=== PATIENT | female | born 1960 | race Caucasian/White ===

== ENCOUNTER 2017-04-03 17:20 | Inpatient (IN) | payer BC, SELFPAY ==
[~2017-04-03 17:20] MED LIST: ISOVUE-370 76%-LOCM 1 ML ONE
[2017-04-03 17:59] LABS: #Basophils 0.1 thou/uL (0.0-0.2); #Eosinphils 0.2 thou/uL (0.0-0.7); #Lymphocytes 3.8 thou/uL (1.20-3.40); #Monocytes 0.6 thou/uL (0.11-0.59); #Neutrophils 5.9 thou/uL (1.40-6.50); %Basophils 0.8 % (0.0-1.0); %Eosinophils 1.6 % (0.0-10.0); %Lymphocytes 35.7 % (21.0-51.0); %Monocytes 5.9 % (0.0-10.0); Hematocrit 44.5 % (36.0-47.0); Mean Platelet Volume 9.4 fL (7.4-10.4); Red Blood Cell (RBC) Count 4.68 mill/uL (4.20-5.40); White Blood Cell (WBC) Count 10.6 thou/uL (4.8-10.8)
[2017-04-03 18:23] LABS: ALT (SGPT) 34 U/L (8-55); AST (SGOT) 29 U/L (5-34); Alkaline Phosphatase 66 U/L (40-150); Anion Gap 9 mmol/L (10-20); BUN (Urea Nitrogen) 15 mg/dL (9.8-20.1); Bilirubin, Total 0.4 mg/dL (0.2-1.2); Calc. Creatinine Clearance 0 mL/min (70-130); Calcium 9.6 mg/dL (7.8-10.44); Carbon Dioxide 30 mmol/L (22-29); Chloride 103 mmol/L (98-107); Estimated GFR-MDRD 55; Globulin 3.1 g/dL (2.4-3.5); Lipase 98 U/L (8-78)
[2017-04-03] MEDS ORDERED: Acetaminophen 500 MG TAB ONE (20:55)
[2017-04-03] MEDS ORDERED: Ondansetron HCl/PF 4 MG/2 ML Vial ONE ×2 (21:07→21:56)
--- NOTE | 2017-04-03 22:17 | CT ---
CT ABDOMEN WITH CONTRAST CT PELVIS WITH CONTRAST: DATE: 04/03/17 TIME: 9:32 p.m. HISTORY: 56-year-old female with acute pancreatitis and epigastric pain. Nausea and emesis. COMPARISON: CT of 02/27/17. TECHNIQUE: IV injection of iodinated contrast media: Isovue Oral contrast media: Not administered. FINDINGS: Diffusely low hepatic attenuation represents fatty liver. Liver is enlarged. Spleen is 14 x 7.5 x 11 .5 cm. Extensive calcified and noncalcified plaque with irregularity, but without aneurysm, involvin g abdominal aorta. Appendix not visualized. Clips in the gallbladder fossa. Again demonstrated is th e dilation of the pancreatic duct, at the head and body of the pancreas, up to 7 mm in caliber. At t he body of the pancreas, there is an approximately 1.5 x 1.5 x 1.5 cm low attenuation lesion, with l obular margins, with fluid attenuation (axial image 26 of 90, series 2; coronal image 66 of 179, ser ies 601). The appearance is unchanged compared to 02/27/17. No peripancreatic fat stranding, and no ex trapancreatic pseudocyst. No hydronephrosis bilaterally. Normal adrenals. Nonspecific diffuse mild mural thickening of the urinary bladder, similar to previous CT. No free fluid or free air within th e abdominal cavity or pelvic cavity. Multiple diverticula in sigmoid colon without signs of acute di verticulitis. No small bowel dilation. No major interval change. No fat stranding around the pancrea s. Nonspecific mildly enlarged isidro hepatis lymph nodes. IMPRESSION: 1. A small hypodense lesion in the body of the pancreas. This is nonspecific, but one possibili ty is a cystic pancreatic neoplasm. 2. Pancreatic ductal dilation. 3. Hepatic steatosis. 4. Hepatomegaly. 5. Borderline splenomegaly. 6. Atherosclerotic disease of the abdominal aorta. 7. Status post cholecystectomy and perhaps status post appendectomy. 8. No significant interval change compared to 03/09/17. MANI Hope POS: JOSSY
[2017-04-04] MEDS ORDERED: Fentanyl 100 MCG/2 ML VIAL ONE (00:53)
[2017-04-04 02:07] VITALS: BMI 43.4
[2017-04-04] MEDS ORDERED: Dextrose 5% in Water 1,000 ML IV PRN (02:44)
[2017-04-04] MEDS ORDERED: HumaLOG 300 UNITS/3 ML VIAL SC PRN (02:44)
[2017-04-04] MEDS ORDERED: Dextrose 50% Abboject 50 ML SYRINGE SLOW IVP PRN (02:44)
[2017-04-04] MEDS: Morphine Sulfate 2 MG/ML SYRINGE SLOW IVP PRN ×3 (03:35→17:07)
--- NOTE | 2017-04-04 04:01 | HP-2 ---
CODE STATUS: FULL. PRIMARY CARE PHYSICIAN: Dr. Barcenas. ATTENDING: Dr. Camara. PGY-1: Dr. Blanton. CHIEF COMPLAINT: Nausea, vomiting, abdominal pain. HISTORY OF PRESENT ILLNESS: This is a 56-year-old female who presents with nausea, vomiting, abdomi nal pain for 3 months. She states that she has previously admitted for the same type of symptoms. She states she had a history of gallstones and chronic pancreatitis in the past as well. She also d escribes the pain as a 6/10 over epigastrium, worse on the left side, but does not radiate anywhere. She states she is nauseous all the time and has vomited multiple times as well. She denies any ja undice episodes. She has no other complaints at this time. PAST MEDICAL HISTORY: Significant for breast cancer, melanoma, coronary artery disease, diabetes me llitus, hyperlipidemia, hypertension, obesity, chronic pancreatitis, bipolar and depression. PAST SURGICAL HISTORY: Significant for hysterectomy, oophorectomy, bilateral lumpectomy and left kn ee surgery. ALLERGIES: Include ADHESIVES, BACTRIM, CODEINE, HYDROCODONE, NSAIDs, SULFA DRUGS, and TRAMADOL. MEDICATIONS: Include gabapentin 900 mg b.i.d., furosemide 40 mg, glargine 80 units b.i.d., lisinopr il 5 mg, isosorbide mononitrate 60 mg t.i.d., paroxetine 20 mg, Risperdal 0.5 mg, fenofibrate 160 mg , clopidogrel 75 mg. She was also given Zofran and meperidine, but she was unaware of the dosages o f those. FAMILY HISTORY: She had extensive cancer history in her maternal side including lung cancer in her mother and colon cancer in her uncle. SOCIAL HISTORY: She has a [id number] smoking history and still currently smoking 1 pack per day. She denies alcohol or drug use. REVIEW OF SYSTEMS: General: She denies fevers or chills. She does admit to a 20 pound weight loss over the last 3 months. Denies night sweats, or fatigue. Eyes: She denies vision changes or eye pain. ENT: She admits to nasal congestion from her seasonal allergies. She denies rhinorrhea, or sore throat. Respiratory: She denies cough, congestion, shortness of breath, exercise intolerance. Cardiovascular: She denies chest pain, palpitations, edema. Gastrointestinal: She admits to nausea and vomiting. She denies diarrhea or constipation. She oneal s admit to abdominal pain. Genitourinary: Denies any incontinence or dysuria. Skin: She denies r ashes, lesions, jaundice, itching. Musculoskeletal: She admits to pain, tenderness, stiffness, and swelling to her knees. Neurologic: She denies any weakness. She does note numbness in her hands from a previous back injury. Psychiatric: She denies any anxiety or depression. PHYSICAL EXAMINATION: VITAL SIGNS: Blood pressure was 125/71, pulse is 52, respiration 16, temperature max 98.2, pulse ox 99% on room air. Current weight is 111 kilograms. GENERAL: She is alert and oriented x4. She is obese, appropriately interactive. EYES: PERRLA. Conjunctivae within normal limits. ENT: Nasal mucosa and oropharynx within normal limits. NECK: Supple, without lymphadenopathy, thyromegaly, or bruit. CARDIOVASCULAR: Regular rate and rhythm. No murmurs, no gallops. Radial pulses and pedal pulses a re equal bilaterally. RESPIRATORY: Normal effort, no retractions. LUNGS: Clear to auscultation bilaterally. SKIN: Warm and dry. ABDOMEN: Soft. She was tender to palpation especially over epigastrium, worse on her left side. B owel sounds are present x4 and her liver was palpable. EXTREMITIES: She did not have any clubbing, cyanosis or edema. MUSCULOSKELETAL: Structure, tone, muscle strength and range of motion were within normal limits. NEUROLOGIC: No focal neurologic deficits. Cranial nerves II through XII are grossly intact. GCS w as 15. PSYCHIATRIC: She was appropriate. LABORATORY DATA AND IMAGING: White blood cell count 10.6, platelet count 168, hemoglobin 14.4, jermain tocrit 44.5, MCV 95, 55.9% neutrophils. Sodium 138, potassium 3.9, chloride 103, bicarbonate 30, BU N 15, creatinine 1.04, glucose was 111, calcium 9.6, total protein 7.0, albumin 3.9, total bilirubin 0.4, AST 29, ALT 34, alkaline phosphatase is 66. Lipase was 98. CT of her abdomen that showed a s mall hypodense lesion in the body of her pancreas, pancreatic ductal dilation, hepatic steatosis, he patomegaly and splenomegaly. ASSESSMENT AND PLAN: This is a 56-year-old female with a past medical history of coronary artery di sease, diabetes mellitus, hypertension, hyperlipidemia, obesity, chronic pancreatitis, bipolar depre ssion, breast cancer and melanoma, presents with: 1. Abdominal pain secondary to a pancreatic lesion versus chronic pancreatitis. We are going to gi ve her pain control with morphine. We are going to get a consult for biopsy, the best way to biopsy this lesion. We are going to trend cardiac enzymes and get an EKG just to rule out any atypical pr esentations of cardiac etiology. 2. Nausea and vomiting. We will give Zofran and Phenergan. 3. Weight loss. We are going to monitor her diet and monitor that going forward. 4. Coronary artery disease. Continue her home medications. 5. Diabetes. We will continue her home medication and give her a sliding scale. 6. Hyperlipidemia. Continue her home medications. 7. Hypertension. Continue her home medications. 8. Bipolar depression. Continue her home medications. 9. Tobacco abuse. We did advise her to quit, she did not want to use the nicotine patch. 10. Hepatomegaly was found. We will monitor that going forward. Disposition and length of hospital stay will be inpatient and greater than 2 midnights. Symptomatic medications will be provided. History and physical exam as well as management will be discussed with Dr. Camara.
[2017-04-04 04:06] LABS: #Basophils 0.1 thou/uL (0.0-0.2); #Eosinphils 0.2 thou/uL (0.0-0.7); #Lymphocytes 4.6 thou/uL (1.20-3.40); #Monocytes 0.6 thou/uL (0.11-0.59); %Basophils 0.5 % (0.0-1.0); %Eosinophils 2.2 % (0.0-10.0); %Lymphocytes 43.7 % (21.0-51.0); %Monocytes 5.3 % (0.0-10.0); Hematocrit 44.7 % (36.0-47.0); Mean Platelet Volume 9.2 fL (7.4-10.4); White Blood Cell (WBC) Count 10.4 thou/uL (4.8-10.8)
[2017-04-04 04:30] LABS: Troponin I Less than 0.010 ng/mL (< 0.028)
[2017-04-04 04:31] LABS: Anion Gap 12 mmol/L (10-20); BUN (Urea Nitrogen) 15 mg/dL (9.8-20.1); Calc. Creatinine Clearance 120 mL/min (70-130); Calcium 9.2 mg/dL (7.8-10.44); Carbon Dioxide 24 mmol/L (22-29); Chloride 106 mmol/L (98-107); Estimated GFR-MDRD 62
[2017-04-04] MEDS ORDERED: Insulin Detemir 100 UNITS/ML 80 UNITS in Pre-Filled Syringe 1 EACH SC SCH (09:00)
[2017-04-04] MEDS ORDERED: Famotidine 20 MG TAB PO SCH (09:00)
[2017-04-04] MEDS ORDERED: INSULIN GLARGINE HUM REC ANLOG 80 UNIT SC SCH (09:00)
[2017-04-04] MEDS: Fish Oil 1,000 MG CAP PO SCH ×2 (10:09→17:05)
[2017-04-04] MEDS: Furosemide 40 MG TAB PO SCH (10:10)
[2017-04-04] MEDS: Fenofibrate Nanocrystallized 145 MG TAB PO SCH (10:10)
[2017-04-04] MEDS: Gabapentin 300 MG CAP PO SCH ×2 (10:10→21:12)
[2017-04-04] MEDS: Isosorbide Mononitrate 20 MG TAB PO SCH ×3 (10:11→21:10)
[2017-04-04] MEDS: Metoprolol Tartrate 25 MG TAB PO SCH ×2 (10:13→21:14)
[2017-04-04] MEDS: Lisinopril 5 MG TAB PO SCH (10:15)
--- NOTE | 2017-04-04 17:45 | HP ---
I have reviewed the history and physical of Dr. Blanton and agree with his assessment and plan. CHIEF COMPLAINT: Nausea, vomiting, abdominal pain. HISTORY OF PRESENT ILLNESS: Ms. Ang is a 56-year-old female patient who has had intermittent abdominal pain for the last 3 months. She has been admitted again with epigastric pain, nausea, and vomiting. CT scan does show suspicious for pancreatic lesion, which needs to be worked up. PHYSICAL EXAMINATION: VITAL SIGNS: Her blood pressure is 120/70, her pulse rate is 56, respirations 18. She is afebrile. GENERAL: She is awake, alert, obese, but no distress. HEENT: Normal. NECK: Supple. CARDIAC: PMI is in the fifth intercostal space. No gallop or murmur noted. LUNGS: Clear without rales or wheezes. ABDOMEN: Epigastric tenderness without guarding or rebound. EXTREMITIES: No edema. NEUROLOGIC: No focal deficits. LABORATORY DATA: CBC: White count is 10,600, hemoglobin 14.4, hematocrit 44.5. Chemistries: [place] um 138, potassium 3.9, chloride 103, bicarbonate 30, BUN 15, creatinine 1.04. Her liver enzymes are normal. Lipase slightly elevated at 98. Abdominal CT shows a small hypodense lesion in the body o f the pancreas. It is described as nonspecific, but one possibility is a cystic pancreatic neoplasm . There is also pancreatic ductal dilatation. ASSESSMENT: Abdominal pain with evidence of pancreatic lesion. PLAN: We will consult GI for further evaluation and workup.
[2017-04-04] MEDS: Sodium Chloride 0.9% 1,000 ML IV SCH (18:19)
[2017-04-04] MEDS: Ondansetron HCl/PF 4 MG/2 ML Vial IVP PRN (18:19)
[2017-04-04] MEDS ORDERED: PARoxetine 20 MG TAB PO SCH (21:00)
[2017-04-04] MEDS ORDERED: risperiDONE 1 MG TAB PO SCH (21:00)
[2017-04-04] MEDS ORDERED: Magnesium Oxide 250 MG TAB PO SCH (21:00)
[2017-04-04] MEDS ORDERED: Cetirizine HCl 10 MG TAB PO SCH (21:00)
[2017-04-04] MEDS ORDERED: Atorvastatin Calcium 10 MG TAB PO SCH (21:00)
[2017-04-05 03:49] LABS: #Eosinphils 0.1 thou/uL (0.0-0.7); #Lymphocytes 2.7 thou/uL (1.20-3.40); #Monocytes 0.6 thou/uL (0.11-0.59); #Neutrophils 7.2 thou/uL (1.40-6.50); %Basophils 0.4 % (0.0-1.0); %Lymphocytes 25.3 % (21.0-51.0); Hematocrit 42.7 % (36.0-47.0); Mean Platelet Volume 9.4 fL (7.4-10.4); Red Blood Cell (RBC) Count 4.49 mill/uL (4.20-5.40); White Blood Cell (WBC) Count 10.7 thou/uL (4.8-10.8)
[2017-04-05 04:06] LABS: Anion Gap 9 mmol/L (10-20); BUN (Urea Nitrogen) 18 mg/dL (9.8-20.1); Calc. Creatinine Clearance 118 mL/min (70-130); Calcium 9.1 mg/dL (7.8-10.44); Carbon Dioxide 30 mmol/L (22-29); Chloride 107 mmol/L (98-107); Estimated GFR-MDRD 61
[2017-04-05] MEDS: Sodium Chloride 0.9% 1,000 ML IV SCH (06:02)
[2017-04-05] MEDS ORDERED: Morphine Sulfate 2 MG/ML SYRINGE SLOW IVP PRN (06:03)
[2017-04-05] MEDS: Ondansetron HCl/PF 4 MG/2 ML Vial IVP PRN (06:17)
--- NOTE | 2017-04-05 06:56 | PDOC.FM ---
- Subjective Subjective: Pt doing fine this morning. Pain being well controlled. Denies any other concerns or complaints at this time. - Objective MAR Reviewed: Yes Vital Signs & Weight: Vital Signs (12 hours) Temp Pulse Resp BP Pulse Ox 04/04/17 19:53 98.2 F 66 18 93 L 04/04/17 19:51 98.2 F 66 18 103/57 L 93 L Weight Admit Weight 111.13 kg Weight 111.13 kg Result Diagrams: 04/05/17 03:24 04/05/17 03:24 Phys Exam - Physical Examination HEENT: moist MMs, oral pharynx no lesions Neck: no nodes Respiratory: no wheezing, no rales, no rhonchi, clear to auscultation bilateral Cardiovascular: RRR, no significant murmur, no rub Gastrointestinal: soft, non-tender, no distention Musculoskeletal: no edema Neurological: non-focal, normal sensation Lymphatic: no nodes Psychiatric: normal affect, A&O x 3 Dx/Plan (1) Chronic pancreatitis Code(s): K86.1 - OTHER CHRONIC PANCREATITIS Status: Acute (2) Bipolar disorder Code(s): F31.9 - BIPOLAR DISORDER, UNSPECIFIED Status: Chronic Qualifiers: Active/Remission status: remission status unspecified Qualified Code(s): F31.9 - Bipolar disorder, unspecified (3) CAD (coronary artery disease) Code(s): I25.10 - ATHSCL HEART DISEASE OF [place] CORONARY ARTERY W/O ANG PCTRS Status: Chronic Qualifiers: Coronary Disease-Associated Artery/Lesion type: [place] artery [place] vs. transplanted heart: [place] heart Associated angina: angina presence unspecified Qualified Code(s): I25.10 - Atherosclerotic heart disease of [place] coronary artery without angina pectoris (4) Diabetes mellitus type 2 in obese Code(s): E11.9 - TYPE 2 DIABETES MELLITUS WITHOUT COMPLICATIONS; E66.9 - OBESITY , UNSPECIFIED Status: Chronic (5) Hyperlipidemia Code(s): E78.5 - HYPERLIPIDEMIA, UNSPECIFIED Status: Chronic Qualifiers: Hyperlipidemia type: unspecified Qualified Code(s): E78.5 - Hyperlipidemia , unspecified (6) Hypertension Code(s): I10 - ESSENTIAL (PRIMARY) HYPERTENSION Status: Chronic Qualifiers: Hypertension type: essential hypertension Qualified Code(s): I10 - Essential (primary) hypertension (7) Tobacco abuse Code(s): Z72.0 - TOBACCO USE Status: Chronic (8) Weight loss Status: Acute (9) Nausea & vomiting Code(s): R11.2 - NAUSEA WITH VOMITING, UNSPECIFIED Status: Acute - Plan Plan: Chronic Pancreatitis w/ pancreatic lesion -GI consulted Dr. Koo, await recs -pt states plan for today is EGD -Continue current pain management Nausea and Vomitting -Zofran and phenegran, continue to monitor Weight Loss -Diabetic Diet, continue to monitor CAD -continue home meds Diabetes -Mild SSI, continue home meds -Accuchecks AC/HS Hyperlipidemia -Continue home meds HTN -continue home meds Bipolar Depression -Continue home meds Tobacco Abuse -Counselled on cessation
--- NOTE | 2017-04-05 07:06 | CON ---
DATE OF CONSULTATION: 04/04/2017 REASON FOR CONSULTATION: Chronic pancreatitis. HISTORY OF PRESENT ILLNESS: Ms. Ang is a 56-year-old female who was admitted to the hospital on 03/01/2017 when she had represented to the emergency room with some left upper abdominal pain. S he had been here with that recently as an admission from 02/20 to 02/28. At that time, she was foun d to have fatty liver and borderline splenomegaly, mildly elevated lipase. A CAT scan, at that time , showed a prominent proximal common bile duct. She was treated with narcotics through hospital [facility], ultimately discharged to home on a diabetic, heart-healthy diet, gabapentin, furosemide, insulin, lisinopril, isosorbide, paroxetine, Risperdal, fenofibrate, and Plavix. She returns now with zechariah flores the same complaints and has pain in the left upper quadrant and across the mid abdomen, band- like fashion with chronic and achy. She reports that this is similar to her chronic pancreatitis. She reports that her chronic pancreatitis is from an episode of severe pancreatitis from gallstones at which time her bile duct was damaged. She has nausea quite a bit. She denies any fever or chill s. She reports some weight loss and loose stools at times. PAST MEDICAL HISTORY: Breast cancer, , coronary artery disease, diabetes, hyperlipidemia, hype rtension, obesity, chronic pancreatitis, bipolar depression. PAST SURGICAL HISTORY: Includes hysterectomy, nephrectomy, bilateral lumpectomy, and left knee surg jeffrey as well as the appendectomy. ALLERGIES: ADHESIVES, BACTRIM, CODEINE, HYDROCODONE, NSAIDs, SULFA DRUGS, and TRAMADOL. HOME MEDICATIONS: Gabapentin, furosemide, lisinopril, isosorbide mononitrate, paroxetine, fenofibra te, Risperdal, Plavix. SOCIAL HISTORY: She smokes a pack per day. She denies alcohol use. PRESENT MEDICATIONS: Include Lipitor, Zyrtec, Pepcid, TriCor, fenofibrate, Lasix 40, gabapentin, gl ucagon, insulin, Humalog, magnesium oxide, Lopressor, morphine, Protonix, Paxil, Phenergan, Risperda l. PHYSICAL EXAMINATION: GENERAL: She is resting on the bed. She is actually sleeping when I came in, had an empty food tra y by her bed. VITAL SIGNS: Temperature is 98, pulse 57, blood pressure 166/75. She is overweight. LUNGS: Clear. HEART: Regular rate and rhythm without clicks or murmurs. ABDOMEN: Soft, mildly tender with no rebound or guarding in the upper abdomen. There is no palpabl e hepatosplenomegaly. EXTREMITIES: No clubbing, cyanosis, or edema. LABORATORY AND IMAGING STUDIES: White count 10.4, hemoglobin 14, platelet count 147. Chemistry: S odium is 138, potassium 4.1, BUN and creatinine are 12 and 0.9, glucose 76, hemoglobin A1c was 8.1 o n 02/28/2017, AST and ALT are 29 and 34 with alkaline phosphatase 66, bilirubin 0.4 on 04/03/2017. Her lipase is 98 and it is typically in the last year between [address] scan of the abdomen an d pelvis were performed again this hospitalization and show dilated distal common bile duct in the h ead of the pancreas region, a small hypodense lesion in the head of the pancreas region and hepatome clif[place] and hepatic steatosis, borderline splenomegaly. Other labs, her triglycerides were 294 on 02/2017. ASSESSMENT: 1. Chronic pancreatitis reportedly from complications of severe biliary pancreatitis about 20 years ago. 2. Left lower quadrant upper abdominal pain likely related to her chronic pancreatitis. Differenti al diagnosis would include functional pain related to gastroparesis with elevated hemoglobin A1c. T here are no changes of acute pancreatitis on CAT scan. 3. Diabetes, poorly controlled with hemoglobin A1c greater than 9. 4. Cystic lesion in the head of the pancreas region, it is unclear. This could be a pseudocyst, al though it is new, a neoplasia needs to be ruled out and that will require endoscopic ultrasound that is not available at this facility. RECOMMENDATIONS: 1. I will make her n.p.o. If her symptoms persist, we can consider an upper endoscopy this admissi on, as I see nothing really overtly on her CAT scan that would cause pain. It will be reasonable to start her on some pancreatic enzymes. Her diabetes needs to be well controlled. The patient will ultimately need to have an EUS of the pancreaa, but that can be either obtained by [facility] where that is available as an inpatient or having her follow up there as an outpatient. Following up in the outpatient would be difficult as she states she has difficulty with insurance i n outpatient settings requiring her to cover 100% in terms of not kicking in. 2. At this time, I did not see any usefulness to ERCP. She may benefit from ERCP and pancreatic du ct stenting, but again, this is not something that is offered as an advance endoscopic procedure davalos creatic work here at this facility by our rodbuster and would need to be seen at the [facility] for that. 3. We would also go ahead and place her on a PPI and some H2 melchor, would recommend smoking cessa tion as this can irritate and exacerbate chronic pancreatitis.
[2017-04-05] MEDS: Fish Oil 1,000 MG CAP PO SCH (08:31)
[2017-04-05] MEDS: Fenofibrate Nanocrystallized 145 MG TAB PO SCH (08:31)
[2017-04-05] MEDS: Furosemide 40 MG TAB PO SCH (08:32)
[2017-04-05] MEDS: Isosorbide Mononitrate 20 MG TAB PO SCH (08:32)
[2017-04-05] MEDS: Gabapentin 300 MG CAP PO SCH (08:32)
[2017-04-05] MEDS: Lisinopril 5 MG TAB PO SCH (08:32)
[2017-04-05] MEDS: Metoprolol Tartrate 25 MG TAB PO SCH (08:33)
[2017-04-05] MEDS ORDERED: Pantoprazole 40 MG VIAL IVP SCH (09:00)
[2017-04-05] MEDS ORDERED: Dextrose 50% Abboject 50 ML SYRINGE ONE (09:25)
[2017-04-05] MEDS ORDERED: Lidocaine 1% PF 5 ML VIAL ONE (09:58)
[2017-04-05] MEDS ORDERED: Propofol 200 MG/20 ML VIAL ONE (09:58)
[2017-04-05 10:01] VITALS: TEMP 98.8
[2017-04-05] MEDS ORDERED: Promethazine HCl 25 MG/ML VIAL SLOW IVP PRN (10:12)
[2017-04-05] MEDS ORDERED: Ondansetron HCl/PF 4 MG/2 ML Vial IVP PRN (10:12)
[2017-04-05] MEDS ORDERED: Promethazine HCl 25 MG/ML VIAL IM PRN (10:12)
[2017-04-05 10:48] VITALS: BP 139/69
[2017-04-05] MEDS ORDERED: Pancrelipase DR 12000 1 CAP PO SCH (12:00)
--- NOTE | 2017-04-05 14:48 | PRG ---
DATE OF SERVICE: 04/05/2017 Ms. Ang just returned from her endoscopy. She is in no distress. The official report has not yet returned, but she states that there were findings of gastritis. It has been recommended that s russell have an endoscopic ultrasound, which was not performed at [facility]. She will through her PCP srinivasa Aguila for this test needed and evaluation of her pancreatic mass. In any event, anabell barger is ready for discharge from our institution and we will follow up with her PCP.
--- NOTE | 2017-04-05 17:35 | OP ---
PREOPERATIVE DIAGNOSIS: Abdominal pain, epigastric left upper quadrant. POSTOPERATIVE DIAGNOSIS: Mild antral gastritis, biopsied doubt cause of pain. PROCEDURE: Esophagogastroduodenoscopy with biopsy. ANESTHESIA: TIVA. RECOMMENDATIONS: 1. Change PPI to p.o., low fat diet, and pancreatic enzymes for pain. 2. With regard to pancreatic mass and chronic pancreatitis, the patient needs referral to an outsid e facility where EUS is available. It is not available here. With her insurance difficulties, I pr obably not going to be able to get her referred in the outpatient setting and it might be best for [facility] to be transferred directly as an inpatient possibly to one of her sister's facilities at [facility] in [facility] where EUS is available, we will defer this to primary service. PROCEDURE IN DETAIL: After the patient was informed of the risks, benefits, possible complications of endoscopy including perforation, bleeding, reactions to medication and aspiration, informed conse nt was obtained. The patient brought to endoscopy suite where she was sedated in gradual fashion. Once she was comfortable, a bite block was placed in incisural orifice. The endoscope was advanced through the esophagus, stomach, and second and third portion of duodenum and slowly removed. There was good visualization of mucosa. The esophagus was normal. There is small hiatal hernia with no e vidence of erosions or inflammation. The stomach was normal except for some very mild nodular gastr itis in the antrum and biopsies were obtained and submitted to Pathology. Retroflexed views in the stomach were normal. The duodenum was normal to the third portion. The scope was removed. The pat ient tolerated the procedure well with no complications.
--- NOTE | 2017-04-08 22:56 | DIS-2 ---
DATE OF ADMISSION: 04/04/2017 DATE OF DISCHARGE: 04/05/2017 ADMISSION ATTENDING: Dr. Camara. DISCHARGE ATTENDING: Dr. Camara. RESIDENT: Benoit Galeano M.D. CONSULTATIONS: GI, Dr. Koo. PROCEDURES DONE: EGD was done on 04/05/2017. Pelvis CT showed: 1. A small hypodense lesion in the body of pancreas. This is nonspecific, but one possibility is a cystic pancreatic neoplasm. 2. Pancreatic ductal dilatation. 3. Hepatic steatosis. 4. Hepatomegaly. 4. Borderline splenomegaly. 5. Arthrosclerotic disease of the abdominal aorta. 6. Status post cholecystectomy. 7. Status post appendectomy. 8. No significant interval change compared to 03/09/2017. DISCHARGE MEDICATIONS: New ones were famotidine 20 mg, Ondansetron [address] 12,000 four caps p.o. t.i.d. and then she was sent home on other home medications, clopidogrel 75 mg, cetir izine 10 mg, fenofibrate 160 mg, furosemide 40 mg, gabapentin 300 mg, insulin 80 units subcu daily, isosorbide mononitrate 20 mg, lisinopril 5 mg, lovastatin 40 mg, magnesium 250 mg tablet, metoprolol tartrate 25 mg, qopci-6-Esdr Ethyl Esters 1 gram, omeprazole 20 mg, and paroxetine 20 mg, potassium 99 mg p.o., Risperdal 0.5 mg. DISCONTINUED MEDICATIONS: There were no discontinued medications at this visit. DIAGNOSES: 1. Chronic pancreatitis. 2. Gastritis. 3. Bipolar disorder. 4. Coronary artery disease. 5. Diabetes mellitus type 2. 6. Hypertension. 7. Hyperlipidemia. 8. Tobacco abuse. 9. Weight loss. 10. Nausea and vomiting. HISTORY OF PRESENT ILLNESS AND BRIEF HOSPITAL COURSE: This is a 56-year-old female who presented wi th nausea, vomiting, abdominal pain for 3 months. She was admitted for the symptoms previously abou t a month ago. She is reported to have chronic pancreatitis, reports the pain in the epigastrium ar ea and worse on the left side. Denies any jaundice episodes, just having severe nausea and vomiting and reported having some weight loss. At this time, on the CT abdomen, a pancreatic lesion was debra pected neoplasm which was new from the previous admission, so we decided to consult GI for possible exploration. Dr. Koo at this time recommended getting EGD, he also recommended that she would ne ed a special procedure to visualize the pancreas in which they do not do at [facility] and so Dr. Koo recommended that patient be referred to a different hospital where they can workup the lesion on the chronic pancreatitis further. She needs an EUS and needs to go somewhere that is sabiha ilable and she was found on the EGD to have some mild nodular gastritis in which a biopsy was taken and Dr. Koo recommended to change PPI and added pancreatic enzymes for pain. At this time since she would need further workup outpatient, we decided to discharge her home as her pain was being wel l controlled and I did switch her medication and told her she needed to follow up with her primary c are doctor and get set up for the EUS as recommended by GI. DISPOSITION: Patient is stable. She will be discharged to home. ACTIVITY: Her activity as tolerated. DIET: Her diet is a diabetic diet and heart healthy diet. FOLLOWUP: Recommend she follow up with Dr. Barcenas within a week to get set up for outpatient EUS.
== END 2017-04-05 12:45 | disposition home or self-care (01) | DRG 439 ==
LOC: ERS 17:20 → ONC 04-04 01:15
PROVIDERS: ADMIT Family Medicine; ATTEND Family Medicine
PROC: 0DB68ZX Excision of Stomach, Via Natural or Artificial Opening Endoscopic, Diagnostic (ICD-10-PCS; principal; 2017-04-05)
DX: K86.1 Other chronic pancreatitis (principal); Z68.41 Body mass index [BMI] 40.0-44.9, adult; E11.22 Type 2 diabetes mellitus with diabetic chronic kidney disease; N18.3 Chronic kidney disease, stage 3 (moderate); F31.9 Bipolar disorder, unspecified; I25.10 Atherosclerotic heart disease of native coronary artery without angina pectoris; I12.9 Hypertensive chronic kidney disease with stage 1 through stage 4 chronic kidney disease, or unspecified chronic kidney disease; Z79.4 Long term (current) use of insulin; E78.5 Hyperlipidemia, unspecified; F17.210 Nicotine dependence, cigarettes, uncomplicated; E66.9 Obesity, unspecified; K29.70 Gastritis, unspecified, without bleeding; K44.9 Diaphragmatic hernia without obstruction or gangrene; Z85.3 Personal history of malignant neoplasm of breast; Z85.820 Personal history of malignant melanoma of skin; Z88.1 Allergy status to other antibiotic agents; Z88.5 Allergy status to narcotic agent; Z88.2 Allergy status to sulfonamides; Z88.8 Allergy status to other drugs, medicaments and biological substances; Z91.048 Other nonmedicinal substance allergy status
CPT/HCPCS: 36415; 36416; 74177; 80048; 80053; 82553; 83690; 84484; 85025; 88305; 88312; 93005; 93010; 96361; 96374; 96375; 96376; A4216; J1170; J1815; J2001; J2270; J2405; J2704; J3010

== ENCOUNTER 2017-08-25 13:34 | Observation (INO) | payer BC ==
[2017-08-25 14:50] LABS: Troponin I Less than 0.010 ng/mL (< 0.028)
--- NOTE | 2017-08-25 14:52 | PDOC.FPRHP ---
- History of Present Illness Chief Complaint: Chest pain History of Present Illness: 56 yo F w/ PMH including DM2, PR x 2, last stent placement 10 yr ago, chronic pancreatitis, HLD, and HTN comes into the ED for evaluation of chest pain. She states that the chest pain started about 9am this morning while she was at work. She describes it as a crushing left-sided chest pain which radiated to the L neck and L arm. The pain was worse with walking. It was improved with resting and nitroglycerin. Pain is currently 3/10. She states she was having shortness of breath but denies diaphoresis. She had a cath with Dr. Aguilar , showed 50% occulsion of LAD, single vessel disease. ED Course: After elevated D-dimer patient had CTA in outside ED which showed no PE - Allergies/Adverse Reactions Allergies Allergy/AdvReac Type Severity Reaction Status Date / Time adhesive Allergy Verified 07/22/16 20:39 codeine Allergy Verified 07/22/16 20:39 hydrocodone Allergy Verified 07/22/16 20:39 levofloxacin [From Levaquin] Allergy Verified 08/25/17 16:08 NSAIDS (Non-Steroidal Allergy Verified 07/22/16 20:39 Anti-Inflamma Sulfa (Sulfonamide Allergy Verified 11/27/16 02:28 Antibiotics) trimethoprim [From Bactrim] Allergy Verified 08/25/17 16:08 tramadol AdvReac Mild ITCHING Verified 02/28/17 08:03 - Home Medications Medication Instructions Recorded Confirmed Type Cetirizine HCl [Zyrtec] 10 mg PO HS 07/22/16 04/04/17 History Clopidogrel Bisulfate [Clopidogrel] 75 mg PO DAILY 07/22/16 04/04/17 History Fenofibrate [Tricor] 160 mg PO DAILY 07/22/16 04/04/17 History Furosemide 40 mg PO DAILY 07/22/16 04/04/17 History Gabapentin 900 mg PO BID 07/22/16 04/04/17 History Insulin Glargine,Hum.Rec.Anlog 80 units SC DAILY 07/22/16 04/04/17 History [Tourenita Solostar] Isosorbide Mononitrate 60 mg PO TID 07/22/16 04/04/17 History Lisinopril 5 mg PO DAILY 07/22/16 04/04/17 History Magnesium 250 mg PO HS 07/22/16 04/04/17 History [place]-3 Acid Ethyl Esters [Lovaza] 2 gm PO BID 07/22/16 04/04/17 History Omeprazole 20 mg PO BID 07/22/16 04/04/17 History PARoxetine HCl [Paroxetine HCl] 20 mg PO HS 07/22/16 04/04/17 History Potassium 99 mg PO HS 07/22/16 04/04/17 History risperiDONE [Risperidone] 0.5 mg PO HS 07/22/16 04/04/17 History Lovastatin 40 mg PO QPM-WM #30 tablet 11/27/16 04/04/17 Rx Metoprolol Tartrate [Lopressor] 12.5 mg PO BID 02/28/17 04/04/17 History Famotidine 20 mg PO BID #60 tablet 04/05/17 Rx Ondansetron HCl [Zofran] 4 mg PO Q4HR PRN #30 tab 04/05/[address] [place] [address] [Creon [address] 4 cap PO TID-WM #30 cap 04/05/17 Rx 12,000 Units] - History PMHx: MIx2, chronic pancreatitis, HTN, HLD, CKD, PSHx: Hysterectomy w/ bilateral oopherectomy, L knee surgery FHx: Mother with Cardiomyopathy and pulm HTN Social: 2ppd for 40 years, no alcohol, no drugs, works at [employer] - Review of Systems General: reports: fatigue. denies: fever/chills Eyes: reports: vision changes (when her blood sugar is abnormal). denies: eye pain ENT: denies: nasal congestion, rhinorrhea Respiratory: reports: cough, shortness of breath (2/2 to allergies per patient) Cardiovascular: reports: chest pain. denies: palpitation, edema Gastrointestinal: reports: nausea, vomiting, abdominal pain (chronic). denies: diarrhea, constipation Genitourinary: denies: dysuria, polyuria Skin: denies: rashes, lesions Musculoskeletal: reports: arthritis/arthralgias. denies: pain, tenderness Neurological: denies: numbness, weakness - Vital signs BP: [118/75] HR: [63] RR: [18] Tmax: [98.2] Pox: [96]% on [ra] Wt: [106] - Physical Exam Constitutional: NAD, awake, alert and oriented HEENT: normocephalic and atraumatic, EOMI, other (appearence of smoking) Neck: supple, FROM Heart: RRR, normal S1/S2, no murmurs/rubs/gallops, pulses present, no edema Lungs: CTAB, good air movement Abdomen: soft, non-tender, bowel sounds present Musculoskeletal: normal structure, normal tone Neurological: no focal deficit, CN II-XII intact Skin: no rash/lesions, capillary refill <2 seconds Heme/Lymphatic: no unusual bruising or bleeding Psychiatric: normal mood and affect FMR H&P: Results - EKG Interpretation EKG: normal rate, sinus rhythm, no axis deviation, QRS WNL, no ST elevation/ depression FMR H&P: A/P - Problem List (1) Chest pain, rule out acute myocardial infarction Current Visit: No Status: Acute Code(s): R07.9 - CHEST PAIN, UNSPECIFIED (2) Chronic pancreatitis Current Visit: No Status: Acute Code(s): K86.1 - OTHER CHRONIC PANCREATITIS (3) Hyperlipidemia Current Visit: No Status: Chronic Code(s): E78.5 - HYPERLIPIDEMIA, UNSPECIFIED Qualifiers: Hyperlipidemia type: unspecified Qualified Code(s): E78.5 - Hyperlipidemia , unspecified (4) Hypertension Current Visit: No Status: Chronic Code(s): I10 - ESSENTIAL (PRIMARY) HYPERTENSION Qualifiers: Hypertension type: essential hypertension Qualified Code(s): I10 - Essential (primary) hypertension (5) Tobacco abuse Current Visit: No Status: Chronic Code(s): Z72.0 - TOBACCO USE - Plan # Chest pain r/o - Cath in 07/23/16 shows 50% occlusion LAD, 2 vessels with 35% occlusion - typical chest pain, HEART score 5 - CTA negative - trend troponins - ASA, plavix, statin - Cardiology consulted # HTN - home meds # HLD - statin # DM2 - Home toujeo 80U q AM # Chronic Pancreatitis - gabapentin 900 mg BID - Lipase is 60 Dispo: home tomorrow pending stress test results FMR H&P: Upper Level - Pertinent history 56 yo CF w/ hx CAD s/p stent placement, HTN, HLD, DM2, and chronic pancreatitis presenting with chest pain that began acutely today at work. Pt describes exertional substernal sharp crushing pain that radiates to left shoulder and arm , that is improved by rest and nitroglycerin. She was walking at work when pain occurred. No episodes of CP over last few weeks besides today. - Pertinent findings Gen: obese, NAD CV: no reproducible TTP, RRR, good S1, S2 but mildly distant Resp: CTAB, no audible wheezing Abd: mild TTP RUQ and epigastrium, negative rivera's, no rigidity, no rebound Ext: negative Homans, no edema Psych: A&Ox3, normal affect EKG showed NSR rate of 72. mild ST depression in V5-V6 - Plan Date/Time: 08/25/17 1448 I, Sang Baca MD, have evaluated this patient and agree with findings/plan as outlined by rn intern resident. Pertinent changes/additions are listed here. 1. Typical CP likely secondary to CAD - pt has a hx CAD s/p stent placement with most recent cath in 03/2017 revealing 40-50% blockage of LAD. - pt describes this episode of her CP similar to previous cardiac related events - pt has a HEART score of 5 with Pam rule placing her at pretest possibility of 73% for cardiac event - trops neg x2, continue to trend. no significant EKG changes. - with typical CP, will consult cardiology, recs greatly appreciated - nitro and morphine PRN CP - pt already on plavix, continue - will obtain list of home medications from PCP office 2. Chronic Pancreatitis - normal lipase and does not seem to be abdominal pain or acute pancreatitis - pt had EUS at [facility] and has follow up already scheduled 3. HTN - home meds and monitor 4. DM2 - home meds, accuchecks and SSI 5. HLD - continue home statin 6. PPx - lovenox and protonix Disposition: Admit to observation and proceed with cardiology consult, recs greatly appreciated for possible catheterization. Attending Addendum - Attending Addendum Date/Time: 08/25/17 3240 I personally evaluated the patient and discussed the management with Dr. Simental on 08/25/17. I agree with the History, Examination, Assessment and Plan documented above with any addition or exceptions noted below. Patient with 3/3 Pam score, typical CP, with hx of CAD. Pt c/o 5/10 chest pain right now, will give morphine and nitro. Cardiac enzymes neg, EKG unremarkable. Cardiology consulted to consider cath.
[2017-08-25] MEDS ORDERED: HumaLOG 300 UNITS/3 ML VIAL SC PRN (16:00)
[2017-08-25] MEDS ORDERED: Dextrose 50% Abboject 50 ML SYRINGE SLOW IVP PRN (16:00)
[2017-08-25] MEDS ORDERED: Dextrose 5% in Water 1,000 ML IV PRN (16:00)
[2017-08-25] MEDS ORDERED: Acetaminophen 325 MG TAB PO PRN (16:00)
[2017-08-25] MEDS ORDERED: Ondansetron ODT 4 MG TAB PO PRN ×2 (16:00→16:07)
[2017-08-25 16:04] VITALS: BMI 42.3
[2017-08-25] MEDS ORDERED: Enoxaparin Sodium 40 MG/0.4 ML SYRINGE SC SCH (16:30)
[2017-08-25 17:33] LABS: Troponin I Less than 0.010 ng/mL (< 0.028)
[2017-08-25] MEDS ORDERED: Aspirin 81 mg Enteric Coated Tablet PO SCH (18:30)
[2017-08-25] MEDS: Gabapentin 300 MG CAP PO SCH (20:01)
[2017-08-25] MEDS: Lisinopril 5 MG TAB PO SCH (20:01)
[2017-08-25] MEDS: PARoxetine 20 MG TAB PO SCH (20:01)
[2017-08-25] MEDS ORDERED: Atorvastatin Calcium 10 MG TAB PO SCH (21:00)
[2017-08-25] MEDS ORDERED: Fenofibrate Nanocrystallized 145 MG TAB PO SCH (21:00)
--- NOTE | 2017-08-26 00:37 | CON ---
DATE OF CONSULTATION: 08/25/2017 HISTORY OF PRESENT ILLNESS: The patient is a 56-year-old woman who presents with recurrent chest discomfort. The patient has a long history of coronary artery disease. She states many years ago, she had placement of a coronary stent. The patient was seen initially in 2017 with chest pain. She underwent a cardiac catheterization and found to have a 50% lesion in the LAD. The patient was placed on medical therapy. The patient states she has been compliant with her medication, but was continued smoking. The patient was doing well until the day of admission, she developed midsternal chest and that radiated down into her left arm. This discomfort was relieved by 1 nitroglycerin spray, the discomfort recurred a few minutes later and she came to the emergency room for further evaluation. The patient denies having any present chest discomfort. PAST MEDICAL HISTORY: 1. Coronary artery disease. 2. Hypertension. 3. Hypercholesterolemia. 4. Chronic obstructive pulmonary disease. 5. Asthma. 6. Chronic pancreatitis. 7. History of pancreatic mass. PAST SURGICAL HISTORY: Breast surgery, neck surgery,and knee surgery. MEDICATIONS ON ADMISSION: Paxil 20 daily, lovastatin 40 at bedtime, Imdur 60 t.i.d., risperidone 0.5 mg at bedtime, potassium 99 mg daily, Creon 4 capsules t.i.d., magnesium 250 at bedtime, gabapentin 900 b.i.d., Lasix 40 daily, TriCor 160 at bedtime, Plavix 75 daily, lisinopril 5 daily, Prilosec 20 b.i.d., folic acid 1 mg daily, and Zyrtec 10 mg at bedtime. SOCIAL HISTORY: The patient smokes 2 packs per day. FAMILY HISTORY: Positive family history of coronary artery disease. ALLERGIES: ASPIRIN, ADHESIVE TAPE, CODEINE, HYDROCODONE, LEVOFLOXACIN, NONSTEROIDAL MEDICATIONS, SULFA DRUGS and TRAMADOL. REVIEW OF SYSTEMS: Ten point system is notable for chronic abdominal discomfort. Ten-point system otherwise unremarkable. PHYSICAL EXAMINATION: GENERAL: Obese woman in no acute distress. VITAL SIGNS: Blood pressure 117/58. NECK: Showed no jugular venous distension. LUNGS: Clear to auscultation. HEART: Regular rate and rhythm, normal S1, S2, 1/6 systolic murmur. ABDOMEN: Distended. EXTREMITIES: Showed trace edema. SKIN: Warm, dry. NEUROLOGIC: Nonfocal. VASCULAR: Radial pulses are 2+. LABORATORY RESULTS: Revealed her to have white blood count 9.7, hemoglobin 12.7 , hematocrit 38.0, platelets 162. Sodium is 140, potassium 3.9, chloride 106, bicarbonate 24, BUN 15, creatinine is 0.92, troponin less than 0.01. BNP is less than 10. Lipase was 60. The patient's EKG revealed normal sinus rhythm, normal ECG. IMPRESSION: 1. Chest pain suggestive of angina. 2. History of coronary artery disease. 3. Hypertension. 4. Dyslipidemia. 5. Diabetes mellitus. 6. Chronic pancreatitis. 7. Pancreatic mass. 8. Tobacco abuse. PLAN: This patient presents with recurrent chest pain suggestive of angina. She also has a history of a pancreatic mass which is undergoing evaluation. We will ask GI to reevaluate. We will change the patient's Imdur to 120 mg tablet once daily. With her aspirin allergy, we would try to treat the patient initially medically since it would be risky to place a stent. We will proceed with stress testing to make sure there is no evidence of significant ischemia. We will follow this patient with you through her hospitalization. ROSENDO
[2017-08-26 04:50] LABS: #Basophils 0.1 thou/uL (0.0-0.2); #Eosinphils 0.2 thou/uL (0.0-0.7); #Lymphocytes 3.1 thou/uL (1.20-3.40); #Monocytes 0.5 thou/uL (0.11-0.59); #Neutrophils 3.5 thou/uL (1.40-6.50); %Basophils 0.9 % (0.0-1.0); %Eosinophils 2.1 % (0.0-10.0); %Lymphocytes 42.4 % (21.0-51.0); %Monocytes 6.6 % (0.0-10.0); %Neutrophils 47.9 % (42.0-75.0); Mean Corpuscular HGB CONC 33.2 g/dL (32.0-36.0); Mean Corpuscular Volume 93.6 fl (81.0-99.0); Platelet Count 167 thou/uL (130-400); RBC Distribution Width 14.5 % (11.5-14.5); Red Blood Cell (RBC) Count 4.52 mill/uL (4.20-5.40); White Blood Cell (WBC) Count 7.2 thou/uL (4.8-10.8)
[2017-08-26 05:03] LABS: Anion Gap 12 mmol/L (10-20); BUN (Urea Nitrogen) 15 mg/dL (9.8-20.1); Calc. Creatinine Clearance 120 mL/min (70-130); Calcium 9.7 mg/dL (7.8-10.44); Carbon Dioxide 26 mmol/L (22-29); Cardiac Risk 11.6 (Less than 4.5); Chloride 107 mmol/L (98-107); Cholesterol 197 mg/dl (< 200 Desired); Estimated GFR-MDRD 64; Glucose 103 mg/dL (70-105); HDL Cholesterol 17 mg/dL (>60 Neg Risk); Sodium 141 mmol/L (136-145); Triglycerides 509 mg/dL (Less than 150)
[2017-08-26] MEDS ORDERED: Furosemide 40 MG TAB PO SCH (09:00)
[2017-08-26] MEDS ORDERED: INSULIN GLARGINE HUM REC ANLOG 80 UNIT SC SCH (09:00)
[2017-08-26] MEDS ORDERED: Fenofibrate Nanocrystallized 145 MG TAB PO SCH (09:00)
[2017-08-26] MEDS ORDERED: Lisinopril 5 MG TAB PO SCH (09:00)
--- NOTE | 2017-08-26 09:18 | PDOC.FM ---
Addendum entered and electronically signed by Tommy Simental MD 08/26/17 12:28: Patient's stress test showed questionable area, she will require resting stress test tomorrow Original Note: - Subjective Subjective: This morning patient says she is feeling well overall. She states she is having 3-4/10 chest pain similar to what she had yesterday. She states she was able to sleep well overnight. - Objective Vital Signs & Weight: Vital Signs (12 hours) Temp Pulse Resp BP BP Pulse Ox 08/26/17 09:00 97.9 F 55 L 20 08/26/17 07:18 97.9 F 55 L 20 146/61 H 94 L 08/26/17 04:10 98.1 F 62 20 132/60 97 08/25/17 23:40 60 20 136/60 96 Weight Weight 105.097 kg I&O: 08/25/17 08/26/17 08/27/17 06:59 06:59 06:59 Intake Total 840 Balance 840 Result Diagrams: 08/26/17 04:30 08/26/17 04:30 <Tommy Simental - Last Filed: 08/26/17 09:14> - Objective Vital Signs & Weight: Vital Signs (12 hours) Temp Pulse Resp BP Pulse Ox 08/26/17 15:04 98.6 F 80 18 126/63 92 L 08/26/17 10:55 98.7 F 76 17 144/70 H 96 08/26/17 09:00 97.9 F 55 L 20 08/26/17 07:18 97.9 F 55 L 20 146/61 H 94 L Weight Weight 105.097 kg I&O: 08/25/17 08/26/17 08/27/17 06:59 06:59 06:59 Intake Total 840 Balance 840 Result Diagrams: 08/26/17 04:30 08/26/17 04:30 <Rory Reyes - Last Filed: 08/26/17 17:13> Phys Exam - Physical Examination Constitutional: NAD HEENT: PERRLA, moist MMs Neck: no nodes, full ROM Respiratory: no wheezing, clear to auscultation bilateral Cardiovascular: RRR, no significant murmur Gastrointestinal: soft, non-tender, no distention, positive bowel sounds Musculoskeletal: no edema, pulses present Neurological: non-focal, moves all 4 limbs Psychiatric: normal affect, A&O x 3 Skin: no rash, cap refill <2 seconds <Tommy Simental - Last Filed: 08/26/17 09:14> Dx/Plan (1) Chest pain, rule out acute myocardial infarction Code(s): R07.9 - CHEST PAIN, UNSPECIFIED Status: Acute (2) Chronic pancreatitis Code(s): K86.1 - OTHER CHRONIC PANCREATITIS Status: Acute (3) Hyperlipidemia Code(s): E78.5 - HYPERLIPIDEMIA, UNSPECIFIED Status: Chronic QualifierTitle: Hyperlipidemia type: unspecified Qualified Code(s): E78.5 - Hyperlipidemia, unspecified (4) Hypertension Code(s): I10 - ESSENTIAL (PRIMARY) HYPERTENSION Status: Chronic QualifierTitle: Hypertension type: essential hypertension Qualified Code( s): I10 - Essential (primary) hypertension (5) Tobacco abuse Code(s): Z72.0 - TOBACCO USE Status: Chronic - Plan Plan: # Chest pain r/o - Cath in 07/23/16 shows 50% occlusion LAD, 2 vessels with 35% occlusion - typical chest pain, HEART score 5 - CTA negative - trend troponins - ASA, plavix, statin - Cardiology consulted - Dr. Felipe has seen and evaluated the patient, recommends stress test today - consider cath if stress test is positive, patient has history of ASA allergy which complicates cath # HTN - home meds # HLD - statin # DM2 - Home toujeo 80U q AM # Chronic Pancreatitis - gabapentin 900 mg BID - Lipase 60 on admission Dispo: will f/u on stress test today, possible d/c pending stress test results <Tommy Simental - Last Filed: 08/26/17 09:14> Attending Addendum - Attending Addendum Date/Time: 08/26/17 2293 I personally evaluated the patient and discussed the management with Dr. Simental. I agree with the History, Examination, Assessment and Plan documented above with any addition or exceptions noted below. <Rory Reyes - Last Filed: 08/26/17 17:13>
[2017-08-26] MEDS: Gabapentin 300 MG CAP PO SCH ×2 (10:56→21:48)
[2017-08-26] MEDS: Clopidogrel Bisulfate 75 MG TAB PO SCH (10:57)
[2017-08-26] MEDS: Aspirin 81 mg Enteric Coated Tablet PO SCH (10:57)
[2017-08-26] MEDS: Insulin Detemir 100 UNITS/ML 80 UNITS in Pre-Filled Syringe 1 EACH SC SCH (10:58)
[2017-08-26] MEDS ORDERED: Nitroglycerin 0.4 MG TAB (25 Tab Bottle) SL PRN (15:14)
--- NOTE | 2017-08-26 15:31 | PDOC.EVN ---
Event Note - Event Note Event Note: Notified by Tommy, patient's nurse, that she is reporting some chest pain rated 5/10. She had not yet been given Tylenol. Advised to give Tylenol. Considered nitro but patient is already on Imdur. Advised to give Tylenol and call if that didn't help. Tommy verbalized understanding. Will consider morphine if Tylenol does not help.
[2017-08-26 15:41] LABS: Troponin I Less than 0.010 ng/mL (< 0.028)
[2017-08-26] MEDS ORDERED: Regadenoson 0.4 MG/5 ML SYRINGE ONE (16:19)
--- NOTE | 2017-08-26 16:41 | PDOC.EVN ---
Event Note - Event Note Event Note: Nursing reports patient is having chest pain again. Will check EKG and cardiac enzymes. Morphine ordered.
[2017-08-26 17:28] LABS: CKMB 0.5 ng/mL (0-6.6)
[2017-08-26] MEDS ORDERED: Communication Order-Pharmacy FS SCH (19:00)
--- NOTE | 2017-08-26 19:48 | CON ---
DATE OF CONSULTATION: 08/26/2017 I was asked to see Ms. Ang in regard to a pancreatic mass that was found when she was in the [facility] back in March. She is here with chest pain for rule out [facility] and is getting a stress test. I n talking with her, she did follow up with Dr. Poe after that admission and was referred to [facility] and had endoscopic ultrasound. There, she is being followed by [facility], Dr Darin Poe, at this time. It seems that all has been addressed and is being evaluated in the outpat ient setting. It does not need to be reevaluated here. If she needs further GI attention, she can f eel free to consult Dr. Poe, her primary gastrologist. As far as her chest pain, she has had a previous EGD on last admission with no findings of reflux. There is no indication to repeat this at this time and I did not think her chest pain is GI in origin. We will sign off. If there are any q uestions, please do not hesitate to contact me at [phone].
--- NOTE | 2017-08-26 20:46 | PRG ---
CARDIOLOGY FOLLOWUP NOTE DATE OF SERVICE: 08/26/2017 SUBJECTIVE: Ms. Leslie Ang continued to have chest pain off and on in the middle of her chest an d into the left arm. She said she has also noted that it gets worse when she exerts herself. The patient had a stress portion of her nuclear medicine imaging done today, it was abnormal, but the final report is not in. The initial plan was to do the resting tomorrow, but she is still having chest pain. OBJECTIVE: VITAL SIGNS: Her blood pressure is 126/63 and pulse 80, it is regular. LUNGS: Clear. CARDIAC: Normal S1 and normal S2. ABDOMEN: Soft and nontender. EXTREMITIES: There is no edema. ASSESSMENT: 1. Recurrent chest pain, typical of angina. 2. Coronary artery disease. 3. Obesity. 4. Aspirin intolerance/allergies anaphylactic reaction, she says. 5. Continued smoking. She said she has gone from 2 packs of cigarettes per day, now down to one sylvester f pack of cigarettes per day. 6. Mixed hyperlipidemia, not well controlled. PLAN: 1. In view of the continued chest pain, we will proceed the catheterization tomorrow. I discussed t he risks of stroke, heart attack, iodine allergy, interfering with the blood supply to the leg or kid nathan, stent thrombosis, stent restenosis. She understands and wishes to proceed. She understands the re may be some increased risk of stent thrombosis without aspirin, but she is absolutely allergic to ASPIRIN and does not wish to even consider aspirin desensitization. 2. We will increase the statin therapy and consider adding at the time of discharge. She need s a high dose statin along with . 3. Again I have counseled tobacco cessation.
[2017-08-26] MEDS ORDERED: Atorvastatin Calcium 20 MG TAB PO SCH (21:00)
[2017-08-26] MEDS: Atorvastatin Calcium 20 MG TAB PO SCH (21:48)
[2017-08-26] MEDS: PARoxetine 20 MG TAB PO SCH (21:49)
[2017-08-26] MEDS: Lisinopril 5 MG TAB PO SCH (21:49)
[2017-08-26] MEDS: Nitroglycerin 0.4 MG TAB (25 Tab Bottle) SL PRN ×2 (22:19→22:31)
[2017-08-26 22:55] LABS: Troponin I 0.012 ng/mL (< 0.028)
[2017-08-27] MEDS: Gabapentin 300 MG CAP PO SCH ×2 (06:00→20:02)
[2017-08-27] MEDS ORDERED: Diazepam 5 MG TAB PO SCH (06:00)
[2017-08-27] MEDS: Clopidogrel Bisulfate 75 MG TAB PO SCH (06:00)
[2017-08-27] MEDS: Sodium Chloride 0.9% 1,000 ML IV SCH ×2 (06:07→13:00)
[2017-08-27] MEDS: Aspirin 81 mg Enteric Coated Tablet PO SCH (06:18)
[2017-08-27] MEDS ORDERED: Iopamidol 370 76% 100 ML VIAL ONE (07:44)
[2017-08-27] MEDS ORDERED: Lidocaine 1% (PF) 30 ML VIAL ONE (08:10)
--- NOTE | 2017-08-27 08:22 | PDOC.FM ---
- Subjective Subjective: This morning the patient denies chest pain at rest. She states that when walking she gets the squeezing chest pain up to 4/10 on the left side of her chest about the same as yesterday. She is having mild 4/10 abdominal pain which is charecteristic of her chronic pancreatitis. She states she did not sleep well overnight as she is slightly anxious about the cath procedure. Answered all of the patient's question and offered reassurance. - Objective Vital Signs & Weight: Vital Signs (12 hours) Temp Pulse Resp BP BP Pulse Ox 08/27/17 06:58 97.7 F 64 16 99/51 L 94 L 08/27/17 05:07 97.5 F L 68 18 139/65 95 08/26/17 22:29 70 134/63 99 08/26/17 22:19 70 124/64 08/26/17 21:49 82 134/79 08/26/17 20:27 97.0 F L 70 20 134/79 99 Weight Weight 107.229 kg I&O: 08/26/17 08/27/17 08/28/17 06:59 06:59 06:59 Intake Total 840 562 Balance 840 562 Result Diagrams: 08/26/17 04:30 08/26/17 04:30 <Tommy Simental - Last Filed: 08/27/17 08:20> - Objective Vital Signs & Weight: Vital Signs (12 hours) Temp Pulse Resp BP BP Pulse Ox 08/27/17 10:30 97.6 F 52 L 16 116/56 L 97 08/27/17 09:57 97.5 F L 48 L 16 94/51 L 93 L 08/27/17 08:00 97.7 F 64 16 08/27/17 06:58 97.7 F 64 16 99/51 L 94 L 08/27/17 05:07 97.5 F L 68 18 139/65 95 Weight Weight 107.229 kg I&O: 08/26/17 08/27/17 08/28/17 06:59 06:59 06:59 Intake Total 840 562 Balance 840 562 Result Diagrams: 08/26/17 04:30 08/26/17 04:30 <Rory Reyes - Last Filed: 08/27/17 13:43> Phys Exam - Physical Examination Constitutional: NAD HEENT: PERRLA, moist MMs Neck: no nodes, full ROM Respiratory: no wheezing, clear to auscultation bilateral chronic smoker Cardiovascular: RRR, no significant murmur Gastrointestinal: soft, non-tender, no distention, positive bowel sounds Musculoskeletal: no edema, pulses present Neurological: non-focal, moves all 4 limbs Lymphatic: no nodes Psychiatric: normal affect, A&O x 3 Skin: no rash, cap refill <2 seconds <Tommy Simental - Last Filed: 08/27/17 08:20> Dx/Plan (1) Chest pain, rule out acute myocardial infarction Code(s): R07.9 - CHEST PAIN, UNSPECIFIED Status: Acute (2) Chronic pancreatitis Code(s): K86.1 - OTHER CHRONIC PANCREATITIS Status: Acute (3) Hyperlipidemia Code(s): E78.5 - HYPERLIPIDEMIA, UNSPECIFIED Status: Chronic QualifierTitle: Hyperlipidemia type: unspecified Qualified Code(s): E78.5 - Hyperlipidemia, unspecified (4) Hypertension Code(s): I10 - ESSENTIAL (PRIMARY) HYPERTENSION Status: Chronic QualifierTitle: Hypertension type: essential hypertension Qualified Code( s): I10 - Essential (primary) hypertension (5) Tobacco abuse Code(s): Z72.0 - TOBACCO USE Status: Chronic - Plan Plan: # Chest pain r/o - Cath in 07/23/16 shows 50% occlusion LAD, 2 vessels with 35% occlusion - typical chest pain, HEART score 5 - CTA negative - trend troponins, neg -> neg -> .012 - ASA, plavix, statin (dose increased to high dose) - Cardiology consulted, recs appreciated - plan for Cath this AM # HTN - home meds # HLD - statin (increased to high dose) # DM2 - Home toujeo 80U q AM # Chronic Pancreatitis - gabapentin 900 mg BID - Lipase 60 on admission - Patient did receive morphine PRN yesterday PM Dispo: pending cath results <Tommy Simental - Last Filed: 08/27/17 08:20> Attending Addendum - Attending Addendum Date/Time: 08/27/17 1343 I personally evaluated the patient and discussed the management with Dr. Simental. I agree with the History, Examination, Assessment and Plan documented above with any addition or exceptions noted below. <Rory Reyes - Last Filed: 08/27/17 13:43>
[2017-08-27] MEDS ORDERED: Fentanyl 100 MCG/2 ML VIAL ONE (08:55)
[2017-08-27] MEDS ORDERED: Midazolam HCl 2 mg/2 ml Vial ONE (08:56)
[2017-08-27] MEDS ORDERED: Nitroglycerin 100MG/250ML BOT 250 ML ONE (09:40)
--- NOTE | 2017-08-27 10:06 | NM ---
STRESS ONLY MYOCARDIAL PERFUSION SCAN: INDICATION: Chest pain. TECHNIQUE: The patient was given 27 mCi of technetium sestamibi. Patient was stress according to [facility] protoc ol. Dr. Aguilar took patient to the [facility] prior to acquisition of rest imaging. Therefore, this is a stress only exam. FINDINGS: There is decreased activity in the apex on the stress only images. Wall motion appears normal. Ejection fraction recorded at 73%. IMPRESSION: Decreased activity in the apex on stress only exam. This is persistent on attenuation correction. POS: JOSSY
[2017-08-27] MEDS ORDERED: Nitroglycerin 0.4 MG TAB (25 Tab Bottle) SL PRN (10:10)
[2017-08-27] MEDS ORDERED: Sodium Chloride 0.9% 200 ML IV SCH (11:00)
[2017-08-27] MEDS: Insulin Detemir 100 UNITS/ML 80 UNITS in Pre-Filled Syringe 1 EACH SC SCH (12:59)
--- NOTE | 2017-08-27 17:44 | EKG ---
Test Reason : Blood Pressure : / mmHG Vent. Rate : 074 BPM Atrial Rate : 074 BPM P-R Int : 142 ms QRS Dur : 086 ms QT Int : 400 ms P-R-T Axes : 034 020 059 degrees QTc Int : 444 ms Normal sinus rhythm Normal ECG When compared with ECG of 25-AUG-2017 14:22, (Unconfirmed) No significant change was found Confirmed by DR. Estefanía PAT ([id number]) on 08/27/2017 5:43:49 PM Referred By: DOMINIQUE Confirmed By:DR. Estefanía PAT
--- NOTE | 2017-08-27 17:44 | EKG ---
Test Reason : Blood Pressure : / mmHG Vent. Rate : 076 BPM Atrial Rate : 076 BPM P-R Int : 138 ms QRS Dur : 088 ms QT Int : 376 ms P-R-T Axes : 042 017 056 degrees QTc Int : 423 ms Normal sinus rhythm Normal ECG When compared with ECG of 26-AUG-2017 16:52, (Unconfirmed) No significant change was found Confirmed by DR. Estefanía PAT ([id number]) on 08/27/2017 5:44:18 PM Referred By: DONA Confirmed By:DR. Estefanía PAT
[2017-08-27] MEDS ORDERED: TICAGRELOR 90 MG TABLET PO SCH (19:00)
[2017-08-27] MEDS ORDERED: Morphine 5 MG/ML SYRINGE SLOW IVP PRN (19:45)
[2017-08-27] MEDS ORDERED: Fenofibrate Nanocrystallized 145 MG TAB PO SCH (20:00)
[2017-08-27] MEDS: PARoxetine 20 MG TAB PO SCH (20:03)
[2017-08-27] MEDS: Lisinopril 5 MG TAB PO SCH (20:04)
[2017-08-27] MEDS: Atorvastatin Calcium 20 MG TAB PO SCH (20:04)
--- NOTE | 2017-08-27 22:43 | PRG ---
DATE OF SERVICE: 08/27/2017 SUBJECTIVE: Ms. Ang underwent cardiac catheterization today. Revealed that she has what appeared to be angiographically borderline lesion in the LAD, 60% with 30% -40% distal lesion, right coronaries of 50% lesion. It is not completely clear that this was the candido rce of her symptoms. So this morning, the stress test reports were not available, subsequently the s tress only imaging has revealed some evidence of apical ischemia, but the resting scan was done later to see if that was reversible. It was noted that the patient's flow improves really quite a bit aft er intracoronary nitroglycerin indicating there may also be some microvascular angina. After further discussion, we will like to do the followin. Change antiplatelet drugs to Brilinta. 2. Add Ranexa. 3. Change to Vascepa as it was more effective lipid lowering and triglyceride lowering medicine. 4. If symptoms persist, despite appropriate medical therapy could stent the LAD, but may cause angin a by crossing a "diagonal." The origin of the diagonal looks relatively free of disease; therefore, most likely will not cause a "pinch" in the artery but it is possible. stent across the septal perforating artery. The patient agrees with a trial of medical therapy prior to proceeding this sten t implantation. Released home tomorrow morning.
[2017-08-28 02:22] VITALS: TEMP 97.9
--- NOTE | 2017-08-28 08:06 | PDOC.FM ---
Addendum entered and electronically signed by Tommy Simental MD 08/28/17 08:54: Patient will return next week for catheterization and stent placement w/ Dr. Aguilar Original Note: - Subjective Subjective: This morning Mrs. Ang denies chest pain overnight. She denies nausea or vomiting. She has mild abdominal pain from her chronic pancreatitis. this is a dull ache in the RUQ. She states she is feeling better and had many of her questions answered by Dr. Aguilar. She had questions regarding home regimen and cath resutls which were addressed. Completed a smoking cessation plan with the patient. - Objective Vital Signs & Weight: Vital Signs (12 hours) Temp Pulse Resp BP Pulse Ox 08/28/17 07:48 97.9 F 53 L 18 08/28/17 02:03 97.9 F 53 L 18 131/63 97 08/27/17 20:04 52 L 131/61 Weight Weight 107.229 kg I&O: 08/27/17 08/28/17 08/29/17 06:59 06:59 06:59 Intake Total 562 1921 Balance 562 1921 Result Diagrams: 08/26/17 04:30 08/26/17 04:30 <Tommy Simental - Last Filed: 08/28/17 08:03> - Objective Vital Signs & Weight: Vital Signs (12 hours) Temp Pulse Resp BP BP Pulse Ox 08/28/17 07:48 97.9 F 53 L 18 08/28/17 07:22 98.2 F 62 20 129/58 L 98 08/28/17 02:03 97.9 F 53 L 18 131/63 97 Weight Weight 107.229 kg I&O: 08/27/17 08/28/17 08/29/17 06:59 06:59 06:59 Intake Total 562 1921 Balance 562 1921 Result Diagrams: 08/26/17 04:30 08/26/17 04:30 <Rory Reyes - Last Filed: 08/28/17 11:16> Phys Exam - Physical Examination Constitutional: NAD HEENT: PERRLA, moist MMs Neck: no nodes, full ROM Respiratory: no wheezing, clear to auscultation bilateral Cardiovascular: RRR, no significant murmur Gastrointestinal: soft, non-tender, no distention, positive bowel sounds Musculoskeletal: no edema, pulses present Neurological: non-focal, normal sensation, moves all 4 limbs Lymphatic: no nodes Psychiatric: normal affect, A&O x 3 Skin: no rash, cap refill <2 seconds <Tommy Simental - Last Filed: 08/28/17 08:03> Dx/Plan (1) Chest pain, rule out acute myocardial infarction Code(s): R07.9 - CHEST PAIN, UNSPECIFIED Status: Acute (2) Chronic pancreatitis Code(s): K86.1 - OTHER CHRONIC PANCREATITIS Status: Acute (3) Hyperlipidemia Code(s): E78.5 - HYPERLIPIDEMIA, UNSPECIFIED Status: Chronic QualifierTitle: Hyperlipidemia type: unspecified Qualified Code(s): E78.5 - Hyperlipidemia, unspecified (4) Hypertension Code(s): I10 - ESSENTIAL (PRIMARY) HYPERTENSION Status: Chronic QualifierTitle: Hypertension type: essential hypertension Qualified Code( s): I10 - Essential (primary) hypertension (5) Tobacco abuse Code(s): Z72.0 - TOBACCO USE Status: Chronic - Plan Plan: # Chest pain r/o - Cath in 07/23/16 shows 50% occlusion LAD, 2 vessels with 35% occlusion - Cath 08/27/16 shows 60% LAD occlusion, 50% RCA, both larger than last year - difficult place to stent because of diagonals, - typical chest pain, HEART score 5 - CTA negative - trend troponins, neg -> neg -> .012 - Cardiology recs maximizing medical regimen and smoking cessation because of risky stent placement - start ranexa, brillinta, vascepa - Cardiology consulted, recs appreciated - plan for Cath this AM # HTN - home meds # HLD - statin # DM2 - Home toujeo 80U q AM # Chronic Pancreatitis - gabapentin 900 mg BID - Lipase 60 on admission Dispo: d/c this AM <Tommy Simental - Last Filed: 08/28/17 08:03> Attending Addendum - Attending Addendum Date/Time: 08/28/17 1115 I personally evaluated the patient and discussed the management with Dr. Simental. I agree with the History, Examination, Assessment and Plan documented above with any addition or exceptions noted below. <Rory Reyes - Last Filed: 08/28/17 11:16>
[2017-08-28 08:07] VITALS: BP 129/58
[2017-08-28] MEDS: Aspirin 81 mg Enteric Coated Tablet PO SCH (08:51)
[2017-08-28] MEDS: Gabapentin 300 MG CAP PO SCH (08:51)
[2017-08-28] MEDS: Insulin Detemir 100 UNITS/ML 80 UNITS in Pre-Filled Syringe 1 EACH SC SCH (08:52)
[2017-08-28] MEDS ORDERED: TICAGRELOR 90 MG TABLET PO SCH (09:00)
--- NOTE | 2017-08-28 18:52 | DIS-2 ---
DATE OF ADMISSION: 08/25/2017 DATE OF DISCHARGE: 08/28/2017 RESIDENT: Tommy Simental M.D. ADMITTING ATTENDING: Rory Reyes M.D. DISCHARGE ATTENDING: Rory Reyes M.D. CONSULTATIONS: Cardiology. PROCEDURES: Stress test, catheterization. PRIMARY DIAGNOSIS: Atypical angina. SECONDARY DIAGNOSES: Hypertension, hyperlipidemia, diabetes type 2, chronic pancreatitis. DISCONTINUED MEDICATIONS: Aspirin, Plavix, fenofibrate. DISCHARGE MEDICATIONS: Atorvastatin 40 mg nightly, Vascepa 1 gram p.o. b.i.d., Imdur 120 mg daily, Z ofran 4 mg q.6 h. p.r.n., Ranexa 500 mg p.o. b.i.d., ticagrelor 90 mg p.o. b.i.d., folic acid 1 mg da madhavi, Lasix 40 mg daily, gabapentin 900 mg p.o. b.i.d., lisinopril 5 mg, and risperidone 0.5 mg nightl y. HISTORY OF PRESENT ILLNESS AND HOSPITAL COURSE: This 57-year-old female with past medical history in cluding diabetes type 2, SD x2, last stent placement 10 years ago, chronic pancreatitis, hyperlipidem ia, and hypertension, comes in the ED for evaluation of chest pain. 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 She described as a crushing lef t-sided chest pain, which radiated to the left neck and left arm and was worsened by walking. It imp roved with resting and nitroglycerin. In the ED, her pain was currently 3/10. She said she was havi ng shortness of breath, but denied diaphoresis. She had a catheterization with Dr. Aguilar on 017 which showed a 50% occlusion of left anterior descending. During the course of this hospitalization, the patient had a resting stress test which showed possibl e akinesis at the apex. She had a repeat catheterization with Dr. Aguilar which showed 60% LAD occlus ion, 50% RCA occlusion, both increased in size from last year. Stent was not placed at the time seco ndary to location of the occlusions in relation to diagonal vessels. The patient was sent home with maximal medical therapy which included starting on Ranexa, Brilinta, and Vascepa. She was also sent home on a high dose of atorvastatin. She is going to follow up on Thursday for repeat catheterization with stent placement with Dr. Aguilar. DISPOSITION: Stable. DISCHARGE INSTRUCTIONS: 1. Location: Home. 2. Diet: Regular. 3. Activity: As tolerated. 4. Follow up Dr. Barcenas within [address] Aguilar on Thursday for catheterization. Tobacco cessatio n plan was completed with the patient. Please follow up on encouraging her to quit smoking as this i s likely a large contributor to her heart disease.
--- NOTE | 2017-08-29 15:03 | EKG ---
Test Reason : Blood Pressure : / mmHG Vent. Rate : 060 BPM Atrial Rate : 060 BPM P-R Int : 140 ms QRS Dur : 090 ms QT Int : 438 ms P-R-T Axes : 051 050 062 degrees QTc Int : 438 ms Normal sinus rhythm Normal ECG Confirmed by ABDULAZIZ GARCIA ([id number]), food expeditor MIGUEL RUIZ ([id number] on 08/29/2017 3:02:39 PM Referred By: Confirmed By:ABDULAZZI GARCIA
--- NOTE | 2017-08-31 14:05 | STRESS ---
Acquisition Time: 2017-08-26 09:21:33 Total Exercise Time: 00:01:00 Test Indications: CHEST PAIN Medications: Protocol: LEXISCAN Max HR: 104 BPM 63% of Pred: 165 BPM Max BP: 136/058 mmHG Max Work Load: 1.0 METS RESTING ECG: NORMAL SINUS RYTHM AT 66 BPM SYMPTONS: DYSPNEA AND HEADACHE NORMAL BP RESPONSE ECTOPY: NONE ECG STRESS: NO SIGNIFICANT CHANGES INTERPRETATION: NEGATIVE ECG/AWAIT NUCEAR IMAGES FOR DEFINITIVE DIAGNOSIS Confirmed by DR. Estefanía PAT ([id number]), scientific publications editor ARTHUR GONG ([id number]) on 08/31/2017 2:04:54 PM Referred By: MD Neno NULL Confirmed By:DR. Estefanía PAT
== END 2017-08-28 11:26 | disposition home or self-care (01) ==
LOC: ERS 13:34 → 2SW 14:17
PROVIDERS: ADMIT Family Medicine; ATTEND Family Medicine
PROC: 4A023N7 Measurement of Cardiac Sampling and Pressure, Left Heart, Percutaneous Approach (ICD-10-PCS; principal; 2017-08-25)
DX: I25.119 Atherosclerotic heart disease of native coronary artery with unspecified angina pectoris (principal); I10 Essential (primary) hypertension; E78.5 Hyperlipidemia, unspecified; E11.9 Type 2 diabetes mellitus without complications; K86.1 Other chronic pancreatitis; I25.2 Old myocardial infarction; Z88.0 Allergy status to penicillin; Z88.1 Allergy status to other antibiotic agents; Z88.2 Allergy status to sulfonamides; Z88.5 Allergy status to narcotic agent; Z88.8 Allergy status to other drugs, medicaments and biological substances; Z91.048 Other nonmedicinal substance allergy status; Z95.5 Presence of coronary angioplasty implant and graft
CPT/HCPCS: 36415; 36416; 76942; 78452; 80048; 80061; 82553; 84484; 85025; 93005; 93010; 93017; 93458; 93798; 96361; 96372; 96374; 96376; 99152; 99153; J2270; A4216; A9500; C1769; G0378; J1644; J1650; J1815; J2001; J2250; J2785; J3010; J7050; Q0162

== ENCOUNTER 2017-08-31 06:05 | Observation (INO) | payer BC ==
[2017-08-31] MEDS ORDERED: Diazepam 5 MG TAB ONE (06:49)
[2017-08-31] MEDS ORDERED: Diazepam 5 MG TAB PO SCH (07:00)
[2017-08-31] MEDS ORDERED: TICAGRELOR 90 MG TABLET PO SCH (07:00)
[2017-08-31] MEDS ORDERED: Sodium Chloride 0.9% 1,000 ML IV SCH ×3 (07:00→19:42)
[2017-08-31 08:13] LABS: Anion Gap 12 mmol/L (10-20); BUN (Urea Nitrogen) 20 mg/dL (9.8-20.1); Calc. Creatinine Clearance 73 mL/min (70-130); Calcium 9.8 mg/dL (7.8-10.44); Carbon Dioxide 28 mmol/L (22-29); Chloride 103 mmol/L (98-107); Estimated GFR-MDRD 37; Glucose 139 mg/dL (70-105); Sodium 139 mmol/L (136-145)
[2017-08-31] MEDS ORDERED: Lidocaine 1% (PF) 30 ML VIAL ONE (09:21)
[2017-08-31] MEDS ORDERED: Heparin 10,000 UNITS/1 ML VIAL ONE ×2 (09:45→11:01)
[2017-08-31] MEDS ORDERED: Midazolam HCl 2 mg/2 ml Vial ONE (09:49)
[2017-08-31] MEDS ORDERED: Fentanyl 100 MCG/2 ML VIAL ONE (09:50)
[2017-08-31] MEDS ORDERED: Nitroglycerin 100MG/250ML BOT 250 ML ONE (09:50)
[2017-08-31] MEDS ORDERED: Iopamidol 370 76% 50 ML VIAL FS ONE (10:30)
[2017-08-31] MEDS ORDERED: Iopamidol 370 76% 100 ML VIAL ONE (10:30)
--- NOTE | 2017-08-31 11:40 | HP ---
HISTORY OF PRESENT ILLNESS: Ms. Ang is a very pleasant 57-year-old woman with diabetes, smoki ng, coronary artery disease and continued chest pain and abnormal stress test. Ms. Ang has a previous history of coronary disease. She was admitted to the hospital last week with resting and anginal chest pain. The patient continued to have chest pain at rest. The patient 's stress portion of her stress test had been done, but not the resting portion. She continued to smith ve chest pain at rest. Therefore, she was taken to Cardiac Catheterization Lab. She was found to smith ve what appeared to be borderline lesion in the LAD. The resting portion of the stress test was then completed and it revealed that she actually did have ischemia at the apex. In view of the continued chest pain and abnormal stress test she was brought back in for heart catheterization with stent imp lantation. MEDICATIONS: The patient medicine included Brilinta. She was just started on that. She is on a sta tin. She was on Triglide, but was taken off that and put on Lovaza and Lipitor. ALLERGIES: Allergy to ASPIRIN, anaphylactic reaction. SOCIAL HISTORY: Continued smoking. She has cut down from 2 packs of cigarettes per day, down to sylvester f pack a day. She understands it is critical to quit smoking. REVIEW OF SYSTEMS: CONSTITUTIONAL: No significant weight gain or loss. VISION: No changes. HEARING: No changes. PULMONARY: No cough or wheezing. GASTROINTESTINAL: No nausea, vomiting, diarrhea. PHYSICAL EXAMINATION: GENERAL: A pleasant overweight 57-year-old female. VITAL SIGNS: Blood pressure 110/70, pulse 70. HEENT: Eyes; sclerae are nonicteric. Mouth; mucous branch moist. NECK: Supple, no lymphadenopathy. LUNGS: Clear, no wheezing, rales or rhonchi. CARDIAC: Normal S1, normal S2, no murmur, rub or gallop. ABDOMEN: Soft, nontender. EXTREMITIES: No clubbing or cyanosis. There is no edema. ASSESSMENT: 1. Coronary artery disease with continued chest pain. 2. Continued smoking. 3. Mixed hyperlipidemia. PLAN: In view of the abnormal stress test, I have decided to bring her back in for percutaneous inte rvention. She understands if she continues smoking she will continue to have problems. I also suspe ct she may have microvascular disease therefore we may consider a trial of Ranexa. No other interven tion will be indicated as she did have a successful stent implantation this morning. Unfortunately, I think she may continue to have some chest pain, but in view of the abnormal stress test which corre sponded with the LAD region, stress testing as mentioned was done. Percutaneous intervention was ind icated in view of the continued chest pain.
[2017-08-31] MEDS ORDERED: Ondansetron ODT 4 MG TAB PO PRN (12:00)
[2017-08-31] MEDS ORDERED: Morphine 2 MG/ML SYRINGE ONE (14:14)
[2017-08-31] MEDS ORDERED: ICOSAPENT ETHYL 1 GM PO SCH (17:00)
[2017-08-31 17:09] VITALS: BMI 42.4
[2017-08-31] MEDS: Pancrelipase DR 12000 1 CAP PO SCH (17:24)
[2017-08-31] MEDS: Gabapentin 300 MG CAP PO SCH (20:21)
[2017-08-31] MEDS: TICAGRELOR 90 MG TABLET PO SCH (20:23)
[2017-08-31] MEDS ORDERED: PARoxetine 20 MG TAB PO SCH (21:00)
[2017-08-31] MEDS ORDERED: Loratadine 10 MG TAB PO SCH (21:00)
[2017-08-31] MEDS ORDERED: Lisinopril 5 MG TAB PO SCH (21:00)
[2017-08-31] MEDS ORDERED: risperiDONE 0.25 MG TAB PO SCH (21:00)
[2017-08-31] MEDS ORDERED: POTASSIUM 99 MG PO SCH (21:00)
[2017-08-31] MEDS ORDERED: Atorvastatin Calcium 40 MG TAB PO SCH (21:00)
[2017-08-31] MEDS ORDERED: Magnesium Oxide 250 MG TAB PO SCH (21:00)
[2017-09-01] MEDS ORDERED: Furosemide 100 MG/10 ML VIAL SLOW IVP SCH (05:00)
[2017-09-01] MEDS ORDERED: Nitroglycerin 2% Ointment 1 INCH/1 GM Packet TOP SCH (05:00)
[2017-09-01 05:07] LABS: #Eosinphils 0.2 thou/uL (0.0-0.7); #Lymphocytes 2.1 thou/uL (1.20-3.40); #Monocytes 0.5 thou/uL (0.11-0.59); #Neutrophils 4.7 thou/uL (1.40-6.50); %Basophils 0.6 % (0.0-1.0); %Lymphocytes 27.9 % (21.0-51.0); %Monocytes 6.9 % (0.0-10.0); %Neutrophils 62.6 % (42.0-75.0); Hemoglobin 13.1 g/dL (12.0-16.0); Mean Corpuscular HGB CONC 33.2 g/dL (32.0-36.0); Mean Corpuscular Hemoglobin 30.9 pg (27.0-31.0); Mean Corpuscular Volume 93.2 fl (81.0-99.0); Mean Platelet Volume 9.2 fL (7.4-10.4); Platelet Count 126 thou/uL (130-400); Red Blood Cell (RBC) Count 4.25 mill/uL (4.20-5.40); White Blood Cell (WBC) Count 7.5 thou/uL (4.8-10.8)
[2017-09-01 05:25] LABS: ALT (SGPT) 21 U/L (8-55); AST (SGOT) 17 U/L (5-34); Albumin 3.6 g/dL (3.5-5.0); Alkaline Phosphatase 52 U/L (40-150); Anion Gap 11 mmol/L (10-20); BUN (Urea Nitrogen) 17 mg/dL (9.8-20.1); Bilirubin, Total 0.5 mg/dL (0.2-1.2); Calc. Creatinine Clearance 115 mL/min (70-130); Carbon Dioxide 23 mmol/L (22-29); Chloride 108 mmol/L (98-107); Estimated GFR-MDRD 62; Globulin 2.2 g/dL (2.4-3.5); Glucose 112 mg/dL (70-105); Protein, Total 5.8 g/dL (6.0-8.3); Sodium 138 mmol/L (136-145)
[2017-09-01] MEDS ORDERED: Folic Acid 1 MG TAB PO SCH (09:00)
[2017-09-01] MEDS ORDERED: INSULIN GLARGINE SC SCH (09:00)
[2017-09-01] MEDS: Gabapentin 300 MG CAP PO SCH (09:13)
[2017-09-01] MEDS: Pancrelipase DR 12000 1 CAP PO SCH ×4 (09:13→18:04)
[2017-09-01] MEDS: TICAGRELOR 90 MG TABLET PO SCH (09:14)
[2017-09-01] MEDS ORDERED: Furosemide 40 MG/4 ML VIAL SLOW IVP SCH ×2 (13:00)
[2017-09-01] MEDS ORDERED: Potassium Chloride 20 MEQ TAB PO SCH (13:00)
[2017-09-01 15:12] VITALS: TEMP 98
[2017-09-01 15:26] VITALS: BP 103/67
--- NOTE | 2017-09-01 20:50 | DIS ---
FINAL DIAGNOSES: 1. Coronary artery disease. 2. Diastolic heart failure. 3. History of recurrent pancreatitis. 4. ASPIRIN allergy. MEDICATIONS AT THE TIME OF DISCHARGE: 1. Brilinta 90 mg twice a day. 2. Ranexa. 3. Lisinopril 5 mg a day. 4. Isosorbide 120 mg a day. 5. Atorvastatin 40 mg a day. 6. Torsemide 20 mg 2 tablets in the morning, 1 in the afternoon. 7. Potassium 10 mEq a day. HOSPITAL COURSE: Please see admission note for full details. Briefly, the patient was brought to [facility] for stent implantation in view of a positive stress test. The stent was successfully plac ed yesterday with 3.5 x 20 mm drug-coated stent. The stent was postdilated to 3.5 mm balloon high pr essure and then 4 mm balloon all, but the distal few millimeters of the stent were post-dilated to at size. The patient had renal insufficiency and therefore received fluid yesterday, but developed s ome congestive heart failure symptoms late last night. She received intravenous diuretics. On two o ccasions, put out about 4 liters of urine today. The renal function did improve with the fluid with a creatinine went from 1.45 to 0.94. The patient is feeling fine today and wishes to be released [facility]. I discussed this spending the night here tonight, but said she wishes to go home and take her med icines at home. The nursing staff did indicate that the patient's bedside, presumably smoking a few times during the day today. She is up walking the halls, feeling fine. She said she can lay flat, b ut when she lays totally flat, she starts to feel uncomfortable after a few minutes, but up at about 15 degrees, she is fine. Last night, she was extremely short of breath. The patient is released home at this point. Prognosis guarded.
== END 2017-09-01 19:18 | disposition home or self-care (01) ==
LOC: CCL 06:05 → 2SW 11:32
PROVIDERS: ADMIT Internal Medicine Cardiovascular Disease; ATTEND Internal Medicine Cardiovascular Disease
PROC: 027034Z Dilation of Coronary Artery, One Artery with Drug-eluting Intraluminal Device, Percutaneous Approach (ICD-10-PCS; principal; 2017-09-01)
PROC: 02713ZZ Dilation of Coronary Artery, Two Arteries, Percutaneous Approach (ICD-10-PCS; 2017-09-01)
DX: I25.119 Atherosclerotic heart disease of native coronary artery with unspecified angina pectoris (principal); E11.9 Type 2 diabetes mellitus without complications; F17.210 Nicotine dependence, cigarettes, uncomplicated; E78.2 Mixed hyperlipidemia; K86.81 Exocrine pancreatic insufficiency; Z88.8 Allergy status to other drugs, medicaments and biological substances; Z88.2 Allergy status to sulfonamides; Z88.6 Allergy status to analgesic agent; Z88.5 Allergy status to narcotic agent; Z88.1 Allergy status to other antibiotic agents; Z91.048 Other nonmedicinal substance allergy status; Z91.018 Allergy to other foods; Z79.4 Long term (current) use of insulin; Z79.02 Long term (current) use of antithrombotics/antiplatelets; Z79.899 Other long term (current) drug therapy
CPT/HCPCS: 36415; 36416; 76942; 80048; 80053; 85025; 85347; 92928; 93005; 93010; 93454; 93798; 96361; 96374; 96376; 99152; 99153; C1769; C1874; C1887; C9600; G0378; J1644; J1940; J2001; J2250; J2270; J3010

== ENCOUNTER 2017-10-19 18:25 | Observation (INO) | payer BC ==
[2017-10-19 18:49] LABS: #Eosinphils 0.1 thou/uL (0.0-0.7); #Monocytes 0.6 thou/uL (0.11-0.59); #Neutrophils 6.3 thou/uL (1.40-6.50); %Eosinophils 1.2 % (0.0-10.0); %Lymphocytes 22.3 % (21.0-51.0); %Monocytes 6.6 % (0.0-10.0); %Neutrophils 69.9 % (42.0-75.0); Hemoglobin 12.9 g/dL (12.0-16.0); Mean Corpuscular HGB CONC 34.4 g/dL (32.0-36.0); Mean Corpuscular Hemoglobin 31.2 pg (27.0-31.0); Mean Corpuscular Volume 90.6 fl (81.0-99.0); Mean Platelet Volume 9.6 fL (7.4-10.4); Platelet Count 148 thou/uL (130-400); RBC Distribution Width 12.1 % (11.5-14.5); Red Blood Cell (RBC) Count 4.13 mill/uL (4.20-5.40)
[2017-10-19 19:12] LABS: ALT (SGPT) 43 U/L (8-55); AST (SGOT) 38 U/L (5-34); Albumin 3.9 g/dL (3.5-5.0); Alkaline Phosphatase 66 U/L (40-150); Anion Gap 14 mmol/L (10-20); BUN (Urea Nitrogen) 13 mg/dL (9.8-20.1); Bilirubin, Total 0.5 mg/dL (0.2-1.2); Calc. Creatinine Clearance 0 mL/min (70-130); Carbon Dioxide 22 mmol/L (22-29); Chloride 106 mmol/L (98-107); Estimated GFR-MDRD 49; Globulin 2.7 g/dL (2.4-3.5); Glucose 101 mg/dL (70-105); Potassium 3.5 mmol/L (3.5-5.1); Protein, Total 6.6 g/dL (6.0-8.3); Sodium 138 mmol/L (136-145)
[2017-10-19 19:18] LABS: Troponin I Less than 0.010 ng/mL (< 0.028)
--- NOTE | 2017-10-19 19:58 | PDOC.FPRHP ---
- History of Present Illness Chief Complaint: Syncope History of Present Illness: 57 yo female presents for evaluation of syncope that occurred earlier today while she was at work at [employer]. She states that she felt weak and needed a break so she went outside to take a break. She then was sitting in a chair, felt warm and lightheaded and lost consciousness. She does not know exactly how long she was out, but denies any convulsions or loss of continence. She states she had some chest tightness and SOB that lasted for 1 minute following the episode. She denies any confusion after the episode. She also complains of a headache off and on for the last three months. Her headache is not constant, but comes and goes and today is one of the more severe days. She denies any nausea, vomiting, diarrhea, recent illness, fever or chills. She does note that she is a well controlled diabetic. She was told her glucose was in the 60s during this event and that is out of the ordinary low for her. No other complaints today. ED Course: No medication intervention - Allergies/Adverse Reactions Allergies Allergy/AdvReac Type Severity Reaction Status Date / Time adhesive Allergy Verified 08/28/17 12:29 aspirin Allergy Verified 08/28/17 12:29 codeine Allergy Verified 08/28/17 12:29 gluten Allergy Verified 08/28/17 12:29 hydrocodone Allergy Verified 08/28/17 12:29 levofloxacin [From Levaquin] Allergy Verified 08/28/17 12:29 NSAIDS (Non-Steroidal Allergy Verified 08/28/17 12:29 Anti-Inflamma Sulfa (Sulfonamide Allergy Verified 08/28/17 12:29 Antibiotics) trimethoprim [From Bactrim] Allergy Verified 08/28/17 12:29 tramadol AdvReac Mild ITCHING Verified 08/28/17 12:29 - Home Medications Medication Instructions Recorded Confirmed Type Cetirizine HCl [Zyrtec] 10 mg PO HS 07/22/16 10/19/17 History Gabapentin 900 mg PO BID 07/22/16 10/19/17 History Insulin Glargine,Hum.Rec.Anlog 80 units SC DAILY 07/22/16 10/19/17 History [Meggan Luz] Lisinopril 5 mg PO QPM 07/22/16 10/19/17 History Magnesium 250 mg PO HS 07/22/16 10/19/17 History PARoxetine HCl [Paroxetine HCl] 20 mg PO HS 07/22/16 10/19/17 History risperiDONE [Risperidone] 0.5 mg PO HS 07/22/16 10/19/17 History Pancrelipase 28793 [Creon DR 4 cap PO TID-WM #30 cap 04/05/17 10/19/17 Rx 12,000 Units] Ondansetron [Zofran ODT] 4 mg PO Q6H PRN 4 Days #16 tab 08/26/17 10/19/17 Rx Atorvastatin Calcium [Lipitor] 40 mg PO HS 30 Days #30 tab 08/27/17 10/19/17 Rx Ranolazine [Ranexa] 500 mg PO BID 30 Days #60 tab 08/28/17 10/19/17 Rx Ticagrelor [Brilinta] 90 mg PO BID 30 Days #60 tab 08/28/17 10/19/17 Rx Potassium Chloride [Klor-Con 10] 10 meq PO DAILY #30 tab 09/01/17 10/19/17 Rx Torsemide 20 mg PO ASDIR #90 tablet 09/01/17 10/19/17 Rx Ergocalciferol (Vitamin D2) 50,000 unit PO ASDIR 10/19/17 10/19/17 History [Vitamin D2] Fenofibrate [Tricor] 160 mg PO HS 10/19/17 10/19/17 History Isosorbide Mononitrate [Imdur] 90 mg PO DAILY 10/19/17 10/19/17 History Metoprolol Tartrate [Lopressor] 12.5 mg PO DAILY 10/19/17 10/19/17 History [place]-3 Acid Ethyl Esters [Lovaza] 2 gm PO BID 10/19/17 10/19/17 History Promethazine [Phenergan] 25 mg PO Q6HR PRN 10/19/17 10/19/17 History Ranitidine HCl 150 mg PO BID 10/19/17 10/19/17 History - History PMHx: MIx2, chronic pancreatitis, HTN, HLD, CKD, DM2, Bipolar PSHx: Hysterectomy w/ bilateral oopherectomy, L knee surgery FHx: Mother with Cardiomyopathy and pulm HTN Social: 2ppd for 40 years, no alcohol, no drugs, works at [employer] - Review of Systems General: denies: fever/chills, weight/appetite/sleep changes Eyes: denies: eye pain, vision changes ENT: denies: nasal congestion, rhinorrhea Respiratory: reports: shortness of breath. denies: cough, congestion Cardiovascular: reports: chest pain, palpitation. denies: edema Gastrointestinal: denies: nausea, vomiting, diarrhea, constipation Genitourinary: denies: incontinence, dysuria Skin: denies: rashes, lesions Musculoskeletal: denies: pain, tenderness, stiffness Neurological: reports: syncope Psychological: reports: other (Bipolar) - Vital signs BP: [124/75] HR: [60] RR: [18] Tmax: [97.9] Pox: [99]% on [RmAir] Wt: [105 kg ] - Physical Exam Constitutional: NAD, awake, alert and oriented HEENT: normocephalic and atraumatic, PERRLA, grossly normal vision, grossly normal hearing, normal nasal mucosa Neck: supple Chest: no-tender to palpation Heart: RRR, normal S1/S2, no murmurs/rubs/gallops Lungs: CTAB, no respiratory distress, good air movement, no wheezing Abdomen: soft, non-tender, bowel sounds present, no masses/distention Musculoskeletal: normal structure, normal tone, ROM grossly normal Neurological: no focal deficit, CN II-XII intact, DTRs 2+ -Neurological: Altered sensation on Right side. Skin: no rash/lesions, good turgor Heme/Lymphatic: no unusual bruising or bleeding Psychiatric: normal mood and affect, good judgment and insight, intact recent and remote memory FMR H&P: Results - Labs Result Diagrams: 10/19/17 18:40 10/19/17 18:40 Lab results: WBC 9.0 thou/uL (4.8-10.8) 10/19/17 18:40 Hgb 12.9 g/dL (12.0-16.0) 10/19/17 18:40 Hct 37.5 % (36.0-47.0) 10/19/17 18:40 MCV 90.6 fl (81.0-99.0) 10/19/17 18:40 Plt Count 148 thou/uL (130-400) 10/19/17 18:40 Neutrophils % 69.9 % (42.0-75.0) 10/19/17 18:40 Sodium 138 mmol/L (136-145) 10/19/17 18:40 Potassium 3.5 mmol/L (3.5-5.1) 10/19/17 18:40 Chloride 106 mmol/L (98-107) 10/19/17 18:40 Carbon Dioxide 22 mmol/L (22-29) 10/19/17 18:40 BUN 13 mg/dL (9.8-20.1) 10/19/17 18:40 Creatinine 1.16 mg/dL (0.6-1.1) H 10/19/17 18:40 Glucose 101 mg/dL (70-105) 10/19/17 18:40 Calcium 9.0 mg/dL (7.8-10.44) 10/19/17 18:40 Total Bilirubin 0.5 mg/dL (0.2-1.2) 10/19/17 18:40 AST 38 U/L (5-34) H 10/19/17 18:40 ALT 43 U/L (8-55) 10/19/17 18:40 Alkaline Phosphatase 66 U/L (40-150) 10/19/17 18:40 B-Natriuretic Peptide 38.6 pg/mL (0-100) 10/19/17 18:36 Serum Total Protein 6.6 g/dL (6.0-8.3) 10/19/17 18:40 Albumin 3.9 g/dL (3.5-5.0) 10/19/17 18:40 - EKG Interpretation EK lead EKG shows normal sinus rhythm, Rate (beats per minute): 61, with no ectopics, Interpretation: normal EKG, Conduction normal, ST segments normal, T waves normal, [place] normal, Other findings include:, Clinical impression: Normal EKG. FMR H&P: A/P - Problem List (1) Syncope Current Visit: Yes Status: Acute Code(s): R55 - SYNCOPE AND COLLAPSE (2) Chronic pancreatitis Current Visit: No Status: Acute Code(s): K86.1 - OTHER CHRONIC PANCREATITIS (3) Bipolar disorder Current Visit: No Status: Chronic Code(s): F31.9 - BIPOLAR DISORDER, UNSPECIFIED Qualifiers: Active/Remission status: remission status unspecified Qualified Code(s): F31.9 - Bipolar disorder, unspecified (4) CAD (coronary artery disease) Current Visit: No Status: Chronic Code(s): I25.10 - ATHSCL HEART DISEASE OF [place] CORONARY ARTERY W/O ANG PCTRS Qualifiers: Coronary Disease-Associated Artery/Lesion type: [place] artery [place] vs. transplanted heart: [place] heart Associated angina: angina presence unspecified Qualified Code(s): I25.10 - Atherosclerotic heart disease of [place] coronary artery without angina pectoris (5) Chronic kidney disease, stage 3 Current Visit: No Status: Chronic (6) Diabetes mellitus type 2 in obese Current Visit: No Status: Chronic Code(s): E11.9 - TYPE 2 DIABETES MELLITUS WITHOUT COMPLICATIONS; E66.9 - OBESITY, UNSPECIFIED (7) Hyperlipidemia Current Visit: No Status: Chronic Code(s): E78.5 - HYPERLIPIDEMIA, UNSPECIFIED Qualifiers: Hyperlipidemia type: unspecified Qualified Code(s): E78.5 - Hyperlipidemia , unspecified (8) Hypertension Current Visit: No Status: Chronic Code(s): I10 - ESSENTIAL (PRIMARY) HYPERTENSION Qualifiers: Hypertension type: essential hypertension Qualified Code(s): I10 - Essential (primary) hypertension (9) Peripheral neuropathy Current Visit: No Status: Chronic Code(s): G62.9 - POLYNEUROPATHY, UNSPECIFIED Qualifiers: Peripheral neuropathy type: polyneuropathy, unspecified Qualified Code(s): G62.9 - Polyneuropathy, unspecified (10) Tobacco abuse Current Visit: No Status: Chronic Code(s): Z72.0 - TOBACCO USE - Plan (1) Syncope - Rule out TIA - ECHO, MRI, Carotid dopplers ordered - Orthostatic VS - Tele monitoring - Patient is allergic to aspirin (2) Chronic pancreatitis - No acute symptoms - Continue home meds (3) Bipolar disorder - Currently well controlled - Continue home meds (4) CAD (coronary artery disease) - last stent placed in August 2017 - Continue home meds (5) Chronic kidney disease, stage 3 - Monitor BMP - Avoid nephrotoxic drugs - IVF if needed (6) Diabetes mellitus type 2 in obese - Accuchecks - SSI - Continue home meds - Check A1C (7) Hyperlipidemia - Continue home meds - Check FLP (8) Hypertension - BP at goal - Hold home meds for now for permissive HTN x24 hours (9) Peripheral neuropathy - Continue home meds (10) Tobacco abuse - Recommend cessation - Patient not willing to quit at this time. CODE STATUS: FULL CODE Disposition: Stable, will admit to Observation Telemetry. FMR H&P: Upper Level - Pertinent history 57 yo CF pmhx significant for CAD, HTN, HLD, and T2DM p/w syncopal episode. Occurred while she was sitting in a chair while at work at [employer]. States that she suddenly felt warm and lightheaded before losing consciousness. Unclear if episode was witnessed but one of her coworkers did call EMS. They believe she was unconscious for about 15 min. Patient awoke after sternal rub by paramedics. Denies any reported convulsions or incontinence. States that she had some chest chest tightness and dyspnea for about 1 minute after the episode but denies any confusion, memory loss, or post-ictal type symptoms. She also endorses a constant, diffuse headache over the past three months that will wax and wane in severity. Headache was severe after syncopal episode. She also reports that she is a well-controlled insulin dependent T2 diabetic. Upon EMS arrival, patient was noted to have a glucose in the 60's, which is abnormally low for her, and so was given an amp of D50 en route. States that she had been eating and drinking normally prior to the syncopal episode. She was also apparently hypertensive during transport and given nitro spray, with subsequent improvement of her pressures after arrival here. Denies recent illness or other associated symptoms. - Pertinent findings PE: Gen: AAOx3, NAD HEENT: PERRLA, EOMI, no carotid bruits CV: RRR, no m/g/r Lungs: CTAB Neuro: CN's II-XII intact; strength 4/5 in all extremities but suspect poor patient effort; sensation subjectively decreased in left upper and lower extremities; reflexes 2+; positive Romberg, negative drift; HTS and FTN negative ; gait normal - Plan Date/Time: 10/19/171955 Kt Interiano MD, have evaluated this patient and agree with findings/plan as outlined by seo intern resident. Pertinent changes/additions are listed here. 57 yo F with: 1) Syncopal episode, etiology unclear. Hypoglycemia v. vasovagal v. cardiogenic v. less likely TIA. Place in obs O/N. CT head negative. MRI, cardiac echo, and carotid dopplers ordered for AM. Cont. statin and Brillinta. Neurology consult in AM. Orthostatics ordered. EKG NSR but keping on telemetry monitoring O/N to look for any occult cardiac arrhythmia. Consider EEG if no other cause apparent. 2) Chronic BELL: patient was supposed to have CT scan tmrw and see neurologist to w/u further; will ask neurology to evaluate tmrw. MRI ordered as above. 3) CKDIII: appears near baseline, fluid status euvolemic. Continue to avoid nephrotoxic agents if possible. 4) HTN: permissive HTN x 24 hrs 5) HLD: cont statin 6) 2v CAD: s/p drug eluting stent placement in LAD in August 2017; continue Brillinta only as patient has ASA allergy; no new EKG changes 7) T2DM: check A1c, accuchecks AC/HS, cont. HMs 8) dCHF: echo, cont home Lasix 9) Chronic pancreatitis: asymptomatic at present 10) Chronic weakness w/ L sided paresthesias: likely related to longstanding diabetic neuropathy as neuro-imaging so far WNL. MRI tmrw. 11) Tobacco abuse: cessation counseling; patient states that she is currently trying to quit with transdermals Attending Addendum - Attending Addendum Date/Time: 10/19/17 1763 I personally evaluated the patient and discussed the management with Drs. Herrera and Harvinder. I agree with the History, Examination, Assessment and Plan documented above with any addition or exceptions noted below.
--- NOTE | 2017-10-19 20:44 | CT ---
CT HEAD WITHOUT CONTRAST: 10/19/2017 HISTORY: Lightheaded. Loss consciousness. Syncope. Headache. COMPARISON: None. TECHNIQUE: Serial axial CT imaging obtained at 5 mm intervals, from the vertex through the skull base, without c ontrast. FINDINGS: The imaged paranasal sinuses and mastoid air cells are unremarkable. No acute osseous abnormality. There is no intracranial hemorrhage, midline shift, mass effect, or ventricular enlargement. IMPRESSION: No acute findings. POS: [facility]
--- NOTE | 2017-10-19 20:45 | RAD ---
PORTABLE UPRIGHT FRONTAL CHEST RADIOGRAPH: 10/19/2017 HISTORY: Unresponsive. Syncope. COMPARISON: 09/28/2017 FINDINGS: Stable cervical spine hardware noted, incompletely imaged. Heart and mediastinal contours are unchan ged. Lungs appear clear with no pneumothorax, pleural fluid, focal consolidation, or alveolar edema. IMPRESSION: No acute findings. POS: [facility]
[2017-10-19 21:15] LABS: Bilirubin Negative (Negative); Blood, Urine Negative (Negative); Clarity CLEAR (Clear); Glucose, Urine (Dipstick) Negative (Negative); Leukocyte Negative (Negative); Nitrite Negative (Negative); Protein, Urine (Dipstick) Negative (Neg-Trace); Specific Gravity, Urine 1.007 (1.002-1.036); Urobilinogen 0.2 mg/dL (0.2-1.0)
[2017-10-19] MEDS ORDERED: Dextrose 5% in Water 1,000 ML IV PRN (22:10)
[2017-10-19] MEDS ORDERED: Ondansetron ODT 4 MG TAB PO PRN ×2 (22:10→22:41)
[2017-10-19] MEDS ORDERED: Acetaminophen 325 MG TAB PO PRN (22:10)
[2017-10-19] MEDS ORDERED: Dextrose 50% Abboject 50 ML SYRINGE SLOW IVP PRN (22:10)
[2017-10-19 22:16] LABS: Troponin I Less than 0.010 ng/mL (< 0.028)
[2017-10-19 22:23] VITALS: BMI 40.1
[2017-10-19] MEDS ORDERED: Promethazine 25 MG TAB PO PRN (22:41)
[2017-10-19 22:55] LABS: Magnesium 2.4 mg/dL (1.6-2.6)
[2017-10-19] MEDS ORDERED: Atorvastatin Calcium 40 MG TAB PO SCH (23:30)
[2017-10-19] MEDS ORDERED: PARoxetine 20 MG TAB PO SCH (23:30)
[2017-10-19] MEDS ORDERED: Fish Oil 1,000 MG CAP PO SCH (23:30)
[2017-10-19] MEDS ORDERED: Famotidine 20 MG TAB PO SCH (23:30)
[2017-10-19] MEDS ORDERED: Gabapentin 300 MG CAP PO SCH (23:30)
[2017-10-19] MEDS ORDERED: TICAGRELOR 90 MG TABLET PO SCH (23:30)
[2017-10-19] MEDS ORDERED: risperiDONE 1 MG TAB PO SCH (23:30)
[2017-10-19] MEDS ORDERED: Cetirizine HCl 10 MG TAB PO SCH (23:30)
[2017-10-19] MEDS ORDERED: Magnesium Oxide 250 MG TAB PO SCH (23:30)
[2017-10-19] MEDS ORDERED: Fenofibrate Nanocrystallized 145 MG TAB PO SCH (23:30)
[2017-10-19] MEDS ORDERED: Torsemide 20 MG TAB PO SCH (23:45)
[2017-10-20 00:28] LABS: Folate (Folic Acid) 11.2 ng/mL (7.0-31.4)
[2017-10-20 01:24] LABS: Troponin I 0.011 ng/mL (< 0.028)
[2017-10-20 05:53] LABS: Hemoglobin A1c 8.1 % (4.0-6.0)
[2017-10-20 06:10] LABS: Anion Gap 12 mmol/L (10-20); BUN (Urea Nitrogen) 15 mg/dL (9.8-20.1); Calc. Creatinine Clearance 75 mL/min (70-130); Calcium 9.3 mg/dL (7.8-10.44); Carbon Dioxide 24 mmol/L (22-29); Cardiac Risk 6.9 (Less than 4.5); Chloride 105 mmol/L (98-107); Cholesterol 144 mg/dl (< 200 Desired); Estimated GFR-MDRD 38; Glucose 240 mg/dL (70-105); HDL Cholesterol 21 mg/dL (>60 Neg Risk); LDL Cholesterol, Calculated 56 mg/dL; Potassium 3.6 mmol/L (3.5-5.1); Sodium 137 mmol/L (136-145); Triglycerides 335 mg/dL (Less than 150)
[2017-10-20] MEDS: HumaLOG 300 UNITS/3 ML VIAL SC PRN ×4 (06:32→21:06)
--- NOTE | 2017-10-20 08:06 | PDOC.FM ---
- Subjective Subjective: Pt states that she feels like during the episode yesterday she was having palpitations. She doesn't think her blood sugar was so low to where she passed out. She reports a hx of bradycardia. Denies complaints or sx this am. - Objective MAR Reviewed: Yes Vital Signs & Weight: Vital Signs (12 hours) Temp Pulse Resp BP BP BP Pulse Ox 10/20/17 04:52 97.9 F 70 20 141/67 H 97 10/19/17 22:48 97.5 F L 59 L 28 H 98/51 L 108/56 L 108/55 L 10/19/17 22:10 97.5 F L 59 L 28 H 134/62 96 Weight Weight 106.005 kg I&O: 10/19/17 10/20/17 10/21/17 06:59 06:59 06:59 Intake Total 600 Balance 600 Result Diagrams: 10/19/17 18:40 10/20/17 05:09 <Suha Mckeon - Last Filed: 10/20/17 12:21> - Objective Vital Signs & Weight: Vital Signs (12 hours) Temp Pulse Resp BP BP Pulse Ox 10/20/17 15:42 98.2 F 55 L 16 133/62 93 L 10/20/17 12:00 97.7 F 60 12 119/62 96 10/20/17 08:15 97.6 F 52 L 14 160/68 H 97 Weight Weight 106.005 kg I&O: 10/19/17 10/20/17 10/21/17 06:59 06:59 06:59 Intake Total 600 1400 Balance 600 1400 Result Diagrams: 10/19/17 18:40 10/20/17 05:09 <Cherie Roe - Last Filed: 10/20/17 19:00> Phys Exam - Physical Examination Constitutional: NAD Respiratory: no wheezing, no rales, no rhonchi, clear to auscultation bilateral Cardiovascular: RRR, no significant murmur Gastrointestinal: soft, non-tender, no distention Musculoskeletal: no edema Neurological: non-focal generalized weakness; left sided decreased sensation to light touch Psychiatric: normal affect, A&O x 3 Skin: no rash, cap refill <2 seconds <Suha Mckeon - Last Filed: 10/20/17 12:21> Dx/Plan (1) CHF (congestive heart failure) Code(s): I50.9 - HEART FAILURE, UNSPECIFIED Status: Acute (2) Syncope Code(s): R55 - SYNCOPE AND COLLAPSE Status: Acute (3) Chronic pancreatitis Code(s): K86.1 - OTHER CHRONIC PANCREATITIS Status: Acute (4) CAD (coronary artery disease) Code(s): I25.10 - ATHSCL HEART DISEASE OF [place] CORONARY ARTERY W/O ANG PCTRS Status: Chronic QualifierTitle: Coronary Disease-Associated Artery/Lesion type: [place] artery [place] vs. transplanted heart: [place] heart Associated angina: angina presence unspecified Qualified Code(s): I25.10 - Atherosclerotic heart disease of [place] coronary artery without angina pectoris (5) Diabetes mellitus type 2 in obese Code(s): E11.9 - TYPE 2 DIABETES MELLITUS WITHOUT COMPLICATIONS; E66.9 - [place]ESITY , UNSPECIFIED Status: Chronic (6) Hyperlipidemia Code(s): E78.5 - HYPERLIPIDEMIA, UNSPECIFIED Status: Chronic QualifierTitle: Hyperlipidemia type: unspecified Qualified Code(s): E78.5 - Hyperlipidemia, unspecified (7) Hypertension Code(s): I10 - ESSENTIAL (PRIMARY) HYPERTENSION Status: Chronic QualifierTitle: Hypertension type: essential hypertension Qualified Code( s): I10 - Essential (primary) hypertension (8) Bipolar disorder Code(s): F31.9 - BIPOLAR DISORDER, UNSPECIFIED Status: Chronic QualifierTitle: Active/Remission status: remission status unspecified Qualified Code(s): F31.9 - Bipolar disorder, unspecified (9) Chronic kidney disease, stage 3 Status: Chronic (10) Tobacco abuse Code(s): Z72.0 - TOBACCO USE Status: Chronic - Plan Plan: (1) Syncope - Rule out CVA - MRI and carotid dopplers show no sign of cva or severe stenosis - Orthostatic VS wnl - Echo pending - Continue Tele monitoring as patient is persistently bradycardic - Patient is allergic to aspirin - She is on atorvastin 40mg daily (2) CAD (coronary artery disease) - last stent placed in August 2017 -Continue plavix and ticagrelor (brilinta), pt allergic to aspirin -Continue Ranexa (3) Diabetes mellitus type 2 in obese - Accuchecks - SSI - Continue 80U levemir daily - hba1c 8.1 (4) CHF metoprolol, torsemide, lisinopril, imdur (5) Hyperlipidemia -Continue atorvastatin 40mg daily and Tricor (fenofibrate) (6) Hypertension - BP at goal - Okay to restart Imdur, lisinopril, metoprolol (7) Chronic kidney disease, stage 3 - Monitor BMP - Avoid nephrotoxic drugs - IVF if needed (8) Chronic pancreatitis - No acute symptoms -Continue Creon (9) Bipolar disorder - Currently well controlled - Continue Risperdal and (10) Tobacco abuse - Recommend cessation - Patient not willing to quit at this time. CODE STATUS: FULL CODE Disposition: Stable, will admit to Observation Telemetry. <Suha Mckeon - Last Filed: 10/20/17 12:21> Attending Addendum - Attending Addendum Date/Time: 10/20/17 1900 I personally evaluated the patient and discussed the management with Dr. Mckeon. I agree with the History, Examination, Assessment and Plan documented above with any addition or exceptions noted below. Pt admitted with syncope. MRI and carotid dopplers negative. Waiting on echo report. She is feeling better. Monitor heart rate, as her beta melchor may need to be decreased if bradycardia persists. <Cherie Roe - Last Filed: 10/20/17 19:00>
--- NOTE | 2017-10-20 08:34 | ULT ---
BILATERAL CAROTID DUPLEX ULTRASOUND: DATE: 10/20/17 HISTORY: TIA. TECHNIQUE: Bustos scale ultrasound with color flow and spectral Doppler imaging of the extracranial carotid artery systems performed bilaterally. FINDINGS: There is plaque formation on either side. The peak systolic velocity in the right ICA measures 57 cm/second with an end-diastolic velocity of 1 6 cm/second and a systolic ratio of 0.83. The peak systolic velocity in the left ICA measures 64 cm/second with an end-diastolic velocity of 21 cm/second and a systolic ratio of 0.84. Flow in both vertebral arteries remains antegrade. IMPRESSION: No evidence of hemodynamically significant stenosis. POS: [facility]
[2017-10-20] MEDS ORDERED: Insulin Detemir 100 UNITS/ML 80 UNITS in Pre-Filled Syringe 1 EACH SC SCH (09:00)
[2017-10-20] MEDS ORDERED: Ergocalciferol 1.25 MG(50,000 UNITS) CAP PO SCH (09:00)
[2017-10-20] MEDS ORDERED: INSULIN GLARGINE HUM REC ANLOG 80 UNIT SC SCH (09:00)
[2017-10-20] MEDS: Pancrelipase DR 12000 1 CAP PO SCH ×3 (09:23→17:45)
[2017-10-20] MEDS: Potassium Chloride 10 MEQ TAB PO SCH (09:23)
[2017-10-20] MEDS: Fish Oil 1,000 MG CAP PO SCH ×2 (09:24→21:02)
[2017-10-20] MEDS: Enoxaparin Sodium 40 MG/0.4 ML SYRINGE SC SCH (09:24)
[2017-10-20] MEDS: Famotidine 20 MG TAB PO SCH ×2 (09:24→21:01)
[2017-10-20] MEDS: Gabapentin 300 MG CAP PO SCH ×2 (09:25→21:01)
[2017-10-20] MEDS: TICAGRELOR 90 MG TABLET PO SCH ×2 (09:26→21:01)
[2017-10-20] MEDS: Torsemide 20 MG TAB PO SCH (09:26)
--- NOTE | 2017-10-20 09:31 | MRI ---
BRAIN MRI WITHOUT IV CONTRAST: Date: 10/20/17 HISTORY: 57-year-old female with lightheadedness, loss of consciousness, syncope, and headache. TIA. COMPARISON: 10/19/[address] FINDINGS: No focal mass or midline shift. No intra or extra-axial hemorrhage. No evidence for an acute infarct. Normal expected flow-voids are present. IMPRESSION: Unremarkable brain MRI. No evidence for acute infarct or other significant acute process. POS: [facility]
--- NOTE | 2017-10-20 20:48 | CON ---
DATE OF CONSULTATION: 10/20/2017 CONSULTING PHYSICIAN: [facility]. IMPRESSION: Prolonged syncopal episode of uncertain etiology. PLAN: I will be happy to monitor as an outpatient for further events. HISTORY OF PRESENT ILLNESS: Ms. Ang is a 57-year-old white female with a history of diabetes, hypertension, chronic kidney disease, bipolar disorder, and myocardial infarction. She was outside [facility], sitting on a chair when she began feeling lightheaded. She apparently lost consciousness and reportedly it may have been as long as 10 minutes. EMS was called when she was found unresponsive. She was left sitting in the chair during this interval of time. Has no reported seizure activity. I checked her blood sugar and it was 84. It is unclear as to what her vital signs showed at that poi nt in time. She was transported here for further evaluation. Her MRI of the brain was normal. Her carotid ultrasound was also clear. Her vital signs have been stable and she has been afebrile since admission. She has not had any similar events like this in the past. PAST MEDICAL HISTORY: As listed above. ALLERGIES: SULFA, CODEINE, LEVAQUIN, NONSTEROIDALS, and TRAMADOL. MEDICATIONS: Metoprolol, lisinopril, Plavix, Neurontin, isosorbide, lovastatin, Risperdal, Paxil, La six and Toujeo. FAMILY HISTORY: Noncontributory. SOCIAL HISTORY: No illicit drug use. REVIEW OF SYSTEMS: No complaints of any focal weakness or numbness. PHYSICAL EXAMINATION: GENERAL: She is an overweight, middle-aged woman, sitting up in bed, in no distress. VITAL SIGNS: Have been stable. She is afebrile. HEENT: Unremarkable. NECK: Supple. EXTREMITIES: No cyanosis. NEUROLOGIC: She is alert and appropriate. Her speech is fluent and clear. Exam is nonfocal. IMAGING: EKG shows normal sinus rhythm. SUMMARY: A middle-aged woman with a prolonged interval of unconsciousness. It is possibly could hav e been a nonconvulsive seizure. I will be happy to follow up with her if there are any recurrent pro blems.
[2017-10-20] MEDS ORDERED: risperiDONE 1 MG TAB PO SCH (21:00)
[2017-10-20] MEDS ORDERED: Magnesium Oxide 250 MG TAB PO SCH (21:00)
[2017-10-20] MEDS ORDERED: PARoxetine 20 MG TAB PO SCH (21:00)
[2017-10-20] MEDS ORDERED: Torsemide 20 MG TAB PO SCH (21:00)
[2017-10-20] MEDS ORDERED: Fenofibrate Nanocrystallized 145 MG TAB PO SCH (21:00)
[2017-10-20] MEDS ORDERED: Cetirizine HCl 10 MG TAB PO SCH (21:00)
[2017-10-20] MEDS ORDERED: Atorvastatin Calcium 40 MG TAB PO SCH (21:00)
[2017-10-20] MEDS ORDERED: Morphine 10 MG/0.5 ML ORAL SYRINGE SL SCH (21:15)
[2017-10-21] MEDS: HumaLOG 300 UNITS/3 ML VIAL SC PRN (03:59)
[2017-10-21] MEDS ORDERED: INSULIN DETEMIR SC SCH (06:44)
[2017-10-21] MEDS ORDERED: PRE FILLED SC SCH (06:44)
--- NOTE | 2017-10-21 06:47 | PDOC.FM ---
- Subjective Subjective: No acute events overnight. No complaints this morning. During the event, she described acute sx of sweating, rapid heart beat, and nausea before she had her syncopal spell. She also describes a hx of sinoatrial dysfunction and states that she usually has a fast heart beat. - Objective MAR Reviewed: Yes Vital Signs & Weight: Vital Signs (12 hours) Temp Pulse Resp BP BP Pulse Ox 10/21/17 03:45 98.1 F 59 L 16 136/58 L 96 10/20/17 23:40 98.3 F 62 18 143/64 H 96 10/20/17 19:49 97.8 F 57 L 17 139/63 95 Weight Weight 106.367 kg I&O: 10/19/17 10/20/17 10/21/17 06:59 06:59 06:59 Intake Total 600 1950 Balance 600 1950 Result Diagrams: 10/19/17 18:40 10/20/17 05:09 <Suha Mckeon - Last Filed: 10/21/17 08:37> - Objective Vital Signs & Weight: Vital Signs (12 hours) Temp Pulse Resp BP BP Pulse Ox 10/21/17 11:09 98.0 F 62 16 109/55 L 96 10/21/17 08:10 98.2 F 71 20 10/21/17 07:19 98.2 F 71 20 131/58 L 96 10/21/17 03:45 98.1 F 59 L 16 136/58 L 96 Weight Weight 106.367 kg I&O: 10/20/17 10/21/17 10/22/17 06:59 06:59 06:59 Intake Total 600 1950 Balance 600 1950 Result Diagrams: 10/19/17 18:40 10/20/17 05:09 <Cherie Roe - Last Filed: 10/21/17 12:57> Phys Exam - Physical Examination Constitutional: NAD HEENT: PERRLA, moist MMs Respiratory: no wheezing, no rales, clear to auscultation bilateral Cardiovascular: RRR, no significant murmur Gastrointestinal: soft, non-tender, no distention Musculoskeletal: no edema Neurological: non-focal Psychiatric: normal affect, A&O x 3 Skin: no rash, normal turgor, cap refill <2 seconds <Suha Mckeon - Last Filed: 10/21/17 08:37> Dx/Plan (1) CHF (congestive heart failure) Code(s): I50.9 - HEART FAILURE, UNSPECIFIED Status: Acute (2) Syncope Code(s): R55 - SYNCOPE AND COLLAPSE Status: Acute (3) Chronic pancreatitis Code(s): K86.1 - OTHER CHRONIC PANCREATITIS Status: Acute (4) CAD (coronary artery disease) Code(s): I25.10 - ATHSCL HEART DISEASE OF [place] CORONARY ARTERY W/O ANG PCTRS Status: Chronic QualifierTitle: Coronary Disease-Associated Artery/Lesion type: [place] artery [place] vs. transplanted heart: [place] heart Associated angina: angina presence unspecified Qualified Code(s): I25.10 - Atherosclerotic heart disease of [place] coronary artery without angina pectoris (5) Diabetes mellitus type 2 in obese Code(s): E11.9 - TYPE 2 DIABETES MELLITUS WITHOUT COMPLICATIONS; E66.9 - OBESITY , UNSPECIFIED Status: Chronic (6) Hyperlipidemia Code(s): E78.5 - HYPERLIPIDEMIA, UNSPECIFIED Status: Chronic QualifierTitle: Hyperlipidemia type: unspecified Qualified Code(s): E78.5 - Hyperlipidemia, unspecified (7) Hypertension Code(s): I10 - ESSENTIAL (PRIMARY) HYPERTENSION Status: Chronic QualifierTitle: Hypertension type: essential hypertension Qualified Code( s): I10 - Essential (primary) hypertension (8) Bipolar disorder Code(s): F31.9 - BIPOLAR DISORDER, UNSPECIFIED Status: Chronic QualifierTitle: Active/Remission status: remission status unspecified Qualified Code(s): F31.9 - Bipolar disorder, unspecified (9) Chronic kidney disease, stage 3 Status: Chronic (10) Tobacco abuse Code(s): Z72.0 - TOBACCO USE Status: Chronic - Plan Plan: (1) Syncope - No evidence of CVA -HR 58-94 overnight, sinus rhythm -Pt describes acute sx of sweating, rapid heart beat and nausea before she had her syncopal spell. -I suspect vasovagal syncope vs cardiac etiology; she also describes a hx of sinoatrial dysfunction and states that she usually has a fast heart beat. -Echo read pending. - MRI and carotid dopplers show no sign of cva or severe stenosis - Orthostatic VS wnl - Echo pending - Continue Tele monitoring as patient is persistently bradycardic - Patient is allergic to aspirin - She is on atorvastin 40mg daily - Continue to hold metoprolol (2) CAD (coronary artery disease) -last stent placed in August 2017 -Continue plavix and ticagrelor (brilinta), pt allergic to aspirin -Continue Ranexa (3) Diabetes mellitus type 2 in obese - Accuchecks - SSI: pt required 14 additional units of sliding scale yesterday - Increase levemir to 87U daily - hba1c 8.1 (4) dCHF -Based off of last discharge summary from pt's recent hospitalization in August. -echo pending, no s/s of volume overload today. -Continue torsemide, imdur -lisinopril, metoprolol were held yesterday for permissive hypertension -restart lisinopril today; pt still is bradycardic. Hold metoprolol for now. (5) Hyperlipidemia -Continue atorvastatin 40mg daily and Tricor (fenofibrate) (6) Hypertension - BP at goal - Okay to restart Imdur, lisinopril, metoprolol (7) Chronic kidney disease, stage 3 - Monitor BMP - Avoid nephrotoxic drugs - IVF if needed (8) Chronic pancreatitis - No acute symptoms -Continue Creon (9) Bipolar disorder - Currently well controlled - Continue Risperdal and (10) Tobacco abuse - Recommend cessation - Patient not willing to quit at this time. CODE STATUS: FULL CODE Disposition: Stable, dc pending echo read, likely this evening. <Suha Mckeon - Last Filed: 10/20/17 12:21> <Suha Mckeon - Last Filed: 10/21/17 08:37> Attending Addendum - Attending Addendum Date/Time: 10/21/17 1257 I personally evaluated the patient and discussed the management with Dr. Mckeon. I agree with the History, Examination, Assessment and Plan documented above with any addition or exceptions noted below. No more syncopal or presyncopal symptoms. Echo reviewed, EF 50-55%. Will d/c home to f/u with PCP. <Cherie Roe - Last Filed: 10/21/17 12:57>
[2017-10-21] MEDS: Enoxaparin Sodium 40 MG/0.4 ML SYRINGE SC SCH (08:09)
[2017-10-21] MEDS: Famotidine 20 MG TAB PO SCH (08:10)
[2017-10-21] MEDS: Pancrelipase DR 12000 1 CAP PO SCH ×3 (08:10→17:42)
[2017-10-21] MEDS: Fish Oil 1,000 MG CAP PO SCH (08:10)
[2017-10-21] MEDS: TICAGRELOR 90 MG TABLET PO SCH (08:11)
[2017-10-21] MEDS: Torsemide 20 MG TAB PO SCH (08:11)
[2017-10-21] MEDS: Gabapentin 300 MG CAP PO SCH (08:11)
[2017-10-21] MEDS: Potassium Chloride 10 MEQ TAB PO SCH (08:12)
[2017-10-21 12:02] VITALS: BP 109/55; TEMP 98
[2017-10-21] MEDS ORDERED: Lisinopril 5 MG TAB PO SCH (21:00)
== END 2017-10-21 18:05 | disposition home or self-care (01) ==
LOC: ERS 18:25 → 2SW 19:55
PROVIDERS: ADMIT Family Medicine; ATTEND Family Medicine
DX: R55 Syncope and collapse (principal); I25.10 Atherosclerotic heart disease of native coronary artery without angina pectoris; I13.0 Hypertensive heart and chronic kidney disease with heart failure and stage 1 through stage 4 chronic kidney disease, or unspecified chronic kidney disease; E11.22 Type 2 diabetes mellitus with diabetic chronic kidney disease; N18.3 Chronic kidney disease, stage 3 (moderate); I50.9 Heart failure, unspecified; K86.1 Other chronic pancreatitis; F31.9 Bipolar disorder, unspecified; F17.200 Nicotine dependence, unspecified, uncomplicated; Z88.1 Allergy status to other antibiotic agents; Z88.2 Allergy status to sulfonamides; Z88.6 Allergy status to analgesic agent; Z88.8 Allergy status to other drugs, medicaments and biological substances; Z79.899 Other long term (current) drug therapy; Z91.048 Other nonmedicinal substance allergy status
CPT/HCPCS: 36415; 36416; 70450; 70551; 71045; 80048; 80053; 80061; 81003; 82607; 82746; 83036; 83735; 83880; 84100; 84443; 84484; 85025; 85379; 93005; 93306; 93880; 96372; G0378; J1650; J1815

== ENCOUNTER 2017-12-15 07:16 | Day surgery (SDC) | payer BC ==
[2017-12-14 15:03] VITALS: BMI 40.8
--- NOTE | 2017-12-15 08:09 | HP ---
SHORT STAY HISTORY AND PHYSICAL DATE OF ADMISSION: 12/15/2017 HISTORY OF PRESENT ILLNESS: This is a 57-year-old female with abdominal pain, abnormal CT scan of the abdomen. The patient had recent abdominal pain off and on. She had an abdominal CAT scan few months ago and was told to have possible pancreatic mass. However, she had a negative EUS in the past. The patient has been doing better at the present time. The patient comes for colonoscopy for colon cancer screening. ALLERGIES: Multiple include ASPIRIN, BACTRIM, CODEINE, HYDROCODONE, LEVAQUIN, METFORMIN, NSAIDS, and OXYCODONE. SOCIAL HISTORY: The patient is a smoker. Does not drink alcohol. MEDICAL ILLNESSES: 1. Allergic rhinitis: 2. Osteoarthritis. 3. Colon polyp. 4. Breast cancer. 5. Coronary artery disease, stable. 6. Depression. 7. Diabetes. 8. Hypertension. PHYSICAL EXAMINATION: VITAL SIGNS: Pulse is 70, blood pressure 130/80. HEENT: Conjunctivae clear. CARDIOVASCULAR SYSTEM: First and second heart sounds normal. LUNGS: Clear to auscultation. ABDOMEN: Soft to palpate. No organomegaly. No tenderness. No masses. ADMITTING DIAGNOSIS: Colon polyp. The patient comes for colonoscopy for colon cancer screening. ROSENDO
--- NOTE | 2017-12-15 10:54 | OP ---
DATE OF PROCEDURE: 12/15/2017 SURGEON: Ashwin Poe M.D. OPERATIVE PROCEDURE: Colonoscopy with polypectomy. PREOPERATIVE DIAGNOSIS: A 57-year-old female with history of colon polyp, undergoing [facility] colonoscopy. POSTOPERATIVE DIAGNOSES: 1. Sigmoid diverticular disease. 2. Sessile polyps x2 transverse colon. 3. Sessile polyps x2, lower sigmoid colon. PROCEDURE NOTE: The patient was placed on her left lateral position and was given sedation by Anesth esia Department. A rectal exam was done before the scope was advanced into the rectum. No lesion fe lt on rectal exam. A Pentax video colonoscope was introduced into the rectum and advanced all the wa y into the cecum. Prep was reasonably good. The patient had some fecal residue that was washed out. The appendical opening, the ileocecal valve, cecum, no pathology seen. The mucosa appears normal t hroughout the colon with normal vascular pattern. The ascending colon, hepatic flexure, no lesions s een. The transverse colon showed 2 sessile polyps. Both removed with snare cautery with good hemost asis. The splenic flexure, descending colon, no pathology seen. The sigmoid colon showed scattered diverticula. There were 2 sessile polyps seen over the lower sigmoid colon area. Both were removed with snare cautery with good hemostasis. Retroflexion of the scope in the rectum showed no pathology . DISCHARGE PLANNING: This is a 57-year-old female who came in for colonoscopy. She underwe nt colonoscopy with polypectomy. DISCHARGE RECOMMENDATIONS: 1. The patient was advised to call me if she develops abdominal pain, hematochezia. 2. High-fiber diet. 3. Repeat colonoscopy in 5 years.
[2017-12-15] MEDS ORDERED: PROPOFOL 200 MG/20 ML VIAL ONE (12:48)
== END 2017-12-15 09:43 | disposition home or self-care (01) ==
LOC: SDC 07:16
PROVIDERS: ATTEND Internal Medicine Gastroenterology
PROC: 0DBL8ZX Excision of Transverse Colon, Via Natural or Artificial Opening Endoscopic, Diagnostic (ICD-10-PCS; principal; 2017-12-15)
PROC: 0DBN8ZX Excision of Sigmoid Colon, Via Natural or Artificial Opening Endoscopic, Diagnostic (ICD-10-PCS; principal; 2017-12-15)
DX: Z12.11 Encounter for screening for malignant neoplasm of colon (principal); D12.3 Benign neoplasm of transverse colon; K63.5 Polyp of colon; K57.30 Diverticulosis of large intestine without perforation or abscess without bleeding; F17.200 Nicotine dependence, unspecified, uncomplicated; M19.90 Unspecified osteoarthritis, unspecified site; I25.10 Atherosclerotic heart disease of native coronary artery without angina pectoris; F32.9 Major depressive disorder, single episode, unspecified; E11.9 Type 2 diabetes mellitus without complications; I10 Essential (primary) hypertension; Z88.2 Allergy status to sulfonamides; Z88.6 Allergy status to analgesic agent; Z88.8 Allergy status to other drugs, medicaments and biological substances; Z88.5 Allergy status to narcotic agent; Z88.1 Allergy status to other antibiotic agents; Z79.899 Other long term (current) drug therapy
CPT/HCPCS: 88305

== ENCOUNTER 2018-01-14 03:19 | Emergency (ER) | payer BC ==
[2018-01-14 05:15] LABS: Troponin I Less than 0.010 ng/mL (< 0.028)
--- NOTE | 2018-01-16 12:10 | EKG ---
Test Reason : Blood Pressure : / mmHG Vent. Rate : 064 BPM Atrial Rate : 064 BPM P-R Int : 158 ms QRS Dur : 092 ms QT Int : 450 ms P-R-T Axes : 042 008 069 degrees QTc Int : 464 ms Normal sinus rhythm Prolonged QT Abnormal ECG Confirmed by PRIMITIVO RIOS ([id number]), writer editor GARETH ROWE ([id number]) on 01/16/2018 12:09:32 PM Referred By: Confirmed By:PRIMITIVO RIOS
== END 2018-01-14 05:49 | disposition home or self-care (01) ==
LOC: ERS 03:19
DX: E11.65 Type 2 diabetes mellitus with hyperglycemia (principal); F17.210 Nicotine dependence, cigarettes, uncomplicated; E78.5 Hyperlipidemia, unspecified; I25.10 Atherosclerotic heart disease of native coronary artery without angina pectoris; I10 Essential (primary) hypertension; F32.9 Major depressive disorder, single episode, unspecified
CPT/HCPCS: 36415; 36416; 82553; 84484; 93005

== ENCOUNTER 2018-03-14 21:48 | Observation (INO) | payer BC ==
[2018-03-14] MEDS ORDERED: Acetaminophen 325 MG TAB PO PRN (23:04)
[2018-03-14] MEDS ORDERED: Ondansetron ODT 4 MG TAB PO PRN (23:04)
--- NOTE | 2018-03-14 23:04 | PDOC.FPRHP ---
- History of Present Illness Chief Complaint: Tremulousness History of Present Illness: Ms. Ang presented to the [facility] earlier this evening with a 4 day history of intermittent tremulousness and left sided paresthesias. She reports the symptoms worsen as she moves around and are relieved by rest. She reports L sided weakness since this morning, prescyncope feelings, nausea, and a headache. She denies changes in vision, falls, or chest pain. She has had similar symptoms in the past with negative or inconclusive diagnosis of multiple sclerosis, stroke, TIA. She also notes that recently she has felt that she has some bronchitis coming on and has associated productive cough, shortness of breath, and fatigue. ED Course: NIH 0 at [place], negative CT head, UDS, CBC CMP with kidney function at baseline - Allergies/Adverse Reactions Allergies Allergy/AdvReac Type Severity Reaction Status Date / Time adhesive Allergy Verified 12/14/17 14:52 aspirin Allergy Verified 12/14/17 14:52 codeine Allergy Verified 12/14/17 14:52 gluten Allergy Verified 12/14/17 14:52 hydrocodone Allergy Verified 12/14/17 14:52 levofloxacin [From Levaquin] Allergy Verified 12/14/17 14:52 NSAIDS (Non-Steroidal Allergy Verified 12/14/17 14:52 Anti-Inflamma Sulfa (Sulfonamide Allergy Verified 12/14/17 14:52 Antibiotics) trimethoprim [From Bactrim] Allergy Verified 12/14/17 14:52 tramadol AdvReac Mild ITCHING Verified 12/14/17 14:52 - Home Medications Medication Instructions Recorded Confirmed Type Cetirizine HCl [Zyrtec] 10 mg PO HS 07/22/16 12/14/17 History Gabapentin 900 mg PO BID 07/22/16 12/14/17 History Lisinopril 5 mg PO QPM 07/22/16 12/14/17 History Magnesium 250 mg PO HS 07/22/16 12/14/17 History PARoxetine HCl [Paroxetine HCl] 20 mg PO HS 07/22/16 12/14/17 History risperiDONE [Risperidone] 0.5 mg PO HS 07/22/16 12/14/17 History Pancrelipase 07846 [Gui BARBOSA 4 cap PO TID-WM #30 cap 04/05/17 12/14/17 Rx 12,000 Units] Ondansetron [Zofran ODT] 4 mg PO Q6H PRN 4 Days #16 tab 08/26/17 12/14/17 Rx Atorvastatin Calcium [Lipitor] 40 mg PO HS 30 Days #30 tab 08/27/17 12/14/17 Rx Ranolazine [Ranexa] 500 mg PO BID 30 Days #60 tab 08/28/17 10/19/17 Rx Ticagrelor [Brilinta] 90 mg PO BID 30 Days #60 tab 08/28/17 10/19/17 Rx Potassium Chloride [Klor-Con 10] 10 meq PO DAILY #30 tab 09/01/17 12/14/17 Rx Torsemide 20 mg PO ASDIR #90 tablet 09/01/17 12/14/17 Rx Ergocalciferol (Vitamin D2) 50,000 unit PO ASDIR 10/19/17 12/14/17 History [Vitamin D2] Fenofibrate [Tricor] 160 mg PO HS 10/19/17 12/14/17 History Isosorbide Mononitrate [Imdur] 90 mg PO DAILY 10/19/17 12/14/17 History [place]-3 Acid Ethyl Esters [Lovaza] 2 gm PO BID 10/19/17 12/14/17 History Promethazine [Phenergan] 25 mg PO Q6HR PRN 10/19/17 12/14/17 History Ranitidine HCl 150 mg PO BID 10/19/17 12/14/17 History Insulin Glargine,Hum.Rec.Anlog 87 units SC DAILY #1 insuln.pen 10/21/17 Rx [[place] Solostar] Morphine Sulfate 3 ml PO Q4H PRN 12/14/17 12/14/17 History - History PMHx: CAD, DMII, HTN, HLD, CKDII, chronic pancreatitis, NAFLD, Bipolar PSHx: hysterectomy with b/l oopherectomy, L knee scope FHx: Aunt with lupus Social: current pack a day smoker, no alcohol or drugs - Review of Systems General: denies: fever/chills, weight/appetite/sleep changes Eyes: reports: eye pain, vision changes ENT: denies: nasal congestion, rhinorrhea Respiratory: reports: cough, shortness of breath Cardiovascular: denies: chest pain, palpitation, edema Gastrointestinal: reports: nausea. denies: vomiting, diarrhea Genitourinary: denies: incontinence, dysuria Skin: denies: rashes, lesions, jaundice Musculoskeletal: denies: pain, tenderness Neurological: reports: numbness, syncope, weakness - Vital signs BP: [117/80] HR: [74] RR: [16] Tmax: [98] Pox: [96]% on [RA] Wt: [112.6kg] - Physical Exam Constitutional: NAD, awake, alert and oriented HEENT: normocephalic and atraumatic, EOMI, grossly normal vision, grossly normal hearing Neck: supple, trachea midline Chest: no-tender to palpation Heart: RRR, normal S1/S2 Lungs: CTAB, no respiratory distress, good air movement Abdomen: soft, bowel sounds present, other (tenderness over epigastric area) Musculoskeletal: normal structure, normal tone Neurological: CN II-XII intact, other (reported L sided abnormal sensation, graphic specialist /flexion/extension strength reduced on left side) Skin: no rash/lesions, good turgor Heme/Lymphatic: no unusual bruising or bleeding Psychiatric: normal mood and affect FMR H&P: A/P - Problem List (1) Neurological symptoms Current Visit: No Status: Acute Code(s): R29.90 - UNSPECIFIED SYMPTOMS AND SIGNS INVOLVING THE NERVOUS SYSTEM (2) Chronic kidney disease, stage 3 Current Visit: No Status: Chronic (3) Chronic pancreatitis Current Visit: No Status: Acute Code(s): K86.1 - OTHER CHRONIC PANCREATITIS (4) CHF (congestive heart failure) Current Visit: No Status: Acute Code(s): I50.9 - HEART FAILURE, UNSPECIFIED (5) CAD (coronary artery disease) Current Visit: No Status: Chronic Code(s): I25.10 - ATHSCL HEART DISEASE OF [place] CORONARY ARTERY W/O ANG PCTRS Qualifiers: Coronary Disease-Associated Artery/Lesion type: [place] artery [place] vs. transplanted heart: [place] heart Associated angina: angina presence unspecified Qualified Code(s): I25.10 - Atherosclerotic heart disease of [place] coronary artery without angina pectoris (6) Diabetes mellitus type 2 in obese Current Visit: No Status: Chronic Code(s): E11.9 - TYPE 2 DIABETES MELLITUS WITHOUT COMPLICATIONS; E66.9 - OBESITY, UNSPECIFIED (7) Bipolar disorder Current Visit: No Status: Chronic Code(s): F31.9 - BIPOLAR DISORDER, UNSPECIFIED Qualifiers: Active/Remission status: remission status unspecified Qualified Code(s): F31.9 - Bipolar disorder, unspecified (8) Hyperlipidemia Current Visit: No Status: Chronic Code(s): E78.5 - HYPERLIPIDEMIA, UNSPECIFIED Qualifiers: Hyperlipidemia type: unspecified Qualified Code(s): E78.5 - Hyperlipidemia , unspecified (9) Hypertension Current Visit: No Status: Chronic Code(s): I10 - ESSENTIAL (PRIMARY) HYPERTENSION Qualifiers: Hypertension type: essential hypertension Qualified Code(s): I10 - Essential (primary) hypertension - Plan 1. Neurological symptoms - Ischemic stroke vs TIA vs MS flare - allergy to NSAIDs, outside window for TPA, declines intervention - q4hr neuro checks, monitor on stroke - MRI to r/o ischemic event and evaluate for MS - carotid artery US within 5 months - consult neurology for further recommendations 2. CKDIII - kidney function at baseline - monitor labs - encourage PO hydration 3. Chronic pancreatitis - baseline level of pain - continue home meds 4. CHF - controlled, continue home meds 5. CAD - hx of [place] - unlikely cause of current symptoms - TTE within 5 months - EKG WNL, monitor vitals 6. DMII - controlled, continue home meds 7. Bipolar disorder - controlled, continue home meds 8. HLD - controlled, continue home meds 9. HTN - controlled, hold home meds for permissive HTN Disposition/LOS: neuro checks overnight, MRI and neuro consult in the AM, possible DC pending negative tests FMR H&P: Upper Level - Pertinent history 57F arrives from outside ER with cc of left sided parasthesia and new complaint of weakness. Stated today she did not feel well and felt fatigued. At approximately 1700 hour, shelf felt both legs and arm felt like "rubber". She then presented to be evaluated at outside ER where NIHSS was zero. CT did not find hemorrhage or any abnormalities. TPA was not started as she had no neurological deficit besides parasthesia. She was transfered here for further work up. She now complain of new left sided weakness and continuation of her parasthesia. - Pertinent findings Gen: Alert, grossly oriented HEENT: Moist mucosal membrane CV: RRR with no apparent m/g/r. No brui Resp: CTA bilaterally GI: not tender to palpation, normoactive bowel Neuro: CN II-XII grossly intact. 4/5 strength for left UE and LE. Sensation grossly intact though patient continue to complain of parasthesia. Normal tone. Derm: No lesion observed. No bruising noted. - Plan Date/Time: 03/14/18 2304 I, [Kaden Us], have evaluated this patient and agree with findings/plan as outlined by management retail intern resident. Pertinent changes/additions are listed here. 1. TIA like symptoms - CT negative for hemorrhagic stroke. NIHSS score of 0. Patient on exam had weakness of both upper and lower left limbs. - 5 months ago, she has MRI, carotid doppler that was read as normal - Will rule out stroke/TI, but consider conversion disorder, somatization. Unlikely MS as previous MRI neg. - Plan for MRI. COnsider carotid/cardiac echo, but has had previously done this year. At this point, will hold off on echo. NIH scoring q 4hr 2. CKD stage 3 - In comparison to previous visit, CKD was at baseline - WIll monitor with routine lab 3. Hx [place] with CAD and stents - Continue withstatin, Brillinta and ranexa - No cardiac symptom at this time - Advise smoking cessation. 4. Hx chronic pancreatitis - No abdominal complaint - Continue with pancreatic enzyme replacement 5. HTN - Hold BP med. Permissive HTN in light of recent stroke light symptom 6. DM2 - SSI. Glucose in appropriate range at this time 7. Bipolar - Not acutely psychotic. Continue home medication 8. Hx cHF with pEF - Hold metoprolol at this time - Monitor fluid status 9. HLD - Continue statin and tricor
[2018-03-15] MEDS ORDERED: Ondansetron ODT 4 MG TAB PO PRN (00:12)
[2018-03-15] MEDS ORDERED: Promethazine 25 MG TAB PO PRN (00:12)
[2018-03-15] MEDS ORDERED: HumaLOG 300 UNITS/3 ML VIAL SC PRN ×2 (00:16)
[2018-03-15] MEDS ORDERED: Dextrose 50% Abboject 50 ML SYRINGE SLOW IVP PRN ×2 (00:16→02:33)
[2018-03-15] MEDS ORDERED: Dextrose 5% in Water 1,000 ML IV PRN ×2 (00:16→02:33)
[2018-03-15] MEDS ORDERED: Insulin Regular 300 UNITS/3 ML VIAL SC PRN (02:33)
[2018-03-15 05:34] VITALS: BMI 44.5
[2018-03-15 05:47] LABS: Cholesterol 171 mg/dl (< 200 Desired); HDL Cholesterol 19 mg/dL (>60 Neg Risk); Triglycerides 419 mg/dL (Less than 150)
--- NOTE | 2018-03-15 08:31 | PDOC.FM ---
- Subjective Subjective: 57 yo F here for left sided paresis. Pt states that her symptoms continue this am, however are stable. She complains of left sided numbness that involves her entire body. Denies weakness and can use limbs. No new symptoms. Denies headache , n/v, changes in vision, or CP. No events over night - Objective MAR Reviewed: Yes Vital Signs & Weight: Vital Signs (12 hours) Temp Pulse Resp BP BP Pulse Ox 03/15/18 07:39 97.7 F 51 L 16 128/52 L 93 L 03/15/18 04:00 97.8 F 57 L 18 137/60 97 03/14/18 23:40 98.6 F 62 16 171/77 H 99 Weight Weight 110.54 kg I&O: 03/14/18 03/15/18 03/16/18 06:59 06:59 06:59 Intake Total 240 Balance 240 <Sang Ordaz - Last Filed: 03/15/18 08:29> - Objective Vital Signs & Weight: Vital Signs (12 hours) Temp Pulse Pulse Pulse Resp BP BP 03/15/18 16:00 97.8 F 63 16 03/15/18 13:57 71 80 124/60 141/74 H 03/15/18 11:59 97.5 F L 78 18 03/15/18 07:39 97.7 F 51 L 16 BP Pulse Ox 03/15/18 16:00 160/62 H 96 03/15/18 13:57 03/15/18 11:59 158/78 H 99 03/15/18 07:39 128/52 L 93 L Weight Weight 110.54 kg I&O: 03/14/18 03/15/18 03/16/18 06:59 06:59 06:59 Intake Total 240 240 Balance 240 240 <Rory Reyes - Last Filed: 03/15/18 17:23> Phys Exam - Physical Examination Constitutional: NAD HEENT: PERRLA, moist MMs Neck: no nodes, no JVD Respiratory: clear to auscultation bilateral Cardiovascular: RRR, no significant murmur Gastrointestinal: soft, non-tender, no distention, positive bowel sounds Musculoskeletal: no edema, pulses present Neurological: non-focal, moves all 4 limbs Diffuse L sided decreased sensation. Normal strength and proprioception Psychiatric: A&O x 3 Skin: no rash, normal turgor <Sang Ordaz - Last Filed: 03/15/18 08:29> Dx/Plan (1) Paresthesia Code(s): R20.2 - PARESTHESIA OF SKIN Status: Acute (2) CHF (congestive heart failure) Code(s): I50.9 - HEART FAILURE, UNSPECIFIED Status: Chronic (3) Bipolar disorder Code(s): F31.9 - BIPOLAR DISORDER, UNSPECIFIED Status: Chronic Qualifiers: Active/Remission status: remission status unspecified Qualified Code(s): F31.9 - Bipolar disorder, unspecified (4) CAD (coronary artery disease) Code(s): I25.10 - ATHSCL HEART DISEASE OF [place] CORONARY ARTERY W/O ANG PCTRS Status: Chronic Qualifiers: Coronary Disease-Associated Artery/Lesion type: [place] artery [place] vs. transplanted heart: [place] heart Associated angina: angina presence unspecified Qualified Code(s): I25.10 - Atherosclerotic heart disease of [place] coronary artery without angina pectoris (5) Chronic kidney disease, stage 3 Status: Chronic (6) Diabetes mellitus type 2 in obese Code(s): E11.9 - TYPE 2 DIABETES MELLITUS WITHOUT COMPLICATIONS; E66.9 - OBESITY , UNSPECIFIED Status: Chronic (7) Hyperlipidemia Code(s): E78.5 - HYPERLIPIDEMIA, UNSPECIFIED Status: Chronic Qualifiers: Hyperlipidemia type: unspecified Qualified Code(s): E78.5 - Hyperlipidemia , unspecified (8) Hypertension Code(s): I10 - ESSENTIAL (PRIMARY) HYPERTENSION Status: Chronic Qualifiers: Hypertension type: essential hypertension Qualified Code(s): I10 - Essential (primary) hypertension - Plan Plan: Paresthesia - unclear etiology. This is very likely vascular in nature, however psychogenic etiology cannot be ruled out given recent negative work up - CT shows no acute event in outside facility. MRI pending. Pt has had normal carotid doppler withing the past 6mo - Consult neurology BPD - dx by history, however pt is not on meds to suggest the diagnosis. Pt is on SSRI at home which would point away from BPD CKD3 - baseline. Monitor labs every 2 days CAD - continue home meds HTN - controlled on home meds DM2 - Home meds. low carb diet. ACHS BG checks CHF - at baseline. No signs of overload at this time HLD - home statin Dispo: continue to monitor on stroke. LOS pending neuro eval <Sang Ordaz - Last Filed: 03/15/18 08:29> Attending Addendum - Attending Addendum Date/Time: 03/15/18 1722 I discussed the management with Dr. Ordaz. Unfortunately on both occasions of my rounding this morning and this evening the patient has been unavailable for examination. I agree with the History, Examination, Assessment and Plan documented above with any addition or exceptions noted below. <Rory Reyes - Last Filed: 03/15/18 17:23>
[2018-03-15] MEDS ORDERED: Non-Formulary Item 1 EACH (Ranitidine Hcl [Ranitidine Hcl] 150 MG) PO SCH (09:00)
[2018-03-15] MEDS: Gabapentin 300 MG CAP PO SCH ×2 (09:38→21:21)
[2018-03-15] MEDS: Pancrelipase DR 12000 1 CAP PO SCH ×4 (09:39→21:21)
[2018-03-15] MEDS: Potassium Chloride 10 MEQ TAB PO SCH (09:39)
[2018-03-15] MEDS: TICAGRELOR 90 MG TABLET PO SCH ×2 (09:39→23:34)
[2018-03-15] MEDS: Fish Oil 1,000 MG CAP PO SCH ×2 (09:39→21:21)
[2018-03-15] MEDS: Enoxaparin Sodium 40 MG/0.4 ML SYRINGE SC SCH (09:40)
[2018-03-15] MEDS: Insulin Glargine 40 UNITS in Pre-Filled Syringe 1 EACH SC SCH ×2 (09:40→21:22)
[2018-03-15] MEDS: Fenofibrate Nanocrystallized 145 MG TAB PO SCH (09:40)
[2018-03-15] MEDS: Famotidine 20 MG TAB PO SCH ×2 (09:40→21:19)
[2018-03-15] MEDS ORDERED: ISOVUE-370 76%-LOCM 1 ML ONE (12:20)
[2018-03-15] MEDS ORDERED: Diazepam 10 MG/2 ML SYRINGE IVP SCH (12:30)
--- NOTE | 2018-03-15 14:43 | CT ---
NONCONTRAST HEAD CT CT ANGIOGRAM OF THE HEAD CT ANGIOGRAM OF THE NECK: History: Evaluate for stroke. Numbness, weakness on the left side. Hypoglycemia. Technique: Noncontrast head CT was performed from skull base to skull vertex. CT angiogram of the hea d was performed in the axial plane. 3D reformatted images are submitted for interpretation. FINDINGS: NONCONTRAST HEAD CT: No parenchymal hemorrhage. No extraaxial hematoma. No midline shift. Basilar cisterns are patent. Bra in volume is age appropriate. Cortical hernandez white matter differentiation is preserved. Ventricles and sulci are patent and symmetric. Adequate aeration of the sinuses and mastoid air cells. Calvarium is intact. On post contrast images, cortical hernandez white matter differentiation is preserved. Ventricles and sulc i are patent and symmetric. Bilateral ocular lenses are located. Both globes are intact. Retrobulbar fat is preserved. Symmetric attenuation of the optic nerves and ocular muscles. Aerodigestive tract is patent. No mucosal abnormality. Symmetric attenuation of the carotid and subma ndibular glands. Symmetric attenuation of the cleidomastoid muscles. No evidence of lymphadenopathy by size criteria. Cervical fusion changes from C4 through C7. No perihardware lucency. There is central canal stenosis and foraminal narrowing on the basis of degenerative change. Upper mediastinum and lung apices are unremarkable. CT ANGIOGRAM: There is atherosclerosis of nonaneursymal aorta. Right carotid: Right carotid artery origin has appropriate enhancement and luminal diameter. The righ t common carotid artery, carotid bifurcation, and internal carotid artery have appropriate enhancemen t and luminal diameter. No significant stenosis based upon NASCET criteria. Left carotid: Left carotid artery has appropriate enhancement and luminal diameter. Left common carot id, carotid bifurcation, and internal carotid artery have appropriate enhancement and luminal diamete r. There is no significant stenosis based on NASCET criteria. Bilateral subclavian arteries are patent. Bilateral vertebral artery origins are patent. Both cervical vertebral arteries are patent throughout their course in the neck. Left vertebral artery is dominant. CT ANGIOGRAM OF THE HEAD: There is symmetric enhancement and luminal diameter in both intracranial internal carotid arteries. T here is some atherosclerosis in both cavernous segments and paraclinoid segments, no significant sten osis. Anterior circulation: Symmetric enhancement and luminal diameter of A1 and M1 segments. Symmetric enh ancement of the proximal MCA branches approximately 2 segments in length. Posterior circulation: Limited evaluation of the PICA artery origins. There is some atherosclerosis o f a nonansysmal intracranial left vertebral artery. Both vertebral arteries supply normal caliber bas ilar artery. Bilateral P1 segments have symmetric enhancement and luminal diameter. IMPRESSION: 1. No significant stenosis in the cervical carotid or vertebral arteries based on NASCET criteria. 2. Unremarkable CT angiogram of the [place]. POS: [facility]
[2018-03-15] MEDS ORDERED: Diazepam 5 MG TAB PO SCH (15:45)
--- NOTE | 2018-03-15 18:42 | MRI ---
MRI BRAIN WITHOUT CONTRAST: HISTORY: Left arm numbness and weakness. CORRELATION: The previous day's CT scan. FINDINGS: No restricted diffusion is seen. No evidence of infarct, hemorrhage, midline shift, or abnormal extr aaxial fluid collections is seen. The ventricular size is normal, and the basilar cisterns are paten t. No significant abnormalities are noted on the highly sensitive FLAIR images. No blood products a re seen on the gradient echo sequences. There is mild mucosal disease in the paranasal sinuses. IMPRESSION: No evidence of acute intracranial process. POS: [facility]
[2018-03-15] MEDS ORDERED: Magnesium Oxide 250 MG TAB PO SCH (21:00)
[2018-03-15] MEDS ORDERED: PARoxetine 20 MG TAB PO SCH (21:00)
[2018-03-15] MEDS ORDERED: Cetirizine HCl 10 MG TAB PO SCH (21:00)
[2018-03-15] MEDS ORDERED: FENOFIBRATE 160 MG PO SCH (21:00)
[2018-03-15] MEDS ORDERED: Atorvastatin Calcium 20 MG TAB PO SCH (21:00)
--- NOTE | 2018-03-15 22:59 | CON ---
DATE OF CONSULTATION: 03/15/2018 REFERRING PROVIDER: Dr. Sang Ordaz. REASON FOR CONSULTATION: Left-sided numbness. HISTORY OF PRESENT ILLNESS: Ms. Ang is a pleasant 57-year-old female who has been co nsulted for evaluation of left-sided numbness. The patient reports that she has a history of neuropa thy which has resulted in numbness in both upper and lower extremities. This has been ongoing for at least past 2 years. She reports that since yesterday, she has been having numbness in the left side of the face, upper extremity, and lower extremity which is more than her normal symptoms that have b een present in the past. It is also unilateral and not consistent with her prior episodes of neuropa thy. She denied having any headache. She does complain of having vision changes and that she feels like she is seeing halo around the periphery on the left side. She denies changes in her speech, swa llowing, difficulty with gait or balance. She denies weakness in upper or lower extremities. PAST MEDICAL HISTORY: Significant for hypertension, diabetes, coronary artery disease, hyperlipidemi a, chronic kidney disease stage 2, chronic pancreatitis, bipolar disorder. PAST SURGICAL HISTORY: Significant for hysterectomy, left knee scope surgery, and cardiac stent plac ement. SOCIAL HISTORY: She denies alcohol use or illicit drug use. She does smoke 1 pack per day. FAMILY HISTORY: Significant for lupus in her hand. CURRENT MEDICATIONS: Please review MAR. ALLERGIES: Include ASPIRIN, CODEINE, HYDROCODONE, LEVOFLOXACIN, NSAIDS, ADHESIVE TAPE, and GLUTEN. REVIEW OF SYSTEMS: As mentioned above in the HPI, otherwise negative. PHYSICAL EXAMINATION: VITAL SIGNS: Blood pressure of 158/78, pulse of 78, temperature of 97.5, respirations of 18 and sats of 99% on room air. GENERAL: Well-developed, well-nourished female in no apparent distress. RESPIRATORY: Clear to auscultation bilaterally. CARDIOVASCULAR: Regular rate and rhythm. NEUROLOGIC: Mental status: The patient is awake, alert, oriented x3. Speech and language: Fluent speech. Cranial nerves: Pupils are 3 mm and reactive. Visual lane are intact. External muscles are intact. No nystagmus noted. Face is symmetric. Tongue and uvula are midline. Motor exam showe d normal tone and bulk with 5/5 strength in both upper and lower extremities. Sensory: Sensation is intact and symmetric. Deep tendon reflexes 2+ reflexes in both upper and lower extremities. Babins ki: Plantar responses flexion bilaterally. Coordination intact to [id number] tapping bilate rally. LABORATORY DATA: Reviewed, which included CBC, lipid profile, CMP, urine drug screen and urinalysis, which is significant for glucose of 190, total cholesterol 171, triglycerides of 419, HDL of 19, LDL not performed. IMAGING STUDIES: CT head without contrast and CT angio of the head and neck were reviewed, which leif wed no acute intracranial abnormality. There was no acute intracranial or extracranial vascular abno rmality noted. IMPRESSION: 1. Left-sided numbness. 2. Hypertension. 3. Diabetes. 4. Coronary artery disease. ASSESSMENT AND PLAN: Ms. Ang is a pleasant 57-year-old female who presented with the left-sided paresthesia. Her neurological exam is essentially normal. At this time, I will recommen d obtaining MRI brain without contrast. If MRI brain without contrast is normal, then the patient is okay to be discharged to home. If MRI brain without contrast does show acute ischemic event, then pasquale barger may need to discuss with Cardiology to see if we can add Plavix to her antiplatelet regimen. 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 Thank you for your consultation.
--- NOTE | 2018-03-16 08:45 | PDOC.FM ---
- Subjective Subjective: Pt found resting comfortably this morning. She complains of continued paresthesia on her left side. She also complains of SOB that she states has been present since her initial evaluation at [place]. She complains of associated productive cough without fever or other symptoms for the past 3-4 days. She states that she has been told in the past that she has COPD and she has an albuterol MDH at home. She denies CP or LE pain/swelling - Objective Vital Signs & Weight: Vital Signs (12 hours) Temp Pulse Resp BP BP Pulse Ox 03/16/18 07:42 98.3 F 47 L 12 168/87 H 98 03/16/18 05:28 97.8 F 54 L 16 117/56 L 96 03/16/18 00:00 97.5 F L 60 20 120/55 L 94 L Weight Weight 110.677 kg I&O: 03/15/18 03/16/18 03/17/18 06:59 06:59 06:59 Intake Total 240 1340 Balance 240 1340 Phys Exam - Physical Examination Constitutional: NAD HEENT: PERRLA, moist MMs Neck: no nodes, no JVD Respiratory: clear to auscultation bilateral Cardiovascular: RRR, no significant murmur Gastrointestinal: soft, non-tender, no distention Musculoskeletal: no edema, pulses present Neurological: non-focal, moves all 4 limbs Complains of L sided paresthesia involving entire body Lymphatic: no nodes Psychiatric: normal affect, A&O x 3 Skin: no rash, normal turgor Dx/Plan (1) Paresthesia Code(s): R20.2 - PARESTHESIA OF SKIN Status: Acute (2) CHF (congestive heart failure) Code(s): I50.9 - HEART FAILURE, UNSPECIFIED Status: Chronic (3) Bipolar disorder Code(s): F31.9 - BIPOLAR DISORDER, UNSPECIFIED Status: Chronic Qualifiers: Active/Remission status: remission status unspecified Qualified Code(s): F31.9 - Bipolar disorder, unspecified (4) CAD (coronary artery disease) Code(s): I25.10 - ATHSCL HEART DISEASE OF [place] CORONARY ARTERY W/O ANG PCTRS Status: Chronic Qualifiers: Coronary Disease-Associated Artery/Lesion type: [place] artery [place] vs. transplanted heart: [place] heart Associated angina: angina presence unspecified Qualified Code(s): I25.10 - Atherosclerotic heart disease of [place] coronary artery without angina pectoris (5) Chronic kidney disease, stage 3 Status: Chronic (6) Diabetes mellitus type 2 in obese Code(s): E11.9 - TYPE 2 DIABETES MELLITUS WITHOUT COMPLICATIONS; E66.9 - OBESITY , UNSPECIFIED Status: Chronic (7) Hyperlipidemia Code(s): E78.5 - HYPERLIPIDEMIA, UNSPECIFIED Status: Chronic Qualifiers: Hyperlipidemia type: unspecified Qualified Code(s): E78.5 - Hyperlipidemia , unspecified (8) Hypertension Code(s): I10 - ESSENTIAL (PRIMARY) HYPERTENSION Status: Chronic Qualifiers: Hypertension type: essential hypertension Qualified Code(s): I10 - Essential (primary) hypertension (9) COPD exacerbation Code(s): J44.1 - CHRONIC OBSTRUCTIVE PULMONARY DISEASE W (ACUTE) EXACERBATION Status: Acute - Plan Plan: Paresthesia - unclear etiology. CTA head/neck and MRI are negative. Neuro has been consulted. - At this time pt may be most appropriate for continued work up in outpatient setting. COPD exacerbation - most likely dx for SOB and cough. Will give duoneb and reassess. Consider starting Levaquin and PO steroids BPD - continue home meds CKD3 - baseline. Monitor labs every 2 days CAD - continue home meds HTN - controlled on home meds DM2 - Home meds. low carb diet. ACHS BG checks CHF - at baseline. No signs of overload at this time HLD - home statin Dispo: continue to monitor on stroke. ready for dc today
[2018-03-16] MEDS: TICAGRELOR 90 MG TABLET PO SCH (09:10)
[2018-03-16] MEDS: Fish Oil 1,000 MG CAP PO SCH (09:10)
[2018-03-16] MEDS: Gabapentin 300 MG CAP PO SCH (09:10)
[2018-03-16] MEDS: Potassium Chloride 10 MEQ TAB PO SCH (09:11)
[2018-03-16] MEDS: Famotidine 20 MG TAB PO SCH (09:11)
[2018-03-16] MEDS: Fenofibrate Nanocrystallized 145 MG TAB PO SCH (09:11)
[2018-03-16] MEDS: Enoxaparin Sodium 40 MG/0.4 ML SYRINGE SC SCH (09:12)
[2018-03-16] MEDS: Insulin Glargine 40 UNITS in Pre-Filled Syringe 1 EACH SC SCH (09:13)
[2018-03-16 11:36] VITALS: BP 142/61; TEMP 98.6
[2018-03-16] MEDS ORDERED: Nicotine 14 MG PATCH TD SCH (12:00)
--- NOTE | 2018-03-16 12:49 | ADD-PRG ---
ADDENDUM: DATE OF SERVICE: 03/16/2018 Please add this as an addendum to the note of Dr. Sang Ordaz. Mrs. Ang is a pleasant, obese 57-year-old lady who was admitted with a left hemiparesis and lef t hemianesthesia. She has had a thorough workup with no demonstration of any central nervous system disease or stroke or other malady. Her brain MRI which was read, there is no evidence of acute intra cranial process. She seems to be moving all extremities well. In fact does not demonstrate any foca l deficits. I wonder if this could be some type of emotional conversion type disorder as she states does not seem to demonstrate any neurological issues other than her aforestated numbness on the left side. She also is a heavy smoker and is counseled regarding quitting. She has been seen by Dr. Claudio and is cleared for discharge later this afternoon.
--- NOTE | 2018-03-17 12:56 | DIS-2 ---
DATE OF ADMISSION: 03/14/2018 DATE OF DISCHARGE: 03/16/2018 RESIDENT: Sang Ordaz DO ADMITTING ATTENDING: Sharad Vega MD DISCHARGE ATTENDING: Rory Reyes MD CONSULTATION: Neurology, Lorena Claudio MD PROCEDURES: MRI of brain on 03/15/2018 with findings of no evidence of acute intracranial process. CT angio of [place] and neck and no significant stenosis of the carotid or vertebral arteries and unremarkable CT angio of the [place]. ADMITTING DIAGNOSIS: Left hemiparesis. SECONDARY DIAGNOSES: Chronic kidney disease, stage 3; chronic pancreatitis; congestive heart failure; coronary artery disease; diabetes type 2; bipolar disorder; hyperlipidemia; and hypertension. DISCHARGE MEDICATIONS: Gabapentin 800 mg p.o. b.i.d.; lisinopril 10 mg p.o. q.p.m.; paroxetine 20 mg p.o. at bedtime; risperidone 0.5 mg p.o. at bedtime; Zyrtec 10 mg p.o. at bedtime; magnesium 250 mg p.o. at bedtime; Pancrelipase DR 12,000, 4 capsules p.o. t.i.d. with meals; Zofran 4 mg p.o. q.6 hours p.r.n. nausea, vomiting; Lipitor 40 mg p.o. at bedtime; Ranexa 500 mg p.o. b.i.d.; Brilinta 90 mg p.o. b.i.d.; potassium chloride 10 mEq p.o. daily; torsemide 20 mg p.o. daily; Phenergan 25 mg p.o. q.6 hours p.r.n. nausea, vomiting; fenofibrate 160 mg p.o. at bedtime; vitamin D2, 50,000 units p.o. daily; Lovaza 2 grams p.o. b.i.d.; ranitidine 150 mg p.o. b.i.d.; Imdur 30 mg p.o. b.i.d.; insulin glargine 80 units subcu t.i.d.; NicoDerm CQ 14 mg patch transdermal q.24 hours. DISCONTINUED MEDICATIONS: None. HOSPITAL COURSE: This is a 57-year-old female who was admitted to this facility after being seen in the [facility] with a 4-day history of intermittent tremulousness and left-sided paresthesia. At the [facility], she had a negative CT with concern for a CVA versus TIA. Given her history, she was transported to this facility for a workup. A this facility testing for vascular etiology to include MRI, CTA were negative. The patient had continued symptoms of paresthesia, but no notable weakness. Paresthesia included left side of her face, neck, shoulder, left arm, left side of her abdomen and trunk, left leg, and left foot. Thorough evaluation by Neurology has determined this is likely not related to an acute vascular event. The patient should be sent home on her current medical management. It was recommended that the patient follow up with her PCP and Neurology upon discharge for further work up. DISCHARGE INSTRUCTIONS: 1. Location: Home. 2. Diet: Heart healthy and low carb. 3. Activity: Ad anai. 4. Follow up with PCP, Dr. Barcenas in a week; and Neurology, Dr. Claudio. ROSENDO
[2018-03-22] MEDS ORDERED: Ergocalciferol 1.25 MG(50,000 UNITS) CAP PO SCH (09:00)
== END 2018-03-16 11:37 | disposition home or self-care (01) ==
LOC: ERS 21:48 → 2SE 23:33
PROVIDERS: ADMIT Family Medicine; ATTEND Family Medicine
DX: R20.0 Anesthesia of skin (principal); I13.0 Hypertensive heart and chronic kidney disease with heart failure and stage 1 through stage 4 chronic kidney disease, or unspecified chronic kidney disease; E11.22 Type 2 diabetes mellitus with diabetic chronic kidney disease; I50.9 Heart failure, unspecified; I25.10 Atherosclerotic heart disease of native coronary artery without angina pectoris; J44.1 Chronic obstructive pulmonary disease with (acute) exacerbation; Z88.2 Allergy status to sulfonamides; Z88.4 Allergy status to anesthetic agent; Z79.899 Other long term (current) drug therapy
CPT/HCPCS: 36415; 36416; 70496; 70498; 70551; 80061; 96372; G0378; G8978-GP-CK; G8979-GP-CI; G8987-GO-CH; G8988-GO-CH; G8989-GO-CH; J1650

== ENCOUNTER 2018-06-29 20:18 | Observation (INO) | payer BC ==
[2018-06-29 20:54] LABS: #Eosinphils 0.1 thou/uL (0.0-0.7); #Lymphocytes 1.5 thou/uL (1.20-3.40); #Monocytes 0.9 thou/uL (0.11-0.59); #Neutrophils 12.3 thou/uL (1.40-6.50); %Basophils 0.2 % (0.0-1.0); %Eosinophils 0.4 % (0.0-10.0); %Lymphocytes 10.2 % (21.0-51.0); %Neutrophils 83.2 % (42.0-75.0); Hemoglobin 13.7 g/dL (12.0-16.0); Mean Corpuscular HGB CONC 34.6 g/dL (32.0-36.0); Mean Corpuscular Hemoglobin 31.4 pg (27.0-31.0); Mean Corpuscular Volume 90.8 fL (78.0-98.0); Mean Platelet Volume 9.6 fL (7.4-10.4); Platelet Count 196 thou/uL (130-400); RBC Distribution Width 12.4 % (11.5-14.5); Red Blood Cell (RBC) Count 4.36 mill/uL (4.20-5.40); White Blood Cell (WBC) Count 14.8 thou/uL (4.8-10.8)
--- NOTE | 2018-06-29 21:04 | RAD ---
PORTABLE CHEST: 06/29/18 PROVIDED CLINICAL HISTORY: Chest pain. FINDINGS: Comparison 06/21/18. The cardiac and mediastinal silhouette is within normal limits. Lungs appear clear. No pleural fluid or pneumothorax apparent. IMPRESSION: No evidence for an acute cardiopulmonary process. POS: [facility]
[2018-06-29 21:21] LABS: ALT (SGPT) 39 U/L (8-55); AST (SGOT) 21 U/L (5-34); Albumin 3.9 g/dL (3.5-5.0); Alkaline Phosphatase 64 U/L (40-150); Anion Gap 14 mmol/L (10-20); BUN (Urea Nitrogen) 20 mg/dL (9.8-20.1); Bilirubin, Total 0.3 mg/dL (0.2-1.2); CK (CPK) 42 U/L (29-168); Calc. Creatinine Clearance 0 mL/min (70-130); Calcium 9.5 mg/dL (7.8-10.44); Carbon Dioxide 22 mmol/L (22-29); Chloride 104 mmol/L (98-107); Estimated GFR-MDRD 41; Globulin 2.8 g/dL (2.4-3.5); Glucose 231 mg/dL (70-105); Lipase 61 U/L (8-78); Potassium 3.8 mmol/L (3.5-5.1); Protein, Total 6.7 g/dL (6.0-8.3); Sodium 136 mmol/L (136-145)
[2018-06-29] MEDS ORDERED: Nitroglycerin 0.4 MG TAB (25 Tab Bottle) ONE (22:06)
[2018-06-30] MEDS ORDERED: Morphine 2 MG/ML SYRINGE ONE (00:02)
[2018-06-30 00:13] LABS: Troponin I 0.011 ng/mL (< 0.028)
[2018-06-30] MEDS ORDERED: Ondansetron ODT 4 MG TAB PO PRN (00:21)
[2018-06-30] MEDS ORDERED: Promethazine 25 MG TAB PO PRN (00:21)
[2018-06-30] MEDS ORDERED: Morphine 10 MG/0.5 ML ORAL SYRINGE PO PRN (00:21)
[2018-06-30] MEDS ORDERED: HumaLOG 300 UNITS/3 ML VIAL SC PRN ×2 (00:29)
[2018-06-30] MEDS ORDERED: Dextrose 5% in Water 1,000 ML IV PRN (00:29)
[2018-06-30] MEDS ORDERED: Nitroglycerin 0.4 MG TAB (25 Tab Bottle) PO PRN (00:29)
[2018-06-30] MEDS ORDERED: Dextrose 50% Abboject 50 ML SYRINGE SLOW IVP PRN (00:29)
--- NOTE | 2018-06-30 00:36 | PDOC.FPRHP ---
- History of Present Illness Chief Complaint: chest pain History of Present Illness: The patient is a 57YOF with a PMH significant for CAD s/p AK w/ stent placement x2, HTN, HLD, and DMII who presented to the ED with a CC of chest pain that she states began around 15:30 on the day of presentation. The patient reports starting to feel a little lightheaded around that time and thought it was due to her blood sugar. She says she checked her BG and it was over 400 so she gave herself about 270 units of insulin and said it came down to about 300 something which did help relieve her lightheadedness. However, over the course of those 3 hours she began to develop gradually worsening chest pain that she reported to be substernal with radiation into her back. She described the pain as a tight, pressure-like sensation that was somewhat relieved with nitroglycerin spray at home. She reported it to be a going from a 6 to a 4-5/10 with that medicine. She did endorse exacerbation with movement or any exertion. She denied any associated N/V, or diaphoresis but did endorse some SOB with exertion as well. The patient stated that the pain eventually became so severe that she was not even able to walk from her bedroom into her bathroom without experiencing severe pain so she decided to go to the ER for evaluation. Of note, the patient has a significant cardiac history w/ a h/o 2 stent placements, the most recent being in August of 2017. The patient denies having a Edi Coordinator but says her last stress test was done before her last stent was placed. ED Course: 0.4 of SL nitro x1 - Allergies/Adverse Reactions Allergies Allergy/AdvReac Type Severity Reaction Status Date / Time adhesive Allergy Verified 12/14/17 14:52 aspirin Allergy Verified 12/14/17 14:52 codeine Allergy Verified 12/14/17 14:52 gluten Allergy Verified 12/14/17 14:52 hydrocodone Allergy Verified 12/14/17 14:52 levofloxacin [From Levaquin] Allergy Verified 12/14/17 14:52 NSAIDS (Non-Steroidal Allergy Verified 12/14/17 14:52 Anti-Inflamma Sulfa (Sulfonamide Allergy Verified 12/14/17 14:52 Antibiotics) trimethoprim [From Bactrim] Allergy Verified 12/14/17 14:52 tramadol AdvReac Mild ITCHING Verified 12/14/17 14:52 - Home Medications Medication Instructions Recorded Confirmed Type Cetirizine HCl [Zyrtec] 10 mg PO HS 07/22/16 03/15/18 History Gabapentin 800 mg PO BID 07/22/16 03/15/18 History Lisinopril 10 mg PO QPM 07/22/16 03/15/18 History Magnesium 250 mg PO HS 07/22/16 03/15/18 History PARoxetine HCl [Paroxetine HCl] 20 mg PO HS 07/22/16 03/15/18 History risperiDONE [Risperidone] 0.5 mg PO HS 07/22/16 03/15/18 History Pancrelipase 12552 [Gui DR 4 cap PO TID-WM #30 cap 04/05/17 03/15/18 Rx 12,000 Units] Ondansetron [Zofran ODT] 4 mg PO Q6H PRN 4 Days #16 tab 08/26/17 03/15/18 Rx Atorvastatin Calcium [Lipitor] 40 mg PO HS 30 Days #30 tab 08/27/17 03/15/18 Rx Ranolazine [Ranexa] 500 mg PO BID 30 Days #60 tab 08/28/17 03/15/18 Rx Ticagrelor [Brilinta] 90 mg PO BID 30 Days #60 tab 08/28/17 03/15/18 Rx Potassium Chloride [Klor-Con 10] 10 meq PO DAILY #30 tab 09/01/17 03/15/18 Rx Torsemide 20 mg PO ASDIR #90 tablet 09/01/17 03/15/18 Rx Ergocalciferol (Vitamin D2) 50,000 unit PO ASDIR 10/19/17 03/15/18 History [Vitamin D2] Fenofibrate [Tricor] 160 mg PO HS 10/19/17 03/15/18 History Isosorbide Mononitrate [Imdur] 30 mg PO BID 10/19/17 03/15/18 History [place]-3 Acid Ethyl Esters [Lovaza] 2 gm PO BID 10/19/17 03/15/18 History Promethazine [Phenergan] 25 mg PO Q6HR PRN 10/19/17 03/15/18 History Ranitidine HCl 150 mg PO BID 10/19/17 03/15/18 History Morphine Sulfate 3 ml PO Q4H PRN 12/14/17 03/15/18 History Insulin Glargine,Hum.Rec.Anlog 80 unit SQ TID 03/15/18 03/15/18 History [Meggan Luz] Nicotine [Nicoderm CQ] 14 mg TD Q24HR #14 patch 03/16/18 Rx - History PMHx: CAD s/p stent placement x2, DMII, HLD, Bipolar, Depression, reported asthma, benign pancreatic mass w/ chronic pancreatitis, ALAS PSHx: neck sx, hysterectomy, B/L oophrectomy, left knee, skin CA removal, B/L lumpectomy, partial L breast removal FHx: mother with cardiac problems Social: 42 pack year smoking history, No EtOH or drug use. - Review of Systems General: reports: fatigue. denies: fever/chills Eyes: denies: eye pain, vision changes ENT: denies: nasal congestion Respiratory: reports: shortness of breath, exercise intolerance. denies: cough Cardiovascular: reports: chest pain, palpitation Gastrointestinal: denies: nausea, vomiting Genitourinary: reports: other (no hematuria). denies: dysuria Skin: denies: rashes, itching Musculoskeletal: reports: pain (leg cramps). denies: swelling Neurological: denies: syncope, seizure Psychological: denies: anxiety, depression - Vital signs BP: 137/79 HR: 67 RR: 16 Tmax: 98.F Pulse Ox: 99% on RA Wt: 108kg - Physical Exam Constitutional: awake, alert and oriented, well developed, other (mild distress intermittently 2/2 pain) HEENT: normocephalic and atraumatic, conjunctiva clear, grossly normal vision, grossly normal hearing, MMM, oropharynx clear Chest: no-tender to palpation Heart: RRR, normal S1/S2, pulses present, no edema Lungs: CTAB, no respiratory distress, good air movement, no wheezing Abdomen: soft, bowel sounds present, other (TTP in LUQ) Musculoskeletal: normal structure, ROM grossly normal Neurological: no focal deficit, CN II-XII intact (grossly intact), normal sensation Skin: no rash/lesions, capillary refill <2 seconds, no jaundice Heme/Lymphatic: no unusual bruising or bleeding Psychiatric: normal mood and affect, good judgment and insight, intact recent and remote memory FMR H&P: Results - Labs Result Diagrams: 06/29/18 20:46 06/29/18 20:46 Lab results: WBC 14.8 thou/uL (4.8-10.8) H 06/29/18 20:46 Hgb 13.7 g/dL (12.0-16.0) 06/29/18 20:46 Hct 39.6 % (36.0-47.0) 06/29/18 20:46 MCV 90.8 fL (78.0-98.0) 06/29/18 20:46 Plt Count 196 thou/uL (130-400) 06/29/18 20:46 Neutrophils % 83.2 % (42.0-75.0) H 06/29/18 20:46 Sodium 136 mmol/L (136-145) 06/29/18 20:46 Potassium 3.8 mmol/L (3.5-5.1) 06/29/18 20:46 Chloride 104 mmol/L (98-107) 06/29/18 20:46 Carbon Dioxide 22 mmol/L (22-29) 06/29/18 20:46 BUN 20 mg/dL (9.8-20.1) 06/29/18 20:46 Creatinine 1.34 mg/dL (0.6-1.1) H 06/29/18 20:46 Glucose 231 mg/dL (70-105) H 06/29/18 20:46 Calcium 9.5 mg/dL (7.8-10.44) 06/29/18 20:46 Total Bilirubin 0.3 mg/dL (0.2-1.2) 06/29/18 20:46 AST 21 U/L (5-34) 06/29/18 20:46 ALT 39 U/L (8-55) 06/29/18 20:46 Alkaline Phosphatase 64 U/L (40-150) 06/29/18 20:46 Creatine Kinase 42 U/L (29-168) 06/29/18 20:46 Serum Total Protein 6.7 g/dL (6.0-8.3) 06/29/18 20:46 Albumin 3.9 g/dL (3.5-5.0) 06/29/18 20:46 Lipase 61 U/L (8-78) 06/29/18 20:46 Additional comment: troponin I: <0.010 - EKG Interpretation EKG: Initial: NSR, no acute ST changes Repeat: NSR, no acute ST changes - Radiology Interpretation Chest x-ray Status: report reviewed by me (no acute cardiopulmonary process) FMR H&P: A/P - Problem List (1) Chest pain, rule out acute myocardial infarction Current Visit: No Status: Acute Code(s): R07.9 - CHEST PAIN, UNSPECIFIED (2) Chronic pancreatitis Current Visit: No Status: Acute Code(s): K86.1 - OTHER CHRONIC PANCREATITIS (3) Bipolar disorder Current Visit: No Status: Chronic Code(s): F31.9 - BIPOLAR DISORDER, UNSPECIFIED Qualifiers: Active/Remission status: remission status unspecified Qualified Code(s): F31.9 - Bipolar disorder, unspecified (4) CAD (coronary artery disease) Current Visit: No Status: Chronic Code(s): I25.10 - ATHSCL HEART DISEASE OF [place] CORONARY ARTERY W/O ANG PCTRS Qualifiers: Coronary Disease-Associated Artery/Lesion type: [place] artery [place] vs. transplanted heart: [place] heart Associated angina: angina presence unspecified Qualified Code(s): I25.10 - Atherosclerotic heart disease of [place] coronary artery without angina pectoris (5) Chronic kidney disease, stage 3 Current Visit: No Status: Chronic (6) Diabetes mellitus type 2 in obese Current Visit: No Status: Chronic Code(s): E11.9 - TYPE 2 DIABETES MELLITUS WITHOUT COMPLICATIONS; E66.9 - OBESITY, UNSPECIFIED (7) Hyperlipidemia Current Visit: No Status: Chronic Code(s): E78.5 - HYPERLIPIDEMIA, UNSPECIFIED Qualifiers: Hyperlipidemia type: unspecified Qualified Code(s): E78.5 - Hyperlipidemia , unspecified (8) Hypertension Current Visit: No Status: Chronic Code(s): I10 - ESSENTIAL (PRIMARY) HYPERTENSION Qualifiers: Hypertension type: essential hypertension Qualified Code(s): I10 - Essential (primary) hypertension (9) Peripheral neuropathy Current Visit: No Status: Chronic Code(s): G62.9 - POLYNEUROPATHY, UNSPECIFIED Qualifiers: Peripheral neuropathy type: polyneuropathy, unspecified Qualified Code(s): G62.9 - Polyneuropathy, unspecified (10) Tobacco abuse Current Visit: No Status: Chronic Code(s): Z72.0 - TOBACCO USE - Plan 57YOF w/ a PMH significant for CAD s/p stent placement x2, HTN, HLD, and DMII who presented to the ED with a CC of progressively worsening typical chest pain that began around 15:30 on the day of presentation. Typical chest pain suspected to be 2/2 CAD: - Patient is s/p 0.4mg of SL nitro in the ED and at home. Did not receive ASA as she has an anaphylactic reaction to ASA and NSAIDS. - Vitals WNLs and patient is HD stable not in any acute distress other than discomfort from pain on exam. - Initial & repeat ECG reassuring with no acute ST changes. Initial troponin was also negative x1. Will continue to trend and treat CP PRN with nitro and IV morphine. - Patient is NPO pending a cardiology consult in the AM. CAD s/p stent placement x2: - Aware, will resume home meds. Suspected h/o HTN: - Patient denies a h/o HTN. States her antihypertensive meds are for her heart but she has never had high BP. Will resume home meds. HLD: - Aware, will resume home meds but consider increasing atorvastatin to 80mg QHS to optimize treatment as tolerated by the patient. DMII w/ neuropathy: - Aware, will resume home meds but hold full dose of home insulin while NPO. Will order aggressive SSI for now as she normally requires >80 units/day and ACHS accuchecks. Bipolar Disorder: - Aware, will resume home meds. CKD stage III: - Aware, Cr on admission appears to be around patient's baseline w/ an eGFR of 41. Will continue to follow and renally dose meds PRN. h/o benign pancreatic mass: - Aware, patient states she was instructed to get a follow-up CT and has not. Will encourage her to follow-up on this upon discharge. Chronic pancreatitis: - Aware, will give IV morphine for chest and abdominal pain PRN. - Will also resume home nausea meds. GERD: - Aware, will resume home meds. Tobacco abuse: - Will encourage cessation. - No nicotine patch ordered due to chest pain. FMR H&P: Upper Level - Pertinent history 57 yr old female with PMH of CAD s/p 2 stents, chronic pancreatitis, bipolar, NAFLD who presents with complaint of chest pain. States chest pain had onset around 3:30 PM earlier today at rest. Got really bad when she tried to walk to the bathroom. Pain is central, substernal and radiates towards left should and feels like pressure and tightness. No nausea or diaphoresis associated with pain. She stated nitro took pain from 6 to a 4-5. She had not received morphine yet for pain. Has not taken ASA due to allergy. Reports intermittent nausea and abdominal pain 2/2 chronic pancreatitis - Pertinent findings EKG: normal sinus rhythm, no ST elevation, no T wave inversion Gen: Patient intermittently grabs her chest and makes a grimace on her face. Heart: RRR, no Murmurs, rubs, gallops Lungs: CTAB, no wheezes, rhales, rhonchi Chest: pain not reproducible Abd: nontender to palpation, BS + - Plan Date/Time: 06/30/18 0036 I, [Velvet Perry], have evaluated this patient and agree with findings/plan as outlined by science intern resident. Pertinent changes/additions are listed here. 57 yr old female with hx of CAD and new onset chest pain Typical chest pain -hx of CAD s/p 2 stents -EKG x 3 neg -Trop x 2 neg, 3rd trop pending -nitro only minimally abates pain, morphine has helped a little -unable to give ASA -intermittently bradycardia so will hold beta melchor for now. -PRN morphine -currently on imdur -last echo on 10/2017 without evidence of HF and normal EF at 50-55% CAD -see above HLD -Last LDL in 11/2017 is 60 and pt is on statin -cont home atorvastatin -consider increasing from 40 mg to 80 mg Insulin dependent diabetes -check BG q ACHS -patient on toujeo- interesting regimen, will do sliding scale here. Likely will need home toujeo or start lantus in interim. HTN -cont home Lisinopril Bipolar -cont home meds -currently controlled and stable NAFLD Peripheral neuropathy -cont home gabapentin PCP: [facility] Code status: FULL DVT ppx: lovenox GI ppx: ranitidine Diet: NPO after midnight Addendum - Attending - Attending Attestation Date/Time: 06/30/18 1145 I personally evaluated the patient and discussed the management with Dr. Parsons. I agree with the History, Examination, Assessment and Plan documented above with any addition or exceptions noted below. The patient presented with chest pain. She states it is better than yesterday but still occurs occasionally. Troponins are negative and repeat ekg's are negative. Will consult cardiology with her hx of CAD and stents.
[2018-06-30 03:23] LABS: Troponin I 0.011 ng/mL (< 0.028)
[2018-06-30] MEDS ORDERED: Morphine 4 MG/ML VIAL SLOW IVP PRN (06:46)
[2018-06-30] MEDS ORDERED: Dextrose 50% Abboject 50 ML SYRINGE ONE (08:00)
[2018-06-30] MEDS ORDERED: Alogliptin 25 MG TAB PO SCH (09:00)
[2018-06-30] MEDS ORDERED: INSULIN GLARGINE HUM REC ANLOG 80 UNIT SQ SCH (09:00)
[2018-06-30] MEDS ORDERED: Enoxaparin Sodium 40 MG/0.4 ML SYRINGE SC SCH (09:00)
[2018-06-30] MEDS ORDERED: Enoxaparin Sodium 40 MG/0.4 ML SYRINGE ONE (12:10)
[2018-06-30] MEDS ORDERED: Famotidine 20 MG TAB ONE (12:10)
[2018-06-30] MEDS ORDERED: Folic Acid 1 MG TAB ONE (12:10)
[2018-06-30] MEDS: Fenofibrate Nanocrystallized 145 MG TAB PO SCH (12:11)
[2018-06-30] MEDS: Folic Acid 1 MG TAB PO SCH (12:11)
[2018-06-30] MEDS: TICAGRELOR 90 MG TABLET PO SCH ×2 (12:11→21:36)
[2018-06-30] MEDS: Gabapentin 400 MG CAP PO SCH ×2 (12:11→21:34)
[2018-06-30] MEDS: Famotidine 20 MG TAB PO SCH ×2 (12:11→21:34)
[2018-06-30] MEDS: Torsemide 20 MG TAB PO SCH (12:11)
[2018-06-30] MEDS: PARoxetine 20 MG TAB PO SCH (12:11)
[2018-06-30] MEDS: Fish Oil 1,000 MG CAP PO SCH (12:11)
[2018-06-30] MEDS ORDERED: Communication Order-Pharmacy FS SCH (15:45)
[2018-06-30 18:08] VITALS: BMI 43.3
[2018-06-30] MEDS ORDERED: risperiDONE 1 MG TAB PO SCH (21:00)
[2018-06-30] MEDS ORDERED: Potassium Chloride 10 MEQ TAB PO SCH (21:00)
[2018-06-30] MEDS ORDERED: Loratadine 10 MG TAB PO SCH (21:00)
[2018-06-30] MEDS ORDERED: Magnesium Oxide 400 MG TAB PO SCH (21:00)
[2018-06-30] MEDS ORDERED: Lisinopril 5 MG TAB PO SCH (21:00)
[2018-06-30] MEDS ORDERED: Atorvastatin Calcium 20 MG TAB PO SCH (21:00)
--- NOTE | 2018-06-30 21:09 | CON ---
DATE OF CONSULTATION: 06/30/2018 REASON FOR CONSULTATION: Chest pain. PRIMARY GENERAL COUNSEL: Miguelito Aguilar MD HISTORY OF PRESENT ILLNESS: Ms. Ang is a pleasant 57-year-old white female, who comes to the hospital for chest pain and shortness of breath. She had similar symptoms in August of this last year. She underwent stress testing and showed an apical defect. She had a heart catheterization and was found to have a significant lesion on her LAD and this was stented with a 3.5 stent, post dilated approximately to 4.0. She states that her symptoms actually improved for the next 8 months, but a month ago, she started noticing increased shortness of breath with any exertion, that gotto the point where it was at rest yesterday, so she decided to come in for evaluation. She is ruled out with negative enzymes and negative EKG. PAST MEDICAL HISTORY: 1. Coronary artery disease. 2. Type 2 diabetes. 3. Hyperlipidemia. 4. Bipolar disorder. 5. Depression. 6. Asthma. 7. Pancreatic mass with chronic pancreatitis. 8. ALAS. SURGICAL HISTORY: 1. Neck surgery. 2. Hysterectomy. 3. Bilateral oophorectomy. 4. Left knee surgery. 5. Skin cancer removal. 6. Bilateral lumpectomy. 7. Partial left breast removal. FAMILY HISTORY: Mother with cardiac issues. SOCIAL HISTORY: Continues to smoke a pack a day since she was 15, 42 year pack history. No alcohol or drug use. OUTPATIENT MEDICATIONS: Include, 1. Cetirizine. 2. Gabapentin. 3. Lisinopril 10 mg q.p.m. 4. Magnesium. 5. Paroxetine. 6. Risperidone. 7. Pancrelipase 8. [place]. 9. Lipitor 40 at bedtime. 10. Ranexa 500 b.i.d. 11. Ticagrelor 90 b.i.d. 12. Potassium chloride 10 mEq a day. 13. Torsemide 20 mg a day. 14. Vitamin D2. 15. Tricor. 16. Imdur 30 mg b.i.d. 17. [place]-3. 18. Promethazine. 19. Ranitidine. 20. Insulin. 21. Nicotine CQ transdermal patch. ALLERGIES: 1. ASPIRIN. 2. CODEINE. 3. GLUTEN. 4. HYDROCODONE. 5. LEVOFLOXACIN. 6. NSAIDS. 7. SULFA DRUGS. 8. TRAMADOL. REVIEW OF SYSTEMS: A 12-point review of systems was done and was all negative unless stated in the history of present illness. PHYSICAL EXAMINATION: VITAL SIGNS: Temperature 98.4, pulse 93, respiratory rate 16, saturation 97% on room air, blood pressure 119/67. GENERAL: Awake, alert, and oriented x3. No distress. HEENT: Normocephalic, atraumatic. NECK: Supple. LUNGS: Clear. CARDIOVASCULAR: S1, S2. No S3 or S4. No murmurs. ABDOMEN: Soft. Positive bowel sounds. EXTREMITIES: 1+ edema. SKIN: Warm and dry. LABORATORY WORK: White count 14, hemoglobin 13, hematocrit 39, platelet count of 196. Chemistries; creatinine 1.3, GFR 41, and glucose of 231. Troponin was negative x3. Albumin of 3.9. Normal sodium and potassium. EKG was reviewed. No ischemic changes. Chest x-ray unremarkable. ASSESSMENT AND PLAN: 1. Chest pain concerning for angina. 2. Ongoing tobacco abuse. 3. Hypertension. 4. Hyperlipidemia. 5. Coronary artery disease. PLAN: 1. We will further risk stratify her with heart catheterization, as she has exact same symptoms that she had back when she needed a heart stenting to her LAD. She has been compliant with her medications and her troponins are negative. We will see if her symptoms are really related to coronary artery disease, as they might also be related to her lung issues with her significant tobacco use history. 2. We spoke at length about the risks and benefits of the procedure. Risks included, but not limited to stroke, HI, , bleeding, need for blood transfusion, limb loss, organ loss, need for emergent bypass surgery, need for emergent vascular repair. The patient understands and verbalized understanding of this. She agrees to proceed. Drug-eluting stents, if needed. Radial approach, if possible. 3. Further recommendations per results of coronary angiogram. Job ID: [id number]
[2018-07-01] MEDS: Sodium Chloride 0.9% 1,000 ML IV SCH ×2 (00:21→07:48)
[2018-07-01] MEDS: Famotidine 20 MG TAB PO SCH (05:49)
[2018-07-01] MEDS: Pancrelipase DR 12000 1 CAP PO SCH ×2 (05:49→10:58)
[2018-07-01] MEDS: Gabapentin 400 MG CAP PO SCH (05:50)
[2018-07-01] MEDS: Fish Oil 1,000 MG CAP PO SCH (05:50)
[2018-07-01] MEDS: TICAGRELOR 90 MG TABLET PO SCH (05:50)
[2018-07-01] MEDS: Fenofibrate Nanocrystallized 145 MG TAB PO SCH (05:50)
[2018-07-01] MEDS: PARoxetine 20 MG TAB PO SCH (05:50)
[2018-07-01] MEDS: Folic Acid 1 MG TAB PO SCH (05:50)
--- NOTE | 2018-07-01 06:30 | PDOC.FM ---
- Subjective Subjective: Ms. Ang is resting comfortably in bed. she denies SOB or CP. - Objective Vital Signs & Weight: Vital Signs (12 hours) Temp Pulse Resp BP BP BP Pulse Ox 07/01/18 03:42 98.4 F 70 13 125/61 96 06/30/18 23:55 98.8 F 81 16 140/63 95 06/30/18 21:34 76 131/64 06/30/18 19:03 97.5 F L 76 16 131/64 98 Weight Weight 118.206 kg I&O: 06/29/18 06/30/18 07/01/18 06:59 06:59 06:59 Intake Total 985 Balance 985 Result Diagrams: 06/29/18 20:46 06/29/18 20:46 Phys Exam - Physical Examination Constitutional: NAD HEENT: moist MMs Neck: no JVD Respiratory: clear to auscultation bilateral Cardiovascular: RRR, no significant murmur Gastrointestinal: soft, non-tender Musculoskeletal: pulses present, edema present Neurological: moves all 4 limbs Psychiatric: normal affect Skin: no rash Dx/Plan (1) Chest pain, rule out acute myocardial infarction Code(s): R07.9 - CHEST PAIN, UNSPECIFIED Status: Acute (2) Chronic pancreatitis Code(s): K86.1 - OTHER CHRONIC PANCREATITIS Status: Acute (3) Bipolar disorder Code(s): F31.9 - BIPOLAR DISORDER, UNSPECIFIED Status: Chronic Qualifiers: Active/Remission status: remission status unspecified Qualified Code(s): F31.9 - Bipolar disorder, unspecified (4) Chronic kidney disease, stage 3 Status: Chronic (5) Diabetes mellitus type 2 in obese Code(s): E11.9 - TYPE 2 DIABETES MELLITUS WITHOUT COMPLICATIONS; E66.9 - OBESITY , UNSPECIFIED Status: Chronic (6) Hyperlipidemia Code(s): E78.5 - HYPERLIPIDEMIA, UNSPECIFIED Status: Chronic Qualifiers: Hyperlipidemia type: unspecified Qualified Code(s): E78.5 - Hyperlipidemia , unspecified (7) Hypertension Code(s): I10 - ESSENTIAL (PRIMARY) HYPERTENSION Status: Chronic Qualifiers: Hypertension type: essential hypertension Qualified Code(s): I10 - Essential (primary) hypertension (8) Tobacco abuse Code(s): Z72.0 - TOBACCO USE Status: Chronic - Plan Plan: Typical chest pain suspected to be 2/2 CAD: - Patient is s/p 0.4mg of SL nitro in the ED and at home. Did not receive ASA as she has an anaphylactic reaction to ASA and NSAIDS. - Vitals WNLs and patient is HD stable. - Initial & repeat ECG reassuring with no acute ST changes. Initial troponins was also negativex4. - nitro, ekg, stat trop for chest pain - Cardiology consulted, recommend cath CAD s/p stent placement x2: - Aware, will resume home meds. Suspected h/o HTN: - Patient denies a h/o HTN. States her antihypertensive meds are for her heart but she has never had high BP. - Will resume home meds. HLD: - Aware, will resume home meds DMII w/ neuropathy: - Aware, will resume home meds but hold full dose of home insulin while NPO. - Will order aggressive SSI for now as she normally requires >80 units/day - ACHS accuchecks. Bipolar Disorder: - Aware, will resume home meds. CKD stage III: - Aware, Cr on admission appears to be around patient's baseline w/ an eGFR of 41. - renally dose meds PRN - monitor daily CMP h/o benign pancreatic mass: - Aware, patient states she was instructed to get a follow-up CT and has not. - Will encourage her to follow-up on this upon discharge. Chronic pancreatitis - Will also resume home nausea meds. - morphine prn GERD: - Aware, will resume home meds. Tobacco abuse: - Will encourage cessation. - No nicotine patch ordered due to chest pain. code: full ppx: hold lovenox until after cath Dispo: LHC possibly today, continue to monitor for chest pain Addendum - Attending - Attending Attestation Date/Time: 07/01/18 0443 I personally evaluated the patient and discussed the management with Dr. Oropeza. I agree with the History, Examination, Assessment and Plan documented above with any addition or exceptions noted below. The patient had a cath today. Will f/u with cardiology recs.
[2018-07-01] MEDS: Torsemide 20 MG TAB PO SCH ×2 (07:49→11:01)
[2018-07-01] MEDS ORDERED: Heparin 10,000 UNITS/1 ML VIAL ONE (08:38)
[2018-07-01] MEDS ORDERED: Verapamil 5 MG/2 ML VIAL ONE (08:38)
[2018-07-01] MEDS ORDERED: Nitroglycerin 100MG/250ML BOT 250 ML ONE (09:36)
[2018-07-01] MEDS ORDERED: Midazolam HCl 2 mg/2 ml Vial ONE (09:40)
[2018-07-01] MEDS ORDERED: Fentanyl 100 MCG/2 ML VIAL ONE (09:41)
[2018-07-01] MEDS ORDERED: Sodium Chloride 0.9% 200 ML IV SCH (10:30)
[2018-07-01] MEDS ORDERED: Iopamidol 370 76% 100 ML VIAL ONE (15:39)
[2018-07-01 16:00] VITALS: BP 147/73; TEMP 97.7
[2018-07-02] MEDS ORDERED: Alogliptin 25 MG TAB PO SCH (09:00)
--- NOTE | 2018-07-03 18:47 | EKG ---
Test Reason : CHEST PAIN Blood Pressure : / mmHG Vent. Rate : 061 BPM Atrial Rate : 061 BPM P-R Int : 132 ms QRS Dur : 090 ms QT Int : 428 ms P-R-T Axes : 051 039 066 degrees QTc Int : 430 ms Normal sinus rhythm Normal ECG Confirmed by TINY VEE DO ([id number]), department editor MIGUEL RUIZ ([id number]) on 07/03/2018 6:47:08 PM Referred By: RESIDENTS Confirmed By:TINY VEE DO
--- NOTE | 2018-07-03 21:26 | EKG ---
Test Reason : Blood Pressure : / mmHG Vent. Rate : 098 BPM Atrial Rate : 098 BPM P-R Int : 136 ms QRS Dur : 090 ms QT Int : 356 ms P-R-T Axes : 060 015 077 degrees QTc Int : 454 ms Normal sinus rhythm Cannot rule out Anterior infarct , age undetermined Abnormal ECG Confirmed by ANDRE CANDELARIO ([id number]), food editor MIGUEL RUIZ ([id number]) on 07/03/2018 9:25:57 PM Referred By: Confirmed By:ANDRE CANDELARIO
--- NOTE | 2018-07-05 10:10 | DIS ---
DATE OF ADMISSION: 06/29/2018 DATE OF DISCHARGE: 07/01/2018 RESIDENT: Robbin Oropeza DO ADMITTING ATTENDING: Cherie Roe MD DISCHARGE ATTENDING: Cherie Roe MD. CONSULTS: Cardiology, García Valencia MD PROCEDURES: Left heart catheterization revealed no blockages, suggestive of ischemia. PRIMARY DIAGNOSES: Typical chest pain with history of coronary artery disease. SECONDARY DIAGNOSES: 1. Hypertension. 2. Hyperlipidemia. 3. Diabetes mellitus type 2. 4. Bipolar disorder. 5. Chronic kidney disease stage 3. 6. History of benign pancreatic mass. 7. Chronic pancreatitis. 8. Gastroesophageal reflux disease. 9. Tobacco abuse. DISCHARGE MEDICATIONS: 1. Gabapentin 800 mg p.o. b.i.d. 2. Lisinopril 10 mg p.o. q.p.m. 3. Paroxetine 20 mg p.o. at bedtime. 4. Risperidone 0.5 mg p.o. at bedtime. 5. Zyrtec 10 mg p.o. at bedtime. 6. Magnesium 500 mg p.o. at bedtime. 7. Pancrelipase 4 capsules p.o. t.i.d. with meals. 8. . 9. Lipitor 40 mg p.o. at bedtime. 10. Ranexa 500 mg p.o. b.i.d. 11. Brilinta 90 mg p.o. b.i.d. 12. Klor-Con 10 mEq daily. 13. TriCor 160 mg p.o. at bedtime. 14. Vitamin D2 of 50,000 units p.o. as directed. 15. Lovaza 2 g p.o. b.i.d. 16. Ranitidine 150 mg p.o. b.i.d. 17. Morphine sulfate 5 mL p.o. q.4 hour p.r.n. 18. Toujeo 8 units subcutaneously t.i.d. 19. Folvite 1 mg p.o. at bedtime. 20. Flonase 1 spray each nose daily. 21. Demadex 40 mg p.o. daily. 22. Imdur 60 mg p.o. daily. 23. Ranexa 1000 mg p.o. b.i.d. DISCONTINUED MEDICATIONS: 1. Imdur 60 mg p.o. b.i.d. 2. Ranexa 500 mg p.o. b.i.d. HISTORY OF PRESENT ILLNESS/HOSPITAL COURSE: Ms. Ang is a 57-year-old female, who presents to the ER with chief complaint of chest pain similar to pain that she has had in the past, where she was noted to have a myocardial infarction with stent placement. The pain at this time did not resolve with nitroglycerine, but did resolve with morphine. She denied at that time any nausea, vomiting, diaphoresis, or palpitations. She report shortness of breath and had severe pain in her chest. Cardiac risks were stratified and it was decided that with her significant history and similar type pain, that this was not musculoskeletal in nature, even though her troponins were negative x4 and EKG with sinus rhythm without ST elevation and Cardiology was consulted and recommended left heart catheterization. The patient underwent left heart catheterization without complication, tolerated the procedure well and it was deemed by Cardiology to be stable for discharge. DISCHARGE INSTRUCTIONS: LOCATION: Home. DIET: Heart healthy/diabetic. ACTIVITY: As tolerated. 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 Job ID: [id number]
== END 2018-07-01 16:44 | disposition home or self-care (01) ==
LOC: ERS 20:18 → ERHOLD 22:07 → 2SW 06-30 14:50
PROVIDERS: ADMIT Family Medicine; ATTEND Family Medicine
PROC: 4A023N7 Measurement of Cardiac Sampling and Pressure, Left Heart, Percutaneous Approach (ICD-10-PCS; principal; 2018-07-01)
PROC: B2111ZZ Fluoroscopy of Multiple Coronary Arteries using Low Osmolar Contrast (ICD-10-PCS; 2018-07-01)
DX: I25.110 Atherosclerotic heart disease of native coronary artery with unstable angina pectoris (principal); E78.00 Pure hypercholesterolemia, unspecified; E78.5 Hyperlipidemia, unspecified; F17.210 Nicotine dependence, cigarettes, uncomplicated; I25.2 Old myocardial infarction; F31.9 Bipolar disorder, unspecified; I12.9 Hypertensive chronic kidney disease with stage 1 through stage 4 chronic kidney disease, or unspecified chronic kidney disease; N18.3 Chronic kidney disease, stage 3 (moderate); E11.22 Type 2 diabetes mellitus with diabetic chronic kidney disease; E11.42 Type 2 diabetes mellitus with diabetic polyneuropathy; K86.1 Other chronic pancreatitis; K21.9 Gastro-esophageal reflux disease without esophagitis; K76.0 Fatty (change of) liver, not elsewhere classified; E66.9 Obesity, unspecified; Z68.41 Body mass index [BMI] 40.0-44.9, adult; Z88.2 Allergy status to sulfonamides; Z88.5 Allergy status to narcotic agent; Z88.6 Allergy status to analgesic agent; Z95.5 Presence of coronary angioplasty implant and graft; Z88.8 Allergy status to other drugs, medicaments and biological substances; Z91.048 Other nonmedicinal substance allergy status; Z91.018 Allergy to other foods; Z79.899 Other long term (current) drug therapy; Z79.4 Long term (current) use of insulin; Z79.02 Long term (current) use of antithrombotics/antiplatelets
CPT/HCPCS: 36415; 36416; 71045; 80053; 82550; 82947; 83690; 84484; 85025; 93005; 93458; 94760; 96361; 96372; 96374; 96375; 99152; 99153; C1769; G0378; J1644; J1650; J2250; J2270; J3010

== ENCOUNTER 2018-09-21 17:07 | Observation (INO) | payer BC ==
[2018-09-21 17:46] LABS: #Basophils 0.1 thou/uL (0.0-0.2); #Eosinphils 0.1 thou/uL (0.0-0.7); #Lymphocytes 1.9 thou/uL (1.20-3.40); #Monocytes 0.5 thou/uL (0.11-0.59); #Neutrophils 5.6 thou/uL (1.40-6.50); %Basophils 0.7 % (0.0-1.0); %Eosinophils 1.6 % (0.0-10.0); %Lymphocytes 23.1 % (21.0-51.0); %Monocytes 5.9 % (0.0-10.0); %Neutrophils 68.7 % (42.0-75.0); Hemoglobin 12.9 g/dL (12.0-16.0); Mean Corpuscular HGB CONC 34.1 g/dL (32.0-36.0); Mean Platelet Volume 10.1 fL (7.4-10.4); Platelet Count 140 thou/uL (130-400); RBC Distribution Width 12.7 % (11.5-14.5); Red Blood Cell (RBC) Count 4.31 mill/uL (4.20-5.40); White Blood Cell (WBC) Count 8.1 thou/uL (4.8-10.8)
--- NOTE | 2018-09-21 17:47 | RAD ---
FEXAM: Portable chest PROVIDED CLINICAL HISTORY: Dyspnea COMPARISON: 08/09/2018 FINDINGS: Cardiac and mediastinal silhouette is unchanged in appearance. No focal consolidation, pleural fluid or pneumothorax evident. IMPRESSION: No evidence for an acute cardiopulmonary process.
[2018-09-21 18:14] LABS: ALT (SGPT) 40 U/L (8-55); AST (SGOT) 29 U/L (5-34); Albumin 3.9 g/dL (3.5-5.0); Alkaline Phosphatase 106 U/L (40-150); Anion Gap 12 mmol/L (10-20); BUN (Urea Nitrogen) 13 mg/dL (9.8-20.1); Bilirubin, Total 0.6 mg/dL (0.2-1.2); Calc. Creatinine Clearance 0 mL/min (70-130); Calcium 9.1 mg/dL (7.8-10.44); Carbon Dioxide 29 mmol/L (22-29); Chloride 100 mmol/L (98-107); Estimated GFR-MDRD 47; Globulin 2.2 g/dL (2.4-3.5); Glucose 398 mg/dL (70-105); Potassium 3.8 mmol/L (3.5-5.1); Protein, Total 6.1 g/dL (6.0-8.3); Sodium 137 mmol/L (136-145)
--- NOTE | 2018-09-21 19:50 | PDOC.FPRHP ---
- History of Present Illness Chief Complaint: SOB History of Present Illness: 58yo F with pmh of copd comes in with 2 months hx of nasal congestion and SOB, with greater SOB x1 day. Pt was Dx with COPD back in June 2017 and COPD exacerbation then. Since then she has been controlled with pro-air alone only using it 4 times over the last year. She does report having a cough but has had no change in clear sputum. Pt also reports intermittent subjective chills and increased fatigue, intermittent diarrhea (2/day, non bloody), and nausea. Of note pt reports that she was given azithromycin and a steroid 2 months ago for some sort of suspected respiratory infection (presumably COPD exacerbation) . she completed antibiotics and had stable symptoms until 1-2 days ago. ED Course: solumedrol and duonebs - Allergies/Adverse Reactions Allergies Allergy/AdvReac Type Severity Reaction Status Date / Time adhesive Allergy Severe Verified 09/22/18 01:59 aspirin Allergy Verified 06/30/18 18:42 codeine Allergy Verified 06/30/18 18:42 hydrocodone Allergy Verified 06/30/18 18:42 levofloxacin [From Levaquin] Allergy Verified 06/30/18 18:42 NSAIDS (Non-Steroidal Allergy Verified 06/30/18 18:42 Anti-Inflamma Sulfa (Sulfonamide Allergy Verified 06/30/18 18:42 Antibiotics) trimethoprim [From Bactrim] Allergy Verified 06/30/18 18:42 tramadol AdvReac Mild ITCHING Verified 06/30/18 18:42 - Home Medications Medication Instructions Recorded Confirmed Type Cetirizine HCl [Zyrtec] 10 mg PO HS 07/22/16 09/21/18 History Gabapentin 800 mg PO BID 07/22/16 09/21/18 History Lisinopril 10 mg PO QPM 07/22/16 09/21/18 History Magnesium 500 mg PO BID 07/22/16 09/21/18 History PARoxetine HCl [Paroxetine HCl] 20 mg PO HS 07/22/16 09/21/18 History risperiDONE [Risperidone] 0.5 mg PO HS 07/22/16 09/21/18 History Pancrelipase 19643 [Gui DR 4 cap PO TID-WM #30 cap 04/05/17 09/21/18 Rx 12,000 Units] Ondansetron [Zofran ODT] 4 mg PO Q6H PRN 4 Days #16 tab 08/26/17 09/21/18 Rx Atorvastatin Calcium [Lipitor] 40 mg PO HS 30 Days #30 tab 08/27/17 09/21/18 Rx Potassium Chloride [Klor-Con 10] 10 meq PO DAILY #30 tab 09/01/17 09/21/18 Rx Ergocalciferol (Vitamin D2) 50,000 unit PO ASDIR 10/19/17 09/21/18 History [Vitamin D2] Fenofibrate [Tricor] 160 mg PO HS 10/19/17 09/21/18 History [place]-3 Acid Ethyl Esters [Lovaza] 2 gm PO BID 10/19/17 09/21/18 History Promethazine [Phenergan] 25 mg PO Q6HR PRN 10/19/17 09/21/18 History Ranitidine HCl 300 mg PO BID 10/19/17 09/21/18 History Insulin Glargine,Hum.Rec.Anlog 87 unit SQ BID 03/15/18 09/21/18 History [Toujeo Solostar] Folic Acid [Folvite] 1 mg PO HS 06/30/18 09/21/18 History Torsemide [Demadex] 40 mg PO ASDIR 06/30/18 09/21/18 History Isosorbide Mononitrate [Imdur] 60 mg PO DAILY #30 tab 07/01/18 09/21/18 Rx Morphine IR [Morphine Oral 6 ml PO Q4HR PRN 09/21/18 09/21/18 History Solution] Clopidogrel Bisulfate [Plavix] 75 mg PO DAILY 09/22/18 09/22/18 History - History PMHx: CAD s/p stent placement x2, DMII, HLD, Bipolar, Depression, COPD, asthma, benign pancreatic mass w/ chronic pancreatitis, ALAS PSHx: neck sx, hysterectomy, B/L oophrectomy, left knee, skin CA removal, B/L lumpectomy, partial L breast removal FHx: mother with cardiac problems Social: 42 pack year smoking history, No EtOH or drug use. Allergy: aspirin, Bactrim, codeine sulfate, Levaquin, NSAIDS (Non-Steroidal Anti -Inflammatory Drug), traMADol, Vicodin CODE: FULL - Review of Systems General: reports: fatigue, other (no fevers, intermittent subjective chills) Eyes: denies: eye pain, vision changes ENT: reports: nasal congestion Respiratory: reports: cough, shortness of breath Cardiovascular: denies: chest pain, palpitation Gastrointestinal: reports: nausea, diarrhea. denies: vomiting, constipation Genitourinary: denies: incontinence, dysuria Skin: denies: rashes, lesions Musculoskeletal: denies: pain, tenderness Neurological: denies: numbness, syncope, seizure Psychological: denies: anxiety, depression - Vital signs BP: 119/56, Pulse: 90, Resp: 17 (Non-Labored), Pain: 4, O2 sat: 97 on Room Air, TMAX 97.9 degrees F, Time: 09/21/2018 19:23. weight: 108kg - Physical Exam Constitutional: NAD, awake, alert and oriented HEENT: EOMI, grossly normal vision, grossly normal hearing Neck: supple, trachea midline Chest: no-tender to palpation Heart: RRR, normal S1/S2 -Lungs: decreased breath sounds bilaterally, mild end expiratory wheezign on bilateral lung bases Abdomen: soft, non-tender Musculoskeletal: normal structure, normal tone Neurological: no focal deficit, normal sensation Skin: no rash/lesions, good turgor Heme/Lymphatic: no purpura, no petechia Psychiatric: normal mood and affect, good judgment and insight FMR H&P: Results - Labs Result Diagrams: 09/22/18 05:59 09/22/18 05:59 Lab results: WBC 8.1 thou/uL (4.8-10.8) 09/21/18 17:38 Hgb 12.9 g/dL (12.0-16.0) 09/21/18 17:38 Hct 37.9 % (36.0-47.0) 09/21/18 17:38 MCV 88.0 fL (78.0-98.0) 09/21/18 17:38 Plt Count 140 thou/uL (130-400) 09/21/18 17:38 Neutrophils % 68.7 % (42.0-75.0) 09/21/18 17:38 Sodium 137 mmol/L (136-145) 09/21/18 17:38 Potassium 3.8 mmol/L (3.5-5.1) 09/21/18 17:38 Chloride 100 mmol/L (98-107) 09/21/18 17:38 Carbon Dioxide 29 mmol/L (22-29) 09/21/18 17:38 BUN 13 mg/dL (9.8-20.1) 09/21/18 17:38 Creatinine 1.18 mg/dL (0.6-1.1) H 09/21/18 17:38 Glucose 398 mg/dL (70-105) H 09/21/18 17:38 Calcium 9.1 mg/dL (7.8-10.44) 09/21/18 17:38 Total Bilirubin 0.6 mg/dL (0.2-1.2) 09/21/18 17:38 AST 29 U/L (5-34) 09/21/18 17:38 ALT 40 U/L (8-55) 09/21/18 17:38 Alkaline Phosphatase 106 U/L (40-150) 09/21/18 17:38 Serum Total Protein 6.1 g/dL (6.0-8.3) 09/21/18 17:38 Albumin 3.9 g/dL (3.5-5.0) 09/21/18 17:38 FMR H&P: A/P - Problem List (1) COPD exacerbation Current Visit: No Status: Acute Code(s): J44.1 - CHRONIC OBSTRUCTIVE PULMONARY DISEASE W (ACUTE) EXACERBATION (2) Chronic pancreatitis Current Visit: No Status: Acute Code(s): K86.1 - OTHER CHRONIC PANCREATITIS (3) Bipolar disorder Current Visit: No Status: Chronic Code(s): F31.9 - BIPOLAR DISORDER, UNSPECIFIED Qualifiers: Active/Remission status: remission status unspecified Qualified Code(s): F31.9 - Bipolar disorder, unspecified (4) CAD (coronary artery disease) Current Visit: No Status: Chronic Code(s): I25.10 - ATHSCL HEART DISEASE OF [place] CORONARY ARTERY W/O ANG PCTRS Qualifiers: Coronary Disease-Associated Artery/Lesion type: [place] artery [place] vs. transplanted heart: [place] heart Associated angina: angina presence unspecified Qualified Code(s): I25.10 - Atherosclerotic heart disease of [place] coronary artery without angina pectoris (5) Chronic kidney disease, stage 3 Current Visit: No Status: Chronic (6) Diabetes mellitus type 2 in obese Current Visit: No Status: Chronic Code(s): E11.9 - TYPE 2 DIABETES MELLITUS WITHOUT COMPLICATIONS; E66.9 - OBESITY, UNSPECIFIED (7) Hyperlipidemia Current Visit: No Status: Chronic Code(s): E78.5 - HYPERLIPIDEMIA, UNSPECIFIED Qualifiers: Hyperlipidemia type: unspecified Qualified Code(s): E78.5 - Hyperlipidemia , unspecified (8) Hypertension Current Visit: No Status: Chronic Code(s): I10 - ESSENTIAL (PRIMARY) HYPERTENSION Qualifiers: Hypertension type: essential hypertension Qualified Code(s): I10 - Essential (primary) hypertension - Plan COPD exacerbation A- mild in severity, though pt has a somewhat impressive exam she is satting well on RA with minimal work of breathing. She does desat while talking without taking a breath down to 80s. Pt reports to be previously controlled on albuterol alone for over 1 year. P- admit to medical obs - ABG to establish baseline for CO2 retention - prednisone daily - duonebs q2hr schedule, will plan to space out as tolerated - O2 prn, keep sats 89-92 Diarrhea A- gastroenteritis vs. other infectious etiology P- if pt continues to have loose stools will collect to c. diff and consider other stool studies CKD3 A- Cr. 1.18, lowest its been in some time P- monitor with BMPs DMII A- Pt on toujeo and agressive SSI. 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 She has had daily symptoms for the past 2 months. She was treated with antibiotics for dyspnea by her PCP 2 months ago. She was given Solumedrol and Duonebs in the ED. - Pertinent findings Vitals as described above. Hypoxia noted with minimal exertion. Exam: General: alert and oriented x 3 in no distress. Heart: regular rate and rhythm, no murmurs, rubs, or gallops Lungs: clear to auscultation bilaterally, no crackles, wheezes, or rhonchi. CXR: no acute cardiopulmonary process. - Plan Date/Time: 09/21/181948 I, Neris Khan, have evaluated this patient and agree with findings/plan as outlined by sales intern resident. Pertinent changes/additions are listed here. Acute hypoxic respiratory failure - 2/2 to COPD exacerbation - supplemental O2 as needed. COPD exacerbation - Duonebs MAHESH and PRN. - will recommend Spiriva after discharge. - prednisone - smoking cessation strongly encouraged. Neck pain - pt has a history of cervical fusion and notes increased neck pain triggered by coughing. Pt expressed concern for status of plates, will check plain film of c-spine. Poorly controlled diabetes - will check A1C - restart home insulin - AC/HS accuchecks - pt not on PO meds; will discuss further with patient and consider starting additional agent. Addendum - Attending - Attending Attestation Date/Time: 09/22/18 0705 I personally evaluated the patient and discussed the management with Dr. Medrano last night. I agree with the History, Examination, Assessment and Plan documented above with any addition or exceptions noted below.
[2018-09-21] MEDS ORDERED: HumaLOG 300 UNITS/3 ML VIAL SC PRN (20:33)
[2018-09-21] MEDS ORDERED: Dextrose 50% Abboject 50 ML SYRINGE SLOW IVP PRN (20:33)
[2018-09-21] MEDS ORDERED: Calcium Carbonate 500 MG ChewTAB PO PRN (20:33)
[2018-09-21] MEDS ORDERED: Acetaminophen 325 MG TAB PO PRN (20:33)
[2018-09-21] MEDS ORDERED: Dextrose 5% in Water 1,000 ML IV PRN (20:33)
[2018-09-21] MEDS ORDERED: Nicotine 21 MG PATCH TD SCH (21:00)
[2018-09-21 21:46] LABS: Hemoglobin A1c 6.6 % (4.0-6.0)
[2018-09-21 23:30] VITALS: BMI 40.8
[2018-09-21] MEDS: HumaLOG 300 UNITS/3 ML VIAL SC PRN (23:48)
[2018-09-22 05:05] LABS: Actual Bicarbonate (HCO3a) 23.6 mEq/L (22-28); Calcium, Ionized 1.17 mmol/L (1.12-1.30); Carboxyhemoglobin (COHb) 2.7 gm% (0.0-3.0); Hemoglobin (Hb) 12.9 g/dL (12.0-16.0); O2 Tension (PaO2) 75.9 mmHg (80.0-100.0)
[2018-09-22 05:07] LABS: Puncture Site LRA
[2018-09-22] MEDS: HumaLOG 300 UNITS/3 ML VIAL SC PRN (06:17)
[2018-09-22 06:28] LABS: #Monocytes 0.3 thou/uL (0.11-0.59); #Neutrophils 9.1 thou/uL (1.40-6.50); %Basophils 0.1 % (0.0-1.0); %Eosinophils 0.1 % (0.0-10.0); %Lymphocytes 9.9 % (21.0-51.0); %Neutrophils 86.9 % (42.0-75.0); Hemoglobin 12.2 g/dL (12.0-16.0); Mean Corpuscular HGB CONC 33.7 g/dL (32.0-36.0); Mean Corpuscular Volume 89.1 fL (78.0-98.0); Mean Platelet Volume 10.6 fL (7.4-10.4); Platelet Count 138 thou/uL (130-400); RBC Distribution Width 12.8 % (11.5-14.5); Red Blood Cell (RBC) Count 4.07 mill/uL (4.20-5.40); White Blood Cell (WBC) Count 10.4 thou/uL (4.8-10.8)
[2018-09-22] MEDS ORDERED: Ondansetron ODT 4 MG TAB PO PRN (06:32)
[2018-09-22] MEDS ORDERED: Ergocalciferol 1.25 MG(50,000 UNITS) CAP PO SCH ×2 (06:45→07:30)
[2018-09-22 06:53] LABS: Anion Gap 16 mmol/L (10-20); BUN (Urea Nitrogen) 19 mg/dL (9.8-20.1); Calc. Creatinine Clearance 88 mL/min (70-130); Calcium 9.6 mg/dL (7.8-10.44); Carbon Dioxide 26 mmol/L (22-29); Chloride 98 mmol/L (98-107); Estimated GFR-MDRD 46; Potassium 4.5 mmol/L (3.5-5.1); Sodium 135 mmol/L (136-145)
[2018-09-22 06:56] LABS: Glucose 567 mg/dL (70-105)
[2018-09-22] MEDS ORDERED: Spiriva 18 MCG CAP (Box of 5 Caps) INH SCH ×2 (07:00)
[2018-09-22] MEDS ORDERED: predniSONE 20 MG TAB PO SCH (08:00)
[2018-09-22] MEDS ORDERED: Fluticasone Propionate Nasal Spray 16 gm Bottle NASAL SCH (09:00)
[2018-09-22] MEDS ORDERED: OMEGA ACID ETHYL ESTERS PO SCH (09:00)
[2018-09-22] MEDS ORDERED: Gabapentin 300 MG CAP PO SCH (09:00)
[2018-09-22] MEDS ORDERED: Clopidogrel Bisulfate 75 MG TAB PO SCH (09:00)
[2018-09-22] MEDS ORDERED: Fish Oil 1,000 MG CAP PO SCH (09:00)
[2018-09-22] MEDS ORDERED: Gabapentin 400 MG CAP PO SCH (09:00)
[2018-09-22] MEDS ORDERED: Insulin Glargine 80 UNITS in Pre-Filled Syringe 1 EACH SC SCH ×2 (09:00→21:00)
[2018-09-22] MEDS ORDERED: Enoxaparin Sodium 40 MG/0.4 ML SYRINGE SC SCH (09:00)
--- NOTE | 2018-09-22 09:16 | RAD ---
CERVICAL SPINE 4 VIEWS: Date: 09/22/18 HISTORY: Neck pain. History of prior fusion. FINDINGS: Evidence of prior fusion procedure. Anterior plate and screws transfix C4, C5, C6, and C7. Interbody implants and interbody fusion is noted. Posterior cerclage wires are also seen throughout these level s. Posterior alignment appears maintained. The C2-3 and C3-4 disc spaces are preserved. C7-T1 level not adequately evaluated. There are mild degenerative changes, mild spurring, and mild facet hypertrophy noted. Small osteophyte seen anteriorly at C2-3. IMPRESSION: Degenerative and postoperative changes of cervical spine as described. POS: [facility]
--- NOTE | 2018-09-22 10:42 | PDOC.FM ---
- Subjective Subjective: EDUARDO overnight. Pt reports imprvement of respiratory status with current medications. Pt is ID diabetic and had draastically [id number] blood sugars after the administration of steroids. Otherwise, no complaints. Pt is ambulating halls and will have walk test. Given extensive smoking history and frequent hospitalizations for cardiac vs COPD recommend increased OP coverage with LAMA LABA and establishing with OP pulmonology. Pt agreeable. Will try walk test to test for home O2 requirement. - Objective Vital Signs & Weight: Vital Signs (12 hours) Temp Pulse Resp BP BP Pulse Ox 09/22/18 10:33 95 16 98 09/22/18 07:32 98.1 F 95 16 144/68 H 95 09/22/18 06:27 97 09/22/18 06:24 83 16 97 09/22/18 05:06 97.1 F L 93 18 128/67 99 09/22/18 04:59 92 16 09/22/18 02:07 96 09/22/18 00:53 16 09/21/18 23:29 98.3 F 90 20 147/72 H 94 L 09/21/18 22:50 90 16 96 Weight Weight 107.955 kg I&O: 09/21/18 09/22/18 09/23/18 06:59 06:59 06:59 Intake Total 480 Balance 480 Result Diagrams: 09/22/18 05:59 09/22/18 05:59 Phys Exam - Physical Examination Constitutional: NAD HEENT: PERRLA, sclera anicteric Neck: no nodes, no JVD Respiratory: no wheezing, no rales, no rhonchi, clear to auscultation bilateral Cardiovascular: RRR, no significant murmur, no rub Gastrointestinal: soft, non-tender, no distention, positive bowel sounds Musculoskeletal: no edema, pulses present Neurological: non-focal, moves all 4 limbs Psychiatric: normal affect Skin: no rash, cap refill <2 seconds Dx/Plan (1) COPD exacerbation Code(s): J44.1 - CHRONIC OBSTRUCTIVE PULMONARY DISEASE W (ACUTE) EXACERBATION Status: Acute (2) CHF (congestive heart failure) Code(s): I50.9 - HEART FAILURE, UNSPECIFIED Status: Chronic (3) Chronic kidney disease, stage 3 Status: Chronic (4) Diabetes mellitus type 2 in obese Code(s): E11.9 - TYPE 2 DIABETES MELLITUS WITHOUT COMPLICATIONS; E66.9 - OBESITY , UNSPECIFIED Status: Chronic - Plan Plan: 1) COPD exacerbation - appears improved and pt satting well on room air with benign lung exam - will plan to DC home wiht oral steroid regimen and LAMA/LABA combined inhaler in addition to proair prn - OP pulm information given - pt has 80+ pack year history 2) CHF: appears stable, cont home medications 3) DMII: cont insulin - may need to increase SA insulin at home 2/2 steroid use 4) CKD: - Cr at baseline Dispo: stable, will give SA insulin and plan for LAMA LABA addition OP. Plan for dc to home today. Addendum - Attending - Attending Attestation Date/Time: 09/22/18 1625 I personally evaluated the patient and discussed the management with Dr. Walsh. I agree with the History, Examination, Assessment and Plan documented above with any addition or exceptions noted below. Pt is hyperglycemic this morning. Giving increased humalog dose. Likely 2/2 steroids. Will adjust home insulin regimen. If sugar improves, pt can discharge home as she is ambulating in the hallways and maintaining sats.
[2018-09-22] MEDS ORDERED: HumaLOG 300 UNITS/3 ML VIAL SC SCH (12:00)
[2018-09-22 12:01] VITALS: BP 146/78; TEMP 97.7
[2018-09-22] MEDS ORDERED: Loratadine 10 MG TAB PO SCH (21:00)
[2018-09-22] MEDS ORDERED: PARoxetine 20 MG TAB PO SCH (21:00)
[2018-09-22] MEDS ORDERED: Cetirizine HCl 10 MG TAB PO SCH (21:00)
[2018-09-22] MEDS ORDERED: Lisinopril 5 MG TAB PO SCH (21:00)
[2018-09-22] MEDS ORDERED: Lisinopril 10 MG TAB PO SCH (21:00)
[2018-09-22] MEDS ORDERED: risperiDONE 0.25 MG TAB PO SCH (21:00)
[2018-09-22] MEDS ORDERED: Atorvastatin Calcium 40 MG TAB PO SCH (21:00)
[2018-09-22] MEDS ORDERED: RISPERIDONE 0.5 MG PO SCH (21:00)
[2018-09-22] MEDS ORDERED: Atorvastatin Calcium 20 MG TAB PO SCH (21:00)
[2018-09-22] MEDS ORDERED: Folic Acid 1 MG TAB PO SCH (21:00)
== END 2018-09-22 14:02 | disposition home or self-care (01) ==
LOC: ERS 17:07 → ERHOLD 19:43 → 2SW 19:43
PROVIDERS: ADMIT Family Medicine; ATTEND Family Medicine
DX: J44.1 Chronic obstructive pulmonary disease with (acute) exacerbation (principal); I13.0 Hypertensive heart and chronic kidney disease with heart failure and stage 1 through stage 4 chronic kidney disease, or unspecified chronic kidney disease; E11.22 Type 2 diabetes mellitus with diabetic chronic kidney disease; N18.3 Chronic kidney disease, stage 3 (moderate); I50.9 Heart failure, unspecified; I25.10 Atherosclerotic heart disease of native coronary artery without angina pectoris; E78.5 Hyperlipidemia, unspecified; F31.9 Bipolar disorder, unspecified; K75.81 Nonalcoholic steatohepatitis (NASH); K86.1 Other chronic pancreatitis; F17.210 Nicotine dependence, cigarettes, uncomplicated; Z95.5 Presence of coronary angioplasty implant and graft; Z90.710 Acquired absence of both cervix and uterus; Z90.722 Acquired absence of ovaries, bilateral; Z90.12 Acquired absence of left breast and nipple; Z88.6 Allergy status to analgesic agent; Z88.2 Allergy status to sulfonamides; Z88.5 Allergy status to narcotic agent; Z91.09 Other allergy status, other than to drugs and biological substances; Z88.1 Allergy status to other antibiotic agents; Z79.02 Long term (current) use of antithrombotics/antiplatelets; Z79.4 Long term (current) use of insulin; Z79.51 Long term (current) use of inhaled steroids; Z79.899 Other long term (current) drug therapy; Z98.890 Other specified postprocedural states
CPT/HCPCS: 36415; 36416; 71045; 72040; 80048; 80053; 82805; 83036; 84145; 84484; 85025; 85379; 93005; 94640; 94760; 96372; G0378; J1650; J1825; J7620

== ENCOUNTER 2019-04-09 10:57 | Observation (INO) | payer BC ==
--- NOTE | 2019-04-09 11:14 | CT ---
CT BRAIN NONCONTRAST: DATE: 04/09/2019 HISTORY: 58-year-old female with acute stroke symptoms: Left-sided neurologic deficits, ataxia, and blurred vi ruba. Dr. Paz gave this acute stroke alert protocol report by telephone to ER physician Dr. Tylor Vazquez at 10 :11 AM on power scribe today. FINDINGS: There is no evidence of acute intra-axial or extra-axial hemorrhage. There is no midline shift or any other mass effect. There is no extra-axial fluid collection. There is no evidence of obstructive hydrocephalus. Calvarium is intact. IMPRESSION: No acute intracranial findings.
[2019-04-09 11:45] LABS: #Basophils 0.1 thou/uL (0.0-0.2); #Eosinphils 0.3 thou/uL (0.0-0.7); #Lymphocytes 3.2 thou/uL (1.20-3.40); #Neutrophils 8.6 thou/uL (1.40-6.50); %Basophils 0.6 % (0.0-1.0); %Eosinophils 2.2 % (0.0-10.0); %Lymphocytes 24.1 % (21.0-51.0); %Monocytes 7.3 % (0.0-10.0); Hemoglobin 12.9 g/dL (12.0-16.0); Mean Corpuscular HGB CONC 33.5 g/dL (32.0-36.0); Mean Corpuscular Hemoglobin 29.9 pg (27.0-31.0); Mean Corpuscular Volume 89.4 fL (78.0-98.0); Mean Platelet Volume 9.7 fL (7.4-10.4); Platelet Count 131 thou/uL (130-400); RBC Distribution Width 13.8 % (11.5-14.5); Red Blood Cell (RBC) Count 4.31 mill/uL (4.20-5.40); White Blood Cell (WBC) Count 13.1 thou/uL (4.8-10.8)
[2019-04-09 11:51] LABS: INR-International Normal Ratio 1.1; PTT 25.7 SEC (22.9-36.1); Prothrombin Time 13.7 SEC (12.0-14.7)
--- NOTE | 2019-04-09 11:51 | RAD ---
Portable chest: HISTORY: Mental status change. Dizziness. COMPARISON: 09/21/2018 FINDINGS:Mild cardiomegaly mild vascular engorgement again noted. No focal infiltrate or significant effusion. No interval change. IMPRESSION: No acute finding
--- NOTE | 2019-04-09 11:56 | CT ---
CT ANGIOGRAM NECK WITH CONTRAST CT ANGIOGRAM BRAIN WITH CONTRAST: DATE: 04/09/2019 HISTORY: 58-year-old female with acute stroke: Left-sided neurological deficits, ataxia, and blurry vision. Telephone report to Dr. Tylor Vazquez 11:51 AM on 04/09/2019. TECHNIQUE: After IV contrast injection, arterial bolus chasing technique scan performed from aortopulmonic windo w. to vertex of head. Coronal and sagittal 3-D MIP reconstructions. FINDINGS: Because bilateral shoulders are elevated, and because of large body habitus, plus additional streak a rtifact from ACDF metallic hardware, image resolution is low involving the great vessels and origins of bilateral vertebral arteries. Brachiocephalic: Prominent calcified atheromatous plaque at origin. With mild stenosis. Right subclavian: No high-grade stenosis. Left subclavian: Prominent calcified plaque at origin with mild stenosis. No high-grade stenosis prox imally. Mid and distal portions obscured by streak artifact from dense contrast bolus in adjacent left subclavian vein. Right common carotid: No high-grade stenosis. Left common carotid: Bovine origin from innominate. No high-grade stenosis identified, although midpo rtion is degraded by streak artifact from ACDF hardware. Cervical right vertebral: Difficult to visualize origin. Multiple segments obscured completely by str eak artifact from hardware. No high-grade stenosis or occlusion of distal cervical portions. Left cervical vertebral: Dominant. No high-grade stenosis identified. Suboptimal visualization of mid and proximal levels due to reasons given above. Intracranial bilateral vertebrals: No short segment high-grade focal stenosis. Basilar: No stenosis. Bilateral posterior cerebral's: No occlusion identified. Bilateral superior cerebellar is: No occlusion proximally. Right internal carotid: Calcified plaque at origin causing mild stenosis. Medialized, retropharyngeal course. No high-grade stenosis identified. Left internal carotid: Prominent calcified plaque proximally. Medialized course along retropharyngeal space. No high-grade stenosis identified. Right MCA: No M1 segment thrombus identified. Questionable short segment focal stenosis at origin of right MCA. Left MCA: Possible short segment focal stenosis at origin. No evidence of thrombosis of M1 segment. Bilateral ACAs: No occlusion of A1 and A2 segments. Dural venous sinuses: No evidence of thrombosis. IMPRESSION:
[2019-04-09 12:10] LABS: ALT (SGPT) 23 U/L (8-55); AST (SGOT) 16 U/L (5-34); Albumin 3.7 g/dL (3.5-5.0); Alkaline Phosphatase 88 U/L (40-110); Anion Gap 14 mmol/L (10-20); BUN (Urea Nitrogen) 13 mg/dL (9.8-20.1); Bilirubin, Total 0.7 mg/dL (0.2-1.2); Calc. Creatinine Clearance 0 mL/min (70-130); Calcium 8.5 mg/dL (7.8-10.44); Carbon Dioxide 25 mmol/L (22-29); Chloride 100 mmol/L (98-107); Estimated GFR-MDRD 40; Glucose 101 mg/dL (70-105); Potassium 4.4 mmol/L (3.5-5.1); Protein, Total 5.7 g/dL (6.0-8.3); Sodium 135 mmol/L (136-145)
[2019-04-09] MEDS ORDERED: ISOVUE-370 76%-LOCM 1 ML ONE (12:36)
[2019-04-09] MEDS ORDERED: Clopidogrel Bisulfate 75 MG TAB ONE (12:59)
--- NOTE | 2019-04-09 13:45 | PDOC.FPRHP ---
- History of Present Illness Chief Complaint: Left Sided Weakness, Slurred Speech History of Present Illness: Pt is a 58 yo female with PMH significant for COPD, DMII, HLD, CKD III, CAD w/ 2 stents, and tobacco abuse who presents for left sided weakness, slurred speech beginning this morning. Pt states symptoms began when she woke up this morning with a headache and weakness. She went to bed w/o symptoms. BELL located in L occipital region, 8/10 pain. She also complains of the room spinning. Pt denies any falls. She is able to walk but feels unsteady. Of note pt states she has been confused over the previous week or two. During this time she has hallucinations but knows they are not real. She also has instances of "spacing out". Her sister agrees. She also has COPD w/ chronic cough but no significant changes in cough, sputum production/color. In the ED pt's CXR, CT Brain showed no acute abnormalities. Her CTA head/neck revealed mild R ICA stenosis. She was also found to have a mild elevation in white count, 13.1 - Allergies/Adverse Reactions Allergies Allergy/AdvReac Type Severity Reaction Status Date / Time adhesive Allergy Severe Verified 09/22/18 01:59 aspirin Allergy Verified 06/30/18 18:42 codeine Allergy Verified 06/30/18 18:42 hydrocodone Allergy Verified 06/30/18 18:42 levofloxacin [From Levaquin] Allergy Verified 06/30/18 18:42 NSAIDS (Non-Steroidal Allergy Verified 06/30/18 18:42 Anti-Inflamma Sulfa (Sulfonamide Allergy Verified 06/30/18 18:42 Antibiotics) trimethoprim [From Bactrim] Allergy Verified 06/30/18 18:42 tramadol AdvReac Mild ITCHING Verified 06/30/18 18:42 - Home Medications Medication Instructions Recorded Confirmed Type Cetirizine HCl [Zyrtec] 10 mg PO HS 07/22/16 04/09/19 History Gabapentin 800 mg PO BID 07/22/16 04/09/19 History Lisinopril 10 mg PO QPM 07/22/16 04/09/19 History Magnesium 500 mg PO BID 07/22/16 04/09/19 History PARoxetine HCl [Paroxetine HCl] 10 mg PO HS 07/22/16 04/09/19 History risperiDONE [Risperidone] 0.5 mg PO HS 07/22/16 04/09/19 History Pancrelipase 73013 [Creon DR 4 cap PO TID-WM #30 cap 04/05/17 04/09/19 Rx 12,000 Units] Ondansetron [Zofran ODT] 4 mg PO Q6H PRN 4 Days #16 tab 08/26/17 04/09/19 Rx Ergocalciferol (Vitamin D2) 50,000 unit PO ASDIR 10/19/17 04/09/19 History [Vitamin D2] Fenofibrate [Tricor] 160 mg PO HS 10/19/17 04/09/19 History [place]-3 Acid Ethyl Esters [Lovaza] 2 gm PO BID 10/19/17 04/09/19 History Folic Acid [Folvite] 1 mg PO HS 06/30/18 04/09/19 History Torsemide [Demadex] 40 mg PO ASDIR 06/30/18 04/09/19 History Isosorbide Mononitrate [Imdur] 60 mg PO DAILY #30 tab 07/01/18 04/09/19 Rx Albuterol Sulfate [Proair 90 mcg IH Q4HR #1 aer.[email or web address] 09/22/18 04/09/19 Rx Respiclick] Clopidogrel Bisulfate [Plavix] 75 mg PO DAILY tab 09/22/18 04/09/19 Rx Fluticasone Propionate [Flonase 0 gm NASAL DAILY bot 09/22/18 04/09/19 Rx Nasal [place]] ALButerol Sulfate [Ventolin] 3 ml NEB Q8HR PRN 04/09/19 04/09/19 History Famotidine [Pepcid AC] 20 mg PO DAILY 04/09/19 04/09/19 History Folic Acid 1 tab PO DAILY 04/09/19 04/09/19 History HumaLOG 0 unit SC TID-WM PRN 04/09/19 04/09/19 History Insulin Glargine,Hum.Rec.Anlog 87 units SC TID 04/09/19 04/09/19 History [Toujeo Solostar] Metoprolol Tartrate [Lopressor] 1 tab PO BID 04/09/19 04/09/19 History Morphine Sulfate [Morphine Sulfate 15 mg PO DAILY PRN 04/09/19 04/09/19 History ER] Ranolazine [Ranexa] 500 mg PO BID 04/09/19 04/09/19 History sitaGLIPtin Phosphate [Januvia] 50 mg PO DAILY 04/09/19 04/09/19 History - History PMHx: COPD, DMII, HLD, CKD 3, CAD 2 stents, Breast cancer PSHx: hysterectomy w/ oophorectomy, L Knee replacement, Cholecystectomy FHx: Father - brain aneurysm Social: denies alcohol, drugs, endorsed tobacco, lives with sister, works at [employer] - Review of Systems General: denies: fever/chills, weight/appetite/sleep changes Eyes: reports: vision changes (blurry). denies: eye pain ENT: denies: nasal congestion, rhinorrhea Respiratory: reports: cough, shortness of breath, exercise intolerance. denies : congestion Cardiovascular: denies: chest pain, palpitation, edema Gastrointestinal: reports: nausea. denies: vomiting, diarrhea, constipation, abdominal pain, GI bleeding Genitourinary: denies: incontinence, dysuria, polyuria Skin: denies: rashes, lesions Musculoskeletal: denies: pain, swelling Neurological: reports: numbness, weakness. denies: syncope - Vital signs BP: [102/55] HR: [60] RR: [18] Tmax: [98.1] Pox: [98%]% on [RA] Wt: [114.57 kg ] - Physical Exam Constitutional: NAD, awake, alert and oriented -Constitutional: Obese HEENT: PERRLA, EOMI Neck: FROM, trachea midline Heart: RRR, normal S1/S2, pulses present, no edema -Lungs: Inspiratory wheeze bilaterally, did no appreciate expiratory wheeze, poor air movement Abdomen: soft, non-tender Neurological: CN II-XII intact, normal sensation -Neurological: 4/5 Left extremity strength, 5/5 Right extremity strength Skin: no rash/lesions, capillary refill <2 seconds Heme/Lymphatic: no purpura, no petechia -Psychiatric: did not appreciate hallucinatins/delusions FMR H&P: Results - Labs Result Diagrams: 04/09/19 11:33 04/09/19 11:34 Lab results: WBC 13.1 thou/uL (4.8-10.8) H 04/09/19 11:33 Hgb 12.9 g/dL (12.0-16.0) 04/09/19 11:33 Hct 38.5 % (36.0-47.0) 04/09/19 11:33 MCV 89.4 fL (78.0-98.0) 04/09/19 11:33 Plt Count 131 thou/uL (130-400) 04/09/19 11:33 Neutrophils % 66.0 % (42.0-75.0) 04/09/19 11:33 Sodium 135 mmol/L (136-145) L 04/09/19 11:34 Potassium 4.4 mmol/L (3.5-5.1) 04/09/19 11:34 Chloride 100 mmol/L (98-107) 04/09/19 11:34 Carbon Dioxide 25 mmol/L (22-29) 04/09/19 11:34 BUN 13 mg/dL (9.8-20.1) 04/09/19 11:34 Creatinine 1.38 mg/dL (0.6-1.1) H 04/09/19 11:34 Glucose 101 mg/dL (70-105) 04/09/19 11:34 Calcium 8.5 mg/dL (7.8-10.44) 04/09/19 11:34 Total Bilirubin 0.7 mg/dL (0.2-1.2) 04/09/19 11:34 AST 16 U/L (5-34) 04/09/19 11:34 ALT 23 U/L (8-55) 04/09/19 11:34 Alkaline Phosphatase 88 U/L (40-110) 04/09/19 11:34 Serum Total Protein 5.7 g/dL (6.0-8.3) L 04/09/19 11:34 Albumin 3.7 g/dL (3.5-5.0) 04/09/19 11:34 - Radiology Interpretation CT scan - head Status: report reviewed by me (No acute abnormalities) Chest x-ray Status: report reviewed by me (no acute abnormalities) Other Status: report reviewed by me (CTA head/neck revealed mild R ICA stenosis) FMR H&P: A/P - Problem List (1) Chronic pancreatitis Current Visit: No Status: Acute Code(s): K86.1 - OTHER CHRONIC PANCREATITIS (2) Neurological symptoms Current Visit: No Status: Acute Code(s): R29.90 - UNSPECIFIED SYMPTOMS AND SIGNS INVOLVING THE NERVOUS SYSTEM (3) CAD (coronary artery disease) Current Visit: No Status: Chronic Code(s): I25.10 - ATHSCL HEART DISEASE OF [place] CORONARY ARTERY W/O ANG PCTRS Qualifiers: Coronary Disease-Associated Artery/Lesion type: [place] artery [place] vs. transplanted heart: [place] heart Associated angina: angina presence unspecified Qualified Code(s): I25.10 - Atherosclerotic heart disease of [place] coronary artery without angina pectoris (4) CHF (congestive heart failure) Current Visit: No Status: Chronic Code(s): I50.9 - HEART FAILURE, UNSPECIFIED (5) Chronic kidney disease, stage 3 Current Visit: No Status: Chronic (6) Diabetes mellitus type 2 in obese Current Visit: No Status: Chronic Code(s): E11.9 - TYPE 2 DIABETES MELLITUS WITHOUT COMPLICATIONS; E66.9 - OBESITY, UNSPECIFIED (7) Hyperlipidemia Current Visit: No Status: Chronic Code(s): E78.5 - HYPERLIPIDEMIA, UNSPECIFIED Qualifiers: Hyperlipidemia type: unspecified Qualified Code(s): E78.5 - Hyperlipidemia , unspecified (8) Hypertension Current Visit: No Status: Chronic Code(s): I10 - ESSENTIAL (PRIMARY) HYPERTENSION Qualifiers: Hypertension type: essential hypertension Qualified Code(s): I10 - Essential (primary) hypertension (9) Tobacco abuse Current Visit: No Status: Chronic Code(s): Z72.0 - TOBACCO USE - Plan Pt is a 58 yo female with PMH for HTN, DMII, COPD, CKD III, tobacco abuse, CAD w / 2 stents who presents for left sided weakness who is pending an MRI Head to further assess for TIA vs Stroke # Left Sided Weakness TIA vs Stroke 4/5 strength L side, did not appreciate dysarthria on exam. CT head negative, CTA Head/neck revealed mild R ICA stenosis. - MRI pending - Continue plavix, statin - Lipid panel pending, a1c # HTN - held home meds for permissive htn # DM II She states home regimen is Glargine 87 TID. - Need to med reconcile tomorrow, pt does not have med list. SHe states medications have changed from previous visit. Last visit discharged with Glargine 87 U BID. - at this time wll start levemir w/ mod SSI # Headache - tylenol prn # Chronic Pancreatitis - held pain medications -continue creon # HLD - statin therapy # CKD III - baseline # COPD - continue home meds # Hx of CAD - cont statin, plavix Diet: HH Fluids: none VTE Prophylaxis: Lovenox Code: Full Dispo: admit to obs, likely < 2 midnight stay FMR H&P: Upper Level - Plan Date/Time: 04/09/19 1345 I, Sharad Medrano- PGY2, have evaluated this patient and agree with findings/ plan as outlined by hospital internship resident. Pertinent changes/additions are listed here. 58yo F with pmh of CAD presents with L sided weakness and decreased sensation on whole L side of body. Pt also endorses difficulty with ambulation that was new. onset was upon waking this morning. pt denies hx of TIA or stroke. On my exam she has normal cranial nerves except decreased sensation on L side of face. She also has 4/5 strength on L hip flexion. Biceps and patellar reflexes wnl. In ER she had CT brain and CTA which showed NAF. Pt is outside window for TPA and will be admitted for observation with plans for MRI. Will get lipids for risk stratification. All chronic medical problems will be managed per the hospital internship note above. Addendum - Attending - Attending Attestation Date/Time: 04/09/19 1042 I personally evaluated the patient and discussed the management with Dr. Vázquez /Mitchell. I agree with the History, Examination, Assessment and Plan documented above with any addition or exceptions noted below. patient is a 58-year-old female with history of coronary artery disease, COPD, diabetes mellitus type two, hypertension, chronic pain syndrome, chronic pancreatitis who presents with neurologic deficits. patient reports she was in normal state of health last night before going to bed. Upon awakening this morning she reported headache, blurry vision, generalized weakness but worse in the left upper and left lower extremities. She reported difficulty with ambulation. She denied any new onset sensory changes that she does endorse chronic paresthesias related to spinal disease. she presented to the ER with the symptoms. on my exam, she has four out of five strength in the bilateral upper and lower extremities. Some inconsistency to her neurological exam. No noted facial droop and no pupillary asymmetry. She did have one to two beats of myoclonus in the left lower extremity. CT brain and CT angiogram were obtained which did not reveal any acute findings nor did it reveal any acute thrombus. She is outside the window for TPA. Patient will be admitted to the hospital for stroke observation. Plan for MRI to confirm or refute CVA diagnosis. Otherwise we will risk stratify and control chronic conditions as necessary. Allow permissive hypertension for the next 24 hours. Further management per that work up.
[2019-04-09] MEDS ORDERED: Ondansetron PF 4 MG/2 ML Vial IVP PRN (15:06)
[2019-04-09] MEDS ORDERED: Ondansetron ODT 4 MG TAB SL PRN (15:06)
[2019-04-09 15:47] VITALS: BMI 44.7
[2019-04-09] MEDS ORDERED: Albuterol Sulfate 2.5 mg/3 ml Neb NEB PRN (16:43)
[2019-04-09] MEDS ORDERED: Torsemide 20 MG TAB PO SCH (16:45)
[2019-04-09] MEDS ORDERED: Ergocalciferol 1.25 MG(50,000 UNITS) CAP PO SCH (16:45)
[2019-04-09] MEDS ORDERED: Dextrose 5% in Water 1,000 ML IV PRN (17:02)
[2019-04-09] MEDS ORDERED: Dextrose 50% Abboject 50 ML SYRINGE SLOW IVP PRN (17:02)
[2019-04-09] MEDS ORDERED: HumaLOG 300 UNITS/3 ML VIAL SC PRN (17:02)
[2019-04-09] MEDS: Pancrelipase DR 12000 1 CAP PO SCH (18:01)
[2019-04-09] MEDS: PROVENTIL INHALER 6.7 G (200 INHALATIONS) INH SCH ×2 (18:44→22:09)
[2019-04-09] MEDS: Acetaminophen 325 MG TAB PO PRN (19:32)
[2019-04-09] MEDS ORDERED: PARoxetine 20 MG TAB PO SCH (21:00)
[2019-04-09] MEDS ORDERED: Atorvastatin Calcium 40 MG TAB PO SCH (21:00)
[2019-04-09] MEDS ORDERED: Folic Acid 1 MG TAB PO SCH (21:00)
[2019-04-09] MEDS ORDERED: Lisinopril 10 MG TAB PO SCH (21:00)
[2019-04-09] MEDS ORDERED: Fenofibrate Nanocrystallized 145 MG TAB PO SCH (21:00)
[2019-04-09] MEDS ORDERED: Omega-3 Acid Ethyl Esters [Lovaza] 2 GM PO SCH (21:00)
[2019-04-09] MEDS ORDERED: risperiDONE 0.25 MG TAB PO SCH (21:00)
[2019-04-09] MEDS: Magnesium Oxide 250 MG TAB PO SCH (21:29)
[2019-04-10] MEDS: Albuterol Sulfate 2.5 mg/3 ml Neb NEB PRN ×2 (01:58→06:21)
[2019-04-10] MEDS: PROVENTIL INHALER 6.7 G (200 INHALATIONS) INH SCH ×2 (01:59→06:23)
[2019-04-10 04:37] LABS: #Eosinphils 0.2 thou/uL (0.0-0.7); #Lymphocytes 2.3 thou/uL (1.20-3.40); #Monocytes 0.6 thou/uL (0.11-0.59); #Neutrophils 4.9 thou/uL (1.40-6.50); %Basophils 0.4 % (0.0-1.0); %Eosinophils 2.6 % (0.0-10.0); %Lymphocytes 28.3 % (21.0-51.0); %Monocytes 7.4 % (0.0-10.0); %Neutrophils 61.3 % (42.0-75.0); Hemoglobin 12.3 g/dL (12.0-16.0); Mean Corpuscular HGB CONC 32.8 g/dL (32.0-36.0); Mean Corpuscular Hemoglobin 29.2 pg (27.0-31.0); Mean Platelet Volume 9.7 fL (7.4-10.4); Platelet Count 120 thou/uL (130-400); RBC Distribution Width 13.9 % (11.5-14.5); Red Blood Cell (RBC) Count 4.22 mill/uL (4.20-5.40); White Blood Cell (WBC) Count 8.1 thou/uL (4.8-10.8)
[2019-04-10 05:01] LABS: Anion Gap 13 mmol/L (10-20); BUN (Urea Nitrogen) 13 mg/dL (9.8-20.1); Calc. Creatinine Clearance 82 mL/min (70-130); Calcium 9.3 mg/dL (7.8-10.44); Carbon Dioxide 28 mmol/L (22-29); Cardiac Risk 5.2 (Less than 4.5); Chloride 103 mmol/L (98-107); Cholesterol 119 mg/dl (< 200 Desired); Estimated GFR-MDRD 40; Glucose 74 mg/dL (70-105); HDL Cholesterol 23 mg/dL (>60 Neg Risk); LDL Cholesterol, Calculated 63 mg/dL; Sodium 140 mmol/L (136-145); Triglycerides 163 mg/dL (Less than 150)
--- NOTE | 2019-04-10 06:02 | PDOC.FM ---
- Subjective Subjective: Pt remains the same. She has a L occipital BELL. No other pains. She remains " not feeling like herself". - Objective Vital Signs & Weight: Vital Signs (12 hours) Temp Pulse Resp BP Pulse Ox 04/10/19 03:56 98.1 F 50 L 16 120/55 L 94 L 04/10/19 01:58 61 20 95 04/09/19 23:26 98.3 F 55 L 18 115/60 92 L 04/09/19 22:09 57 L 18 04/09/19 19:44 98.3 F 60 20 105/52 L 94 L Weight Weight 114.577 kg I&O: 04/08/19 04/09/19 04/10/19 06:59 06:59 06:59 Intake Total 500 Balance 500 Result Diagrams: 04/10/19 04:14 04/10/19 04:14 Phys Exam - Physical Examination Constitutional: NAD Neck: no JVD, full ROM Inspiratory, expiratory wheeze, poor air movement Cardiovascular: RRR, no significant murmur Gastrointestinal: soft, no distention, positive bowel sounds Musculoskeletal: no edema, pulses present Psychiatric: A&O x 3 Deviation from normal: Decrease short term memory, difficult recall Dx/Plan (1) Chronic pancreatitis Code(s): K86.1 - OTHER CHRONIC PANCREATITIS Status: Acute (2) Neurological symptoms Code(s): R29.90 - UNSPECIFIED SYMPTOMS AND SIGNS INVOLVING THE NERVOUS SYSTEM Status: Acute (3) CAD (coronary artery disease) Code(s): I25.10 - ATHSCL HEART DISEASE OF [place] CORONARY ARTERY W/O ANG PCTRS Status: Chronic Qualifiers: Coronary Disease-Associated Artery/Lesion type: [place] artery [place] vs. transplanted heart: [place] heart Associated angina: angina presence unspecified Qualified Code(s): I25.10 - Atherosclerotic heart disease of [place] coronary artery without angina pectoris (4) CHF (congestive heart failure) Code(s): I50.9 - HEART FAILURE, UNSPECIFIED Status: Chronic (5) Chronic kidney disease, stage 3 Status: Chronic (6) Diabetes mellitus type 2 in obese Code(s): E11.9 - TYPE 2 DIABETES MELLITUS WITHOUT COMPLICATIONS; E66.9 - OBESITY , UNSPECIFIED Status: Chronic (7) Hyperlipidemia Code(s): E78.5 - HYPERLIPIDEMIA, UNSPECIFIED Status: Chronic Qualifiers: Hyperlipidemia type: unspecified Qualified Code(s): E78.5 - Hyperlipidemia , unspecified (8) Hypertension Code(s): I10 - ESSENTIAL (PRIMARY) HYPERTENSION Status: Chronic Qualifiers: Hypertension type: essential hypertension Qualified Code(s): I10 - Essential (primary) hypertension (9) Tobacco abuse Code(s): Z72.0 - TOBACCO USE Status: Chronic - Plan Plan: Pt is a 58 yo female with PMH for HTN, DMII, COPD, CKD III, tobacco abuse, CAD w / 2 stents who presents for left sided weakness who is pending an MRI Head to further assess for TIA vs Stroke # Left Sided Weakness TIA vs Stroke 4/5 strength L side, did not appreciate dysarthria on exam. CT head negative, CTA Head/neck revealed mild R ICA stenosis. - MRI pending - Continue plavix, statin - LFT's mildly elevated - contine statin, a1c pending # HTN - held home meds for permissive htn - restart in afternoon # DM II She states home regimen is Glargine 87 TID. Possible if she is taking this much insulin pt is dropping BG below what she normally runs. Will check a1c to see normal BG. - Need to med reconcile tomorrow, pt does not have med list. She states medications have changed from previous visit. Last visit discharged with Glargine 87 U BID. - at this time will start levemir w/ mod SSI - controlled 10 am # Headache - tylenol prn # Chronic Pancreatitis - held pain medications - continue creon # HLD - statin therapy # CKD III - baseline # COPD - continue home meds # Hx of CAD - cont statin, plavix Diet: HH Fluids: none VTE Prophylaxis: Lovenox Code: Full Dispo: admit to obs, likely < 2 midnight stay Addendum - Attending - Attending Attestation Date/Time: 04/10/19 9070 I personally evaluated the patient and discussed the management with Dr. Vázquez. I agree with the History, Examination, Assessment and Plan documented above with any addition or exceptions noted below. Patient stable. Here for CVA r/o. Needs MRI today. Therapy evaluations pending. Further mgmt per MRI result.
[2019-04-10] MEDS ORDERED: PROVENTIL INHALER 6.7 G (200 INHALATIONS) INH PRN (06:40)
[2019-04-10] MEDS ORDERED: PROVENTIL INHALER 6.7 G (200 INHALATIONS) INH SCH (07:00)
[2019-04-10] MEDS: Albuterol Sulfate 2.5 mg/3 ml Neb NEB SCH ×2 (07:24→13:15)
[2019-04-10] MEDS ORDERED: Insulin Glargine 40 UNITS in Pre-Filled Syringe 1 EACH SC SCH (09:00)
[2019-04-10] MEDS ORDERED: Enoxaparin Sodium 40 MG/0.4 ML SYRINGE SC SCH (09:00)
[2019-04-10] MEDS ORDERED: Clopidogrel Bisulfate 75 MG TAB PO SCH ×2 (09:00)
[2019-04-10] MEDS ORDERED: Famotidine 20 MG TAB PO SCH (09:00)
[2019-04-10] MEDS: Acetaminophen 325 MG TAB PO PRN (09:51)
[2019-04-10] MEDS: Pancrelipase DR 12000 1 CAP PO SCH ×2 (09:54→12:56)
[2019-04-10] MEDS: Magnesium Oxide 250 MG TAB PO SCH (09:55)
--- NOTE | 2019-04-10 10:33 | MRI ---
MRI BRAIN NONCONTRAST: DATE: 04/10/2019 HISTORY: 58-year-old female with acute stroke symptoms: Left upper extremity weakness and blurred vision. FINDINGS: There is no obstructive hydrocephalus. There is no midline shift or any other evidence of mass effect . There is no extra-axial fluid collection. There are minimal chronic ischemic white matter changes due to microvascular atherosclerosis. There is otherwise no major intra-axial signal abnormality, rec ent hemorrhage, or restricted diffusion. IMPRESSION: 1) minimal chronic ischemic white matter changes. 2) otherwise negative
[2019-04-10 11:37] VITALS: TEMP 98.4
[2019-04-10 11:57] VITALS: BP 147/75
--- NOTE | 2019-04-11 15:24 | DIS ---
DATE OF ADMISSION: 04/09/2019 DATE OF DISCHARGE: 04/10/2019 RESIDENT: Oliver Vázquez DO. ADMITTING ATTENDING: Malcom Dominguez MD DISCHARGE ATTENDING: Malcom Dominguez MD CONSULTS: None. PROCEDURES: 1. On 04/09/2019, CT brain without contrast revealed no acute intracranial abnormalities. 2. CT angiography of the head revealed prominent calcified atheromatous plaque at origin in the brachiocephalic artery with mild stenosis. Right subclavian, no high-grade stenosis. Left subclavian prominent calcified plaque at the origin with mild stenosis. No high-grade stenosis proximally. No high-grade stenosis at the right common carotid. No high-grade stenosis at the left common carotid. No high-grade stenosis at the right vertebral artery or left vertebral artery or intracranial vertebrals. No stenosis at the basilar artery or posterior cerebrals, superior cerebellar artery. No high-grade stenosis at the right ICA or left ICA or bilateral ACAs or right MCA or left MCA. Chest x-ray on 04/09/2019 revealed no acute findings. 3. Brain MRI on 04/10/2019 revealed minimal chronic ischemic white matter changes, but otherwise no acute findings. DISCHARGE DIAGNOSES: 1. Left-sided weakness, likely secondary to fatigue. 2. Transient ischemic attack versus stroke, rule out. 3. Headache. SECONDARY DIAGNOSES: 1. Hypertension. 2. Diabetes type 2. 3. Chronic pancreatitis. 4. Hyperlipidemia. 5. Chronic kidney disease 3. 6. Chronic obstructive pulmonary disease. 7. History of coronary artery disease. DISCHARGE MEDICATIONS: 1. Gabapentin 800 mg p.o. b.i.d. 2. Lisinopril 10 mg p.o. daily. 3. Paroxetine 10 mg p.o. at bedtime. 4. Risperidone 0.5 mg p.o. at bedtime. 5. Zyrtec 10 mg p.o. at bedtime. 6. Magnesium 500 mg p.o. b.i.d. 7. Creon 4 mg cap p.o. t.i.d. 8. Zofran 4 mg p.o. q.6 p.r.n. 9. Fenofibrate 160 mg p.o. at bedtime. 10. Vitamin D2 50,000 units p.o. as directed. 11. Lovaza p.o. b.i.d. 12. Folic acid 1 mg p.o. at bedtime. 13. Torsemide 40 mg p.o. p.r.n. 14. Imdur 60 mg p.o. daily. 15. Plavix 75 mg p.o. daily. 16. Flonase p.r.n. 17. Albuterol sulfate 90 mcg inhaled q.4 hours p.r.n. 18. Metoprolol 25 mg p.o. b.i.d. 19. Ranexa 500 mg p.o. b.i.d. 20. Pepcid 20 mg p.o. daily. 21. Januvia 50 mg p.o. daily. 22. Morphine 50 mg p.o. daily p.r.n. pain. 23. Albuterol 2.5 mg, 3 mL neb q.8 p.r.n. 24. Lipitor 40 mg p.o. at bedtime. 25. Toujeo 87 units subcu b.i.d. DISCONTINUE MEDICATION: Toujeo 87 units t.i.d. HISTORY OF PRESENT ILLNESS/HOSPITAL COURSE: The patient is a 58-year-old female with past medical history significant for COPD, type 2 diabetes, hyperlipidemia , CKD 3, coronary artery disease with two stents, and long history of tobacco abuse, who presented for left-sided weakness and slurred speech beginning the morning of arrival. She was worked up for TIA versus stroke due to these complications. She states that the symptoms began when she woke up in the morning and she began feeling weak and had a headache. The headache did not wake her. She states that she went to bed without these symptoms. Her headache was located in the left occipital region. She said it was an 8/10. She complained of the room spinning. She denied any falls, but felt unsteady while walking. She also stated that she had been feeling confused over the previous week for two. She also stated she had been having some hallucinations, but she had insight to them and did not believe that there were real. In the emergency department, her chest x-ray and CT brain without contrast and CT head and neck revealed no significant abnormalities or stenosis. She did have right ICA stenosis, but was mild. She was kept overnight without any worsening symptoms. On exam, cranial nerves 2 through 12 are intact. She had normal sensation. She has 4/5 strength on her left extremity and 5/5 strength on her right extremity, but she was able to ambulate without any complications. MRI revealed no acute abnormalities, but did show chronic changes, but nothing suggesting an acute stroke at this time. Due to her negative MRI, she was discharged and advised to follow up with her primary care provider. She did have glargine 87 units t.i.d. noted by her for diabetes. On her last discharge summary, it states she had glargine 87 b.i.d. I have discontinued 87 units t.i.d. and restarted the 87 units b.i.d. Her blood sugars were running in the 90s to 140s on discharge. I advised her to follow up with her primary care provider to further assess her proper insulin control. DISPOSITION: Stable. LOCATION: [facility] DIET: Heart healthy. EXERCISE ACTIVITY: Ad anai. FOLLOWUP: 1. Follow up with primary care provider Dr. Arthur within the next 7 to 14 days. Job ID: [id number] [facility]ol
== END 2019-04-10 15:40 | disposition home or self-care (01) ==
LOC: ERS 10:57 → 2SE 14:40 → INTOOBSV 14:47 → 2SE 14:47
PROVIDERS: ADMIT Student in an Organized Health Care Education/Training Program; ATTEND Student in an Organized Health Care Education/Training Program
DX: R53.1 Weakness (principal); R47.81 Slurred speech; R51 Headache; I70.8 Atherosclerosis of other arteries; I65.21 Occlusion and stenosis of right carotid artery; I25.2 Old myocardial infarction; I13.0 Hypertensive heart and chronic kidney disease with heart failure and stage 1 through stage 4 chronic kidney disease, or unspecified chronic kidney disease; E11.22 Type 2 diabetes mellitus with diabetic chronic kidney disease; N18.3 Chronic kidney disease, stage 3 (moderate); I50.9 Heart failure, unspecified; J44.9 Chronic obstructive pulmonary disease, unspecified; E78.5 Hyperlipidemia, unspecified; I25.10 Atherosclerotic heart disease of native coronary artery without angina pectoris; F17.210 Nicotine dependence, cigarettes, uncomplicated; K86.1 Other chronic pancreatitis; E66.9 Obesity, unspecified; Z68.41 Body mass index [BMI] 40.0-44.9, adult; Z85.3 Personal history of malignant neoplasm of breast; Z79.4 Long term (current) use of insulin; Z79.899 Other long term (current) drug therapy; Z88.1 Allergy status to other antibiotic agents; Z88.2 Allergy status to sulfonamides; Z88.5 Allergy status to narcotic agent; Z88.8 Allergy status to other drugs, medicaments and biological substances; Z88.6 Allergy status to analgesic agent; Z91.048 Other nonmedicinal substance allergy status; Z95.5 Presence of coronary angioplasty implant and graft
CPT/HCPCS: 36415; 36416; 70450; 70496; 70498; 70551; 71045; 80048; 80053; 80061; 83036; 84484; 85025; 85610; 85730; 93005; 94640; 96372; G0378; J1650; J1815; J7611; Q9966

== ENCOUNTER 2019-04-25 14:45 | Observation (INO) | payer BC ==
--- NOTE | 2019-04-25 17:07 | RAD ---
EXAM: 3 views of the right foot HISTORY: Foot pain after fall COMPARISON: None FINDINGS: 3 views of the right foot shows no evidence of acute fracture or dislocation. Mild dorsal s oft tissue swelling is seen. Moderate degenerative changes are seen in the midfoot. IMPRESSION: No evidence of acute osseous abnormality.
[2019-04-25 17:10] LABS: #Eosinphils 0.1 thou/uL (0.0-0.7); #Lymphocytes 2.5 thou/uL (1.20-3.40); #Neutrophils 7.2 thou/uL (1.40-6.50); %Basophils 0.1 % (0.0-1.0); %Eosinophils 1.1 % (0.0-10.0); %Lymphocytes 23.2 % (21.0-51.0); %Neutrophils 66.6 % (42.0-75.0); Hemoglobin 13.8 g/dL (12.0-16.0); Mean Corpuscular HGB CONC 31.8 g/dL (32.0-36.0); Mean Corpuscular Hemoglobin 28.6 pg (27.0-31.0); Mean Corpuscular Volume 89.7 fL (78.0-98.0); Mean Platelet Volume 9.4 fL (7.4-10.4); Platelet Count 184 thou/uL (130-400); RBC Distribution Width 13.9 % (11.5-14.5); Red Blood Cell (RBC) Count 4.83 mill/uL (4.20-5.40); White Blood Cell (WBC) Count 10.8 thou/uL (4.8-10.8)
--- NOTE | 2019-04-25 17:18 | RAD ---
EXAM: 4 views of the right knee HISTORY: Knee pain after fall COMPARISON: None FINDINGS: No knee effusion is seen. There is no evidence of acute fracture or dislocation. No signifi cant degenerative changes are seen. No soft tissue swelling is present. IMPRESSION: No evidence of acute osseous abnormality.
[2019-04-25 17:27] LABS: Analyzer IN Cardio ER; Base Excess (BEa) 0.5 mEq/L (-2.0 to +3.0); CO2 Tension 45.2 mmHg (35.0-45.0); Calcium, Ionized 1.14 mmol/L (1.12-1.30); Carboxyhemoglobin (COHb) 10.9 gm% (0.0-3.0); Hemoglobin (Hb) 13.9 g/dL (12.0-16.0); O2 Tension (PaO2) 63.5 mmHg (80.0-100.0); Potassium - ABG Lab 4.52 mmol/L (3.70-5.30); pH, Arterial 7.38 (7.35-7.45)
[2019-04-25 17:28] LABS: ALT (SGPT) 18 U/L (8-55); AST (SGOT) 18 U/L (5-34); Albumin 3.9 g/dL (3.5-5.0); Alkaline Phosphatase 80 U/L (40-110); Anion Gap 14 mmol/L (10-20); BUN (Urea Nitrogen) 15 mg/dL (9.8-20.1); Bilirubin, Total 0.6 mg/dL (0.2-1.2); Calc. Creatinine Clearance 0 mL/min (70-130); Calcium 9.1 mg/dL (7.8-10.44); Carbon Dioxide 23 mmol/L (22-29); Chloride 105 mmol/L (98-107); Estimated GFR-MDRD 47; Globulin 2.8 g/dL (2.4-3.5); Glucose 83 mg/dL (70-105); Magnesium 2.4 mg/dL (1.6-2.6); Potassium 4.7 mmol/L (3.5-5.1); Protein, Total 6.7 g/dL (6.0-8.3); Sodium 137 mmol/L (136-145)
[2019-04-25 17:28] LABS: Puncture Site LRA
--- NOTE | 2019-04-25 18:29 | PDOC.FPRHP ---
Addendum entered and electronically signed by Suha Mckeon MD 04/26/19 04:29: Original Note: - History of Present Illness Chief Complaint: generalized weakness, falls History of Present Illness: Pt fell yesterday while walking down the [place]. Legs collapsed on her. Fell forward and hit R knee and foot. She also endorses tremors in hands and feet. Tremors in hands three months ago. Notice hands and legs feel jerky. Feels numbness in hands and feet all the time from severe cervical spinal stenosis. She has trouble pouring coffee. Today she fell while on the porch. Today she "went straight down and collapsed" . Said her sugars were "okay" during this time. Denies dizziness. Denies feeling like she is going to pass out. Dx with recent TIA. No hx of seizures. No new medications. No chest pain or trouble breathing. Has chronic pancreatitis and feels nauseous all the time. ED Course: EKG showed T wave inversion in aVL. - Allergies/Adverse Reactions Allergies Allergy/AdvReac Type Severity Reaction Status Date / Time adhesive Allergy Severe Verified 09/22/18 01:59 aspirin Allergy Verified 06/30/18 18:42 codeine Allergy Verified 06/30/18 18:42 hydrocodone Allergy Verified 06/30/18 18:42 levofloxacin [From Levaquin] Allergy Verified 06/30/18 18:42 NSAIDS (Non-Steroidal Allergy Verified 06/30/18 18:42 Anti-Inflamma Sulfa (Sulfonamide Allergy Verified 06/30/18 18:42 Antibiotics) trimethoprim [From Bactrim] Allergy Verified 06/30/18 18:42 tramadol AdvReac Mild ITCHING Verified 06/30/18 18:42 - Home Medications Medication Instructions Recorded Confirmed Type Cetirizine HCl [Zyrtec] 10 mg PO HS 07/22/16 04/25/19 History Gabapentin 800 mg PO BID 07/22/16 04/25/19 History Lisinopril 10 mg PO QPM 07/22/16 04/25/19 History Magnesium 500 mg PO BID 07/22/16 04/25/19 History PARoxetine HCl [Paroxetine HCl] 10 mg PO HS 07/22/16 04/25/19 History risperiDONE [Risperidone] 0.5 mg PO HS 07/22/16 04/25/19 History Pancrelipase 28357 [Creon DR 4 cap PO TID-WM #30 cap 04/05/17 04/25/19 Rx 12,000 Units] Ondansetron [Zofran ODT] 4 mg PO Q6H PRN 4 Days #16 tab 08/26/17 04/25/19 Rx Ergocalciferol (Vitamin D2) 50,000 unit PO ASDIR 10/19/17 04/25/19 History [Vitamin D2] Fenofibrate [Tricor] 160 mg PO HS 10/19/17 04/25/19 History [place]-3 Acid Ethyl Esters [Lovaza] 2 gm PO BID 10/19/17 04/25/19 History Folic Acid [Folvite] 1 mg PO DAILY 06/30/18 04/25/19 History Torsemide [Demadex] 40 mg PO ASDIR 06/30/18 04/25/19 History Isosorbide Mononitrate [Imdur] 60 mg PO DAILY #30 tab 07/01/18 04/25/19 Rx Clopidogrel Bisulfate [Plavix] 75 mg PO DAILY tab 09/22/18 04/25/19 Rx Fluticasone Propionate [Flonase 0 gm NASAL DAILY bot 09/22/18 04/25/19 Rx Nasal [place]] ALButerol Sulfate [Ventolin Neb] 3 ml NEB Q8HR PRN 04/09/19 04/25/19 History Famotidine [Pepcid AC] 20 mg PO DAILY 04/09/19 04/25/19 History Folic Acid 1 tab PO DAILY 04/09/19 04/25/19 History Metoprolol Tartrate [Lopressor] 0.5 tab PO BID 04/09/19 04/25/19 History Morphine Sulfate [Morphine Sulfate 15 mg PO QID 04/09/19 04/25/19 History ER] Ranolazine [Ranexa] 500 mg PO BID 04/09/19 04/25/19 History sitaGLIPtin Phosphate [Januvia] 50 mg PO DAILY 04/09/19 04/25/19 History Atorvastatin Calcium [Lipitor] 40 mg PO HS #30 tab 04/10/19 04/25/19 Rx Insulin Glargine,Hum.Rec.Anlog 87 unit SQ BID #9 insuln.pen 04/10/19 04/25/19 Rx [[place] Solostar] Albuterol Sulfate [Proair 90 mcg IH Q4HR PRN 04/25/19 04/25/19 History Respiclick] HumaLOG 0 unit SC AC PRN 04/25/19 04/25/19 History - History PMHx: type 2 diabetes, TIA, COPD, HTN, CAD, HLD, chronic pancreatitis PSHx: Neck fusion, lumpectomy of breast x 2 for precancerous lesions, hysterectomy FHx: denies family hx of parkinsons, tremors, dad side- heart disease; father- brain aneurysm, family hx of diabetes Social: Smokes: trying to quit. On wellbutrin. denies drinking, other drugs Lives in mobile home w/ roommate. Has no children. Has a sister. - Review of Systems General: denies: fever/chills, weight/appetite/sleep changes, night sweats Eyes: denies: vision changes ENT: denies: nasal congestion Respiratory: denies: cough, congestion, shortness of breath Cardiovascular: denies: edema, orthopnea Gastrointestinal: reports: nausea, abdominal pain (mild on left side). denies: vomiting, diarrhea, constipation Genitourinary: reports: incontinence (stress and urge, chronic) Skin: denies: rashes Musculoskeletal: reports: pain (in legs where she fell) Neurological: reports: weakness (of legs), other (tremors). denies: syncope, seizure Psychological: reports: other (no anxiety depression reported, but takes ssri) - Vital signs BP: 148/67 HR: 70 RR: 19 Tmax: 98.3 Pox: 94% on RA Wt: 114 kg - Physical Exam Constitutional: NAD, awake, alert and oriented, well developed HEENT: normocephalic and atraumatic, PERRLA, EOMI, conjunctiva clear, no scleral icterus, grossly normal vision, TM's clear and intact, grossly normal hearing, normal nasal mucosa, MMM, oropharynx clear, good dention Neck: supple, trachea midline Heart: RRR, normal S1/S2, no murmurs/rubs/gallops Lungs: CTAB, no respiratory distress, good air movement Abdomen: soft, bowel sounds present, no masses/distention Musculoskeletal: normal structure Neurological: no focal deficit, CN II-XII intact, normal sensation Skin: no rash/lesions Heme/Lymphatic: no unusual bruising or bleeding, no purpura, no petechia Psychiatric: normal mood and affect, intact recent and remote memory FMR H&P: Results - Labs Result Diagrams: 04/26/19 05:56 04/26/19 05:56 Lab results: WBC 10.8 thou/uL (4.8-10.8) 04/25/19 17:00 Hgb 13.8 g/dL (12.0-16.0) 04/25/19 17:00 Hct 43.3 % (36.0-47.0) 04/25/19 17:00 MCV 89.7 fL (78.0-98.0) 04/25/19 17:00 Plt Count 184 thou/uL (130-400) 04/25/19 17:00 Neutrophils % 66.6 % (42.0-75.0) 04/25/19 17:00 ABG pH 7.38 (7.35-7.45) 04/25/19 17:25 ABG pCO2 45.2 mmHg (35.0-45.0) H 04/25/19 17:25 ABG pO2 63.5 mmHg (80.0-100.0) L 04/25/19 17:25 Sodium 137 mmol/L (136-145) 04/25/19 17:00 Potassium 4.7 mmol/L (3.5-5.1) 04/25/19 17:00 Chloride 105 mmol/L (98-107) 04/25/19 17:00 Carbon Dioxide 23 mmol/L (22-29) 04/25/19 17:00 BUN 15 mg/dL (9.8-20.1) 04/25/19 17:00 Creatinine 1.18 mg/dL (0.6-1.1) H 04/25/19 17:00 Glucose 83 mg/dL (70-105) 04/25/19 17:00 Calcium 9.1 mg/dL (7.8-10.44) 04/25/19 17:00 Total Bilirubin 0.6 mg/dL (0.2-1.2) 04/25/19 17:00 AST 18 U/L (5-34) 04/25/19 17:00 ALT 18 U/L (8-55) 04/25/19 17:00 Alkaline Phosphatase 80 U/L (40-110) 04/25/19 17:00 Serum Total Protein 6.7 g/dL (6.0-8.3) 04/25/19 17:00 Albumin 3.9 g/dL (3.5-5.0) 04/25/19 17:00 FMR H&P: A/P - Problem List (1) Chronic pancreatitis Current Visit: No Status: Chronic Code(s): K86.1 - OTHER CHRONIC PANCREATITIS (2) Bipolar disorder Current Visit: No Status: Chronic Code(s): F31.9 - BIPOLAR DISORDER, UNSPECIFIED Qualifiers: Active/Remission status: remission status unspecified Qualified Code(s): F31.9 - Bipolar disorder, unspecified (3) CAD (coronary artery disease) Current Visit: No Status: Chronic Code(s): I25.10 - ATHSCL HEART DISEASE OF [place] CORONARY ARTERY W/O ANG PCTRS Qualifiers: Coronary Disease-Associated Artery/Lesion type: [place] artery [place] vs. transplanted heart: [place] heart Associated angina: angina presence unspecified Qualified Code(s): I25.10 - Atherosclerotic heart disease of [place] coronary artery without angina pectoris (4) Chronic kidney disease, stage 3 Current Visit: No Status: Chronic (5) Diabetes mellitus type 2 in obese Current Visit: No Status: Chronic Code(s): E11.9 - TYPE 2 DIABETES MELLITUS WITHOUT COMPLICATIONS; E66.9 - OBESITY, UNSPECIFIED (6) Hyperlipidemia Current Visit: No Status: Chronic Code(s): E78.5 - HYPERLIPIDEMIA, UNSPECIFIED Qualifiers: Hyperlipidemia type: unspecified Qualified Code(s): E78.5 - Hyperlipidemia , unspecified (7) Hypertension Current Visit: No Status: Chronic Code(s): I10 - ESSENTIAL (PRIMARY) HYPERTENSION Qualifiers: Hypertension type: essential hypertension Qualified Code(s): I10 - Essential (primary) hypertension (8) Tobacco abuse Current Visit: No Status: Chronic Code(s): Z72.0 - TOBACCO USE (9) Recurrent falls Current Visit: Yes Status: Acute Code(s): R29.6 - REPEATED FALLS (10) Generalized weakness Current Visit: Yes Status: Acute Code(s): R53.1 - WEAKNESS (11) Tremor Current Visit: Yes Status: Acute Code(s): R25.1 - TREMOR, UNSPECIFIED - Plan 58-yo female admitted for evaluation of : Recurrent falls Tremor, intention vs postural Deconditioning vs. neurologic etiology - Generalized weakness and falls are concerning along w/ worsening tremor over past 3 months. - May be due to pt's history of cervical spine stenosis or some other neurologic process - MRI with and without contrast of Brain and Cervical Spine to rule out new etiology of leg weakness. - orthostatic vital signs ordered in case any orthostasis and near-syncope may be playing a role in her falls. - Rehab screen placed. Pt may not be able to safely take care of herself at home and is deconditioned at the very least. - Case mgmt consulted for discharge planning Atypical chest pain - EKG finding pathologic: T wave inversion in aVL which is new - HEART score is 4 - magnesium, phosphorus, TSH pending - pt has heartburn symptoms and chronic nausea which may be due to other problems, but also may be an atypical presentation of chest pain - trend troponins - NPO at midnight for stress test. Will hold beta melchor T2DM - last A1C in March was 7.0 - hypoglycemia protocol - fasting lipid panel for AM COPD Bipolar disorder Hx of TIA HLD - continue home meds Code: full VTE ppx: plavix GI ppx: famotidine Rahel Gunderson MD [email or web address] Disposition/LOS: Admit to telemetry observation. Stress test in AM. FMR H&P: Upper Level - Pertinent history 58 yo f c/o two falls over the past week. She was walking both times and suddenly collapsed. She has felt weak for several weeks, in her lower extremities. She denies LOC. She also denies lightheadedness or dizziness. She felt weak on her feet, but did not say the room was spinning. She checked her blood sugar right after and it was in the 90s. She was seen at the ER recently for a CVA workup and was told she had a TIA. She endorses chronic tingling and numbness in b/l upper and lower extremities that she attributes to spinal stenosis; these sx are not new. She has not had any episodes of bowel or bladder incontinence. She also endorse a new tremor with pouring coffee and writing her name but also with different postures; its a shaking of her hands. She has no fam hx of parkinsons. She is on a lot of medications however. She has chronic mid epigastric pain she attributes to chronic pancreatitis. She denied classic chest pain, but does endorse chronic abdominal pain. She endorses chronic nausea but no vomiting. She has not been sick recently, denies fever. Denies shortness of breath. Endorses some orthopnea. VSS PE: decreased sensation right side Leg=arm=CN 4/5 muscle strength in upper and lower extremities CN 2-12 intact faint wheezing left lung field, initial crackles left sided that cleared with additional inspirations RRR no edema 1+ pulses LE b/l Labs: trop negative x2 cbc wnl Cr 1.18 (lower than prior visits) tsh normal EKG: inverted t wave avL Foot, right xray Knee, right xray -both negative for fracture recent MRI 04/11: negative for CVA, minimal chronic ischemic changes A/P: Generalized weakness with frequent falls- -DDX: Central canal stenosis vs new CVA vs near syncope vs deconditioning vs hypoglycemia -pt with known central canal stenosis; unsure when her last imaging of her spine was completed -Recent MRI of brain wwo contrast on 04/10 was negative for an acute CVA -will repeat an MRI of the brain and spine tomorrow to rule out an acute CVA as well as further assess degree of stenosis -will monitor on tele obs for arrythmias and will check blood sugar frequently to monitor for hypoglycemia episodes -Pt seems to be doconditioned and would benefit from home PT -will also rule out orthostatic hypotension as the cause for her falls #abnormal EKG- -pt denies classic chest pain, however given that she is female, type 2 diabetic , has HTN, HLD, and a hx of CAD s/p a stent placed, giving her a heart score of 4, with no engineering assistant that she currently sees, we will order a stress test for her tomorrow; we will also trend her troponins #Tremor, new -Postural vs Intention -trial of propranolol, pt does not have cogwheeling rigidity, and tremor is not pillrolling. Low suspicion for parkinsons #Type 2 Diabetes -restart home meds -monitor for episodes of hypoglycemia #HTN -home meds, hold bb for stress in am #HLD -restart home meds HDarin Downs MD, PGY-3 - Plan Date/Time: 04/25/19 182 I, [], have evaluated this patient and agree with findings/plan as outlined by editorial intern resident. Pertinent changes/additions are listed here. Addendum - Attending - Attending Attestation Date/Time: 04/26/191840 I personally evaluated the patient and discussed the management with Dr. Hart yesterday evening. I agree with the History, Examination, Assessment and Plan documented above with any addition or exceptions noted below.
[2019-04-25] MEDS ORDERED: Ondansetron PF 4 MG/2 ML Vial IVP PRN (19:27)
[2019-04-25] MEDS ORDERED: Ondansetron ODT 4 MG TAB PO PRN (19:27)
[2019-04-25] MEDS ORDERED: Nitroglycerin 0.4 MG TAB (25 Tab Bottle) PO PRN (19:27)
[2019-04-25] MEDS ORDERED: Acetaminophen 325 MG TAB PO PRN (19:27)
[2019-04-25] MEDS ORDERED: Dextrose 50% Abboject 50 ML SYRINGE SLOW IVP PRN (19:27)
[2019-04-25] MEDS ORDERED: Dextrose 5% in Water 1,000 ML IV PRN (19:27)
[2019-04-25 20:27] VITALS: BMI 44.7
[2019-04-25] MEDS ORDERED: Albuterol Sulfate 2.5 mg/3 ml Neb NEB PRN (20:55)
[2019-04-25] MEDS ORDERED: PROVENTIL INHALER 6.7 G (200 INHALATIONS) INH PRN (20:55)
[2019-04-25] MEDS ORDERED: INSULIN GLARGINE SQ SCH (21:00)
[2019-04-25] MEDS ORDERED: Torsemide 20 MG TAB PO SCH (21:30)
[2019-04-25] MEDS ORDERED: PRE FILLED SC SCH (21:30)
[2019-04-25] MEDS ORDERED: INSULIN GLARGINE SC SCH (21:30)
[2019-04-25 22:04] LABS: Troponin I 0.019 ng/mL (< 0.028)
[2019-04-25] MEDS: Lisinopril 10 MG TAB PO SCH (22:56)
[2019-04-25] MEDS: Fish Oil 1,000 MG CAP PO SCH (22:57)
[2019-04-25] MEDS: Magnesium Oxide 250 MG TAB PO SCH (22:57)
[2019-04-25] MEDS: Gabapentin 400 MG CAP PO SCH (22:57)
[2019-04-25] MEDS: Atorvastatin Calcium 40 MG TAB PO SCH (22:57)
[2019-04-25] MEDS: Cetirizine HCl 10 MG TAB PO SCH (22:59)
[2019-04-25] MEDS: PARoxetine 20 MG TAB PO SCH (23:00)
[2019-04-25] MEDS: Fenofibrate Nanocrystallized 145 MG TAB PO SCH (23:01)
[2019-04-25] MEDS: risperiDONE 0.25 MG TAB PO SCH (23:13)
[2019-04-26 00:40] LABS: Troponin I Less than 0.010 ng/mL (< 0.028)
[2019-04-26] MEDS ORDERED: Sodium Chloride 0.9% 1,000 ML IV SCH (01:00)
[2019-04-26] MEDS: Sodium Chloride 0.9% 1,000 ML IV SCH ×2 (01:51→18:06)
--- NOTE | 2019-04-26 06:12 | PDOC.FM ---
- Subjective Subjective: Patient doing well this morning. Reports that she continues to feel weak. Denies symptoms of cp, sob, abdominal pain. Discussed plans for MRI and stress test today. Patient agreeable to current plan of care. - Objective Vital Signs & Weight: Vital Signs (12 hours) Temp Pulse Resp BP BP BP BP 04/26/19 05:16 98.3 F 77 18 151/66 H 04/25/19 23:00 98.3 F 70 19 144/65 H 129/51 L 134/60 04/25/19 22:56 134/60 04/25/19 20:14 97.7 F 71 20 148/67 H Pulse Ox 04/26/19 05:16 77 L 04/25/19 23:00 94 L 04/25/19 22:56 04/25/19 20:14 95 Weight Weight 114.623 kg I&O: 04/24/19 04/25/19 04/26/19 06:59 06:59 06:59 Intake Total 240 Output Total 1100 Balance -860 Result Diagrams: 04/26/19 05:56 04/26/19 05:56 Phys Exam - Physical Examination Constitutional: NAD HEENT: moist MMs, sclera anicteric Neck: supple, full ROM Respiratory: clear to auscultation bilateral Cardiovascular: RRR, no significant murmur Gastrointestinal: soft, non-tender Musculoskeletal: pulses present Neurological: moves all 4 limbs Sensation R>L, Strength L>R Psychiatric: normal affect, A&O x 3 Skin: no rash, normal turgor Dx/Plan (1) Generalized weakness Code(s): R53.1 - WEAKNESS Status: Acute (2) Recurrent falls Code(s): R29.6 - REPEATED FALLS Status: Acute (3) Tremor Code(s): R25.1 - TREMOR, UNSPECIFIED Status: Acute (4) CAD (coronary artery disease) Code(s): I25.10 - ATHSCL HEART DISEASE OF [place] CORONARY ARTERY W/O ANG PCTRS Status: Chronic Qualifiers: Coronary Disease-Associated Artery/Lesion type: [place] artery [place] vs. transplanted heart: [place] heart Associated angina: angina presence unspecified Qualified Code(s): I25.10 - Atherosclerotic heart disease of [place] coronary artery without angina pectoris (5) Diabetes mellitus type 2 in obese Code(s): E11.9 - TYPE 2 DIABETES MELLITUS WITHOUT COMPLICATIONS; E66.9 - OBESITY , UNSPECIFIED Status: Chronic (6) Hyperlipidemia Code(s): E78.5 - HYPERLIPIDEMIA, UNSPECIFIED Status: Chronic Qualifiers: Hyperlipidemia type: unspecified Qualified Code(s): E78.5 - Hyperlipidemia , unspecified (7) Hypertension Code(s): I10 - ESSENTIAL (PRIMARY) HYPERTENSION Status: Chronic Qualifiers: Hypertension type: essential hypertension Qualified Code(s): I10 - Essential (primary) hypertension (8) Tobacco abuse Code(s): Z72.0 - TOBACCO USE Status: Chronic - Plan Plan: 58-yo female admitted for evaluation of recurrent falls and generalized weakness /deconditioning: #Recurrent falls due to spinal stenosis vs TIA vs arrhythmia vs hypoglycemia vs deconditioning #Tremor, intention vs postural - Generalized weakness and falls w/ worsening tremor over past 3 months - patient has hx of cervical spinal stenosis, DM2, CAD and HTN - MRI with and without contrast of Brain and Cervical Spine today to rule out new neurologic etiology of leg weakness. - orthostatic vital signs positive, systolic dropped 19 and diastolic dropped > 10 when patient went from sitting to standing - on tele overnight for arrhythmia evaluation, nsr overnight - blood sugar monitored, wnl overnight - Rehab screen placed. Pt may not be able to safely take care of herself at home and is de-conditioned at the very least. - Case mgmt consulted for discharge planning #Possible Atypical chest pain - EKG finding pathologic: T wave inversion in aVL which is new - HEART score is 4 - magnesium, phosphorus, TSH wnl - pt has heartburn symptoms and chronic nausea which may be due to other problems, but also may be an atypical presentation of chest pain - troponins neg x3 - Stress test today, beta melchor held - FLP #T2DM - last A1C in March was 7.0 - hypoglycemia protocol - lowest blood sugar reported overnight was 78 COPD Bipolar disorder Hx of TIA HLD HTN - continue home meds Code: full VTE ppx: plavix GI ppx: famotidine Addendum - Attending - Attending Attestation Date/Time: 04/27/19 [id number] I personally evaluated the patient and discussed the management with Dr. Buchanan on 04/26/2019 I agree with the History, Examination, Assessment and Plan documented above with any addition or exceptions noted below- Patient still feels a little weak. c/o right arm numbness that has worsening over many months and now having difficulty gripping items. Afebrile VSS A/P: 1) Fall - MRI showed central disc protrusion at C3-C4 causing central canal stenosis with severe cord compression. Findings explain numbness in arms. May be cause of falls also. Will consult neurosurgery for opinion and evaluation. 2) Abnormal EKG- stress test normal.
[2019-04-26 06:17] LABS: #Basophils 0.1 thou/uL (0.0-0.2); #Eosinphils 0.1 thou/uL (0.0-0.7); #Lymphocytes 1.8 thou/uL (1.20-3.40); #Monocytes 0.8 thou/uL (0.11-0.59); #Neutrophils 5.5 thou/uL (1.40-6.50); %Basophils 0.8 % (0.0-1.0); %Eosinophils 1.1 % (0.0-10.0); %Lymphocytes 21.4 % (21.0-51.0); %Monocytes 9.7 % (0.0-10.0); Hemoglobin 12.7 g/dL (12.0-16.0); Mean Corpuscular Hemoglobin 28.2 pg (27.0-31.0); Mean Corpuscular Volume 88.1 fL (78.0-98.0); Mean Platelet Volume 9.6 fL (7.4-10.4); Platelet Count 170 thou/uL (130-400); Red Blood Cell (RBC) Count 4.52 mill/uL (4.20-5.40); White Blood Cell (WBC) Count 8.2 thou/uL (4.8-10.8)
[2019-04-26 06:44] LABS: ALT (SGPT) 14 U/L (8-55); AST (SGOT) 14 U/L (5-34); Albumin 3.7 g/dL (3.5-5.0); Alkaline Phosphatase 74 U/L (40-110); Anion Gap 12 mmol/L (10-20); BUN (Urea Nitrogen) 16 mg/dL (9.8-20.1); Bilirubin, Total 0.5 mg/dL (0.2-1.2); Calc. Creatinine Clearance 100 mL/min (70-130); Carbon Dioxide 24 mmol/L (22-29); Chloride 107 mmol/L (98-107); Estimated GFR-MDRD 49; Globulin 2.4 g/dL (2.4-3.5); Glucose 90 mg/dL (70-105); Potassium 4.3 mmol/L (3.5-5.1); Protein, Total 6.1 g/dL (6.0-8.3); Sodium 139 mmol/L (136-145)
[2019-04-26] MEDS: Gabapentin 400 MG CAP PO SCH ×2 (08:53→21:02)
[2019-04-26] MEDS: Clopidogrel Bisulfate 75 MG TAB PO SCH (08:53)
[2019-04-26] MEDS: Famotidine 20 MG TAB PO SCH (08:55)
[2019-04-26] MEDS: Fish Oil 1,000 MG CAP PO SCH ×2 (08:55→21:00)
[2019-04-26] MEDS: Magnesium Oxide 250 MG TAB PO SCH ×2 (08:55→21:00)
[2019-04-26] MEDS: Torsemide 20 MG TAB PO SCH (08:55)
[2019-04-26] MEDS: Folic Acid 1 MG TAB PO SCH (08:55)
[2019-04-26] MEDS: Fluticasone Propionate Nasal Spray 16 gm Bottle NASAL SCH (08:56)
[2019-04-26] MEDS ORDERED: sitaGLIPtin Phosphate 25 MG TAB PO SCH (09:00)
[2019-04-26] MEDS ORDERED: Enoxaparin Sodium 40 MG/0.4 ML SYRINGE SC SCH (09:00)
[2019-04-26] MEDS: INSULIN GLARGINE SC SCH ×2 (09:00→20:59)
[2019-04-26] MEDS: PRE FILLED SC SCH ×2 (09:00→20:59)
--- NOTE | 2019-04-26 13:37 | NM ---
Exam: Cardiac stress only SPECT with EF and wall motion Patient was injected with 31 mCi technetium 99m sestamibi intravenously. There is a Lexiscan protocol study. No scan evidence for infarct or ischemia involving the visualized short axis, vertical long axis, and horizontal long axis SPECT images. LHR equals 0.42 EDV equals 108 mL Ejection fraction equals 70%. Wall motion: Unremarkable IMPRESSION: Unremarkable stress only cardiac SPECT with EF and wall motion.
[2019-04-26] MEDS: Pancrelipase DR 12000 1 CAP PO SCH ×3 (13:42→18:14)
[2019-04-26] MEDS ORDERED: Regadenoson 0.4 MG/5 ML SYRINGE ONE (14:53)
[2019-04-26] MEDS ORDERED: HumaLOG 300 UNITS/3 ML VIAL SC PRN (15:27)
--- NOTE | 2019-04-26 15:52 | MRI ---
MR CERVICAL SPINE WITH AND WITHOUT CONTRAST INDICATION: Weakness with recurrent falls TECHNIQUE: Multiplanar multisequence MR images were obtained of the cervical spine with and without c ontrast. 20 cc of MultiHance was utilized for the exam. Patient reportedly was falling asleep during the examination. Motion artifact limits image detail. COMPARISON: None FINDINGS: Posterior fossa: Within normal limits. Bone marrow signal intensity: There is postsurgical change of an ACDF spanning C4-C7. There is suscep tibility artifact within the posterior elements of C4, C5 and C6 likely related to cerclage banding. Spinal alignment: Normal. Craniocervical junction: Normal appearing. Prevertebral and perivertebral soft tissues: Visualized soft tissues appear within normal limits. Vertebral levels: C2-C3: There is a prominent central protrusion inducing mild to moderate effacement of ventral spinal cord. C3-4: There is a prominent central protrusion inducing severe central canal narrowing with moderate t o severe spinal cord compression. C4-5: There is a residual osteophyte complex likely inducing at least mild osseous central canal kristina rowing with mild right osseous neural foraminal narrowing. C5-C6: No appreciable central canal or neuroforaminal narrowing. C6-C7:, No appreciable central canal or neuroforaminal narrowing. C7-T1: No appreciable central canal or neuroforaminal narrowing. No definite abnormal region of enhancement is demonstrated. IMPRESSION: 1. Large central disc protrusion at C3-4 causing severe central canal narrowing with moderate to gillian re spinal cord compression. 2. Prominent central disc protrusion at C2-C3 causing moderate central canal narrowing with mild to m oderate effacement of the ventral spinal cord. 3. Mild osseous central canal narrowing and mild right neural foraminal narrowing at C4-5. 4. Some limitations in exam due to motion artifact.
--- NOTE | 2019-04-26 15:58 | MRI ---
MRI Brain W WO Con: 04/26/2019 12:00 AM CLINICAL HISTORY: . TECHNIQUE: Multiplanar, multisequence images were obtained of the brain with and without contrast. 20 cc of MultiHance was utilized for the examination. Motion artifact heavily degrades image detail. COMPARISON: CTA of the brain dated April 09, 2019. MR of the brain dated October 20, 2017 FINDINGS: Extra axial spaces: Normal in size and morphology for the patient's age. Hemorrhage: None. Ventricular system: Normal in size and morphology for the patient's age. Basal cisterns: Normal. Cerebral parenchyma: There is a remote lacunar infarct involving the left inferior cerebellar hemisph ere which is stable. No additional gross signal abnormality or region of abnormal enhancement is demonstrated.. No abnormal enhancement demonstrated. Midline shift: None. Cerebellum: As above Brainstem: Normal. OTHER: Calvarium: Normal. Vascular system: The right vertebral artery appears diminutive but with appropriate flow void. There are appropriate flow void seen within the major intravascular structures.. Visualized Paranasal sinuses: Clear. Visualized Orbits: Normal. Visualized upper cervical spine: Normal. Sella and skull base: Normal. Small 9 mm sebaceous cyst suspected within the left maxillary region on image 5 of series 8. There is a small Tornwaldt cyst measuring 12 mm within the posterior midline nasopharynx which is sta ble. IMPRESSION: No acute intracranial abnormality. Stable remote lacunar infarct involving the left inferior cerebellar hemisphere.
[2019-04-26] MEDS: Alogliptin 6.25 MG TAB PO SCH (16:08)
[2019-04-26] MEDS: Cetirizine HCl 10 MG TAB PO SCH (20:59)
[2019-04-26] MEDS: PARoxetine 20 MG TAB PO SCH (21:00)
[2019-04-26] MEDS ORDERED: Torsemide 20 MG TAB PO SCH (21:00)
[2019-04-26] MEDS: Lisinopril 10 MG TAB PO SCH (21:01)
[2019-04-26] MEDS: risperiDONE 0.25 MG TAB PO SCH (21:01)
[2019-04-26] MEDS: Fenofibrate Nanocrystallized 145 MG TAB PO SCH (21:01)
[2019-04-26] MEDS: Atorvastatin Calcium 40 MG TAB PO SCH (21:02)
[2019-04-26] MEDS: Morphine IR Tab 15 MG TAB PO PRN (21:30)
[2019-04-27] MEDS: Morphine IR Tab 15 MG TAB PO PRN (05:10)
--- NOTE | 2019-04-27 05:19 | PDOC.FM ---
- Subjective Subjective: Patient doing well this morning. Spent much of yesterday walking around the hospital, reports she is re-training herself to walk by locking her knees when she steps. Discussed that we consulted neurosurgery. Discussed that she has talked with them before coming to the hospital and they had recommended that she get a myelogram outpatient, but she had been asked to stop her plavix 5 days before the imaging and she had never done so. Discussed that neurosurgery stated that they would come by today to talk with her and formulate a plan going forward, whether to follow up outpatient or to get imaging here today. - Objective Vital Signs & Weight: Vital Signs (12 hours) Temp Pulse Resp BP Pulse Ox 04/27/19 02:40 92 18 125/59 L 95 04/26/19 21:01 112/58 L 04/26/19 20:10 98.2 F 98 18 112/58 L 97 Weight Weight 114.623 kg I&O: 04/25/19 04/26/19 04/27/19 06:59 06:59 06:59 Intake Total 240 600 Output Total 1100 Balance -860 600 Result Diagrams: 04/26/19 05:56 04/26/19 05:56 EKG Reviewed by me: Yes (sinus 90s-100s) Phys Exam - Physical Examination Constitutional: NAD HEENT: sclera anicteric Neck: supple, full ROM Respiratory: clear to auscultation bilateral Cardiovascular: RRR, no significant murmur Gastrointestinal: soft, non-tender, no distention Musculoskeletal: no edema, pulses present Neurological: moves all 4 limbs strength R>L, sensation L>R Psychiatric: normal affect, A&O x 3 Skin: no rash, normal turgor Dx/Plan (1) Generalized weakness Code(s): R53.1 - WEAKNESS Status: Acute (2) Recurrent falls Code(s): R29.6 - REPEATED FALLS Status: Acute (3) Tremor Code(s): R25.1 - TREMOR, UNSPECIFIED Status: Acute (4) CAD (coronary artery disease) Code(s): I25.10 - ATHSCL HEART DISEASE OF [place] CORONARY ARTERY W/O ANG PCTRS Status: Chronic Qualifiers: Coronary Disease-Associated Artery/Lesion type: [place] artery [place] vs. transplanted heart: [place] heart Associated angina: angina presence unspecified Qualified Code(s): I25.10 - Atherosclerotic heart disease of [place] coronary artery without angina pectoris (5) Diabetes mellitus type 2 in obese Code(s): E11.9 - TYPE 2 DIABETES MELLITUS WITHOUT COMPLICATIONS; E66.9 - OBESITY , UNSPECIFIED Status: Chronic (6) Hyperlipidemia Code(s): E78.5 - HYPERLIPIDEMIA, UNSPECIFIED Status: Chronic Qualifiers: Hyperlipidemia type: unspecified Qualified Code(s): E78.5 - Hyperlipidemia , unspecified (7) Hypertension Code(s): I10 - ESSENTIAL (PRIMARY) HYPERTENSION Status: Chronic Qualifiers: Hypertension type: essential hypertension Qualified Code(s): I10 - Essential (primary) hypertension (8) Tobacco abuse Code(s): Z72.0 - TOBACCO USE Status: Chronic - Plan Plan: 58-yo female admitted for evaluation of recurrent falls and generalized weakness /deconditioning: #Recurrent falls due to spinal stenosis vs TIA vs arrhythmia vs hypoglycemia vs deconditioning #Tremor, intention vs postural - Generalized weakness and falls w/ worsening tremor over past 3 months - patient has hx of cervical spinal stenosis, DM2, CAD and HTN - MRI with and without contrast of Brain negative aside from old infarct - MRI of Cervical Spine demonstrates: -large central disc protrusion of C3-C4 causing severe central canal narrowing with moderate to severe spinal cord compression -prominent central disc protrusion at C2-C3 causing moderate central canal narrowing with mild to moderate effacement of the ventral spinal cord -mild osseous central canal narrowing and mild right neural foraminal narrowing at C4-C5 - Neurosurgery consulted, appreciate recs regarding imaging today vs f/u outpatient - orthostatic vital signs positive, diastolic dropped >10 when patient went from sitting to standing; patient reports she had been deydrated - on tele overnight for arrhythmia evaluation, nsr overnight - blood sugar monitored, wnl overnight - OT/PT rec HH with OT/PT, no inpatient rehab - Case mgmt consulted for discharge planning #Possible Atypical chest pain - EKG finding pathologic: T wave inversion in aVL which is new - HEART score is 4 - magnesium, phosphorus, TSH wnl - pt has heartburn symptoms and chronic nausea - troponins neg x3 - Stress test 04/26, normal stress test with EF of 70% #T2DM - last A1C in March was 7.0 - hypoglycemia protocol - lowest blood sugar reported overnight was 78 COPD Bipolar disorder Hx of TIA HLD HTN - continue home meds Code: full VTE ppx: plavix GI ppx: famotidine Dispo: neurosurgery consult for severe spinal stenosis, possible d/c today if neurosurgery wants to follow her outpatient Addendum - Attending - Attending Attestation Date/Time: 04/27/19 [id number] I personally evaluated the patient and discussed the management with Dr. Kaur I agree with the History, Examination, Assessment and Plan documented above with any addition or exceptions noted below. Sarahi
[2019-04-27] MEDS ORDERED: Metoprolol Tartrate 25 MG TAB PO SCH (09:00)
[2019-04-27] MEDS: Pancrelipase DR 12000 1 CAP PO SCH ×2 (09:34→11:37)
[2019-04-27] MEDS: Alogliptin 6.25 MG TAB PO SCH (09:35)
[2019-04-27] MEDS: Famotidine 20 MG TAB PO SCH (09:35)
[2019-04-27] MEDS: Fish Oil 1,000 MG CAP PO SCH (09:35)
[2019-04-27] MEDS: Fluticasone Propionate Nasal Spray 16 gm Bottle NASAL SCH (09:36)
[2019-04-27] MEDS: Gabapentin 400 MG CAP PO SCH (09:36)
[2019-04-27] MEDS: Folic Acid 1 MG TAB PO SCH (09:36)
[2019-04-27] MEDS: Magnesium Oxide 250 MG TAB PO SCH (09:37)
[2019-04-27] MEDS: Torsemide 20 MG TAB PO SCH (09:38)
[2019-04-27] MEDS: Clopidogrel Bisulfate 75 MG TAB PO SCH (09:39)
[2019-04-27] MEDS: PRE FILLED SC SCH (11:37)
[2019-04-27] MEDS: INSULIN GLARGINE SC SCH (11:37)
[2019-04-27 11:47] VITALS: BP 107/58; TEMP 98.2
--- NOTE | 2019-04-27 12:15 | CON ---
DATE OF CONSULTATION: HISTORY OF PRESENT ILLNESS: Ms. Ang was brought into the emergency department on April 25 for generalized weakness and she just had a fall, she states that her legs gave out. The most recent one on the resulted in her injuring her right foot. Neurosurgery has been consulted on Ms. Ang to clarify whether if cervical stenosis could be the cause of her symptoms. Ms. Ang is actually known to our office whom we saw her on March 22, 2019 for right greater than left leg and arm pain. The patient had a previous ACDF and posterior wiring procedure in the . She had good recovery following that surgery. However, over the last year or so, her right arm has since numb and tingly along with her left leg. She also states that the left hand is beginning to get tingly as well. She has significant weakness in the right compared to left upper extremity when we saw her in March. Today, actually, she has improved strength in the right upper extremity in comparison. Her sensation has stayed the same with decreased sensation in her right upper extremity and tingling in her left hand. She states that her right lower leg is numb and tingly as well in compared to the left. The patient describes her fall as her leg is giving out on her from buckling. She does not appear to be too unsteady, but she has been falling more frequently. Her hands are not working the way that she would like them to. They are weak and she drops items quite frequently. The patient is a smoker. REVIEW OF SYSTEMS: 10-point review of systems has been completed and is negative other than stated in the above HPI. PAST MEDICAL HISTORY: Congestive heart failure, 2 MIs, pancreatic mass, renal disease, kidney disease, coronary artery disease, she has had 2 stents placed, diabetes, hyperlipidemia, obesity, and COPD. PAST SURGICAL HISTORY: Appendectomy, cholecystectomy, anterior cervical fusion and posterior wiring in the , hysterectomy, bilateral oophorectomy, left knee surgery, bilateral lumpectomy, left breast removal, skin cancer. PSYCHIATRIC HISTORY: Bipolar disorder. SOCIAL HISTORY: The patient denies alcohol use. Denies drug use. Uses tobacco, smokes cigarettes daily. She has been 2 packs a day for some time, has tried to recently decrease about a pack a day, maybe a little less. Lives at home with family and her sister. ALLERGIES: 1. ASPIRIN. 2. BACTRIM. 3. CODEINE. 4. LEVAQUIN. 5. NSAIDS. 6. TRAMADOL. 7. VICODIN. MEDICATIONS: 1. Lisinopril. 2. Gabapentin. 3. Isosorbide. 4. [place]-3. 5. Vitamin D3. 6. Ranexa. 7. Torsemide. 8. Pepcid. 9. Morphine. 10. Paxil. 11. Risperdal. 12. Humalog. 13. Plavix. PHYSICAL EXAMINATION: VITAL SIGNS: Temperature 98.2, heart rate 92, blood pressure 125/59, respirations 18, and O2 sats 95% on room air. CONSTITUTIONAL: The patient is alert and oriented. She is afebrile, normotensive, in no apparent distress. Nontoxic appearing. HEENT: Head is normocephalic and atraumatic. Pupils are equal, round, and reactive to light. Extraocular movements are intact. Hearing is intact. Moist mucous membranes. RESPIRATIONS: Normal work of breathing on room air. Symmetric chest rise. EXTREMITIES: Upper extremities, 4/5 in left deltoids, biceps, triceps; finger extension 3/5; wrist extension 3/5; finger intrinsics right side 5/5 deltoids, biceps, triceps; and wrist extension 3/5; finger extension and finger intrinsics, there is decreased sensation in the right hand and arm compared to the left. Lower extremity 4+/5 bilaterally in hip flexion and extension, knee flexion and extension. Decreased strength in the right dorsiflexion due to pain in foot, 4/5 in left dorsiflexion, 5/5 bilateral plantar flexion, and 4+/5 in EHL bilaterally. Decreased sensation in the left leg compared to right. NEUROLOGIC: The patient is awake, alert, and oriented x3. Cranial nerves are grossly intact. Speech is spontaneous and fluent. Normal fund of knowledge. IMAGING STUDIES: MRI of cervical spine has been completed. However, given artifact and the fact that she has anterior and posterior elements from C4 through C7 has caused distortion to imaging. There is disk protrusion at C3-C4 causing central canal stenosis with disk at C2-C3 as well. Brain MRI, there are no acute intracranial abnormalities. There is a stable remote lacunar infarct involving the left superior cerebellar hemisphere. ASSESSMENT AND PLAN: Ms. Ang is a 58-year-old female with history of a generalized weakness and falls. She is known to our neurosurgery clinic when we saw her on March 22. We had recommended a myelogram of her cervical and lumbar spine along with flexion-extension x-rays of both cervical and lumbar spine. We also recommended that she quit smoking given the deterioration of her exam which actually has improved slightly since we saw her on the , compared to this morning, we would likely consider surgery once we know better ways to visualize the spinal cord. At this point, we recommend that these imaging to be done, there is no emergent need, these processes have been acting over time and is advisable for the patient to quit smoking. She will need to be off Plavix for at least a week prior to obtaining the myelogram, so she will need to do this as outpatient. Once the imaging has been completed, we can review these with her in the office. If there are any further questions, please contact Neurosurgery. Job ID: [id number]
--- NOTE | 2019-04-28 13:02 | DIS ---
DATE OF ADMISSION: 04/25/2019 DATE OF DISCHARGE: 04/27/2019 ADMITTING RESIDENT: Rahel Gunderson MD ADMITTING ATTENDING: Rory Reyes MD DISCHARGE ATTENDING: Michelle Pimentel MD DISCHARGE RESIDENT: Annmarie Buchanan MD CONSULTS: Case Management, OT, Neurosurgery. PROCEDURES PERFORMED: None. IMAGIN. Brain MRI: No acute intracranial abnormality, stable remote lacunar infarct involving the left inferior cerebellar hemisphere. 2. Cervical spine MRI: a. Large central disk protrusion of C3-C4 causing severe central canal narrowing with [id number] spinal cord compression. b. Prominent central disk protrusion at C2-C3 causing moderate central canal narrowing with [id number] effacement of the ventral spinal cord. c. Mild osseous central canal narrowing and mild right neural foraminal narrowing at C4-C5. 3. Nuclear stress test: Unremarkable stress, EF 70%. PRIMARY DIAGNOSES: Generalized deconditioning, severe cervical spinal stenosis, atypical chest pain. SECONDARY DIAGNOSIS: Type 2 diabetes, chronic obstructive pulmonary disease, bipolar disorder, history of transient ischemic attack, hyperlipidemia, and hypertension. DISCHARGE MEDICATIONS: 1. 3 mL albuterol sulfate nebulized q.8 hours p.r.n. 2. 90 mcg albuterol sulfate inhaled q.4 hours p.r.n. 3. 40 mg atorvastatin p.o. at bedtime. 4. 10 mg cetirizine p.o. at bedtime. 5. 75 mg clopidogrel p.o. daily. 6. 50,000 units vitamin D2 p.o. as directed. 7. 20 mg famotidine p.o. daily. 8. 160 mg fenofibrate p.o. at bedtime. 9. Flonase nasal spray. 10. One tab folic acid p.o. daily. 11. 800 mg gabapentin p.o. b.i.d. 12. Humalog. 13. Toujeo 87 units subcu b.i.d. 14. 60 mg isosorbide mononitrate p.o. daily. 15. 10 mg lisinopril p.o. q.p.m. 16. 500 mg magnesium p.o. b.i.d. 17. 12.5 mg metoprolol p.o. b.i.d. 18. 15 mg morphine sulfate p.o. q.i.d. 19. 2 g omega-3 acid p.o. b.i.d. 20. 4 mg Zofran p.o. q.6 hours p.r.n. 21. 10 mg paroxetine p.o. at bedtime. 22. Pancrelipase 4 capsules p.o. t.i.d. with meals. 23. 20 mEq potassium chloride p.o. b.i.d. 24. 500 mg ranolazine p.o. b.i.d. 25. 40 mg torsemide p.o. as directed. 26. 0.5 mg risperidone p.o. at bedtime. 27. 50 mg Januvia p.o. daily. DISCONTINUED MEDICATIONS: Lovenox. HISTORY OF PRESENT ILLNESS/HOSPITAL COURSE: The patient presented to the hospital after having falls at home, diagnosed with generalized deconditioning and admitted for workup. Orthostatic vitals were slightly positive for diastolic blood pressure dropping greater than 10 from sitting to standing. The patient received fluids and imaging, see above. She also had atypical chest pain, so a stress test was done , see above. Due to the findings on the cervical MRI, Neurosurgery was consulted and they decided to follow up with the patient outpatient. The patient was directed to stop Plavix 7 days before anticipated imaging study outpatient per Neurosurgery. On the day of discharge, the patient had often been found walking the halls of the hospital on her own without falls. She reported that she felt somewhat better after fluid resuscitation, and she was finding ways to lock her knees while walking, so that her legs would not "buckle" underneath her. She was in stable condition and agreeable with the plan of discharge and followup outpatient with her scheduled appointment with Neurosurgery and within 1 week with her PCP. DISPOSITION: Stable. DISCHARGE INSTRUCTIONS: 1. Location: Home. 2. Diet: Diabetic, heart healthy. 3. Activity: As tolerated. 4. Followup: Follow up with Dr. Barcenas in 7 days, and with Surgery at scheduled appointment. Job ID: [id number] [facility]
== END 2019-04-27 15:01 | disposition home or self-care (01) ==
LOC: ERS 14:45 → 2SW 20:20
PROVIDERS: ADMIT Family Medicine; ATTEND Family Medicine
DX: R53.1 Weakness (principal); M48.02 Spinal stenosis, cervical region; R07.89 Other chest pain; K86.1 Other chronic pancreatitis; J44.9 Chronic obstructive pulmonary disease, unspecified; I25.10 Atherosclerotic heart disease of native coronary artery without angina pectoris; E78.5 Hyperlipidemia, unspecified; F17.210 Nicotine dependence, cigarettes, uncomplicated; F31.9 Bipolar disorder, unspecified; I13.0 Hypertensive heart and chronic kidney disease with heart failure and stage 1 through stage 4 chronic kidney disease, or unspecified chronic kidney disease; E11.22 Type 2 diabetes mellitus with diabetic chronic kidney disease; N18.3 Chronic kidney disease, stage 3 (moderate); I50.9 Heart failure, unspecified; R25.1 Tremor, unspecified; M50.21 Other cervical disc displacement, high cervical region; R29.6 Repeated falls; I25.2 Old myocardial infarction; E66.9 Obesity, unspecified; Z68.41 Body mass index [BMI] 40.0-44.9, adult; Z79.4 Long term (current) use of insulin; Z86.73 Personal history of transient ischemic attack (TIA), and cerebral infarction without residual deficits; Z79.899 Other long term (current) drug therapy; Z88.1 Allergy status to other antibiotic agents; Z88.2 Allergy status to sulfonamides; Z88.5 Allergy status to narcotic agent; Z88.8 Allergy status to other drugs, medicaments and biological substances; Z91.048 Other nonmedicinal substance allergy status; Z95.5 Presence of coronary angioplasty implant and graft; Z98.1 Arthrodesis status; W19.XXXA Unspecified fall, initial encounter
CPT/HCPCS: 36415; 36416; 70553; 72156; 78452; 80053; 82805; 83735; 83880; 84443; 84484; 85025; 93005; 93017; A9500; G0378; J1815; J2785

== ENCOUNTER 2019-05-01 14:29 | Inpatient (IN) | payer BC ==
[2019-05-01] MEDS ORDERED: Fentanyl 100 MCG/2 ML VIAL ONE (14:47)
[2019-05-01 15:13] LABS: #Basophils 0.1 thou/uL (0.0-0.2); #Eosinphils 0.1 thou/uL (0.0-0.7); #Lymphocytes 1.8 thou/uL (1.20-3.40); #Monocytes 1.1 thou/uL (0.11-0.59); #Neutrophils 8.8 thou/uL (1.40-6.50); %Basophils 0.5 % (0.0-1.0); %Eosinophils 0.6 % (0.0-10.0); %Lymphocytes 15.3 % (21.0-51.0); %Monocytes 9.1 % (0.0-10.0); %Neutrophils 74.6 % (42.0-75.0); Hemoglobin 15.2 g/dL (12.0-16.0); Mean Corpuscular HGB CONC 32.9 g/dL (32.0-36.0); Mean Corpuscular Hemoglobin 29.1 pg (27.0-31.0); Mean Corpuscular Volume 88.3 fL (78.0-98.0); Mean Platelet Volume 9.4 fL (7.4-10.4); Platelet Count 186 thou/uL (130-400); RBC Distribution Width 13.9 % (11.5-14.5); Red Blood Cell (RBC) Count 5.23 mill/uL (4.20-5.40); White Blood Cell (WBC) Count 11.8 thou/uL (4.8-10.8)
[2019-05-01 15:23] LABS: PTT 25.6 SEC (22.9-36.1); Prothrombin Time 13.2 SEC (12.0-14.7)
--- NOTE | 2019-05-01 15:28 | RAD ---
RADIOGRAPH CHEST 1 VIEW: DATE: 05/01/2019 HISTORY: 58-year-old female for preoperative clearance. FINDINGS: There is no airspace density, pulmonary edema, or pneumothorax. The lateral costophrenic angles are n ot effaced. IMPRESSION: No acute pulmonary findings.
[2019-05-01] MEDS ORDERED: Ondansetron PF 4 MG/2 ML Vial ONE (15:33)
--- NOTE | 2019-05-01 15:34 | RAD ---
Radiograph right leg tibia-fibula 2 views: DATE: 05/01/2019 Time: 3:20 PM HISTORY: 58-year-old female status post fall FINDINGS: Comminuted fracture of distal fibular metadiaphysis, with prominent anterior angulation and mild medi al angulation of fracture apex (posterior and lateral angulation of major distal fragment). Displacement of multiple small butterfly fragments. Posterior dislocation of talus relative to tibial plafond. Probable posterior malleolus fracture with significant displacement. Medial malleolar fracture with mild displacement. IMPRESSION: Acute, traumatic trimalleolar fracture-dislocation.
[2019-05-01 15:46] LABS: ALT (SGPT) 23 U/L (8-55); AST (SGOT) 38 U/L (5-34); Albumin 4.4 g/dL (3.5-5.0); Alkaline Phosphatase 99 U/L (40-110); Anion Gap 14 mmol/L (10-20); BUN (Urea Nitrogen) 14 mg/dL (9.8-20.1); Bilirubin, Total 0.8 mg/dL (0.2-1.2); Calc. Creatinine Clearance 0 mL/min (70-130); Calcium 9.7 mg/dL (7.8-10.44); Carbon Dioxide 29 mmol/L (22-29); Chloride 99 mmol/L (98-107); Estimated GFR-MDRD 46; Glucose 117 mg/dL (70-105); Potassium 4.4 mmol/L (3.5-5.1); Protein, Total 7.4 g/dL (6.0-8.3); Sodium 138 mmol/L (136-145)
[2019-05-01] MEDS ORDERED: Dextrose 5% in Water 1,000 ML IV PRN (16:34)
[2019-05-01] MEDS ORDERED: Dextrose 50% Abboject 50 ML SYRINGE SLOW IVP PRN (16:34)
[2019-05-01] MEDS ORDERED: Ondansetron PF 4 MG/2 ML Vial IVP PRN (16:34)
[2019-05-01] MEDS ORDERED: hydrALAZINE 20 MG/ML VIAL SLOW IVP PRN (16:34)
[2019-05-01] MEDS ORDERED: Promethazine HCl 25 MG/ML VIAL IM PRN (16:34)
[2019-05-01] MEDS ORDERED: HumaLOG 300 UNITS/3 ML VIAL SC PRN (16:34)
[2019-05-01] MEDS ORDERED: PROVENTIL INHALER 6.7 G (200 INHALATIONS) INH PRN (16:43)
[2019-05-01] MEDS ORDERED: Ondansetron ODT 4 MG TAB PO PRN (16:43)
[2019-05-01] MEDS ORDERED: Naloxone HCl 0.4 mg/ml Vial IV PRN (17:06)
--- NOTE | 2019-05-01 17:24 | RAD ---
Radiograph right ankle 3 views: DATE: 05/01/2019 Time: 5:11 PM HISTORY: 58-year-old female status post first reduction of acute, traumatic fracture-dislocation of ankle. COMPARISON: Right leg radiograph of 05/01/2019 at 3:20 PM FINDINGS: There has been interval improvement in the angulation and displacement of the distal fibular shaft an d proximal metaphyseal fracture. There has been reduction of the tibiotalar joint dislocation. At least mildly displaced posterior malleolar fracture fragment is identified. At least mildly displaced medial malleolus fracture, possibly greater degree of displacement uncertain. Fracture also involves distal metaphysis of the tibia medially. Ankle mortise is now grossly congruent. Small minim ally displaced fracture fragment at the far anterior edge of the tibial plafond the. Talar dome not collapsed. There is a new splint. IMPRESSION: Interval reduction of the dislocation and multiple fractures of ankle, with interval improvement in a lignment.
[2019-05-01 17:33] LABS: Acetaminophen Less than 6.0 mcg/mL (10.0-30.0); Alcohol Less than 10 mg/dL (Less than 10); Salicylate Less than 8.0 mg/dL (15.0-30.0)
--- NOTE | 2019-05-01 18:03 | HP ---
TRAUMA SURGEON: Dr. Morel. CONSULTING PHYSICIANS: Dr. Solorzano of Orthopedic Surgery and Family Medicine residents. HISTORY OF PRESENT ILLNESS: The patient is a 58-year-old female, who presented to the emergency department after a mechanical fall while ambulating. The patient was recently admitted to the hospital, and was discharged 2 days ago after reporting weakness and multiple falls as well as chest pain. She was worked up and discharged with followups with Neurosurgery for spinal stenosis. At that time, a stress test was also completed, which demonstrated unremarkable stress test. At the time of my evaluation, the patient had received 100 mcg of fentanyl and was quite sleepy. She was arousable to voice, but only answer questions intermittently. She denied any loss of consciousness. On her med rec, it does show that the patient is on Plavix. She has been hemodynamically stable in the emergency department. She has no complaints at the time of my evaluation. Due to her complex medical history and multiple recent admissions to the Family Medicine Service, we have asked them to see this patient and have formally consulted them for complex medical management. I have spoken to the residents who have agreed to see the patient and assist in her care. REVIEW OF SYSTEMS: Unable to complete due to the patient's altered mentation secondary to narcotic pain medication. PAST MEDICAL HISTORY: Type 2 diabetes, COPD, bipolar disorder, TIAs, hyperlipidemia, hypertension, CHF, CKD, CAD with 2 cardiac stents, and chronic pancreatitis. PAST SURGICAL HISTORY: Neck fusion, lumpectomy of breast x2 for precancerous lesion, hysterectomy, and appendectomy. SOCIAL HISTORY: The patient is a smoker. She denies drug or alcohol use. MEDICATIONS: The patient is not able to review her medications, but on her discharge summary from a discharge on April 27, 2019, shows that the patient was discharged with, 1. Albuterol treatments. 2. Atorvastatin. 3. Cetirizine. 4. Plavix. 5. Vitamin D. 6. Famotidine. 7. Fenofibrate. 8. Flonase. 9. Folic acid. 10. Gabapentin. 11. Humalog. 12. Toujeo. 13. Isosorbide mononitrate. 14. Lisinopril. 15. Magnesium. 16. Metoprolol. 17. Morphine sulfate extended release. 18. [place]-3. 19. Zofran. 20. Paroxetine. 21. Pancrelipase. 22. Potassium chloride. 23. Ranolazine. 24. Torsemide. 25. Risperidone. 26. Januvia. ALLERGIES: ADHESIVE TAPE, ASPIRIN, CODEINE, HYDROCODONE, LEVOTHYROXINE, NSAIDS, SULFA DRUGS, TRIMETHOPRIM, BACTRIM, AND TRAMADOL. OBJECTIVE: VITAL SIGNS: Temperature 98.4, pulse 70, respirations 18, oxygen saturation 95% on room air, and blood pressure 165/87. PRIMARY SURVEY: Airway intact. Adequate breath sounds bilaterally. 2+ pulses in the bilateral radials, femorals, and DPs. GCS is 13 to 14, -1 for confusion, -1 for eyes, secondary to 100 mcg of fentanyl. The patient's GCS was 15 before the medication and she reports no loss of consciousness. Gross motor and sensation are intact. No laceration, bruising, or external bleeding. SECONDARY SURVEY: HEAD: Normocephalic and atraumatic. No gross palpable skull deformities. EYES: Pupils 3-2, equal, round, and reactive to light bilaterally. ENT: No hemotympanum. No epistaxis. No septal hematoma. Midface stable to manipulation. No blood in the oropharynx. Dentition is intact. No anterior neck injury/crepitus/tenderness. C-SPINE: No step-offs or deformities. Nontender. C-collar in place. CHEST: Nontender. No crepitus. No abrasions or ecchymosis. Equal chest movement. ABDOMEN: Soft, nontender, and nondistended. PELVIS: Stable to palpation, nontender. No abrasions or ecchymosis. RECTAL: Deferred. GENITOURINARY: Deferred. EXTREMITIES: Xzvy-xu-ychmtmdi swelling over the right ankle. No abrasions noted. No ecchymosis noted. 2+ pulses positive in the bilateral radials, femorals, and DPs. BACK/SPINE: No step-offs or deformities. Nontender. No palpation of the thoracic or lumbar spine. NEUROLOGIC: 5/5 strength in bilateral spindle repairer, plantar flexion, dorsiflexion. Gross normal sensation x4 extremities. LABORATORY FINDING: White count 11.8, hemoglobin 15.2, and hematocrit 46.2. INR 1.0. Sodium 138, potassium 4.4, chloride 99, bicarb 29, BUN 14, creatinine 1.2, and glucose 111. Alcohol less than 10. DIAGNOSTIC FINDINGS: Chest x-ray demonstrates no acute pulmonary findings. X-ray of the right tib-fib demonstrates acute traumatic trimalleolar fracture/dislocation. ASSESSMENT: 1. Status post mechanical fall. 2. Multiple recent falls. 3. Right trimalleolar fracture/dislocation. 4. History of diabetes, chronic obstructive pulmonary disease, bipolar disorder, hypertension, transient ischemic attacks, hyperlipidemia, congestive heart failure, chronic kidney disease, coronary artery disease with 2 cardiac stents, and chronic pancreatitis. PLAN: The patient will be admitted under the Trauma Service. She will go to [place] [id number] to the regular surgical nursing floor. She will receive both p.o. and IV pain medications. She has multiple allergies to pain medications, which will make her pain management quite difficult. The patient will be n.p.o. after midnight. Otherwise, she will have a diabetic diet. We will hold off on IV fluids as the patient has a history of CHF. Dr. Solorzano will take the patient to the OR tomorrow for fixation of that right ankle. We have asked the vice president of talent acquisition to see the patient and assist with complex medical management. They have agreed to see the patient and will restart home medications as clinically indicated. This patient was discussed with Dr. Morel before this dictation. Job ID: [id number]
[2019-05-01 18:33] VITALS: BMI 38.4
--- NOTE | 2019-05-01 18:58 | CON ---
DATE OF CONSULTATION: HISTORY OF PRESENT ILLNESS: The patient is a 58-year-old female who has a past history of recurrent falls, who fell down while she was at home. She fell forward and had immediate pain in her right ankle. The patient was then transferred here to the emergency room and was found to have a trimalleolar fracture on her right lower extremity. By the time that I saw her in the emergency department, she had been given 100 mcg of fentanyl and was essentially unable to complete the rest of the interview. We were consulted by CHERELLE Lyles for Trauma Surgery for medical management of her chronic conditions. REVIEW OF SYSTEMS: Unobtainable to complete secondary to the patient's altered mentation secondary to pain medication administration. PAST MEDICAL HISTORY: Type 2 diabetes, COPD, bipolar disorder, TIAs, hyperlipidemia, hypertension, CHF, CKD, CAD, and chronic pancreatitis. PAST SURGICAL HISTORY: Neck fusion, lumpectomy of breast x2, hysterectomy, and appendectomy. SOCIAL HISTORY: The patient is a current everyday smoker at least one pack per day. The patient denies any alcohol or drug use. MEDICATIONS: The patient's most recent hospitalization with a discharge on 04/27/2019, showed a medication list that included: 1. Albuterol sulfate nebulized. 2. Atorvastatin 40 mg p.o. at bedtime. 3. 10 mg of cetirizine p.o. at bedtime. 4. 75 mg of clopidogrel p.o. daily. 5. 17369 units of vitamin D2 p.o. 6. 20 mg famotidine p.o. daily. 7. 160 mg fenofibrate p.o. at bedtime. 8. Flonase nasal spray. 9. Folic acid p.o. daily. 10. 800 mg of gabapentin p.o. b.i.d. 11. Humalog sliding scale. 12. Toujeo 87 units subcutaneously b.i.d. 13. 60 mg isosorbide mononitrate p.o. daily. 14. 10 mg lisinopril p.o. q.p.m. 15. 500 mg magnesium p.o. b.i.d. 16. 12.5 mg metoprolol p.o. b.i.d. 17. 15 mg morphine sulfate p.o. q.i.d. 18. 2 g omega-3 acids p.o. b.i.d. 19. 4 mg Zofran p.o. q.6 hours p.r.n. 20. 10 mg paroxetine p.o. at bedtime. 21. Pancrelipase four capsules p.o. t.i.d. with meals. 22. 20 mEq of potassium chloride p.o. b.i.d. 23. 500 mg of ranolazine p.o. b.i.d. 24. 40 mg torsemide p.o. as directed. 25. 0.5 mg risperidone p.o. at bedtime. 26. 50 mg of Januvia p.o. daily. ALLERGIES: ASPIRIN, CODEINE, HYDROCODONE, LEVOTHYROXINE, NSAIDS, SULFA DRUGS, BACTRIM, AND TRAMADOL. PHYSICAL EXAMINATION: VITAL SIGNS: Blood pressure 122/61, pulse 79, respiratory rate 16, temperature 98.6, oxygen saturation 95% on 2 L. GENERAL: Appears in no acute distress. Somnolent, but arousable. HEENT: Normocephalic, atraumatic. PERRLA. Moist mucous membranes. NECK: Nontender. Full range of motion. Supple. CARDIOVASCULAR: Regular rate and rhythm. No murmurs. RESPIRATORY: Mild bilateral wheezing with expiration. ABDOMEN: Soft, nontender. Bowel sounds present. EXTREMITIES: Upper extremities, full range of motion. Pulses present. Lower extremities, right lower extremity placed in a splint from the knee down, wrapped in a bandage. NEUROLOGICAL: A and O x4. Speech was clear. When arousable, no focal deficits , but unable to fully complete due to mental state. LABORATORY FINDINGS: Sodium 138, potassium 4.4, chloride 99, carbon dioxide 29 , BUN 14, creatinine 1.2, glucose 117, AST 38, ALT 23, alcohol level of less than 10. PT was 13.2, INR was 1.0. White blood cell count was 11.8, hemoglobin 15.2, hematocrit 46.2, platelet count was 186. The patient did have an x-ray of her chest that showed no acute pulmonary process. The patient did have a right tib-fib 2-view that showed acute traumatic trimalleolar fracture with dislocation. ASSESSMENT: 1. Status post mechanical fall with right trimalleolar fracture with dislocation. The patient will be admitted by the trauma team with consultations with Orthopedic Surgery for planned surgery on 05/02/2019. 2. History of diabetes. We will continue her insulin regimen while holding her Toujeo due to her inability to eat and n.p.o. status at midnight. She will have an aggressive sliding scale with glucose checks q.6 hours to monitor for hypoglycemia or hyperglycemia. 3. Chronic obstructive pulmonary disease, oxygen supplementation as needed as well as albuterol will be available as needed as well. 4. Congestive heart failure, we will continue her diuretic therapy. 5. Chronic kidney disease, appears to be at baseline. We will make sure she is well hydrated prior to her surgery to make sure to minimize any acute kidney injury. 6. Coronary artery disease. Continue current regimen. She had recent cardiac stress testing that showed no reversible ischemia on 04/26/19. 7. Chronic pancreatitis. Continue her regimen from home. 8. Bipolar disorder. Continue her current regimen. We will allow the pain management to be managed by the primary team, Dr. Morel and the Trauma Service. Thank you very much for your consultation and your opportunity to participate in this patient's care. We will follow during this hospitalization. Anticipate likely discharge to a rehab facility following the procedure. Job ID: [id number] MTDD
[2019-05-01] MEDS: Acetaminophen 1,000 MG in Premix Bag 1 BAG IVPB SCH ×2 (19:00→20:00)
[2019-05-01] MEDS ORDERED: CEFAZOLIN 2 GM in Premix Bag 1 BAG IVPB SCH (20:00)
--- NOTE | 2019-05-01 20:03 | PDOC.EVN ---
Event Note - Event Note Event Note: The patient was seen in the ER at 1715. She fell at home and suffered a trimalleolar fracture on the right. She was given fentanyl and the fracture was set and placed in a splint. Plan for surgery tomorrow. Pt will be npo, will cover with sliding scale insulin. Will restart appropriate home meds. Monitor renal fucntion. Oxygen and nebs as needed.
[2019-05-01] MEDS: Pancrelipase DR 12000 1 CAP PO SCH (20:05)
[2019-05-01] MEDS ORDERED: FLU VACC QS2019-20(6MOS UP)/PF 60 MCG/0.5 ML SYRINGE IM ONE (21:00)
[2019-05-01] MEDS ORDERED: Famotidine/PF 20 mg/2ml Vial SLOW IVP SCH (21:00)
[2019-05-01] MEDS ORDERED: Gabapentin 100 MG CAP PO SCH (21:00)
[2019-05-01] MEDS: Fenofibrate Nanocrystallized 145 MG TAB PO SCH (21:01)
[2019-05-01] MEDS: Senokot S 8.6-50 MG TAB PO SCH (21:01)
[2019-05-01] MEDS: Gabapentin 400 MG CAP PO SCH (21:02)
[2019-05-01] MEDS: Atorvastatin Calcium 40 MG TAB PO SCH (21:02)
[2019-05-01] MEDS: risperiDONE 1 MG TAB PO SCH (21:02)
[2019-05-01] MEDS: Fish Oil 1,000 MG CAP PO SCH (21:02)
[2019-05-01] MEDS: Potassium Chloride 20 MEQ TAB PO SCH (21:02)
[2019-05-01] MEDS: Lisinopril 10 MG TAB PO SCH (21:03)
[2019-05-01] MEDS: Metoprolol Tartrate 25 MG TAB PO SCH (21:04)
[2019-05-01] MEDS: PARoxetine 20 MG TAB PO SCH (21:05)
[2019-05-01] MEDS: Loratadine 10 MG TAB PO SCH (21:05)
[2019-05-01] MEDS: Torsemide 20 MG TAB PO SCH (21:39)
[2019-05-01] MEDS: Magnesium Oxide 250 MG TAB PO SCH (21:39)
--- NOTE | 2019-05-01 21:53 | CON ---
DATE OF CONSULTATION: 05/01/2019 HISTORY OF PRESENT ILLNESS: The patient is a 58-year-old female who fell while ambulating, had immediate pain and deformity in the right ankle. The patient was unable to apply weight to the right foot after the fall. She was brought to the emergency room, and x-rays revealed a displaced trimalleolar fracture dislocation of the right ankle. The patient denies any neurologic complaints in the right foot. No other complaints elsewhere. PAST MEDICAL HISTORY: Type 2 diabetes mellitus, COPD, bipolar disease, TIAs, hyperlipidemia, hypertension, CHF, chronic kidney disease, coronary artery disease with 2 cardiac stents, chronic pancreatitis, spinal stenosis. PAST SURGICAL HISTORY: Neck fusion, lumpectomy of the breast x2, hysterectomy, appendectomy. SOCIAL HISTORY: The patient lives at home. She is a smoker. She denies drug or alcohol use. CURRENT MEDICATIONS: Include; 1. Albuterol. 2. Atorvastatin. 3. Cetirizine. 4. Plavix. 5. Vitamin D. 6. Famotidine. 7. Fenofibrate. 8. Flonase. 9. Folic acid. 10. Gabapentin. 11. Humalog. 12. Toujeo. 13. Isosorbide. 14. Lisinopril. 15. Magnesium. 16. Metoprolol. 17. Morphine sulfate extended release. 18. Campbell-3. 19. Zofran. 20. Paroxetine. 21. Pancrelipase. 22. Potassium chloride. 23. Ranolazine. 24. Torsemide. 25. Risperidone. 26. Januvia. ALLERGIES: TO ASPIRIN, ADHESIVE TAPE, CODEINE, HYDROCODONE, LEVOTHYROXINE, NONSTEROIDAL, SULFA DRUGS, AND TRAMADOL. PHYSICAL EXAMINATION: VITAL SIGNS: The patient is afebrile. Her last vital signs; pulse 86, respiratory rate 16, O2 saturation 96 on 2 L. Blood pressure 122/50. EXTREMITIES: Examination of her right leg shows skin is intact. There is swelling and bruising over the medial and lateral aspect of the ankle. She is able to flex and extend all of her toes and has good sensation. IMPRESSION: 1. Status post trimalleolar fracture dislocation of the right ankle. 2. Diabetes mellitus type 2. 3. Chronic obstructive pulmonary disease. 4. Bipolar disease. 5. Hypertension. 6. Transient ischemic attack. 7. Hyperlipidemia. 8. Congestive heart failure. 9. Chronic kidney disease. 10. Coronary artery disease with 2 cardiac stents. 11. Chronic pancreatitis. 12. Spinal stenosis. PLAN: The patient will require open reduction and internal fixation of the right ankle. Plan on performing that tomorrow afternoon. The potential risks with the condition of surgery include, but are not limited to infection, bleeding, pain, damage to blood vessels or nerves, nonunion, malunion, patient may require additional surgery, DVT and PE formation. Job ID: [id number]
[2019-05-02] MEDS: Acetaminophen 1,000 MG in Premix Bag 1 BAG IVPB SCH ×3 (00:54→17:14)
[2019-05-02] MEDS: Sodium Chloride 0.9% 1,000 ML IV SCH ×4 (00:54→20:20)
[2019-05-02] MEDS: Cyclobenzaprine 10 MG TAB PO PRN ×2 (03:42→11:17)
[2019-05-02] MEDS: Morphine 2 MG/ML SYRINGE SLOW IVP PRN ×2 (03:57→11:11)
[2019-05-02 05:28] LABS: #Eosinphils 0.1 thou/uL (0.0-0.7); #Lymphocytes 1.6 thou/uL (1.20-3.40); #Monocytes 0.9 thou/uL (0.11-0.59); #Neutrophils 7.6 thou/uL (1.40-6.50); %Basophils 0.3 % (0.0-1.0); %Eosinophils 0.7 % (0.0-10.0); Hemoglobin 13.3 g/dL (12.0-16.0); Mean Corpuscular HGB CONC 32.3 g/dL (32.0-36.0); Mean Corpuscular Hemoglobin 28.5 pg (27.0-31.0); Mean Corpuscular Volume 88.3 fL (78.0-98.0); Mean Platelet Volume 9.6 fL (7.4-10.4); Platelet Count 183 thou/uL (130-400); RBC Distribution Width 13.7 % (11.5-14.5); Red Blood Cell (RBC) Count 4.68 mill/uL (4.20-5.40); White Blood Cell (WBC) Count 10.3 thou/uL (4.8-10.8)
--- NOTE | 2019-05-02 05:39 | PDOC.FM ---
- Subjective Subjective: Pt is sleepy this morning. She states her pain is controlled. She denies chest pain, headache, trouble breathing. - Objective MAR Reviewed: Yes Vital Signs & Weight: Vital Signs (12 hours) Temp Pulse Resp BP BP Pulse Ox 05/02/19 03:28 97.4 F L 05/01/19 23:37 97.1 F L 05/01/19 21:03 134/70 05/01/19 20:00 96 05/01/19 19:38 97.2 F L 05/01/19 18:32 86 16 96 05/01/19 18:00 98.1 F 81 18 142/73 H 94 L Weight Weight 108 kg Most Recent Monitor Data Heart Rate from ECG 77 NIBP 123/76 NIBP BP-Mean 91 Respiration from ECG 14 SpO2 96 Result Diagrams: 05/02/19 04:45 05/02/19 04:45 Phys Exam - Physical Examination Constitutional: NAD HEENT: moist MMs Neck: no JVD Respiratory: wheezing present (good air movement), clear to auscultation bilateral Cardiovascular: RRR, no significant murmur Gastrointestinal: soft, non-tender, no distention, positive bowel sounds Musculoskeletal: no edema, pulses present Neurological: moves all 4 limbs Psychiatric: A&O x 3 Skin: cap refill <2 seconds Dx/Plan (1) Trimalleolar fracture Code(s): S82.853A - DISPLACED TRIMALLEOLAR FRACTURE OF UNSP LOWER LEG, INIT Status: Acute (2) Chronic kidney disease, stage 3 Status: Chronic (3) Diabetes mellitus type 2 in obese Code(s): E11.9 - TYPE 2 DIABETES MELLITUS WITHOUT COMPLICATIONS; E66.9 - OBESITY , UNSPECIFIED Status: Chronic - Plan Plan: This is a 58 yo female with a pmh of DM2, HTN, COPD, Bipolar, and CKD3 who we are consulted for medical management Trimalleolar fracture on the right, closed -Plans for surgery today -Management by ortho DM2 -Pt NPO, covered by sliding scale, will restart medications after surgery -Continue monitoring blood glucose CKD3 -Will monitor, appears at baseline CHF -Continue home torsemide -Last echo, 10/2017 shows normal heart function HTN -At goal, continue home lisinopril and metoprolol COPD -Provide respiratory support -Continue home meds Bipolar -Continue home meds Addendum - Attending - Attending Attestation Date/Time: 05/02/19 1098 I personally evaluated the patient and discussed the management with Dr. Smith. I agree with the History, Examination, Assessment and Plan documented above with any addition or exceptions noted below.
[2019-05-02 05:46] LABS: Anion Gap 13 mmol/L (10-20); BUN (Urea Nitrogen) 13 mg/dL (9.8-20.1); Calc. Creatinine Clearance 103 mL/min (70-130); Calcium 9.1 mg/dL (7.8-10.44); Carbon Dioxide 27 mmol/L (22-29); Chloride 102 mmol/L (98-107); Estimated GFR-MDRD 55; Glucose 104 mg/dL (70-105); Magnesium 2.4 mg/dL (1.6-2.6); Phosphorus 3.3 mg/dL (2.3-4.7); Potassium 4.6 mmol/L (3.5-5.1); Sodium 137 mmol/L (136-145)
[2019-05-02] MEDS ORDERED: Polyethylene Glycol 3350 17 GM Packet PO SCH (09:00)
[2019-05-02] MEDS ORDERED: Succinylcholine Chloride 20 MG/ML 10 ml SYRINGE FS ONE (10:13)
[2019-05-02] MEDS ORDERED: PROPOFOL 200 MG/20 ML VIAL ONE (10:13)
[2019-05-02] MEDS ORDERED: Metoclopramide HCl 10 MG/2 ML VIAL ONE (10:13)
[2019-05-02] MEDS ORDERED: Ondansetron PF 4 MG/2 ML Vial ONE (10:13)
[2019-05-02] MEDS ORDERED: Lidocaine 1% PF 5 ML VIAL ONE (10:13)
[2019-05-02] MEDS: Alogliptin 25 MG TAB PO SCH (10:26)
[2019-05-02] MEDS: Famotidine 20 MG TAB PO SCH (10:26)
[2019-05-02] MEDS: Fish Oil 1,000 MG CAP PO SCH ×2 (10:26→21:10)
[2019-05-02] MEDS: Pancrelipase DR 12000 1 CAP PO SCH ×2 (10:26→17:14)
[2019-05-02] MEDS: Fluticasone Propionate Nasal Spray 16 gm Bottle NASAL SCH (10:26)
[2019-05-02] MEDS: Folic Acid 1 MG TAB PO SCH (10:27)
[2019-05-02] MEDS: Gabapentin 400 MG CAP PO SCH ×2 (10:28→21:10)
[2019-05-02] MEDS: Senokot S 8.6-50 MG TAB PO SCH ×3 (10:29→23:18)
[2019-05-02] MEDS: Torsemide 20 MG TAB PO SCH ×2 (10:29→21:13)
[2019-05-02] MEDS: Magnesium Oxide 250 MG TAB PO SCH ×2 (10:29→21:12)
[2019-05-02] MEDS: Potassium Chloride 20 MEQ TAB PO SCH ×2 (10:34→21:10)
[2019-05-02] MEDS: Metoprolol Tartrate 25 MG TAB PO SCH ×2 (10:35→21:12)
[2019-05-02] MEDS ORDERED: Neomycin-Polymyxin 1 ML AMP ONE (12:18)
[2019-05-02] MEDS ORDERED: Famotidine/PF 20 mg/2ml Vial ONE (12:34)
[2019-05-02] MEDS ORDERED: Fentanyl 100 MCG/2 ML VIAL ONE ×2 (12:34→12:53)
[2019-05-02] MEDS ORDERED: Midazolam HCl 2 mg/2 ml Vial ONE (12:53)
[2019-05-02] MEDS ORDERED: Bupivacaine HCl 0.5%/Epinephrine 1:200,000/PF 30 ml Vial ONE (13:25)
[2019-05-02] MEDS ORDERED: Ropivacaine 0.5% HCl/PF (150 MG/30 ML VIAL) ONE (13:25)
[2019-05-02] MEDS ORDERED: Zolpidem Tartrate 5 MG TAB PO PRN (13:27)
[2019-05-02] MEDS ORDERED: Promethazine HCl 25 MG/ML VIAL IM PRN ×2 (13:27→15:23)
[2019-05-02] MEDS ORDERED: Ondansetron PF 4 MG/2 ML Vial IVP PRN ×2 (13:27→15:25)
[2019-05-02] MEDS ORDERED: Ropivacaine 0.2% 550 ML 550 ML NERVE BLCK SCH (13:27)
--- NOTE | 2019-05-02 15:07 | RAD ---
Radiograph right ankle 3 views: DATE: 05/02/2019 HISTORY: 58-year-old female with acute fracture-dislocation of right ankle. FINDINGS: Total of 4 fluoroscopic spot images obtained with C-arm in the OR. There is a new long lateral metall ic plate attached to bone by multiple screws, from junction between middle and distal thirds of fibular diaphysis to lateral malleolus, fixating the comminuted distal fibular metadiaphyseal fractur e. There are 2 lag screws through the medial malleolus, with distal tips in the distal tibial metaphysis . Ankle mortise is congruent. Alignment is nearly anatomical. IMPRESSION: 1. Status post open reduction internal fixation of high lateral malleolar, distal fibular fracture. 2. Status post screw fixation of medial malleolar fracture.
[2019-05-02] MEDS ORDERED: Promethazine HCl 25 MG/ML VIAL SLOW IVP PRN (15:23)
[2019-05-02] MEDS ORDERED: Ondansetron HCl/PF 4 MG/2 ML Vial IVP PRN (15:23)
[2019-05-02] MEDS ORDERED: Milk Of Magnesia 30 ML UDCUP PO PRN (15:25)
[2019-05-02] MEDS ORDERED: Bisacodyl 10 MG SUPP PR PRN (15:25)
[2019-05-02] MEDS ORDERED: Cepastat Lozenges 1 LOZ PO PRN (15:25)
[2019-05-02] MEDS ORDERED: Ondansetron ODT 4 MG TAB PO PRN (15:25)
[2019-05-02] MEDS ORDERED: Fleet Enema 133 ML BOT PR PRN (15:25)
[2019-05-02] MEDS ORDERED: Morphine 4 MG/ML VIAL ONE ×2 (16:21→16:42)
[2019-05-02] MEDS ORDERED: Morphine 2 MG/ML SYRINGE ONE (16:32)
--- NOTE | 2019-05-02 16:33 | PRG ---
DATE OF SERVICE: 05/02/2019 SUBJECTIVE: This is a 58-year-old lady, who presented to the emergency room after a mechanical fall while ambulating. The patient was recently admitted to the hospital, was discharged 2 days ago after reporting weakness and multiple falls as well as chest pain. The patient is injury day #2, right trimalleolar fracture and dislocation. The patient is currently in the IMCU and reports that her pain is well controlled. The patient has been n.p.o. since midnight with maintenance fluids. The patient voices no complaints at this time. OBJECTIVE: VITAL SIGNS: Blood pressure 150/74, respirations 18, SpO2 of 96% on room air, and pulse 80. GENERAL: Middle-aged female, resting comfortably in bed. No acute distress. HEENT: Atraumatic and normocephalic. RESPIRATORY: Equal chest rise and fall, respirations unlabored, bilateral breath sounds clear. CARDIAC: Regular rate and regular rhythm. EXTREMITIES: Moves all extremities, splint in place to right lower extremity. LABORATORY DATA: WBC 10.3, RBC 4.68, hemoglobin 13.3, hematocrit 41.3, platelets 183. Sodium 137, potassium 4.6, chloride 102, carbon dioxide 27, BUN 13, creatinine 1.04, estimated GFR 55, glucose 104, calcium 9.1, phosphorus 3.3, and magnesium 2.4. DIAGNOSTICS: There are no diagnostics to review today. ASSESSMENT: 1. Status post mechanical fall. 2. Multiple recent falls. 3. Right trimalleolar fracture/dislocation. 4. History of diabetes, chronic obstructive pulmonary disease, bipolar disorder, hypertension, transient ischemic attack, hyperlipidemia, congestive heart failure, chronic kidney disease, coronary artery disease with 2 cardiac stents, chronic pancreatitis. PLAN: Remain n.p.o. with maintenance fluids. The patient plans for the OR this morning for repair of her right trimalleolar fracture with Dr. Solorzano. Most likely, the patient will need to remain in IMCU overnight with continuous pulse ox and cardiac monitoring. We will repeat labs in the morning. We will have Physical and Occupational Therapy work with the patient tomorrow. We will place a rehab screen as the patient will likely need inpatient rehab. The patient can most likely be moved to the surgical floor tomorrow. The patient was examined by Dr. Arroyo during morning rounds. The plan was discussed with the patient, who agrees. Job ID: [id number]
[2019-05-02] MEDS ORDERED: HYDROmorphone 0.5 MG/0.5 ML SYRINGE ONE ×2 (16:51→17:10)
[2019-05-02] MEDS: risperiDONE 1 MG TAB PO SCH (21:09)
[2019-05-02] MEDS: Fenofibrate Nanocrystallized 145 MG TAB PO SCH (21:09)
[2019-05-02] MEDS: Lisinopril 10 MG TAB PO SCH (21:10)
[2019-05-02] MEDS: Loratadine 10 MG TAB PO SCH (21:11)
[2019-05-02] MEDS: Atorvastatin Calcium 40 MG TAB PO SCH (21:11)
[2019-05-02] MEDS: PARoxetine 20 MG TAB PO SCH (21:11)
[2019-05-02] MEDS: CEFAZOLIN 2 GM in Premix Bag 1 BAG IVPB SCH (21:13)
[2019-05-02] MEDS: Ferrous Gluconate 324 MG TAB PO SCH (21:13)
--- NOTE | 2019-05-02 22:16 | OP ---
DATE OF PROCEDURE: 05/02/2019 PREOPERATIVE DIAGNOSIS: The patient is status post posterior trimalleolar fracture dislocation of the right ankle. POSTOPERATIVE DIAGNOSIS: The patient is status post posterior trimalleolar fracture dislocation of the right ankle. PROCEDURE PERFORMED: Open reduction and internal fixation of the trimalleolar fracture of the right ankle. ANESTHESIA: General. TECHNIQUE: The patient was given preoperative IV antibiotics. She was taken to the operating room, placed in the supine position. Satisfactory general anesthesia was performed. The right foot, ankle and leg were sterilely prepped and draped in usual fashion. After exsanguination, tourniquet at the proximal right leg was raised to 250 mmHg. A longitudinal incision was made over the lateral aspect of the lower leg and ankle, approximately 6 inches in length. Blunt dissection was made down to the lateral aspect of the fibula. The distal shaft fracture was noted to be comminuted. The fractures were reduced and then internally fixed using a third tubular locking Synthes plate and using 3.5 cortical screws proximal and distal to the fracture to pull the plate to the bone and then 3.5 locking screws. One of the mid portions of the hole was left open since it was right over the comminuted area. A longitudinal incision was made over the medial malleolus approximately 2 inches in length and blunt dissection was made down to the medial malleolus. It was partially comminuted. The main fragment was reduced and then internally fixed using two cannulated 4.0 screws. C-arm was used to verify good position of the plate and screws and good position of the ankle including the posterior malleolus, which after the medial and lateral malleoli were reduced and internally fixed, the posterior malleolus was in excellent position. The ankle was in good alignment. The two wounds were then copiously irrigated with antibiotic solution and closed using 0 Vicryl for the fat and subcutaneous tissues, and skin was closed with 3-0 Rapide. Sterile dressing was applied along with a boot. Tourniquet was released. The patient was awakened, extubated, and transferred to recovery room in stable condition. ESTIMATED BLOOD LOSS: Minimal. COMPLICATIONS: None. TOURNIQUET TIME: 56 minutes. Job ID: [id number]
[2019-05-03] MEDS: Morphine 2 MG/ML SYRINGE SLOW IVP PRN ×2 (02:58→05:53)
[2019-05-03 04:15] LABS: Hemoglobin 12.1 g/dL (12.0-16.0); Mean Corpuscular HGB CONC 32.3 g/dL (32.0-36.0); Mean Corpuscular Hemoglobin 28.5 pg (27.0-31.0); Mean Corpuscular Volume 88.1 fL (78.0-98.0); Mean Platelet Volume 8.9 fL (7.4-10.4); Platelet Count 141 thou/uL (130-400); RBC Distribution Width 13.6 % (11.5-14.5); Red Blood Cell (RBC) Count 4.27 mill/uL (4.20-5.40); White Blood Cell (WBC) Count 9.6 thou/uL (4.8-10.8)
[2019-05-03] MEDS: CEFAZOLIN 2 GM in Premix Bag 1 BAG IVPB SCH (05:53)
[2019-05-03] MEDS: Cyclobenzaprine 10 MG TAB PO PRN ×2 (06:07→22:49)
--- NOTE | 2019-05-03 06:36 | PDOC.FM ---
- Subjective Subjective: Pt reports that her right leg is hurting and spasming but she says it is not too bad. She denies chest pain, SOB, or headache. She does report some abdominal pain and has not had a BM in about 3 days. - Objective MAR Reviewed: Yes Vital Signs & Weight: Vital Signs (12 hours) Temp Pulse Resp BP Pulse Ox 05/03/19 00:00 97.6 F 05/02/19 21:10 146/78 H 05/02/19 20:00 96 05/02/19 19:28 97.6 F 05/02/19 18:42 85 16 93 L Weight Weight 108 kg Most Recent Monitor Data Heart Rate from ECG 101 NIBP 148/80 NIBP BP-Mean 102 Respiration from ECG 18 SpO2 93 I&O: 05/01/19 05/02/19 05/03/19 06:59 06:59 06:59 Intake Total 960 1180 Output Total 560 1700 Balance 400 -520 Result Diagrams: 05/03/19 04:06 05/03/19 06:45 Phys Exam - Physical Examination Constitutional: NAD (sleepy) HEENT: moist MMs Neck: no JVD Respiratory: no wheezing, clear to auscultation bilateral Cardiovascular: RRR, no significant murmur Gastrointestinal: soft, no distention, positive bowel sounds Diffuse tenderness to palpation Musculoskeletal: no edema, pulses present (unable to check right foot, however neurovascularly intact) Neurological: moves all 4 limbs Psychiatric: A&O x 3 Skin: cap refill <2 seconds Dx/Plan (1) Trimalleolar fracture Code(s): S82.853A - DISPLACED TRIMALLEOLAR FRACTURE OF UNSP LOWER LEG, INIT Status: Acute (2) Chronic kidney disease, stage 3 Status: Chronic (3) Diabetes mellitus type 2 in obese Code(s): E11.9 - TYPE 2 DIABETES MELLITUS WITHOUT COMPLICATIONS; E66.9 - OBESITY , UNSPECIFIED Status: Chronic - Plan Plan: This is a 58 yo female with a pmh of DM2, HTN, COPD, Bipolar, and CKD3 who we are consulted for medical management Trimalleolar fracture on the right, closed -POD #1 ORIF -Management by ortho DM2 -Continue monitoring blood glucose -Continue home alogliptin CKD3 -Will monitor, appears at baseline CHF -Continue home torsemide -Last echo, 10/2017 shows normal heart function HTN -continue home lisinopril and metoprolol -Slightly elevated, may be related to pain vs wrist cuff, will monitor COPD -Provide respiratory support -Continue home meds Bipolar -Continue home meds Addendum - Attending - Attending Attestation Date/Time: 05/03/19 9766 I personally evaluated the patient and discussed the management with Dr. Smith. I agree with the History, Examination, Assessment and Plan documented above with any addition or exceptions noted below.
[2019-05-03 07:16] LABS: Anion Gap 10 mmol/L (10-20); BUN (Urea Nitrogen) 10 mg/dL (9.8-20.1); Calc. Creatinine Clearance 109 mL/min (70-130); Calcium 8.8 mg/dL (7.8-10.44); Carbon Dioxide 31 mmol/L (22-29); Chloride 103 mmol/L (98-107); Estimated GFR-MDRD 59; Glucose 121 mg/dL (70-105); Potassium 4.2 mmol/L (3.5-5.1); Sodium 140 mmol/L (136-145)
[2019-05-03] MEDS: Fentanyl 100 MCG/2 ML VIAL IV PRN ×3 (07:21→22:49)
[2019-05-03] MEDS: Sodium Chloride 0.9% 1,000 ML IV SCH ×2 (07:24)
[2019-05-03] MEDS ORDERED: Albuterol Sulfate 2.5 mg/3 ml Neb NEB PRN (09:05)
[2019-05-03] MEDS: Fish Oil 1,000 MG CAP PO SCH ×2 (09:53→21:13)
[2019-05-03] MEDS: Pancrelipase DR 12000 1 CAP PO SCH ×3 (09:53→18:29)
[2019-05-03] MEDS: Famotidine 20 MG TAB PO SCH (09:54)
[2019-05-03] MEDS: Gabapentin 400 MG CAP PO SCH ×2 (09:54→21:14)
[2019-05-03] MEDS: Folic Acid 1 MG TAB PO SCH (09:54)
[2019-05-03] MEDS: Senokot S 8.6-50 MG TAB PO SCH ×2 (09:54→21:15)
[2019-05-03] MEDS: Ferrous Gluconate 324 MG TAB PO SCH ×2 (09:55→21:14)
[2019-05-03] MEDS: Magnesium Oxide 250 MG TAB PO SCH ×2 (09:56→21:16)
[2019-05-03] MEDS: Torsemide 20 MG TAB PO SCH ×2 (09:56→21:12)
[2019-05-03 10:00] LABS: Amphetamine Not Detected (NotDetected); Barbiturates Screen Not Detected (NotDetected); Benzodiazepine Screen Not Detected (NotDetected); Cocaine Metabolite Screen Not Detected (NotDetected); Medtox Control Line Valid? VALID (VALID); Medtox Reader # READER 1; Methadone Not Detected (NotDetected); Methamphetamine Not Detected (NotDetected); Opiate Screen Detected (NotDetected); Oxycodone Screen Not Detected (NotDetected); Phencyclidine (PCP) Not Detected (NotDetected); THC/Cannabinoid Screen Not Detected (NotDetected); Tricyclic Screen Not Detected (NotDetected)
[2019-05-03] MEDS: Enoxaparin Sodium 40 MG/0.4 ML SYRINGE SC SCH (10:03)
[2019-05-03] MEDS: Clopidogrel Bisulfate 75 MG TAB PO SCH (10:04)
[2019-05-03] MEDS: Metoprolol Tartrate 25 MG TAB PO SCH ×2 (10:04→21:14)
[2019-05-03] MEDS: Alogliptin 25 MG TAB PO SCH (10:04)
[2019-05-03] MEDS: Acetaminophen 500 MG TAB PO SCH ×3 (10:04→21:21)
[2019-05-03] MEDS: Multivitamin W/ Minerals 1 TAB PO SCH (10:04)
[2019-05-03] MEDS: Polyethylene Glycol 3350 17 GM Packet PO SCH (10:05)
[2019-05-03] MEDS: Potassium Chloride 20 MEQ TAB PO SCH ×2 (10:05→21:14)
[2019-05-03] MEDS: Fluticasone Propionate Nasal Spray 16 gm Bottle NASAL SCH (10:05)
[2019-05-03] MEDS: Senokot 8.6 MG TAB PO SCH ×2 (10:05→21:14)
[2019-05-03] MEDS: Nicotine 7 MG PATCH TD SCH (10:09)
--- NOTE | 2019-05-03 11:23 | PRG ---
DATE OF SERVICE: 05/03/2019 The patient was seen with Dr. Arroyo on morning rounds. SUBJECTIVE: A 58-year-old female with trimalleolar fracture, status post ORIF postop day #1. The patient had reduction and fixation yesterday by Dr. Solorzano. There were no complications during the case. Postoperatively, the patient had increased somnolence and considering her previous reaction to narcotics, the patient was readmitted to [facility] for further observation. The patient was put in a boot following the procedure overlying YARIEL wrap dressing. Upon exam today, the patient was sleepy and complaining of pain in the right lower extremity. The patient has p.r.n. fentanyl available for her pain as well as acetaminophen. The patient has multiple pain medication allergies limiting our options. We restarted her home morphine that she takes for chronic pancreatitis in addition to continuing her fentanyl. The patient is otherwise cardiopulmonarily stable with stable vitals. Plan for transfer to medical floor later today. We will have PT, OT come by and screen patient for likely rehab placement upon discharge. OBJECTIVE: VITAL SIGNS: Temperature 99.2, oxygen 94% on 4 L, heart rate 103, blood pressure 125/73, respiratory rate of 23. GENERAL: Middle-age female, who appears older than her age, mild distress secondary to pain. HEENT: Atraumatic, normocephalic. CHEST: Equal chest rise and fall. No respiratory distress. CARDIAC: Regular rate and rhythm. EXTREMITIES: Moving all proximal extremities with right lower limb in walking boot cast, no appreciable edema. Sensation and circulation intact in the distal right lower extremity. NEURO: The patient is awake, alert, oriented, slightly sleepy. LABORATORY DATA: WBC 9.6, hemoglobin 12.1, hematocrit 37.6, platelets 141. Chemistry; sodium 140, potassium 4.2, BUN 10, creatinine 0.98, glucose 121. ASSESSMENT: 1. Status post mechanical fall. 2. Multiple recent falls. 3. Right trimalleolar fracture/dislocation, status post open reduction and internal fixation yesterday. 4. Acute traumatic pain, stable. 5. Chronic medical management per Family Medicine. PLAN: 1. Diet consistent carbs. 2. Pain control - continue p.r.n. fentanyl, we will add the patient's home morphine regimen. 3. PT/OT to consult for rehab screen today. 4. Plan for transfer to medical floor from [facility] later this afternoon. 5. Continue medical management per Family Medicine team. 6. I spoke with the patient and answered questions, agreeable with current plan of care. Job ID: [id number] MTDD
--- NOTE | 2019-05-03 13:35 | PQF ---
HAIM JOHNSON BECKY ORLIN SMITH *r [id number] [facility]- B11 [id number] CLINICAL DOCUMENTATION IMPROVEMENT CLARIFICATION FORM: ICD-10 Updated PLEASE DO AN ADDENDUM TO THE PROGRESS NOTE WITH ANY DOCUMENTATION UPDATES OR ADDITIONS AND CARRY THROUGH TO DC SUMMARY. THANK YOU. DATE: 05/03/19 ATTN: Dr. Smiht Please exercise your independent, professional judgment in responding to the clarification form. Clinical indicators are provided on the bottom of this form for your review Please check appropriate box(s): HEART FAILURE: A. ACUITY [ x ] Chronic B. TYPE [ x ] Diastolic / HFpEF [ ] Combined Systolic / Diastolic [ ] Hypertensive Heart and Kidney disease [ ] Hypertensive Heart Disease [ ] Hypertensive Kidney Disease [ ] Other diagnosis [x ] Unable to determine In addition, please specify: Present on Admission (POA): [ x ] Yes [ ] No [ ] Unable to determine For continuity of documentation, please document condition throughout progress notes and discharge summary. Thank You. CLINICAL INDICATORS - SIGNS / SYMPTOMS / LABS / RESULTS AND LOCATION IN EMR 05/02 ([place]): "CHF(LAST ECHO, 10/2017 SHOWS NORMAL HEART FUNCTION)" RISKS FACTORS / RESULTS AND LOCATION IN EMR 05/02 ([place]): "History of CAD, HTN, CKD 3 " TREATMENTS / RESULTS AND LOCATION IN EMR Administration of YARIEL/BB --> Lisinopril 10mg po HS, metoprolol 12.5mg BID 05/01 to date per orders Cardiac monitoring / telemetry in IMCU 05/01 orders PO Diuretics--> Torsemide 20mg PO qPM 05/01-05/02 to torsemide 40mg PO QAM 05/02 -date per orders Oxygen--> 2L NC oxygen 05/01--05/03 4L NC per oders (This form is maintained as a part of the permanent medical record) 2014 [employer] All Rights Reserved Jenna Rogers RN, BSN, CCDS [email or web address]
[2019-05-03] MEDS: Morphine ER 15 MG TAB PO SCH ×3 (15:11→21:16)
[2019-05-03] MEDS: Fenofibrate Nanocrystallized 145 MG TAB PO SCH (21:12)
[2019-05-03] MEDS: Atorvastatin Calcium 40 MG TAB PO SCH (21:15)
[2019-05-03] MEDS: risperiDONE 1 MG TAB PO SCH (21:15)
[2019-05-03] MEDS: PARoxetine 20 MG TAB PO SCH (21:16)
[2019-05-03] MEDS: Loratadine 10 MG TAB PO SCH (21:16)
[2019-05-03] MEDS: Lisinopril 10 MG TAB PO SCH (21:16)
--- NOTE | 2019-05-03 23:53 | PRG ---
DATE OF SERVICE: 05/03/2019 SUBJECTIVE: The patient remains on the surgical floor. She is status post ground level fall when she sustained a right trimalleolar fracture. She has undergone open reduction and internal fixation of the same. She is postop day #1. She currently has a block in place with an On-Q pump. She is tolerating a diet. States that she does have some burning sensation in her right lower extremity. Otherwise, she is doing well at this time. The patient postoperatively reportedly had difficulty with pain control because she has significant chronic pain history to include p.o. morphine use at home. PHYSICAL EXAMINATION: VITAL SIGNS: Stable. The patient is afebrile. GENERAL: The patient is resting comfortably in bed. She is awake, alert, and oriented x3. Dez Coma Scale is 15. HEENT: Unremarkable. Respirations are nonlabored. EXTREMITIES: Neurovascularly intact x4. Right lower extremity is immobilized in a walking boot. ASSESSMENT AND PLAN: 1. Status post ground level fall. 2. History of multiple recent falls. 3. Status post open reduction and internal fixation of right trimalleolar fracture. PLAN: Plan will be to continue supportive care. Encourage physical and occupational therapy and await final placement decision. Job ID: [id number]
[2019-05-04] MEDS: Morphine 2 MG/ML SYRINGE SLOW IVP PRN (02:05)
[2019-05-04] MEDS: Acetaminophen 500 MG TAB PO SCH ×4 (05:03→20:53)
--- NOTE | 2019-05-04 07:25 | PDOC.FM ---
- Subjective Subjective: Pt continues to report pain with her leg. She does report having a BM today. - Objective MAR Reviewed: Yes Vital Signs & Weight: Vital Signs (12 hours) Temp Pulse Resp BP BP Pulse Ox 05/04/19 06:39 90 20 90 L 05/04/19 03:56 97.8 F 80 18 145/80 H 92 L 05/03/19 23:44 98.8 F 95 18 129/65 94 L 05/03/19 22:20 103 H 16 91 L 05/03/19 21:16 156/73 H 05/03/19 20:26 98.4 F 95 18 156/73 H 92 L 05/03/19 20:00 92 L Weight Weight 109.996 kg Most Recent Monitor Data Heart Rate from ECG 98 NIBP 128/56 NIBP BP-Mean 80 Respiration from ECG 16 SpO2 99 I&O: 05/03/19 05/04/19 05/05/19 06:59 06:59 06:59 Intake Total 1540 720 Output Total 2100 Balance -560 720 Result Diagrams: 05/05/19 06:15 05/05/19 06:15 Phys Exam - Physical Examination Constitutional: NAD HEENT: moist MMs Neck: no JVD Respiratory: no wheezing, clear to auscultation bilateral Cardiovascular: RRR, no significant murmur Gastrointestinal: soft, non-tender, no distention, positive bowel sounds Musculoskeletal: no edema, pulses present Neurological: moves all 4 limbs Psychiatric: A&O x 3 Skin: cap refill <2 seconds Dx/Plan (1) Trimalleolar fracture Code(s): S82.853A - DISPLACED TRIMALLEOLAR FRACTURE OF UNSP LOWER LEG, INIT Status: Acute (2) Chronic kidney disease, stage 3 Status: Chronic (3) Diabetes mellitus type 2 in obese Code(s): E11.9 - TYPE 2 DIABETES MELLITUS WITHOUT COMPLICATIONS; E66.9 - OBESITY , UNSPECIFIED Status: Chronic - Plan Plan: This is a 58 yo female with a pmh of DM2, HTN, COPD, Bipolar, and CKD3 who we are consulted for medical management Trimalleolar fracture on the right, closed -POD #2 ORIF -Management by ortho DM2 -Continue monitoring blood glucose -Continue home alogliptin CKD3 -Will monitor, appears at baseline CHF -Continue home torsemide -Last echo, 10/2017 shows normal heart function HTN -continue home lisinopril and metoprolol -Slightly elevated, may be related to pain vs wrist cuff, will monitor COPD -Provide respiratory support -Continue home meds Bipolar -Continue home meds Addendum - Attending - Attending Attestation Date/Time: 05/05/19 2403 I personally evaluated the patient and discussed the management with Dr. Smith. I agree with the History, Examination, Assessment and Plan documented above with any addition or exceptions noted below. Going to OR for spinal stenosis.
[2019-05-04] MEDS: Pancrelipase DR 12000 1 CAP PO SCH ×3 (09:00→18:00)
[2019-05-04] MEDS: Alogliptin 25 MG TAB PO SCH (09:04)
[2019-05-04] MEDS: Gabapentin 400 MG CAP PO SCH ×3 (09:06→20:53)
[2019-05-04] MEDS: Magnesium Oxide 250 MG TAB PO SCH ×2 (09:06→20:56)
[2019-05-04] MEDS: Ferrous Gluconate 324 MG TAB PO SCH ×2 (09:06→20:55)
[2019-05-04] MEDS: Famotidine 20 MG TAB PO SCH (09:06)
[2019-05-04] MEDS: Multivitamin W/ Minerals 1 TAB PO SCH (09:07)
[2019-05-04] MEDS: Potassium Chloride 20 MEQ TAB PO SCH ×2 (09:07→20:55)
[2019-05-04] MEDS: Morphine ER 15 MG TAB PO SCH ×4 (09:07→20:55)
[2019-05-04] MEDS: Metoprolol Tartrate 25 MG TAB PO SCH ×2 (09:08→20:54)
[2019-05-04] MEDS: Fish Oil 1,000 MG CAP PO SCH ×2 (09:08→20:53)
[2019-05-04] MEDS: Folic Acid 1 MG TAB PO SCH ×2 (09:09→09:10)
[2019-05-04] MEDS: Fluticasone Propionate Nasal Spray 16 gm Bottle NASAL SCH (09:09)
[2019-05-04] MEDS: Polyethylene Glycol 3350 17 GM Packet PO SCH (09:11)
[2019-05-04] MEDS: Senokot 8.6 MG TAB PO SCH (09:12)
[2019-05-04] MEDS: Senokot S 8.6-50 MG TAB PO SCH ×2 (09:12→20:49)
[2019-05-04] MEDS: Torsemide 20 MG TAB PO SCH ×2 (09:12→20:58)
[2019-05-04] MEDS: Nicotine 7 MG PATCH TD SCH (09:13)
[2019-05-04] MEDS: Enoxaparin Sodium 40 MG/0.4 ML SYRINGE SC SCH (09:16)
[2019-05-04] MEDS: Clopidogrel Bisulfate 75 MG TAB PO SCH (09:20)
--- NOTE | 2019-05-04 10:24 | PRG ---
DATE OF SERVICE: 05/04/2019 The patient was seen with Dr. Arroyo on morning rounds. SUBJECTIVE: A 58-year-old female with trimalleolar fracture, status post ORIF, postop day 2. The patient had a difficult day yesterday secondary to pain in her right ankle as well as intermittent and increasing generalized weakness. The patient states that she is having a continuation of her arms and legs giving out , which she states was the cause of her previous falls in this current injury. The patient notes a history of cervical as well as lumbar spinal stenosis. Previous cervical spinal fusion. She states that she was followed by Dr. Herrera for this. The patient notes that she was supposed to have a myelogram at some point per Dr. Herrera to evaluate for her spinal stenosis. We will plan to discuss this with him. The patient notes that her pain has not been well controlled on her home dose of morphine that she takes for her chronic pancreatitis. The patient was unable to be seen by PT and OT yesterday due to her pain and weakness. The patient was on the commode having a bowel movement at the time of evaluation, she states that the stool softeners are working. OBJECTIVE: VITAL SIGNS: Temperature 98.2, pulse 94, respirations 18, oxygen saturation 93% on room air. Blood pressure 168/72. GENERAL: Middle-age female, who appears older than her age, no significant distress. HEENT: Atraumatic, normocephalic. RESPIRATORY: Equal chest rise and fall, no respiratory distress. CARDIAC: Regular rate and rhythm, good perfusion. ABDOMEN: Soft, nontender. EXTREMITIES: Right lower extremity in knee-high boot, distal extremity with good sensation, neurovascularly intact. Moving all other extremities spontaneously. NEUROLOGIC: The patient is awake, alert, oriented, cooperating and communicating normally. LABORATORY DATA: CBC and BMP not repeated due to stable levels. Glucose point of care is running between 100 and 145. ASSESSMENT: 1. Status post mechanical fall. 2. Multiple recent falls. 3. Right trimalleolar fracture/dislocation, status post open reduction and internal fixation. 4. Acute traumatic pain, currently not well managed. 5. Chronic medical management per Family Medicine. PLAN: 1. Pain control - we will increase home morphine to q.i.d., increase home gabapentin to t.i.d., we will add fentanyl patch 50 mcg every three days. 2. The patient is instructed on the importance of working with PT and OT for overall strength, improvement and mobility. 3. We will consult Neurosurgery for patient's extremity weakness and history of spinal stenosis, we will stop Plavix and Lovenox at this time in the instance that they would wish to do a myelogram. 4. Continue medical management per Family Medicine. 5. We spoke with the patient and answered questions, she is agreeable with current plan of care. Currently pending therapy evaluation, likely discharge placement to rehab/SNF. Job ID: [id number] [email or web address]
[2019-05-04] MEDS: fentaNYL 50 mcg/hour Patch TD SCH (12:22)
--- NOTE | 2019-05-04 16:30 | PRG ---
DATE OF SERVICE: The patient is 2 days status post ORIF of a posterior trimalleolar fracture dislocation of the right ankle. The patient has been in her tall boot. She has been nonweightbearing on the right foot. She has a block performed by Anesthesia prior to surgery and is still in place. The patient has chronic pain and complains of pain, and pain medicine has been adjusted, starting a fentanyl patch and increasing her morphine and her gabapentin. The patient has been afebrile. Vital signs have been stable. The dressing was changed by me. The incisions in the medial and lateral aspect of right ankle are healing well. She has usual amount of swelling and bruising. There is no erythema or drainage. She has typical decreased sensation over the dorsum of the foot. The patient will continue to work with Physical and Occupational Therapy. I stressed with the patient. She understands, she needs to be nonweightbearing on the right foot until the fractures have healed, which is going to take a minimum of 2 months, possibly longer. The patient will probably need to go to rehab or to a group home facility at discharge and she will follow up with me in 2 weeks. Job ID: [id number]
[2019-05-04] MEDS ORDERED: Diazepam 10 MG/2 ML SYRINGE IVP PRN (17:34)
--- NOTE | 2019-05-04 18:15 | CT ---
CT cervical spine noncontrast HISTORY: Neck pain. Hand numbness. Disc herniation. COMPARISON: 02/03/2019. FINDINGS: Anterior operative fixation of the mid to lower cervical spine is again demonstrated. Poste rior cerclage wires in place. Vertebral body heights and alignment are maintained. No perihardware lucency. Large posterior disc herniation/protrusion at the C3-4 level is again demonstrated, severely compress ing the thecal sac. Approximately 4 mm AP diameter of the remaining thecal sac. The appearance is similar to the previous exam. Multilevel degenerative changes throughout the remainder of the cervical spine are stable. IMPRESSION: Large posterior disc herniation and spinal cord compression at the C3-4 level appears sta ble compared to the prior CT from 02/03/2019. Other postoperative and degenerative changes also appear stable.
[2019-05-04] MEDS ORDERED: Communication Order-Pharmacy FS PRN (19:24)
[2019-05-04] MEDS ORDERED: [UNRECOGNIZED DRUG - REMARK] FS PRN (19:25)
--- NOTE | 2019-05-04 20:06 | MRI ---
CERVICAL SPINE MRI WITH AND WITHOUT CONTRAST 05/04/19 COMPARISON: Prior study performed eight days prior. TECHNIQUE: Multiplanar and multisequence MR imaging of the cervical spine without contrast. HISTORY: Cervical stenosis with myelopathy. FINDINGS: Motion artifact limits detailed assessment. All provided pulse sequences are somewhat limited on the basis of motion artifact. Evaluation is further limited secondary to the presence of metallic postoperative hardware. This incl udes metallic wires overlying the region of the spinous process at C4, C5, C6 and C7 as well as exten sive anterior discectomy and fusion hardware at C4-5/C5-6/C6-7. No significant anterolisthesis or retrolisthesis is appreciated. The sagittal STIR imaging demonstrat es no focal area of osseous marrow edema. C2-3: There is disc desiccation and disc bulge with a central disc protrusion effacing the ventral th ecal sac and abutting the ventral aspect of the cord with a mild degree of central canal stenosis. No significant neural foraminal stenosis. C3-4: There is a large central disc herniation as before. This causes severe central canal stenosis w ith mass effect on the cervical cord anteriorly with moderate/severe cervical cord compression, also stable when compared to prior imaging. Bilateral facet hypertrophy present with a mild degree of bila teral neural foraminal stenosis. The large central disc herniation at C3-4 measures at least 6 mm in AP dimension. This disc herniatio n is difficult to accurately measure on the sagittal imaging and may measure up to 1.5 cm suggesting significant extruded disc material located both cranial to and caudal to the axial level of the C3-4 disc interspace. C4-5: Evaluation for central canal and neural foraminal stenosis is quite limited secondary to motion and artifact. There may be a small central disc herniation with mild central canal stenosis. In alex tion, there may be mild right neural foraminal stenosis on the basis of uncovertebral osteophytosis. C5-6: Probable mild right neural foraminal stenosis and mild central canal stenosis on the basis of m inimal posterior osteophyte. No significant central canal or neural foraminal stenosis. C6-7: Limited assessment secondary to postoperative artifact and motion. No significant central canal or neural foraminal stenosis. C7-T1: Mild disc bulge with no significant central canal or neural foraminal stenosis. There is no obvious abnormal signal intensity identified within the cervical cord. Postcontrast imaging is grossly unremarkable, limited on the basis of artifact associated with postop erative hardware. IMPRESSION: Limited examination of the cervical spine secondary to metallic postoperative hardware and motion. Th ere is a large disc herniation/disc extrusion centrally at the C3-4 level producing moderate/severe mass effect on the cervical cord with marked cord flattening and severe central canal stenosis. Overa ll, the appearance of the cervical spine appears similar when compared to 04/26/19. IF further imagin g assessment is clinically warranted, follow-up cervical spine CT myelogram may be beneficial. Neuros urgical consultation is advised given the severe canal compromise and marked mass effect on the cervi geovany cord at the C3-4 level. POS: JEFF
[2019-05-04] MEDS: Fenofibrate Nanocrystallized 145 MG TAB PO SCH (20:52)
[2019-05-04] MEDS: Lisinopril 10 MG TAB PO SCH (20:53)
[2019-05-04] MEDS: Loratadine 10 MG TAB PO SCH (20:55)
[2019-05-04] MEDS: Atorvastatin Calcium 40 MG TAB PO SCH (20:55)
[2019-05-04] MEDS: PARoxetine 20 MG TAB PO SCH (20:56)
[2019-05-04] MEDS: risperiDONE 1 MG TAB PO SCH (20:57)
[2019-05-04] MEDS ORDERED: Sodium Chloride 0.9% (PF) 10 ML VIAL FS PRN (21:07)
[2019-05-04] MEDS ORDERED: Pantoprazole 40 MG VIAL IVP SCH (21:15)
--- NOTE | 2019-05-04 21:56 | CON ---
DATE OF CONSULTATION: This is Kt Farmer PA-C dictating a report for Malcom Dowling MD. This is a 50-minute initial patient evaluation of which greater than 50% of the exam was spent counseling and coordinating the patient's care. Remainder of the exam was spent in review of the patient's medical records and formulation of treatment plan. CHIEF COMPLAINT: Right hand weakness and increased falls with cervical cord compression. HISTORY OF PRESENT ILLNESS: Ms. Ang is a 58-year-old female who originally presented to [facility] 3 days ago, having sustained a fall and a trimalleolar fracture. The patient subsequently underwent surgical fixation and this was done on the right. The patient is normally on Plavix and 81 mg aspirin for history of AK with stent placement more than 5 years ago. Her last confirmed dose of Plavix was on 05/03/2019. The patient is a current everyday smoker. The patient was seen electively on an outpatient basis by a [facility] in early March and was to follow up with a CT myelogram of both cervical and lumbar spines. However, the patient was unable to complete these studies for unknown reasons. She has remained at her neurologic baseline in regard to strength. I should also note that she had a right carpal tunnel release surgery roughly more than 20 years ago and she notes significant mild hand intrinsic weakness at that time. I should note she also previously underwent C4-T1 anterior cervical diskectomy and fusion as well as posterior spinous process wiring at an outside institution at [facility] for myelopathy. She has had a right greater than left arm symptoms, though is really unable to give an exact dermatomal distribution of her pain. She has also noticed some balance difficulties and again as mentioned falls. Review of the patient's CT scan shows stable hardware placement, C4-T1 as well as posterior wiring noted at spinous processes from C4-T1. Review of the patient's cervical spine MRI is pending. PHYSICAL EXAMINATION: GENERAL: The patient is awake, alert, and appropriate. She is morbidly obese. MUSCULOSKELETAL: She does have atrophy, especially into the thenar aspect of the right hand and has some moderate hand electrician telephone and hand intrinsic weakness on the right and mild hand electrician telephone weakness on the left. She also has deltoid weakness, right greater than left. She appears to have good strength. Trace weakness into the biceps and triceps bilaterally with slightly more strength interestingly on the right than the left. She has antigravity in the bilateral lower extremities. She does appear to have more difficulty with moving the right leg secondary to a large Cam boot after her ankle fixation surgery. She is able to wiggle the toes on the right, though has difficulty raising the big toe on the right. She has generalized weakness throughout the entire left lower extremity, though it appears to be stronger on the left than the right. She does not appear to have any tenderness to palpation of the posterior neck. IMPRESSION AND DIAGNOSES: 1. Neck pain with right greater than left upper extremity pain and weakness. 2. Right leg weakness. 3. History of falls with recent right trimalleolar fracture fixation. 4. Coronary artery disease with history of myocardial infarction and 2 stents placement, one of which the patient says is occluded on Plavix and 81 mg aspirin. 5. Diabetes mellitus type 2. 6. Morbid obesity. 7. Tobacco abuse. 8. Chronic kidney disease. 9. Hypertension. 10. Hyperlipidemia. 11. Congestive heart failure. PLAN: I discussed the patient's case and imaging with Dr. Dowling. At this time, we will follow up on the patient's cervical spine MRI. I would like her to remain in bed and I will discuss this with the nurse and we have also made her n.p.o. at midnight. I would like her to remain in her [place] J collar at all times and [facility] will fit her for this collar. We would like to hold her aspirin and Plavix at this time. We will also start her on Decadron 4 mg q.6 hours and Protonix, may need to adjust her insulin based on this and we will defer to our hospital colleagues in this regard. Neurosurgery will follow up in the morning. May be a plan for a surgical intervention, but again we will need to review her studies to determine what that will be. Again, I have discussed the patient's case with her and her nurse. Please call with any changes in the patient's neurologic status. Job ID: [id number]
[2019-05-04] MEDS: Cyclobenzaprine 10 MG TAB PO PRN (23:00)
[2019-05-04] MEDS: Dexamethasone 4 mg/ml Vial SLOW IVP SCH (23:00)
--- NOTE | 2019-05-05 01:37 | PRG ---
DATE OF SERVICE: 05/05/2019 SUBJECTIVE: The patient remains on the surgical floor. She is status post ground level fall when she sustained a right trimalleolar fracture. She has undergone open reduction and internal fixation of same. She is postop day #2. Her pain is currently being treated with a block with an On-Q pump. She is tolerating a diet. Today, she underwent evaluation by the Neurosurgery Team for history of repeated falls and her neck pain. This evening it was noted that she is in an [place] collar and I have been told that she has been made n.p.o. after midnight to undergo operative procedure possibly for a decompression surgery tomorrow. PHYSICAL EXAMINATION: VITAL SIGNS: Stable. The patient is afebrile. GENERAL: The patient is resting comfortably in bed. She is awake, alert, and oriented x3. Dez Coma Scale is 15. HEENT: Unremarkable. LUNGS: Respirations are nonlabored. EXTREMITIES: Neurovascularly intact x4. ASSESSMENT AND PLAN: 1. Status post ground level fall. 2. History of multiple recent falls. 3. Status post open reduction and internal fixation of right trimalleolar fracture. Plan will be to continue supportive care. Await surgical decision by Neurosurgery. Continue physical and occupational therapy and discuss placement. The patient informed me that she is from the [facility], would prefer placement in that area. Job ID: [id number]
[2019-05-05] MEDS: Acetaminophen 500 MG TAB PO SCH ×4 (03:05→20:45)
[2019-05-05] MEDS: Dexamethasone 4 mg/ml Vial SLOW IVP SCH ×2 (06:10→20:26)
--- NOTE | 2019-05-05 06:28 | PDOC.FM ---
- Subjective Subjective: Pt states she is moving better this morning. Her right leg is less stiff. She does report continued pain and some swelling in her toes. She states neurosurgery plans to potentially perform surgical intervention on her neck, pending review of records and imaging. - Objective MAR Reviewed: Yes Vital Signs & Weight: Vital Signs (12 hours) Temp Pulse Resp BP BP BP Pulse Ox 05/05/19 03:20 98.3 F 88 16 160/84 H 92 L 05/05/19 00:02 98.5 F 83 18 115/65 95 05/04/19 20:53 145/70 H 05/04/19 20:17 98.1 F 91 16 145/70 H 93 L Weight Weight 109.996 kg Most Recent Monitor Data Heart Rate from ECG 98 NIBP 128/56 NIBP BP-Mean 80 Respiration from ECG 16 SpO2 99 I&O: 05/03/19 05/04/19 05/05/19 06:59 06:59 06:59 Intake Total 1540 720 Output Total 2100 Balance -560 720 Result Diagrams: 05/05/19 06:15 05/05/19 06:15 Phys Exam - Physical Examination Constitutional: NAD HEENT: moist MMs Neck: no JVD Respiratory: no wheezing, clear to auscultation bilateral Cardiovascular: RRR, no significant murmur Gastrointestinal: soft, non-tender, no distention, positive bowel sounds Musculoskeletal: pulses present, edema present (mild swelling in right toes, neurovascularly intact) Neurological: normal sensation, moves all 4 limbs Psychiatric: A&O x 3 Skin: cap refill <2 seconds Dx/Plan (1) Trimalleolar fracture Code(s): S82.853A - DISPLACED TRIMALLEOLAR FRACTURE OF UNSP LOWER LEG, INIT Status: Acute (2) Chronic kidney disease, stage 3 Status: Chronic (3) Diabetes mellitus type 2 in obese Code(s): E11.9 - TYPE 2 DIABETES MELLITUS WITHOUT COMPLICATIONS; E66.9 - OBESITY , UNSPECIFIED Status: Chronic - Plan Plan: This is a 58 yo female with a pmh of DM2, HTN, COPD, Bipolar, and CKD3 who we are consulted for medical management Trimalleolar fracture on the right, closed -POD #3 ORIF -Management by ortho Spinal stenosis -Neurosurgery has been consulted -Possible surgical intervention DM2 -Continue monitoring blood glucose -Continue home alogliptin -Slightly elevated overnight but in an acceptable range CKD3 -Will monitor, appears at baseline CHF -Continue home torsemide -Last echo, 10/2017 shows normal heart function HTN -continue home lisinopril and metoprolol -Slightly elevated, may be related to pain vs wrist cuff, remains in an acceptable range COPD -Provide respiratory support -Continue home meds Bipolar -Continue home meds Addendum - Attending - Attending Attestation Date/Time: 05/05/19 3446 I personally evaluated the patient and discussed the management with Dr. Smith. I agree with the History, Examination, Assessment and Plan documented above with any addition or exceptions noted below.
[2019-05-05 06:36] LABS: #Lymphocytes 1.1 thou/uL (1.20-3.40); #Monocytes 0.6 thou/uL (0.11-0.59); #Neutrophils 6.7 thou/uL (1.40-6.50); %Basophils 0.3 % (0.0-1.0); %Eosinophils 0.3 % (0.0-10.0); %Lymphocytes 12.5 % (21.0-51.0); %Neutrophils 79.9 % (42.0-75.0); Hemoglobin 12.4 g/dL (12.0-16.0); Mean Corpuscular HGB CONC 32.5 g/dL (32.0-36.0); Mean Corpuscular Hemoglobin 28.9 pg (27.0-31.0); Mean Corpuscular Volume 88.9 fL (78.0-98.0); Mean Platelet Volume 9.4 fL (7.4-10.4); Platelet Count 172 thou/uL (130-400); RBC Distribution Width 13.7 % (11.5-14.5); Red Blood Cell (RBC) Count 4.28 mill/uL (4.20-5.40); White Blood Cell (WBC) Count 8.4 thou/uL (4.8-10.8)
[2019-05-05 06:55] LABS: Anion Gap 12 mmol/L (10-20); BUN (Urea Nitrogen) 16 mg/dL (9.8-20.1); Calc. Creatinine Clearance 114 mL/min (70-130); Calcium 9.6 mg/dL (7.8-10.44); Carbon Dioxide 26 mmol/L (22-29); Chloride 102 mmol/L (98-107); Estimated GFR-MDRD 60; Glucose 158 mg/dL (70-105); Potassium 4.6 mmol/L (3.5-5.1); Sodium 135 mmol/L (136-145)
[2019-05-05] MEDS: Magnesium Oxide 250 MG TAB PO SCH ×2 (09:22→21:20)
[2019-05-05] MEDS: Pancrelipase DR 12000 1 CAP PO SCH ×2 (09:22→20:26)
[2019-05-05] MEDS: Alogliptin 25 MG TAB PO SCH (09:23)
[2019-05-05] MEDS: Folic Acid 1 MG TAB PO SCH ×2 (09:23→09:30)
[2019-05-05] MEDS: Multivitamin W/ Minerals 1 TAB PO SCH (09:24)
[2019-05-05] MEDS: Gabapentin 400 MG CAP PO SCH ×3 (09:24→21:16)
[2019-05-05] MEDS: Metoprolol Tartrate 25 MG TAB PO SCH ×2 (09:26→21:16)
[2019-05-05] MEDS: Morphine ER 15 MG TAB PO SCH ×3 (09:27→21:19)
[2019-05-05] MEDS: Potassium Chloride 20 MEQ TAB PO SCH ×2 (09:27→21:38)
[2019-05-05] MEDS: Ferrous Gluconate 324 MG TAB PO SCH ×2 (09:27→21:18)
[2019-05-05] MEDS: Fluticasone Propionate Nasal Spray 16 gm Bottle NASAL SCH (09:29)
[2019-05-05] MEDS: Polyethylene Glycol 3350 17 GM Packet PO SCH (09:30)
[2019-05-05] MEDS: Senokot S 8.6-50 MG TAB PO SCH ×2 (09:31→21:17)
[2019-05-05] MEDS: Torsemide 20 MG TAB PO SCH ×2 (10:16→21:21)
[2019-05-05] MEDS: Pantoprazole 40 MG VIAL IVP SCH (10:16)
[2019-05-05] MEDS: Nicotine 7 MG PATCH TD SCH (10:21)
--- NOTE | 2019-05-05 10:27 | PRG ---
DATE OF SERVICE: 05/05/2019 The patient was seen with Dr. Arroyo during morning rounds. SUBJECTIVE: A 58-year-old female with trimalleolar fracture, status post ORIF, postoperative day 3. The patient had some improvement in her pain yesterday with changes of pain medications with addition of fentanyl patch and increase in her home dose of oral morphine. The patient was evaluated by Neurosurgery yesterday, who repeated a CT and MRI of her cervical spine, which showed severe central canal stenosis stemming from a herniated disk at C3-C4. The patient was subsequently made n.p.o. at midnight in preparation for operative management today. Currently, the plan is for Dr. Dowling to bring the patient to the OR for possible further decompression of her spinal stenosis. The patient remains off her anticoagulation at this time. The patient was previously made to be on strict bed rest per Neurosurgery recommendations; however, she requests to be able to go down to the [place] today to get money to pay for her rent. Dr. Arroyo contacted Dr. Dowling regarding this, who stated that as long as she goes down in a wheelchair and remains in her C-collar and does not ambulate, this will be okay. This was relayed to the patient, she was grateful. OBJECTIVE: VITAL SIGNS: Temperature 98.3, pulse 85, respirations 16, oxygen saturation 93% on room air, and blood pressure 128/70. GENERAL: Middle-age female, who appears older than her stated age, morbidly obese, in no significant distress. HEENT: Atraumatic and normocephalic. RESPIRATORY: Equal chest rise and fall, in no respiratory distress. CARDIAC: Regular rate and rhythm. Good perfusion. ABDOMEN: Soft and nontender. EXTREMITIES: Right lower extremity in knee-high boot, distal extremity with good sensation, neurovascularly intact. Moving all extremities spontaneously. C-collar in place. NEUROLOGIC: The patient is awake, alert, and oriented. Cooperating and communicating normally. LABORATORY DATA: WBC 8.4, hemoglobin 12.4, hematocrit 38.1, platelets 172. Sodium 135, potassium 4.6, BUN 16, creatinine 0.96, glucose 158. ASSESSMENT: 1. Status post mechanical fall. 2. Multiple recent falls. 3. Right trimalleolar fracture/dislocation, status post open reduction and internal fixation. 4. Acute traumatic pain, improvement in pain control from yesterday. 5. Chronic medical management, per Family Medicine. 6. Cervical central canal stenosis, likely operative management by Neurosurgery today. PLAN: 1. We will continue current pain control regimen. We will adjust as needed following operation today. 2. The patient is on strict bed rest per Neurosurgery recommendations, allowed for her to be in wheelchair for a short period of time, but emphasized no ambulating. 3. Cervical CT and MRI yesterday confirmed severe central canal stenosis of the patient's cervical spine. The patient was evaluated by Neurosurgery last night. Plan for likely operative management later today. The patient remains off Plavix and Lovenox. 4. Continue medical management per Family Medicine. 5. Spoke with the patient and answered questions. She is agreeable with current plan of care. Physical Therapy to see the patient following operation today. 6. Physical Therapy saw the patient yesterday and recommended discharge to rehab. We will pass this onto Case Management for postdischarge planning. Job ID: [id number]
[2019-05-05] MEDS ORDERED: Thrombin 5000 UNITS/5 ML VIAL ONE ×2 (12:12→15:47)
[2019-05-05] MEDS ORDERED: Bacitracin Zinc Ointment 30 gm TUBE ONE (12:12)
[2019-05-05] MEDS ORDERED: Sodium Chloride 0.9% 10 ML ONE (12:12)
--- NOTE | 2019-05-05 12:44 | PRG ---
DATE OF SERVICE: 05/05/2019 SUBJECTIVE: I reviewed the notes of my colleague, Kt Farmer PA-C, and agree with its content. Ms. Ang is a 58-year-old woman admitted for worsening right greater than left quadriparesis with frequent falls over the last 8 weeks. She has a history of 20 years ago of an anterior-posterior decompression and fusion from C4 through C7 on CT scan. She has a plate and screw construct from C4 through C7 and also interspinous wiring from C4 through C7. It does appear on CT that she has fused from C4 through C7. Unfortunately, on MRI, she has a very large disk extrusion that extends up to C2 and down to C4 with severe spinal cord compression. This has rendered her quadriparetic. She is currently in a collar. We have initiated Decadron to try and assist with reduction of cord edema. She is also on Plavix, and has a history of myocardial ischemia. Her labs are otherwise unremarkable surgery. OBJECTIVE: NEURO: On exam, she is alert and appropriate. She has generalized weakness throughout all myotomes in the upper and lower extremities below C5 with right moderate upper and lower extremity weakness compared to mild left upper and lower extremity weakness below C5. She has a recent trimalleolar fracture that has been surgically repaired by our orthopedic colleagues on May 02. I have let the patient know that her case in my opinion requires urgent procession to the operating room for decompression of her spinal cord via C2 through C5 laminectomy with screw guillermo fixation at C2, C3, C4, and C5. I will also need to remove her interspinous wiring at C4-C5 for the decompression. I will assess her fusion at C4-C5 and while it appears as if radiologically she is fused, I will use those points as anchors and I want to make sure of this intraoperatively. Following this, she may need to be placed in the ICU for close monitoring given her cardiac and neurologic history. We will likely have to place drains in the surgical bed just given the fact that we were operating on her with her still on Plavix with last dose 2 days ago. The goals, indications, risks, alternatives and complications were discussed in detail with the patient. She understands that if we do not proceed with surgery that her chance of quadriparesis and eventual quadriplegia is substantial. She understands that the risks are up to and including wound healing issues such as infection, bleeding, spinal fluid leak, injury, both temporary and permanent neurologic deficit, swallowing deficits, breathing deficits, medical and other surgical complications not yet specified. Nevertheless, she understands that the need for more surgery may be required as well, but she wishes that we proceed with surgery. IMPRESSION: Subacute worsening of myelopathy with severe spinal cord compression consistent with proximal adjacent segment disease. Job ID: [id number]
[2019-05-05] MEDS ORDERED: Fentanyl 250 MCG/5 ML VIAL ONE (12:55)
[2019-05-05] MEDS ORDERED: Ondansetron PF 4 MG/2 ML Vial ONE (13:24)
[2019-05-05] MEDS ORDERED: Rocuronium Bromide 10 MG/ML (10ML VIAL) ONE (13:24)
[2019-05-05] MEDS ORDERED: PHENYLEPHRINE-NS 100 MCG/ML 10 ML SYRINGE ONE (13:24)
[2019-05-05] MEDS ORDERED: Glycopyrrolate 0.2 MG/ML 5 ML SYRINGE ONE (13:24)
[2019-05-05] MEDS ORDERED: Lidocaine 1% PF 5 ML VIAL ONE (13:24)
[2019-05-05] MEDS ORDERED: PROPOFOL 200 MG/20 ML VIAL ONE (13:24)
[2019-05-05] MEDS ORDERED: Promethazine HCl 25 MG/ML VIAL SLOW IVP PRN (17:36)
[2019-05-05] MEDS ORDERED: Ondansetron HCl/PF 4 MG/2 ML Vial IVP PRN (17:36)
[2019-05-05] MEDS ORDERED: Promethazine HCl 25 MG/ML VIAL IM PRN (17:36)
[2019-05-05] MEDS ORDERED: Fentanyl 100 MCG/2 ML VIAL ONE (17:40)
--- NOTE | 2019-05-05 20:49 | PRG ---
DATE OF SERVICE: 05/05/2019 SUBJECTIVE: The patient this evening was seen in the PACU. She is status post cervical decompression. The patient was initially admitted status post ground level fall, which she sustained a right trimalleolar fracture. She underwent open reduction and internal fixation of that. Upon further exam and discussion with the patient, it was noted that she has been having multiple falls. She was evaluated by the Neurosurgical team. After examination and MRI, determined that the patient should undergo semi-urgent spinal cord decompression. The patient is currently in the PACU and scheduled to go to the critical care unit overnight for close neurologic evaluation and ensure that her MAP stays above 70 and she will likely start an 8-day Decadron taper tomorrow. PHYSICAL EXAMINATION: VITAL SIGNS: Stable. The patient is afebrile. GENERAL: The patient is currently sleeping. She does open her eyes to gentle verbal stimuli, nods her head as much as possible in a C-collar that she has no complaints at this time. LUNGS: Clear bilaterally. HEART: Regular rate and rhythm. ABDOMEN: Soft with hypoactive bowel sounds. EXTREMITIES: Warm and dry. Capillary refill is less than 2 seconds in all 4 extremities. The patient is immobilized in a [place] collar. ASSESSMENT: 1. Status post ground level fall. 2. History of multiple recent falls. 3. Status post open reduction and internal fixation of right trimalleolar fracture. 4. Status post cervical spinal cord decompression. PLAN: The patient transferred to the critical care unit overnight for frequent neuro exams, tomorrow begin physical and occupational therapy and work on placement. The patient will also have her Decadron taper most likely started tomorrow. Job ID: [id number]
[2019-05-05] MEDS: PARoxetine 20 MG TAB PO SCH (21:16)
[2019-05-05] MEDS: Atorvastatin Calcium 40 MG TAB PO SCH (21:18)
[2019-05-05] MEDS: Loratadine 10 MG TAB PO SCH (21:18)
[2019-05-05] MEDS: risperiDONE 1 MG TAB PO SCH (21:18)
[2019-05-05] MEDS: Fenofibrate Nanocrystallized 145 MG TAB PO SCH (21:21)
[2019-05-05] MEDS: CEFAZOLIN 2 GM in Premix Bag 1 BAG IVPB SCH (21:21)
[2019-05-05] MEDS: Lisinopril 10 MG TAB PO SCH (21:35)
[2019-05-06] MEDS: Dexamethasone 4 mg/ml Vial SLOW IVP SCH ×2 (00:01→05:17)
[2019-05-06 04:24] LABS: #Lymphocytes 0.9 thou/uL (1.20-3.40); #Monocytes 0.5 thou/uL (0.11-0.59); %Basophils 0.3 % (0.0-1.0); %Eosinophils 0.3 % (0.0-10.0); %Lymphocytes 9.8 % (21.0-51.0); %Monocytes 5.5 % (0.0-10.0); Hemoglobin 10.6 g/dL (12.0-16.0); Mean Corpuscular HGB CONC 33.1 g/dL (32.0-36.0); Mean Corpuscular Volume 87.7 fL (78.0-98.0); Platelet Count 154 thou/uL (130-400); RBC Distribution Width 13.6 % (11.5-14.5); Red Blood Cell (RBC) Count 3.64 mill/uL (4.20-5.40); White Blood Cell (WBC) Count 9.5 thou/uL (4.8-10.8)
[2019-05-06] MEDS: Acetaminophen 500 MG TAB PO SCH ×3 (04:24→18:09)
--- NOTE | 2019-05-06 04:41 | PDOC.FM ---
- Subjective Subjective: Pt states she is sore but overall good. She reports improved ROM of her right leg. She states her numbness in her hand has not improved much, but she understands that will take time. She states her sugar was higher, requiring insulin. - Objective MAR Reviewed: Yes Vital Signs & Weight: Vital Signs (12 hours) Temp Pulse Ox 05/06/19 04:00 99.0 F 05/06/19 00:00 98.4 F 05/05/19 21:42 97 05/05/19 21:31 97 05/05/19 20:00 97.0 F L 94 L Weight Weight 109.996 kg Most Recent Monitor Data Heart Rate from ECG 83 NIBP 135/67 NIBP BP-Mean 89 Respiration from ECG 13 SpO2 94 I&O: 05/04/19 05/05/19 05/06/19 06:59 06:59 06:59 Intake Total 720 1000 Output Total 1100 Balance 720 -100 Result Diagrams: 05/06/19 04:04 05/06/19 04:04 Phys Exam - Physical Examination Constitutional: NAD HEENT: moist MMs Neck: no JVD Respiratory: no wheezing, clear to auscultation bilateral Cardiovascular: RRR, no significant murmur Gastrointestinal: soft, non-tender, no distention, positive bowel sounds Musculoskeletal: pulses present, edema present (some in her right toes) Neurological: moves all 4 limbs Unchanged numbness in her right hand Psychiatric: A&O x 3 Skin: cap refill <2 seconds Dx/Plan (1) Trimalleolar fracture Code(s): S82.853A - DISPLACED TRIMALLEOLAR FRACTURE OF UNSP LOWER LEG, INIT Status: Acute (2) Chronic kidney disease, stage 3 Status: Chronic (3) Diabetes mellitus type 2 in obese Code(s): E11.9 - TYPE 2 DIABETES MELLITUS WITHOUT COMPLICATIONS; E66.9 - OBESITY , UNSPECIFIED Status: Chronic - Plan Plan: This is a 58 yo female with a pmh of DM2, HTN, COPD, Bipolar, and CKD3 who we are consulted for medical management Trimalleolar fracture on the right, closed -POD #4 ORIF -Management by ortho Spinal stenosis -Neurosurgery has been consulted -Possible cervical decompression DM2 -Continue monitoring blood glucose -Continue home alogliptin -Pt required 6 units of insulin this AM for control. This is likely 2/2 decadron and her recent sugar intake. CKD3 -Will monitor, appears at baseline CHF -Continue home torsemide -Last echo, 10/2017 shows normal heart function HTN -continue home lisinopril and metoprolol -Slightly elevated, may be related to pain vs wrist cuff, remains in an acceptable range COPD -Provide respiratory support -Continue home meds Bipolar -Continue home meds Addendum - Attending - Attending Attestation Date/Time: 05/06/19 [id number] I personally evaluated the patient and discussed the management with Dr. Smith. I agree with the History, Examination, Assessment and Plan documented above with any addition or exceptions noted below. One time dose of morphine, then she can chat with her surgeons. Monitor sugars and blood pressure. DVT ppx per surgery.
[2019-05-06 04:44] LABS: Anion Gap 11 mmol/L (10-20); BUN (Urea Nitrogen) 18 mg/dL (9.8-20.1); Calc. Creatinine Clearance 110 mL/min (70-130); Calcium 8.8 mg/dL (7.8-10.44); Carbon Dioxide 29 mmol/L (22-29); Chloride 102 mmol/L (98-107); Estimated GFR-MDRD 58; Glucose 197 mg/dL (70-105); Potassium 4.3 mmol/L (3.5-5.1); Sodium 138 mmol/L (136-145)
[2019-05-06] MEDS: CEFAZOLIN 2 GM in Premix Bag 1 BAG IVPB SCH ×3 (05:17→22:41)
[2019-05-06] MEDS: Insulin Regular 300 UNITS/3 ML VIAL SC PRN ×3 (05:25→17:34)
[2019-05-06] MEDS: Cyclobenzaprine 10 MG TAB PO PRN (06:20)
[2019-05-06] MEDS: Pancrelipase DR 12000 1 CAP PO SCH ×3 (08:43→18:26)
[2019-05-06] MEDS: Alogliptin 25 MG TAB PO SCH (08:43)
[2019-05-06] MEDS: Multivitamin W/ Minerals 1 TAB PO SCH (08:44)
[2019-05-06] MEDS: Gabapentin 400 MG CAP PO SCH ×3 (08:44→21:23)
[2019-05-06] MEDS: Folic Acid 1 MG TAB PO SCH (08:45)
[2019-05-06] MEDS: Morphine ER 15 MG TAB PO SCH ×4 (08:45→21:25)
[2019-05-06] MEDS: Senokot S 8.6-50 MG TAB PO SCH ×2 (08:45→21:25)
[2019-05-06] MEDS: Ferrous Gluconate 324 MG TAB PO SCH ×2 (08:45→21:24)
[2019-05-06] MEDS: Metoprolol Tartrate 25 MG TAB PO SCH ×2 (08:45→21:24)
[2019-05-06] MEDS: Pantoprazole 40 MG VIAL IVP SCH (08:48)
[2019-05-06] MEDS: Polyethylene Glycol 3350 17 GM Packet PO SCH (08:48)
[2019-05-06] MEDS: Torsemide 20 MG TAB PO SCH ×2 (08:50→21:23)
[2019-05-06] MEDS: Fluticasone Propionate Nasal Spray 16 gm Bottle NASAL SCH (08:51)
[2019-05-06] MEDS: Magnesium Oxide 250 MG TAB PO SCH ×2 (08:51→21:23)
[2019-05-06] MEDS ORDERED: Ergocalciferol 1.25 MG(50,000 UNITS) CAP PO SCH (09:00)
[2019-05-06] MEDS: Potassium Chloride 20 MEQ TAB PO SCH ×2 (09:52→21:23)
[2019-05-06] MEDS ORDERED: Morphine 4 MG/ML VIAL SLOW IVP SCH (10:30)
--- NOTE | 2019-05-06 10:48 | PRG ---
DATE OF SERVICE: 05/06/2019 This is Leon Mariscal PA-C dictating a report for Ken Arroyo MD. SUBJECTIVE: Ms. Ang is a 58-year-old female. She is status post mechanical fall. She sustained right trimalleolar fracture and dislocation. She underwent ORIF with open reduction and internal fixation of the right trimalleolar fracture and dislocation with Orthopedic, postop day 4 today. She also has chronic C2-C5 stenosis with neuropathy. Neurosurgery brought the patient to the OR yesterday for decompression surgery. Postop, the patient reports her bilateral upper extremity function is getting better. Sensation is also getting better. Her pain is well controlled. She tolerated with her full liquid diet at the moment. Her vital signs have been stable. Her urine is adequate. OBJECTIVE: GENERAL: Currently, the patient is lying in bed with no acute respiratory distress. VITAL SIGNS: Temperature is 99.3, heart rate 92, blood pressure 126/84, respiratory rate 17, and O2 saturation 97% on room air. LUNGS: Clear bilaterally. HEART: Regular rate and rhythm. ABDOMEN: Soft, Nondistended. EXTREMITIES: Neurovascularly intact x4. Right lower extremity postop dressing clean, dry, and intact. NEUROLOGY: C spine incision drain with appropriate volume, no neurology deficits. ASSESSMENT: 1. Status post mechanical fall. 2. Right trimalleolar fracture and dislocation, status post open reduction and internal fixation of right trimalleolar fracture and dislocation, postop day 4. 3. C2-C5 stenosis with compression syndrome, status post decompression surgery with Neurosurgery, postop day 1. 4. History of depression. 5. Bipolar. 6. Chronic kidney disease. 7. Diabetes. 8. Hypertension. PLAN: The patient will be transferred to the floor and start diabetic diet today, Neurosurgery agreeable on the plan. Neurosurgery will start Decadron taper from today. The patient will continue follow up with cervical spine drainage and make decision on when to start pharmacological DVT prophylaxis with Lovenox. Continue pain control. Resume on her home meds. Continue working with PT/OT. The patient plans on placement in rehabilitation facility. The patient was seen and evaluated with Dr. Arroyo on round this morning. Job ID: [id number] MTDD
--- NOTE | 2019-05-06 11:14 | PRG ---
DATE OF SERVICE: 05/06/2019 Ms. Ang is improved this morning. She has mild weakness on the right and subtle weakness on the left. She is able to move both extremities, up off to the bed, some improvement. We will leave her drain in place. She may be transferred to the floor. She is nonweightbearing in the right lower extremity. Otherwise, activity as tolerated. Collar when she is out of bed. Job ID: [id number]
[2019-05-06] MEDS: Dexamethasone 4 MG TAB PO SCH ×2 (11:58→18:09)
[2019-05-06] MEDS: Loratadine 10 MG TAB PO SCH (21:23)
[2019-05-06] MEDS: Fenofibrate Nanocrystallized 145 MG TAB PO SCH (21:23)
[2019-05-06] MEDS: PARoxetine 20 MG TAB PO SCH (21:24)
[2019-05-06] MEDS: Atorvastatin Calcium 40 MG TAB PO SCH (21:24)
[2019-05-06] MEDS: risperiDONE 1 MG TAB PO SCH (21:24)
[2019-05-06] MEDS: Lisinopril 10 MG TAB PO SCH (21:25)
--- NOTE | 2019-05-06 22:52 | PRG ---
DATE OF SERVICE: 05/06/2019 SUBJECTIVE: The patient remains on the surgical floor. She is status post a ground level fall in which she sustained a right trimalleolar fracture and dislocation. She underwent an open reduction and internal fixation of the same and she has been doing well from that standpoint. She is currently postop day #4. She was also noted to have significant weakness and neuropathy that flared after her fall. She was examined by Neurosurgery who felt that she required decompressive surgery. The patient underwent cervical decompression and is currently postop day #1 from that. Today, she has had no issues. She has been moving around with a wheelchair. She is tolerating a diet. She states that her pain is not adequately controlled at this time. Of note, the patient is a long-time chronic pain patient who has been on MS Contin for many years. OBJECTIVE: VITAL SIGNS: Stable. The patient is afebrile. GENERAL: The patient is currently moving herself about in the hallway with a wheelchair. Her packing attendant strength presumably is equal bilaterally as she is able to maintain a straight forward momentum with her wheelchair. LUNGS: Respirations are nonlabored. EXTREMITIES: Her right lower extremity has a walking boot and the dressing appears to be clean, dry, and intact. The patient is also wearing a fitted cervical collar. ASSESSMENT/PLAN: 1. Status post mechanical fall. 2. Right trimalleolar fracture dislocation, status post open reduction and internal fixation of same. She is postoperative day #4. 3. C2-C5 stenosis with compression syndrome, postoperative day #1, status post decompressive surgery. 4. History of depression, bipolar disorder, chronic kidney disease, diabetes, hypertension. PLAN: Plan will be to continue supportive care. Encourage out of bed, Physical and Occupational Therapy and discuss placement with the patient. She prefers placement in the [place] area. We will make adjustments to her pain medications to add an another dose of morphine available to her p.r.n. for breakthrough pain. The patient asked about resuming her home insulin regimen. Discuss this with her that until we know that she is off her antibiotics and there are no signs of infection, we will keep her on a sliding scale, but we should be able to transition her shortly and she was in agreement with this. Job ID: [id number]
[2019-05-06] MEDS ORDERED: CETIRIZINE 10 MG PO SCH (23:15)
[2019-05-07] MEDS: Morphine IR 10 MG/5 ML UDCUP PO PRN ×2 (00:53→05:16)
[2019-05-07] MEDS: Acetaminophen 500 MG TAB PO SCH ×5 (00:55→23:48)
[2019-05-07] MEDS: Dexamethasone 4 MG TAB PO SCH ×5 (00:55→23:48)
[2019-05-07] MEDS: CEFAZOLIN 2 GM in Premix Bag 1 BAG IVPB SCH (05:19)
--- NOTE | 2019-05-07 06:26 | PDOC.FM ---
- Subjective Subjective: Pt notes improvement in her weakness and sensations today. Still having numbness in hands but notes decreased tremors. Denies any events overnight. Notes some elevation in her sugars and BP since surgery. - Objective Vital Signs & Weight: Vital Signs (12 hours) Temp Pulse Resp BP BP Pulse Ox 05/07/19 03:54 98.1 F 62 18 157/68 H 93 L 05/07/19 01:08 98.4 F 88 20 157/78 H 99 05/06/19 20:00 98.3 F 92 16 147/77 H 93 L 05/06/19 19:26 93 L 05/06/19 19:22 93 L Weight Weight 109.996 kg Most Recent Monitor Data Heart Rate from ECG 87 NIBP 132/76 NIBP BP-Mean 94 Respiration from ECG 22 SpO2 98 I&O: 05/05/19 05/06/19 05/07/19 06:59 06:59 06:59 Intake Total 1205 2545 Output Total 1670 330 Balance -465 2215 Result Diagrams: 05/06/19 04:04 05/06/19 04:04 Phys Exam - Physical Examination Constitutional: NAD Morbidly obese, in wheelchair HEENT: moist MMs, sclera anicteric In c-collar Respiratory: no wheezing, no rales, no rhonchi, clear to auscultation bilateral Cardiovascular: RRR, no significant murmur Gastrointestinal: soft, non-tender Musculoskeletal: no edema, pulses present Neurological: non-focal, moves all 4 limbs Decreased sensation to upper extremities Psychiatric: normal affect, A&O x 3 Skin: no rash, cap refill <2 seconds Dx/Plan (1) Trimalleolar fracture Code(s): S82.853A - DISPLACED TRIMALLEOLAR FRACTURE OF UNSP LOWER LEG, INIT Status: Acute (2) Neurological symptoms Code(s): R29.90 - UNSPECIFIED SYMPTOMS AND SIGNS INVOLVING THE NERVOUS SYSTEM Status: Acute (3) Recurrent falls Code(s): R29.6 - REPEATED FALLS Status: Acute (4) Bipolar disorder Code(s): F31.9 - BIPOLAR DISORDER, UNSPECIFIED Status: Chronic Qualifiers: Active/Remission status: remission status unspecified Qualified Code(s): F31.9 - Bipolar disorder, unspecified (5) CAD (coronary artery disease) Code(s): I25.10 - ATHSCL HEART DISEASE OF [place] CORONARY ARTERY W/O ANG PCTRS Status: Chronic Qualifiers: Coronary Disease-Associated Artery/Lesion type: [place] artery [place] vs. transplanted heart: [place] heart Associated angina: angina presence unspecified Qualified Code(s): I25.10 - Atherosclerotic heart disease of [place] coronary artery without angina pectoris (6) CHF (congestive heart failure) Code(s): I50.9 - HEART FAILURE, UNSPECIFIED Status: Chronic (7) Chronic kidney disease, stage 3 Status: Chronic (8) Chronic pancreatitis Code(s): K86.1 - OTHER CHRONIC PANCREATITIS Status: Chronic (9) Diabetes mellitus type 2 in obese Code(s): E11.9 - TYPE 2 DIABETES MELLITUS WITHOUT COMPLICATIONS; E66.9 - OBESITY , UNSPECIFIED Status: Chronic (10) Hypertension Code(s): I10 - ESSENTIAL (PRIMARY) HYPERTENSION Status: Chronic Qualifiers: Hypertension type: essential hypertension Qualified Code(s): I10 - Essential (primary) hypertension - Plan Plan: This is a 58 yo female with a pmh of DM2, HTN, COPD, Bipolar, and CKD3 who we are consulted for medical management Trimalleolar fracture on the right, closed -POD #5 ORIF -Management by ortho Spinal stenosis -POD #2 following cervical spinal decompression -Drain in place -Noting improvement in strength and sensation DM2 -Continue monitoring blood glucose -Continue home alogliptin -Pt is on aggressive SSI - required 12 units yesterday. This is likely 2/2 decadron and her recent sugar intake. CKD3 -Will monitor, appears at baseline CHF -Continue home torsemide -Last echo, 10/2017 shows normal heart function HTN -continue home lisinopril and metoprolol -Elevated post operatively - may be 2/2 to pain, will continue to monitor, no rx change at this time, non-severe range COPD -Provide respiratory support -Continue home meds Bipolar -Continue home meds
[2019-05-07] MEDS: Gabapentin 400 MG CAP PO SCH ×3 (08:40→20:11)
[2019-05-07] MEDS: Potassium Chloride 20 MEQ TAB PO SCH ×2 (08:40→20:14)
[2019-05-07] MEDS: Alogliptin 25 MG TAB PO SCH (08:41)
[2019-05-07] MEDS: Ferrous Gluconate 324 MG TAB PO SCH ×2 (08:41→20:15)
[2019-05-07] MEDS: Magnesium Oxide 250 MG TAB PO SCH ×2 (08:41→20:15)
[2019-05-07] MEDS: Metoprolol Tartrate 25 MG TAB PO SCH ×2 (08:42→20:15)
[2019-05-07] MEDS: Folic Acid 1 MG TAB PO SCH (08:42)
[2019-05-07] MEDS: Multivitamin W/ Minerals 1 TAB PO SCH (08:42)
[2019-05-07] MEDS: Pantoprazole 40 MG VIAL IVP SCH (08:43)
[2019-05-07] MEDS: Insulin Glargine 10 UNITS in Pre-Filled Syringe SC SCH (08:44)
[2019-05-07] MEDS: Senokot S 8.6-50 MG TAB PO SCH ×2 (08:44→20:15)
[2019-05-07] MEDS: Insulin Regular 300 UNITS/3 ML VIAL SC PRN (08:45)
[2019-05-07] MEDS ORDERED: Loratadine 10 MG TAB PO SCH (09:00)
--- NOTE | 2019-05-07 09:08 | PRG ---
DATE OF SERVICE: 05/07/2019 Ms. Ang is postop day #2 after posterior cervical decompression with Dr. Dowling. She has a fair amount of neck pain, but also has chronic pain elsewhere, takes morphine daily for this. She appears to me to be in great spirits, is talkative, and does not appear to have any limitation in her range of motion in her bilateral upper extremities. She is in a wheelchair secondary to nonweightbearing status for ankle fracture and fixation with orthopedic screw. The drain output has tapered tremendously, and we will remove that today. Her incision is dry, well approximated with no concern for dehiscence. There is no drainage. Overall, I think this looks quite well. Neurosurgery is planning to continue to follow along and track her healing. She has some concerns about some give-way weakness that has returned today, which had abated today after surgery. I think this very well may be related to inflammatory changes in the surgical bed. We will start some steroid treatment and see if this improves. If not, we may have to consider potentially reimaging sooner than we normally would. We will recheck in the morning. Job ID: [id number]
[2019-05-07] MEDS: Morphine ER 15 MG TAB PO SCH ×4 (09:20→20:12)
[2019-05-07] MEDS: Polyethylene Glycol 3350 17 GM Packet PO SCH (10:02)
--- NOTE | 2019-05-07 10:49 | PRG ---
DATE OF SERVICE: 05/07/2019 SUBJECTIVE: Ms. Ang is a 58-year-old female, status post mechanical fall in which she sustained right trimalleolar fracture and dislocation. She also has a history of diabetes, hypertension, chronic kidney disease, depression, bipolar, and C5 stenosis. She underwent ORIF of right trimalleolar fracture postop day 5, and she underwent C5 stenosis decompression with Neurosurgery. Postop day 2 today, she complained of some degree of pain with activity. She got another dose of morphine liquid p.r.n. yesterday. Her blood sugar is moderately controlled. Her vital signs are stable. She has been working PT/OT. She was ambulatory around the floor using a wheelchair today. Her urine is adequate. She tolerated with her regular diet. OBJECTIVE: GENERAL: The patient is lying in bed with no acute respiratory distress. VITAL SIGNS: Temperature 98, heart rate 60, respiratory rate 12, O2 saturation 97% on room air, blood pressure 149/80. LUNGS: Clear bilaterally. HEART: Regular rate and rhythm. ABDOMEN: Soft, nondistended. EXTREMITIES: pulse 2 ++ bilateral. Right lower extremity postop dressing clean, dry, intact. NEUROLOGY: C5 collar is on, fitted well. Postop draining posterior neck LITA is 60ml for 24 hours yesterday. ASSESSMENT: 1. Status post mechanical fall. 2. Right trimalleolar fracture and dislocation, status post open reduction and internal fixation of right trimalleolar fracture and dislocation postoperative day 5; C2-C5 stenosis and compression syndrome, status post decompression surgery with Neurosurgery postoperative day 2; history of diabetes; hypertension; chronic kidney disease; depression and bipolar. PLAN: Will be to continue supportive care. Continue pain control. We will ask Neurosurgery and Pharmacology call DVT prophylaxis. Continue working with PT and OT. Plan placement in [facility]. Job ID: [id number] MTDD
[2019-05-07] MEDS: Pancrelipase DR 12000 1 CAP PO SCH ×3 (12:08→17:27)
[2019-05-07] MEDS: Torsemide 20 MG TAB PO SCH ×2 (12:13→20:11)
[2019-05-07] MEDS: fentaNYL 50 mcg/hour Patch TD SCH (13:29)
[2019-05-07] MEDS: Fluticasone Propionate Nasal Spray 16 gm Bottle NASAL SCH (13:33)
[2019-05-07] MEDS: Ferrous Sulfate 325 MG TAB PO SCH (17:28)
[2019-05-07] MEDS: Insulin Regular 300 UNITS/3 ML VIAL SC SCH (17:28)
[2019-05-07] MEDS: Cyclobenzaprine 10 MG TAB PO PRN (18:18)
--- NOTE | 2019-05-07 18:54 | PRG ---
DATE OF SERVICE: 05/07/2019 Please see note from Dr. Wei Pena, for which I agree. The patient is seen, evaluated, discussed and examined with the residents by bedside. We are here following her after she had a fall which led to a right trimalleolar fracture that was repaired and then spinal stenosis that was decompressed and repaired. following along medically, taking care of diabetes, hypertension, and COPD, which have all been well controlled on current medicines and the plan is to continue those medicines while she recovers from the surgeries. Job ID: [id number]
[2019-05-07] MEDS: CETIRIZINE 10 MG PO SCH (20:10)
[2019-05-07] MEDS: Fenofibrate Nanocrystallized 145 MG TAB PO SCH (20:11)
[2019-05-07] MEDS: risperiDONE 1 MG TAB PO SCH (20:13)
[2019-05-07] MEDS: PARoxetine 20 MG TAB PO SCH (20:13)
[2019-05-07] MEDS: Atorvastatin Calcium 40 MG TAB PO SCH (20:14)
[2019-05-07] MEDS: Ascorbic Acid 500 mg Chewable Tablet PO SCH (20:15)
[2019-05-07] MEDS: Lisinopril 10 MG TAB PO SCH (20:15)
[2019-05-08] MEDS: Insulin Regular 300 UNITS/3 ML VIAL SC SCH ×5 (00:02→23:39)
--- NOTE | 2019-05-08 00:04 | PRG ---
DATE OF SERVICE: SUBJECTIVE: The patient remains on the surgical floor. She is status post a right trimalleolar fracture dislocation. She underwent open reduction and internal fixation. She is postop day 5 from that procedure. She also while here underwent a C5 decompression surgery with Neurosurgery. She is postop day 2 from that procedure. She has been doing well. She is moving herself around independently in a wheelchair. Her pain is controlled. She is tolerating a diet, and her bowel function has returned. PHYSICAL EXAMINATION: VITAL SIGNS: Stable. The patient is afebrile. GENERAL: The patient is sitting beside her bed. She appears in no distress or discomfort. ASSESSMENT/PLAN: 1. Status post ground-level fall. 2. Status post open reduction and internal fixation of right trimalleolar fracture dislocation. 3. Status post C2-C5 stenosis and decompression surgery. Plan will be to continue supportive care and await final placement decision. Job ID: [id number]
[2019-05-08] MEDS: Dexamethasone 4 MG TAB PO SCH (05:16)
[2019-05-08] MEDS: Acetaminophen 500 MG TAB PO SCH ×4 (05:16→23:39)
[2019-05-08] MEDS: Cyclobenzaprine 10 MG TAB PO PRN ×2 (05:24→21:33)
--- NOTE | 2019-05-08 08:01 | PDOC.FM ---
- Subjective Subjective: Notes improved pain control. Denies any complaints at this time. Is working with PT daily and tolerating. [facility] - Objective Vital Signs & Weight: Vital Signs (12 hours) Temp Pulse Resp BP BP BP Pulse Ox 05/08/19 07:27 98.3 F 74 18 136/83 96 05/08/19 07:04 100 05/08/19 07:02 80 12 05/08/19 04:00 98.4 F 86 18 135/70 94 L 05/07/19 23:45 98.3 F 73 16 149/87 H 95 05/07/19 20:15 148/84 H Weight Weight 109.996 kg Most Recent Monitor Data Heart Rate from ECG 87 NIBP 132/76 NIBP BP-Mean 94 Respiration from ECG 22 SpO2 98 I&O: 05/07/19 05/08/19 05/09/19 06:59 06:59 06:59 Intake Total 2545 1750 Output Total 350 Balance 2195 1750 Result Diagrams: 05/06/19 04:04 05/06/19 04:04 Phys Exam - Physical Examination Constitutional: NAD HEENT: moist MMs, sclera anicteric c-collar Respiratory: no wheezing, no rales, no rhonchi, clear to auscultation bilateral Cardiovascular: RRR, no significant murmur Gastrointestinal: soft, non-tender Musculoskeletal: no edema, pulses present Neurological: non-focal, normal sensation Psychiatric: normal affect, A&O x 3 Skin: no rash, cap refill <2 seconds Dx/Plan (1) Trimalleolar fracture Code(s): S82.853A - DISPLACED TRIMALLEOLAR FRACTURE OF UNSP LOWER LEG, INIT Status: Acute (2) Neurological symptoms Code(s): R29.90 - UNSPECIFIED SYMPTOMS AND SIGNS INVOLVING THE NERVOUS SYSTEM Status: Acute (3) Recurrent falls Code(s): R29.6 - REPEATED FALLS Status: Acute (4) Bipolar disorder Code(s): F31.9 - BIPOLAR DISORDER, UNSPECIFIED Status: Chronic Qualifiers: Active/Remission status: remission status unspecified Qualified Code(s): F31.9 - Bipolar disorder, unspecified (5) CAD (coronary artery disease) Code(s): I25.10 - ATHSCL HEART DISEASE OF [place] CORONARY ARTERY W/O ANG PCTRS Status: Chronic Qualifiers: Coronary Disease-Associated Artery/Lesion type: [place] artery [place] vs. transplanted heart: [place] heart Associated angina: angina presence unspecified Qualified Code(s): I25.10 - Atherosclerotic heart disease of [place] coronary artery without angina pectoris (6) CHF (congestive heart failure) Code(s): I50.9 - HEART FAILURE, UNSPECIFIED Status: Chronic (7) Chronic kidney disease, stage 3 Status: Chronic (8) Chronic pancreatitis Code(s): K86.1 - OTHER CHRONIC PANCREATITIS Status: Chronic (9) Diabetes mellitus type 2 in obese Code(s): E11.9 - TYPE 2 DIABETES MELLITUS WITHOUT COMPLICATIONS; E66.9 - OBESITY , UNSPECIFIED Status: Chronic (10) Hypertension Code(s): I10 - ESSENTIAL (PRIMARY) HYPERTENSION Status: Chronic Qualifiers: Hypertension type: essential hypertension Qualified Code(s): I10 - Essential (primary) hypertension - Plan Plan: This is a 58 yo female with a pmh of DM2, HTN, COPD, Bipolar, and CKD3 who we are consulted for medical management Trimalleolar fracture on the right, closed -POD #5 ORIF -Management by ortho Spinal stenosis -POD #2 following cervical spinal decompression -Drain in place -Noting improvement in strength and sensation DM2 -Continue monitoring blood glucose -Continue home alogliptin -Pt is on aggressive SSI - elevated glucose levels. This is likely 2/2 decadron and her recent sugar intake. CKD3 -Will monitor, appears at baseline CHF -Continue home torsemide -Last echo, 10/2017 shows normal heart function HTN -continue home lisinopril and metoprolol -Elevated post operatively - may be 2/2 to pain, will continue to monitor, no rx change at this time, non-severe range COPD -Provide respiratory support -Continue home meds Bipolar -Continue home meds
[2019-05-08] MEDS: Ferrous Sulfate 325 MG TAB PO SCH ×2 (08:27→16:46)
[2019-05-08] MEDS: Morphine ER 15 MG TAB PO SCH ×4 (08:27→21:34)
[2019-05-08] MEDS: Pancrelipase DR 12000 1 CAP PO SCH ×3 (08:27→17:53)
[2019-05-08] MEDS: Gabapentin 400 MG CAP PO SCH ×3 (08:27→21:33)
[2019-05-08] MEDS: Polyethylene Glycol 3350 17 GM Packet PO SCH (08:29)
[2019-05-08] MEDS: Fluticasone Propionate Nasal Spray 16 gm Bottle NASAL SCH (08:29)
[2019-05-08] MEDS: Alogliptin 25 MG TAB PO SCH (08:30)
[2019-05-08] MEDS: Ferrous Gluconate 324 MG TAB PO SCH ×2 (08:31→21:33)
[2019-05-08] MEDS: Senokot S 8.6-50 MG TAB PO SCH ×2 (08:31→21:33)
[2019-05-08] MEDS: Magnesium Oxide 250 MG TAB PO SCH ×2 (08:31→21:33)
[2019-05-08] MEDS: Folic Acid 1 MG TAB PO SCH (08:31)
[2019-05-08] MEDS: Potassium Chloride 20 MEQ TAB PO SCH ×2 (08:31→21:33)
[2019-05-08] MEDS: Multivitamin W/ Minerals 1 TAB PO SCH (08:32)
[2019-05-08] MEDS: Metoprolol Tartrate 25 MG TAB PO SCH ×2 (08:32→21:33)
[2019-05-08] MEDS: Ascorbic Acid 500 mg Chewable Tablet PO SCH ×2 (08:32→21:33)
[2019-05-08] MEDS: Insulin Glargine 10 UNITS in Pre-Filled Syringe SC SCH (08:33)
--- NOTE | 2019-05-08 09:40 | PRG ---
DATE OF SERVICE: 05/08/2019 Ms. Ang is status post cervical decompression and fusion. She is resting comfortably in her room today. She is sitting in her wheelchair and has been eating. She has been mobilizing in the hallways in the wheelchair. She has ankle orthosis on which prohibits her from an attempt to weightbear. Her arm strength is quite solid. Drains were removed yesterday in the cervical spine region. She has chosen to pursue a Swing Bed in [place] over rehab given its proximity to her home. The Case Management is working to make those arrangements. Once they have been arranged, she can be discharged at any time. Job ID: [id number]
--- NOTE | 2019-05-08 09:42 | PRG ---
DATE OF SERVICE: 05/08/2019 SUBJECTIVE: Ms. Ang is a 58-year-old female, status post mechanical fall in which she sustained right trimalleolar fracture and dislocation. She underwent ORIF of right trimalleolar fracture and dislocation. She also suffered from C2-C5 stenosis with compression syndrome. She underwent decompression surgery with Neurosurgery. Postop day 3, her motor function of the upper extremity has come back, but she reports her sensation has not yet normalized. She has been working with PT/OT yesterday. She using wheelchair and mobilized around the floor very good. Her pain is well controlled. She is not yet sleeping well and her bowel regimen is normal. OBJECTIVE: GENERAL: The patient is lying down in bed with no acute respiratory distress. VITAL SIGNS: Temperature 98.3, heart rate 74, respiratory rate 18, O2 saturation 96% on room air, blood pressure 136/83. LUNGS: Clear bilaterally. HEART: Regular rate and rhythm. ABDOMEN: Soft, nondistended. Bowel sounds are active. EXTREMITIES: Right lower extremity, postop dressing is clean, dry, and intact. Upper extremity muscle strength is 4/5. Sensation is diminished. NEUROLOGIC: C5 collar is on, fitting well. No chain of neuro deficits since yesterday. ASSESSMENT: 1. Status post mechanical fall. 2. Right trimalleolar fracture and dislocation, status post open reduction and internal fixation of right trimalleolar fracture and dislocation, postop day 6. C2-C5 spinal stenosis with compression syndrome, status post decompression surgery with Neurosurgery, postop day 3. 3. History of diabetes, hypertension, chronic kidney disease, depression and bipolar. PLAN: Continue supportive care. Continue pain control. Will be asking Neurosurgery on DVT prophylaxis. Continue working with PT/OT. Plan placement in [facility]. Job ID: [id number]
--- NOTE | 2019-05-08 11:30 | CON ---
DATE OF CONSULTATION: Please see note from Dr. White, for which I agree. The patient was seen, evaluated, discussed, and examined with the residents by bedside. She is status post both C-spine surgery and right trimalleolar fracture fixation. We are following her for blood pressure and diabetes. She is on the sliding scale, back on her diabetes management. Doing better now that her steroids are being weaned off. Blood pressure control seems better now. It sounds like probably going to rehab in the next couple of days. We will continue the same diabetes and blood pressure medicines there. Job ID: [id number]
[2019-05-08] MEDS: Pantoprazole 40 MG VIAL IVP SCH (12:02)
[2019-05-08] MEDS: Dexamethasone 1 MG TAB PO SCH ×3 (12:02→23:39)
[2019-05-08] MEDS: Torsemide 20 MG TAB PO SCH ×2 (12:52→21:35)
--- NOTE | 2019-05-08 21:26 | OP ---
DATE OF PROCEDURE: 05/05/2019 Modifier 57 should be added to this surgery as the decision to operate was made on the day I saw the patient. GENERAL MACHINE OPERATOR: Marleny. PREPROCEDURE DIAGNOSIS: Spinal cord compression with quadriparesis with proximal adjacent segment disease. PROCEDURES: 1. C2-C3, C3-C4, C4-C5 laminectomies, partial facetectomies, and foraminotomies. 2. Assessment of fusion at C4-C5. 3. Removal of hardware, C4-C5. 4. Arthrodesis of posterolateral C2-C3, C3-C4. 5. Placement screw guillermo fixation, C2, C3, C4, C5. DESCRIPTION OF PROCEDURE: After informed consent was obtained from the patient, the patient was brought to the OR. Proper patient, pause, and identification were carried out. She was placed under excellent general endotracheal anesthesia and positioned prone on the OR table. Following the placement of the [place] head filter press tender and cervical spine in neutral position, the prior wound was identified. Hair was clipped. This region was sterilely cleansed, prepared, and draped. Proper patient, pause, and identification were carried out. The wound was then opened with a combination of sharp, monopolar, and blunt dissection. The C2, C3, C4, C5 segments were exposed. She had fused C4-C5. We then did C2, C3, C4, C5 laminectomies, partial facetectomy, and foraminotomies. Interspinous wiring hardware was removed at C4-C5 to maximize decompression. We then placed screws at C2, C3, C4, C5 with gross and fluoroscopic visualization. Rods were placed. Final tightening occurred. Posterolateral arthrodesis was initiated at C2, C3, C4 as the patient was already fused, C4-C5 was not necessary to fuse at segment. Copious irrigation occurred throughout as did maximizing hemostasis. The wound was then closed in anatomic layers following sprinkling of vancomycin powder. Job ID: [id number]
[2019-05-08] MEDS: CETIRIZINE 10 MG PO SCH (21:32)
[2019-05-08] MEDS: risperiDONE 1 MG TAB PO SCH (21:33)
[2019-05-08] MEDS: Atorvastatin Calcium 40 MG TAB PO SCH (21:33)
[2019-05-08] MEDS: PARoxetine 20 MG TAB PO SCH (21:34)
[2019-05-08] MEDS: Lisinopril 10 MG TAB PO SCH (21:34)
[2019-05-08] MEDS: Fenofibrate Nanocrystallized 145 MG TAB PO SCH (21:35)
--- NOTE | 2019-05-08 22:25 | PRG ---
DATE OF SERVICE: SUBJECTIVE: The patient remains on the surgical floor. The patient is status post mechanical fall with a right trimalleolar fracture and dislocation. The patient is postop day #6 status post open reduction and internal fixation. The patient is also postop day #3 for decompression of C2 through C5. She does report some [id number] pain in her neck and right ankle currently. The patient states that the fentanyl patch only lasts about 2 days instead of 3. OBJECTIVE: VITAL SIGNS: Stable, afebrile. GENERAL: Middle-aged female, sitting up in wheelchair, no acute distress. LUNGS: Good inspiratory and expiratory effort, no respiratory distress. MUSCULOSKELETAL: Right lower extremity postop dressing clean, dry and intact, walking boot in place. Well-fitting cervical collar in place. Decreased sensation in all extremities. Continued upper extremity muscle strength is 4/5. ASSESSMENT: 1. Status post mechanical fall. 2. Right trimalleolar fracture and dislocation, status post open reduction and internal fixation, postop day #6. 3. C2 through C5 spinal stenosis with compression syndrome, status post decompression surgery with Neurosurgery, postop day #3. 4. History of diabetes, hypertension, chronic kidney disease, depression, and bipolar. PLAN: Continue supportive care. Continue pain control. Continue to have the patient work with Physical and Occupational Therapy. The patient is pending placement to [facility]. Job ID: [id number]
[2019-05-09] MEDS: Morphine IR 10 MG/5 ML UDCUP PO PRN ×2 (00:02→14:45)
--- NOTE | 2019-05-09 06:18 | PDOC.FM ---
- Subjective Subjective: Pt states she is doing well this morning. Pt c/o pain that is worse on the third day of the fentanyl patch. Pt states she needs more emotional support from friends and family, requesting to be at rehab closer to home. Pt states she is usually on Buproprion for smoking cessation, pt has felt an increased urge to smoke the past X2 days. Stepping outside to smoke several times. Pt would like buproprion restarted. - Objective Vital Signs & Weight: Vital Signs (12 hours) Temp Pulse Resp BP BP BP Pulse Ox 05/09/19 03:59 98.4 F 66 16 127/76 95 05/08/19 23:16 98.6 F 68 16 132/68 98 05/08/19 21:34 161/82 H 05/08/19 21:33 98.5 F 92 16 161/82 H 94 L 05/08/19 19:11 76 14 95 Weight Weight 109.996 kg Most Recent Monitor Data Heart Rate from ECG 87 NIBP 132/76 NIBP BP-Mean 94 Respiration from ECG 22 SpO2 98 I&O: 05/07/19 05/08/19 05/09/19 06:59 06:59 06:59 Intake Total 2545 1750 Output Total 350 Balance 2195 1750 Result Diagrams: 05/06/19 04:04 05/06/19 04:04 Phys Exam - Physical Examination Constitutional: NAD HEENT: moist MMs, sclera anicteric Pt in C-collar. Decreased Rotation of neck. Respiratory: no wheezing, no rales, no rhonchi, clear to auscultation bilateral Cardiovascular: RRR, no significant murmur, no rub Gastrointestinal: soft, non-tender, no distention, positive bowel sounds R boot on foot, reaches up to knee. Decreased strength of L sided extremities. Decreased sensation on R extremi Psychiatric: normal affect, A&O x 3 Skin: no rash, normal turgor, cap refill <2 seconds Dx/Plan (1) Trimalleolar fracture Code(s): S82.853A - DISPLACED TRIMALLEOLAR FRACTURE OF UNSP LOWER LEG, INIT Status: Acute Qualifiers: Laterality: right (2) Bipolar disorder Code(s): F31.9 - BIPOLAR DISORDER, UNSPECIFIED Status: Chronic Qualifiers: Active/Remission status: remission status unspecified Qualified Code(s): F31.9 - Bipolar disorder, unspecified (3) CHF (congestive heart failure) Code(s): I50.9 - HEART FAILURE, UNSPECIFIED Status: Chronic Qualifiers: Heart failure type: diastolic Heart failure chronicity: chronic Qualified Code(s): I50.32 - Chronic diastolic (congestive) heart failure (4) Diabetes mellitus type 2 in obese Code(s): E11.9 - TYPE 2 DIABETES MELLITUS WITHOUT COMPLICATIONS; E66.9 - OBESITY , UNSPECIFIED Status: Chronic (5) Hyperlipidemia Code(s): E78.5 - HYPERLIPIDEMIA, UNSPECIFIED Status: Chronic Qualifiers: Hyperlipidemia type: unspecified Qualified Code(s): E78.5 - Hyperlipidemia , unspecified (6) Hypertension Code(s): I10 - ESSENTIAL (PRIMARY) HYPERTENSION Status: Chronic Qualifiers: Hypertension type: essential hypertension Qualified Code(s): I10 - Essential (primary) hypertension (7) Peripheral neuropathy Code(s): G62.9 - POLYNEUROPATHY, UNSPECIFIED Status: Chronic Qualifiers: Peripheral neuropathy type: polyneuropathy, unspecified Qualified Code(s): G62.9 - Polyneuropathy, unspecified (8) Tobacco abuse Code(s): Z72.0 - TOBACCO USE Status: Chronic (9) Cervical stenosis of spinal canal Code(s): M48.02 - SPINAL STENOSIS, CERVICAL REGION Status: Acute - Plan Plan: This is a 58 yo female with a pmh of DM2, HTN, COPD, Bipolar, and CKD3 who we are consulted for medical management Trimalleolar fracture on the right, closed -POD #5 ORIF -Management by ortho Spinal stenosis of C2-C5 -S/P cervical spinal decompression and cervical fusion -Drain removed 05/08 -Noting improvement in strength and sensation. R sided paresthesia and L sided weakness. Improving. DM2 -Continue monitoring blood glucose -Continue home alogliptin -Pt is on aggressive SSI - elevated glucose levels. This is likely 2/2 decadron and her recent sugar intake. CKD3 -Will monitor, appears at baseline CHF -Continue home torsemide -Last echo, 10/2017 shows normal heart function HTN -continue home lisinopril and metoprolol -Elevated post operatively - may be 2/2 to pain, will continue to monitor, no rx change at this time, non-severe range COPD -Provide respiratory support -Continue home meds Bipolar -Continue home meds Dispo: Stable, inpatient. continue current therapy. Possible transfer to [place].
[2019-05-09] MEDS: Insulin Regular 300 UNITS/3 ML VIAL SC SCH (06:19)
[2019-05-09] MEDS: Dexamethasone 1 MG TAB PO SCH ×4 (06:21→23:37)
[2019-05-09] MEDS: Acetaminophen 500 MG TAB PO SCH ×4 (06:21→23:36)
[2019-05-09] MEDS: Ferrous Sulfate 325 MG TAB PO SCH ×2 (08:15→17:47)
[2019-05-09] MEDS ORDERED: Dextrose 5% in Water 1,000 ML IV PRN (09:21)
[2019-05-09] MEDS ORDERED: HumaLOG 300 UNITS/3 ML VIAL SC PRN ×2 (09:21)
[2019-05-09] MEDS ORDERED: Dextrose 50% Abboject 50 ML SYRINGE SLOW IVP PRN (09:21)
--- NOTE | 2019-05-09 09:29 | PRG ---
DATE OF SERVICE: 05/09/2019 This is Kt Farmer PA-C dictating a report for Malcom Dowling MD. Ms. Ang is postoperative day #4, having undergone posterior cervical laminectomies, fusion for significant spinal cord compression and myelopathy. The patient overall feels as though she is doing well. She does remain with a generalized weakness in all the extremities, but her exam remains at baseline cervical spine surgery. She has some neck pain and right ankle pain, but does not complain of any pain into the bilateral upper extremities. She is continuing to move with more vigor than she was preoperatively. Her posterior cervical drain was removed. Her incision is healing well. She remains again with a generalized weakness in all the extremities, though appears to be more significant on the left than the right. Overall, I should note the patient is very pleased with her progress and she is ready for discharge to [facility] at any time. We will plan to follow up with her in 3 weeks for an incision check and then again at 6 weeks postop with cervical spine x-rays pleased with the way the patient is progressing. The patient should be wearing her collar anytime she is up, walking around, but does not need to wear this when she is sitting in chair, when she lies in bed. Job ID: [id number]
[2019-05-09] MEDS: Gabapentin 400 MG CAP PO SCH ×3 (09:44→20:22)
[2019-05-09] MEDS: Insulin Glargine 10 UNITS in Pre-Filled Syringe SC SCH (09:44)
[2019-05-09] MEDS: Fluticasone Propionate Nasal Spray 16 gm Bottle NASAL SCH (09:44)
[2019-05-09] MEDS: Potassium Chloride 20 MEQ TAB PO SCH ×2 (09:44→20:23)
[2019-05-09] MEDS: Magnesium Oxide 250 MG TAB PO SCH ×2 (09:45→20:22)
[2019-05-09] MEDS: Alogliptin 25 MG TAB PO SCH (09:45)
[2019-05-09] MEDS: Ferrous Gluconate 324 MG TAB PO SCH ×2 (09:45→20:23)
[2019-05-09] MEDS: Folic Acid 1 MG TAB PO SCH (09:45)
[2019-05-09] MEDS: Metoprolol Tartrate 25 MG TAB PO SCH ×2 (09:45→20:24)
[2019-05-09] MEDS: Pancrelipase DR 12000 1 CAP PO SCH ×3 (09:45→17:46)
[2019-05-09] MEDS: Senokot S 8.6-50 MG TAB PO SCH ×2 (09:46→20:23)
[2019-05-09] MEDS: Morphine ER 15 MG TAB PO SCH ×4 (09:46→20:24)
[2019-05-09] MEDS: Ascorbic Acid 500 mg Chewable Tablet PO SCH ×2 (09:46→20:23)
[2019-05-09] MEDS: Torsemide 20 MG TAB PO SCH ×2 (09:46→20:22)
[2019-05-09] MEDS: Multivitamin W/ Minerals 1 TAB PO SCH (09:46)
[2019-05-09] MEDS: Bupropion 150 MG SR TAB PO SCH (09:49)
[2019-05-09] MEDS: Pantoprazole 40 MG VIAL IVP SCH (09:51)
[2019-05-09] MEDS: Famotidine 20 MG TAB PO SCH ×2 (09:54→20:23)
[2019-05-09] MEDS: Polyethylene Glycol 3350 17 GM Packet PO SCH (09:54)
[2019-05-09] MEDS: cloNIDine 0.1 MG TAB PO SCH ×3 (12:17→23:36)
[2019-05-09] MEDS: Enoxaparin Sodium 40 MG/0.4 ML SYRINGE SC SCH (12:17)
--- NOTE | 2019-05-09 13:27 | ULT ---
EXAM: Bilateral lower extremity venous Doppler US HISTORY: bilateral lower extremity edema and pain FINDINGS: Grayscale, color-flow, Doppler evaluation, spectral analysis of the bilateral lower extremities venou s structures is performed with 2-D imaging. The bilateral common femoral, superficial femoral, popliteal, posterior tibial, proximal greater saphenous and profunda femoral veins are imaged. There is normal luminal compressibility, flow, and augmentation in the visualized deep venous structu res of the bilateral lower extremities. The right posterior tibial vein was not evaluated due to the presence of cast and boot. There is a 4 x 2.2 x 1.3 cm avascular cyst in the left popliteal fossa . IMPRESSION: No evidence of a deep vein thrombosis in either lower extremity. Left-sided Henriquez's cyst.
--- NOTE | 2019-05-09 17:34 | PRG ---
DATE OF SERVICE: 05/09/2019 Ms. Ang was admitted with a trimalleolar fracture and we have been consulted for her medical problems. She also had C-spine surgery for spinal stenosis. We are following her blood pressure and diabetes. She also has the possibility of sleep apnea and has been discussing with her PCP a sleep study done as an outpatient. We will continue to monitor blood pressure and diabetes. Job ID: [id number]
[2019-05-09] MEDS: CETIRIZINE 10 MG PO SCH (20:20)
[2019-05-09] MEDS: risperiDONE 1 MG TAB PO SCH (20:22)
[2019-05-09] MEDS: Cyclobenzaprine 10 MG TAB PO PRN (20:22)
[2019-05-09] MEDS: Lisinopril 10 MG TAB PO SCH (20:23)
[2019-05-09] MEDS: Fenofibrate Nanocrystallized 145 MG TAB PO SCH (20:23)
[2019-05-09] MEDS: Atorvastatin Calcium 40 MG TAB PO SCH (20:24)
[2019-05-09] MEDS: PARoxetine 20 MG TAB PO SCH (20:28)
--- NOTE | 2019-05-09 23:03 | PRG ---
DATE OF SERVICE: SUBJECTIVE: Patient remains on the surgical floor. Patient is moving herself around in the wheelchair currently. Patient with a well-fitting cervical collar in place. Patient continues to have a walking boot to the right lower extremity. Patient voices no complaints or concerns at this time. Patient is pending placement to [facility] bed pending insurance approval. We will continue chemical and mechanical DVT prophylaxis. We will continue to have Physical and Occupational Therapy work with the patient. We will continue pain regimen. The plan was discussed with the patient who agrees. Job ID: [id number]
[2019-05-10] MEDS: Acetaminophen 500 MG TAB PO SCH ×2 (05:53→12:09)
[2019-05-10] MEDS: Dexamethasone 1 MG TAB PO SCH (05:53)
[2019-05-10] MEDS: cloNIDine 0.1 MG TAB PO SCH ×2 (05:55→12:12)
--- NOTE | 2019-05-10 06:41 | PDOC.FM ---
- Subjective Subjective: Patient complains of twitching of her upper extremities. Patient also states she is having some intermittent weakness while using the wheelchair. Patient was informed by neurosurgery that this might be a complication for up to 18 months post surgery. Patient denies inadequate control the pain today. Pt states she would be willing to go to inpatient rehab, as her insurance will not cover SNF. - Objective MAR Reviewed: Yes Vital Signs & Weight: Vital Signs (12 hours) Temp Pulse Resp BP BP Pulse Ox 05/10/19 05:55 99/65 05/10/19 05:20 98.1 F 60 16 99/65 100 05/10/19 02:43 96 05/09/19 23:36 132/71 05/09/19 23:25 98.0 F 67 16 132/71 97 05/09/19 20:23 109/64 Weight Weight 109.996 kg Most Recent Monitor Data Heart Rate from ECG 87 NIBP 132/76 NIBP BP-Mean 94 Respiration from ECG 22 SpO2 98 I&O: 05/08/19 05/09/19 05/10/19 06:59 06:59 06:59 Intake Total 8787 530 0848 Balance 3299 344 6141 Result Diagrams: 05/06/19 04:04 05/06/19 04:04 Phys Exam - Physical Examination Constitutional: NAD HEENT: moist MMs Neck: no JVD Deminished ROM of C-spine, rotation < flexion. Respiratory: no wheezing, no rales, no rhonchi, clear to auscultation bilateral Cardiovascular: RRR, no significant murmur, no rub Gastrointestinal: soft, non-tender, no distention, positive bowel sounds Musculoskeletal: no edema, pulses present BUE weakness, 4/5. Slight tremor in RUE with movement. Psychiatric: normal affect, A&O x 3 Skin: no rash, normal turgor, cap refill <2 seconds Dx/Plan (1) Trimalleolar fracture Code(s): S82.853A - DISPLACED TRIMALLEOLAR FRACTURE OF UNSP LOWER LEG, INIT Status: Acute Qualifiers: Laterality: right (2) Bipolar disorder Code(s): F31.9 - BIPOLAR DISORDER, UNSPECIFIED Status: Chronic Qualifiers: Active/Remission status: remission status unspecified Qualified Code(s): F31.9 - Bipolar disorder, unspecified (3) CHF (congestive heart failure) Code(s): I50.9 - HEART FAILURE, UNSPECIFIED Status: Chronic Qualifiers: Heart failure type: diastolic Heart failure chronicity: chronic Qualified Code(s): I50.32 - Chronic diastolic (congestive) heart failure (4) Diabetes mellitus type 2 in obese Code(s): E11.9 - TYPE 2 DIABETES MELLITUS WITHOUT COMPLICATIONS; E66.9 - OBESITY , UNSPECIFIED Status: Chronic (5) Hyperlipidemia Code(s): E78.5 - HYPERLIPIDEMIA, UNSPECIFIED Status: Chronic Qualifiers: Hyperlipidemia type: unspecified Qualified Code(s): E78.5 - Hyperlipidemia , unspecified (6) Hypertension Code(s): I10 - ESSENTIAL (PRIMARY) HYPERTENSION Status: Chronic Qualifiers: Hypertension type: essential hypertension Qualified Code(s): I10 - Essential (primary) hypertension (7) Peripheral neuropathy Code(s): G62.9 - POLYNEUROPATHY, UNSPECIFIED Status: Chronic Qualifiers: Peripheral neuropathy type: polyneuropathy, unspecified Qualified Code(s): G62.9 - Polyneuropathy, unspecified (8) Tobacco abuse Code(s): Z72.0 - TOBACCO USE Status: Chronic (9) Cervical stenosis of spinal canal Code(s): M48.02 - SPINAL STENOSIS, CERVICAL REGION Status: Acute - Plan Plan: This is a 58 yo female with a pmh of DM2, HTN, COPD, Bipolar, and CKD3 who we are consulted for medical management Trimalleolar fracture on the right, closed -s/p ORIF -Pain well managed, continue rehab PT/OT Spinal stenosis of C2-C5 -S/P cervical spinal decompression and cervical fusion -Drain removed 05/08 -Noting improvement in strength and sensation. R sided paresthesia and L sided weakness. Improving. DM2 -Continue monitoring blood glucose -Continue home alogliptin, restarted -Pt is on mod SSI - elevated glucose levels. This is likely 2/2 decadron and her recent sugar intake. - Increased dose of lantus to 20 units Qam. CKD3 -Will monitor, appears at baseline CHF -Continue home torsemide -Last echo, 10/2017 shows normal heart function HTN -continue home lisinopril and metoprolol -Elevated post operatively - may be 2/2 to pain, will continue to monitor, no rx change at this time, non-severe range COPD -Provide respiratory support -Continue home meds Bipolar -Continue home meds Dispo: Stable, inpatient. continue current therapy. Possible transfer to [place].
--- NOTE | 2019-05-10 08:20 | PRG ---
DATE OF SERVICE: 05/09/2019 SUBJECTIVE: Ms. Ang is a 58-year-old female, status post mechanical fall. She sustained right trimalleolar fracture and dislocation. She underwent ORIF of right trimalleolar fracture and dislocation, postoperative day 8. She also suffered from C2 through C5 stenosis with compression syndrome. She underwent decompression surgery with Neurosurgery, postoperative day 4. Her motor function of upper extremity has come back slowly. Her sensation has not yet normalized. She has been working with PT and OT. She has been using wheelchair and mobilized around the floor very good. Her pain is well controlled. She tolerated regular diet. Her vital signs are stable. OBJECTIVE: GENERAL: The patient is lying down in bed with no acute respiratory distress. VITAL SIGNS: Temperature 97.8, heart rate 89, respiratory rate 18, O2 saturation 94% on room air, and blood pressure 108/64. LUNGS: Clear bilaterally. HEART: Regular rate and rhythm. ABDOMEN: Soft and nondistended. EXTREMITIES: Neurovascularly intact x4. Her right lower extremity got a brace, and dressing is clean, dry, and intact. NEUROLOGIC: Diminished strength due to C-spine stenosis. Sensation is diminished. The patient is on C-collar. PLAN: Continue supportive care. Continue pain control. Continue PT and OT. The patient is waiting for insurance authorization to go to [facility]. Neurosurgery is okay to use Lovenox, and she could be okay to take off C-collar while she is lying down or sitting on the chair. She will be seeing Neurosurgery in another 2 weeks, and she will be seeing Orthopedic in 10 days to 2 weeks. Continue nonweightbearing of the right lower extremity. Job ID: [id number]
[2019-05-10] MEDS ORDERED: Insulin Glargine 10 UNITS in Pre-Filled Syringe 1 EACH SC SCH (09:22)
[2019-05-10] MEDS ORDERED: HumaLOG 300 UNITS/3 ML VIAL SC PRN (09:26)
[2019-05-10] MEDS: Torsemide 20 MG TAB PO SCH (09:30)
[2019-05-10] MEDS: Morphine ER 15 MG TAB PO SCH ×2 (11:00→13:46)
[2019-05-10] MEDS: Enoxaparin Sodium 40 MG/0.4 ML SYRINGE SC SCH (11:49)
[2019-05-10] MEDS: Fluticasone Propionate Nasal Spray 16 gm Bottle NASAL SCH (11:49)
[2019-05-10] MEDS: Bupropion 150 MG SR TAB PO SCH (11:50)
[2019-05-10] MEDS: Pancrelipase DR 12000 1 CAP PO SCH ×2 (11:50→12:16)
[2019-05-10] MEDS: Magnesium Oxide 250 MG TAB PO SCH (11:51)
[2019-05-10] MEDS: Metoprolol Tartrate 25 MG TAB PO SCH (11:52)
[2019-05-10] MEDS: Senokot S 8.6-50 MG TAB PO SCH (11:52)
[2019-05-10] MEDS: Folic Acid 1 MG TAB PO SCH (11:53)
[2019-05-10] MEDS: Famotidine 20 MG TAB PO SCH (11:54)
[2019-05-10] MEDS: Potassium Chloride 20 MEQ TAB PO SCH (11:54)
[2019-05-10] MEDS: Polyethylene Glycol 3350 17 GM Packet PO SCH (11:55)
[2019-05-10] MEDS ORDERED: Dexamethasone 1 MG TAB PO SCH (12:00)
--- NOTE | 2019-05-10 12:01 | PRG ---
DATE OF SERVICE: 05/10/2019 Ms. Ang had been complaining of some twitching in her upper extremities, which Neurosurgery says is a side effect of her surgery and will resolve after several months. Otherwise, no new issues. We will continue to monitor her blood glucose and hypertension, which are approaching good control. Job ID: [id number]
[2019-05-10] MEDS: Alogliptin 25 MG TAB PO SCH (12:10)
[2019-05-10] MEDS: Ascorbic Acid 500 mg Chewable Tablet PO SCH (12:13)
[2019-05-10] MEDS: Gabapentin 400 MG CAP PO SCH ×2 (12:14→16:47)
[2019-05-10] MEDS: Multivitamin W/ Minerals 1 TAB PO SCH (12:14)
[2019-05-10] MEDS: Ferrous Sulfate 325 MG TAB PO SCH (12:14)
[2019-05-10] MEDS: Insulin Glargine 10 UNITS in Pre-Filled Syringe SC SCH (12:18)
[2019-05-10 12:25] VITALS: BP 119/69; TEMP 98.2
[2019-05-10] MEDS: fentaNYL 50 mcg/hour Patch TD SCH (13:36)
--- NOTE | 2019-05-10 15:34 | PRG ---
DATE OF SERVICE: 05/10/2019 This is Kt Farmer PA-C dictating a report for Malcom Dowling MD. Ms. Ang is postoperative day #5, having undergone multilevel posterior cervical fusion laminectomies and fusion. She states she is having some aching into the back of her neck as well as into the bilateral upper extremities intermittently, especially present with coughing. Overall, she is hopeful that she will go to rehab today. She remains with baseline weakness into all the extremities, though this is continued to improve compared to her preoperative exam. She does most notably have right hand intrinsic weakness, though again this is improving. She is up sitting in a wheelchair and has her Empire J collar on. We have looked to the incision and it is clean and dry and healing well. She is ready for discharge to senior living facility, inpatient rehab whenever arrangements have been made. We will arrange followup with Neurosurgery on an outpatient basis soon after 3 weeks postop. Please call with any changes in the patient's neurologic status. Otherwise, we will follow along. Job ID: [id number]
--- NOTE | 2019-05-11 07:21 | DIS ---
DATE OF ADMISSION: 05/01/2019 DATE OF DISCHARGE: 05/10/2019 CONSULTING PHYSICIANS: Dr. Solorzano of Orthopedic Surgery, Dr. Dowling of Neurosurgery, and sr vice president physicians. ADMISSION DIAGNOSES: Multiple recent falls, right trimalleolar fracture, recent diagnosis of compression, spinal stenosis of the cervical spine. DISCHARGE DIAGNOSES: Multiple recent falls, right trimalleolar fracture, recent diagnosis of compression, spinal stenosis of the cervical spine. PROCEDURES: The patient went to the OR on May 02, 2019, had a right ankle ORIF. She also went to the OR on May 05, 2019 and had a C2 through C5 decompression by Dr. Dowling. HOSPITAL COURSE: The patient is a 58-year-old female presented to the emergency department via EMS after she had a fall with a right lower extremity deformity. The patient had just been discharged 2-4 days previous to readmission for multiple recent falls. The patient had been found to have C-spinal stenosis at that time , and outpatient followup was being considered for possible operative intervention. At the time of admission, the patient only had a right trimalleolar ankle fracture and went to the OR the next day with Dr. Solorzano of Orthopedic Surgery for fixation of the right ankle and had the right ankle ORIF. Postoperatively, the patient continued to have extremity weakness. Subsequently, Dr. Dowling of Neurosurgery was consulted to address the cervical spinal compression and he took her to the OR on May 05, 2019 for C2 through C5 cervical spinal decompression. Postoperatively, the patient continued to work physical and occupational therapy. Family Medicine residents were consulted for complicated medical management as they had just recently admitted the patient to their service and discharge for weakness. During the previous hospital admission, she had a full cardiac workup including a cardiac catheterization. At the time of discharge, the patient's pain was well controlled. She was tolerating a diabetic diet and she wears NuvaRing around in a wheelchair independently. She was also able to transfer from the bed to the wheelchair and from the wheelchair to the commode without assistance. DISCHARGE DISPOSITION: Acute rehab. DISCHARGE CONDITION: Satisfactory. PHYSICAL EXAMINATION: VITAL SIGNS: Temperature 98.2, pulse 85, respirations 15, oxygen saturation 95 % on room air, blood pressure 119/69. GENERAL: Well-appearing middle-aged female, sitting up in wheelchair with no signs of acute distress. PULMONARY: Equal chest rise and fall, clear breath sounds bilaterally. No signs of acute respiratory distress. CARDIAC: Regular rate and rhythm. No murmurs, gallops, or rubs. GASTROINTESTINAL: Soft, nontender, nondistended. EXTREMITIES: 2+ pulses in all extremities. Gross motor and sensation are intact. Right lower extremity with boot that is clean and dry and in place. NEUROLOGIC: GCS is 15. Gross motor and sensation are intact equal strength in all extremities. SKIN: Final cervical dressing is clean, dry, and intact. DISCHARGE INSTRUCTIONS: The patient was discharged to acute rehab. She is nonweightbearing in the right lower extremity. Activity as tolerated, otherwise. She has a diabetic diet. She is to receive physical and occupational therapy. She has a walker, incentive spirometer, C-collar, and wheelchair. DISCHARGE MEDICATIONS: Include Tylenol, Ventolin, albuterol, vitamin C, atorvastatin, Wellbutrin, clonidine, Flexeril, Decadron taper for 3 additional days, Lovenox, vitamin D2, TriCor, fentanyl patch 50 mcg, Flonase nasal spray, folic acid, gabapentin, Imdur, lisinopril, magnesium tablets, metoprolol, morphine IR, morphine ER, multivitamins with minerals, pancrelipase ER 12,000, paroxetine, MiraLAX, Ranexa, risperidone, Senokot-S, Januvia, torsemide, insulin. FOLLOWUP APPOINTMENT: The patient will follow up with Dr. Solorzano of Orthopedic Surgery in 2 weeks. She will also follow up with Dr. Dowling of Neurosurgery in 3 weeks with C-spine x-rays. There is no need for followup with Dr. Khan in [facility]. This is a summary of the patient's hospitalization. For full details, please see her medical record in its entirety. Job ID: [id number] [facility]
[2019-05-12] MEDS ORDERED: Dexamethasone 1 MG TAB PO SCH (12:00)
== END 2019-05-10 16:53 | DRG 471 ==
LOC: ERS 14:29 → IMCU/EMU 17:04 → SURG A 05-03 15:49 → CCU 05-05 17:41 → SURG B 05-06 10:41
PROVIDERS: ADMIT Surgery; ATTEND Surgery
PROC: 0QSG04Z Reposition Right Tibia with Internal Fixation Device, Open Approach (ICD-10-PCS; principal; 2019-05-02)
PROC: 00NW0ZZ Release Cervical Spinal Cord, Open Approach (ICD-10-PCS; 2019-05-05)
PROC: 0RG20K1 Fusion of 2 or more Cervical Vertebral Joints with Nonautologous Tissue Substitute, Posterior Approach, Posterior Column, Open Approach (ICD-10-PCS; 2019-05-05)
PROC: 0RP104Z Removal of Internal Fixation Device from Cervical Vertebral Joint, Open Approach (ICD-10-PCS; 2019-05-05)
DX: S82.851A Displaced trimalleolar fracture of right lower leg, initial encounter for closed fracture (principal); G95.19 Other vascular myelopathies; G82.50 Quadriplegia, unspecified; K86.1 Other chronic pancreatitis; I50.32 Chronic diastolic (congestive) heart failure; I13.0 Hypertensive heart and chronic kidney disease with heart failure and stage 1 through stage 4 chronic kidney disease, or unspecified chronic kidney disease; M48.02 Spinal stenosis, cervical region; R29.6 Repeated falls; J44.9 Chronic obstructive pulmonary disease, unspecified; E78.5 Hyperlipidemia, unspecified; I25.10 Atherosclerotic heart disease of native coronary artery without angina pectoris; F31.9 Bipolar disorder, unspecified; N18.3 Chronic kidney disease, stage 3 (moderate); E11.22 Type 2 diabetes mellitus with diabetic chronic kidney disease; E66.01 Morbid (severe) obesity due to excess calories; E11.42 Type 2 diabetes mellitus with diabetic polyneuropathy; W18.30XA Fall on same level, unspecified, initial encounter; Z95.5 Presence of coronary angioplasty implant and graft; Z90.710 Acquired absence of both cervix and uterus; Z86.73 Personal history of transient ischemic attack (TIA), and cerebral infarction without residual deficits; Z79.899 Other long term (current) drug therapy; Z79.02 Long term (current) use of antithrombotics/antiplatelets; Z79.84 Long term (current) use of oral hypoglycemic drugs; Z88.1 Allergy status to other antibiotic agents; Z88.5 Allergy status to narcotic agent; Z88.2 Allergy status to sulfonamides; Z88.8 Allergy status to other drugs, medicaments and biological substances; Z90.49 Acquired absence of other specified parts of digestive tract; Z68.39 Body mass index [BMI] 39.0-39.9, adult; I25.2 Old myocardial infarction; Z99.3 Dependence on wheelchair
CPT/HCPCS: 28570; 36415; 36416; 71045; 72125; 72156; 76000; 80048; 80053; 80306; 80307; 83735; 84100; 85025; 85027; 85610; 85730; 86850; 86900; 86901; 93005; 93970; 94640; 96361; 96374; 96375; A4306; C1713; C9113; G0390; J0131; J0670; J0690; J1100; J1170; J1650; J1815; J2001; J2250; J2270; J2405; J2704; J2765; J2795; J3010; J3360; J3370; J3490; J7620; J8540; L0174; Q0162; S0028

== ENCOUNTER 2019-05-26 12:49 | Inpatient (IN) | payer BC ==
[2019-05-26 13:42] LABS: Hemoglobin 11.8 g/dL (12.0-16.0); Mean Corpuscular HGB CONC 32.3 g/dL (32.0-36.0); Mean Corpuscular Hemoglobin 27.7 pg (27.0-31.0); Mean Corpuscular Volume 85.8 fL (78.0-98.0); Mean Platelet Volume 8.7 fL (7.4-10.4); Platelet Count 151 thou/uL (130-400); RBC Distribution Width 14.7 % (11.5-14.5); Red Blood Cell (RBC) Count 4.25 mill/uL (4.20-5.40); White Blood Cell (WBC) Count 9.1 thou/uL (4.8-10.8)
--- NOTE | 2019-05-26 13:46 | RAD ---
XR Chest 1 View Portable HISTORY: Dyspnea COMPARISON: 05/01/2019 FINDINGS: The heart size is normal. The lungs are well expanded without focal areas of consolidation, pneumothorax or pleural effusions. Postop changes are again seen in the cervical spine IMPRESSION: No radiographic evidence of acute cardiopulmonary process.
[2019-05-26 13:49] LABS: ALT (SGPT) 28 U/L (8-55); AST (SGOT) 25 U/L (5-34); Albumin 3.1 g/dL (3.5-5.0); Alkaline Phosphatase 106 U/L (40-110); Anion Gap 15 mmol/L (10-20); BUN (Urea Nitrogen) 17 mg/dL (9.8-20.1); Bilirubin, Total 0.5 mg/dL (0.2-1.2); Calc. Creatinine Clearance 0 mL/min (70-130); Calcium 8.7 mg/dL (7.8-10.44); Carbon Dioxide 20 mmol/L (22-29); Chloride 101 mmol/L (98-107); Estimated GFR-MDRD 62; Globulin 2.8 g/dL (2.4-3.5); Glucose 114 mg/dL (70-105); Potassium 4.6 mmol/L (3.5-5.1); Protein, Total 5.9 g/dL (6.0-8.3); Sodium 131 mmol/L (136-145)
[2019-05-26] MEDS ORDERED: Ondansetron PF 4 MG/2 ML Vial ONE (14:02)
[2019-05-26 14:03] LABS: Band 22 % (5-11); Eosinophils 2 % (0-10); Lymphocytes 20 % (21-51); MDiff Complete? YES; Monocytes 6 % (0-10); Neutrophil 48 % (42-75); Ovalocytes SLIGHT = 2-5 cells (100X) (0-1/hpf); Platelet Morphology Comment Appears Adequate; Polychromasia SLIGHT = 2-3 cells (100X) (0-2/hpf); Reactive Lymphocytes 2 % (0-10); Tear Drops SLIGHT = 2-5 cells (100X) (0-1/hpf)
[2019-05-26] MEDS ORDERED: Lorazepam 2 MG/ML VIAL ONE ×2 (14:52→14:56)
[2019-05-26] MEDS ORDERED: Magnevist 469MG/ML 20 ML VIAL ONE (15:11)
--- NOTE | 2019-05-26 16:26 | MRI ---
Cervical spine MRI with and without contrast: 05/26/2019 COMPARISON: 05/04/2019 HISTORY: Weakness, spinal cord compression with weakness TECHNIQUE: Multiplanar multisequence MR imaging of the cervical spine obtained with and without contr ast FINDINGS: There is posterior fusion hardware with associated artifact which limits detailed assessmen t. This postoperative hardware is associated with the posterior elements at the C3, C4, C5, and C6 levels. The patient is status post bilateral laminectomy at C3, C4, and C5, new when compared to the prior examination. The STIR sequence demonstrates increased signal intensity dorsal to the thecal sac at C3, C4, and C5 on the basis of postoperative change. Anterior discectomy and fusion hardware n oted at C4-5 through C6-7. There is prominent artifact associated with the extensive anterior and posterior fusion hardware whic h significantly limits assessment for central canal stenosis and neural foraminal stenosis within the cervical spine. There is a moderate degree of degenerative change at the atlantoaxial interspace. There is no signifi cant anterolisthesis or retrolisthesis noted. C2-3: There is disc space narrowing and disc desiccation. There is mild disc bulge and bilateral face t hypertrophy with probable mild central canal and mild bilateral neural foraminal stenosis. C3-4: There is an anterior epidural mass measuring 7 mm in AP dimension and 2.6 cm in craniocaudal di mension which appears to represent a large extruded disc fragment from the C3-4 level with superior and inferior migration. This exerts mass effect on the ventral aspect of the cord. This disc extrusio n does not appear significantly changed when compared to the prior examination. There is mild cord deformity but there is CSF signal intensity posterior to the cord in this region secondary to interva l bilateral laminectomy and thus the degree of central canal stenosis at this level is mild/moderate, improved when compared to the prior study. There is probable at least mild bilateral n eural foraminal stenosis. C4-5: No significant central canal stenosis. Evaluation for neural foraminal stenosis is limited seco ndary to artifact. C5-6: Artifact severely limits assessment for central canal and/or neural foraminal stenosis. At leas t mild central canal stenosis and mild/moderate bilateral neural foraminal stenosis. C6-C7: Bilateral facet hypertrophy with mild bilateral neural foraminal stenosis. No significant cent ral canal stenosis. C7-T1: No significant central canal or neural foraminal stenosis. The postcontrast imaging demonstrates no abnormal enhancement. The postcontrast imaging is quite limi kandy secondary to artifact. No focal area of abnormal signal intensity is identified within the cervical cord. There is a small fluid collection posterior to the midline posterior elements associat ed with prior surgery at the C2-3 level and at the C6 level. IMPRESSION: Extensive postoperative metallic hardware consistent with multilevel anterior discectomy and fusion as well as multilevel posterior upper cervical fusion. Since the prior examination there has been bilateral laminectomy at C3, C4, and C5. There is a stable large disc extrusion ventral to t he cord at C3-4 with a mild to moderate degree of central canal stenosis in this region, improved since the prior examination secondary to interval surgery. No abnormal signal intensity is identified at the cervical cord. Please note that the C5-6 level is poorly assessed with regard to central canal and/or neural foraminal stenosis secondary to artifact related to postoperative hardware.
--- NOTE | 2019-05-26 17:00 | CT ---
Cervical spine CT without contrast: 05/26/2019 COMPARISON: 05/04/2019 HISTORY: Cervical spine pain, prior cervical spine surgery TECHNIQUE: Axial CT imaging at 2.5 mm intervals from skull base through lung apices without contrast. Coronal and sagittal reformatted imaging obtained. FINDINGS: There is posterior fusion hardware at the C2, C3, C4, and C5 levels with vertically oriente d interlocking rods, new when compared to the prior exam. There are new bilateral laminectomy changes present at the C3, C4, and C5 levels. There is no evidence for hardware failure associated wi th the new posterior fusion hardware spanning C2-C5. Anterior discectomy and fusion hardware is again noted at C4-5, C5-6, and C6-7. Evaluation for central canal and/or neural foraminal stenosis is limited on routine CT. The craniocer vical junction and cervicothoracic junction appears intact. There is mild degenerative change at the atlantoaxial interspace. There is posterior element metallic cerclage wires at C5-6. There is a ill-defined poorly visualized anterior epidural mass ventral to the thecal sac at C3-4, be tter evaluated on recent MRI. C2-3: No osseous cause of significant central canal or neural foraminal stenosis. C3-4: No osseous cause of significant central canal or neural foraminal stenosis C4-5: No osseous cause of significant central canal or neural foraminal stenosis C5-6: Small central osteophyte. No osseous cause of significant central canal or neural foraminal amada nosis. Mild central canal stenosis suspected. C6-7: Mild posterior osteophyte. No osseous cause of significant central canal or neural foraminal st enosis. C7-T1: Bilateral facet hypertrophy. No osseous cause of significant central canal or neural foraminal stenosis. No prevertebral soft tissue swelling is evident. The imaged lung apices are unremarkable. No acute fracture or evidence of dislocation is seen. IMPRESSION: Extensive postoperative hardware which includes multilevel anterior and posterior cervica l spine fusion. Posterior fusion hardware at C2, C3, C4, and C5 is new with new bilateral laminectomy at the C3, C4, and C5 levels. There is a faintly visualized large disc extrusion ventral to the thecal sac at C3-4, better assessed on recent cervical spine MRI. No evidence for hardware failure. No acute fracture or dislocation.
[2019-05-26 17:43] LABS: Bilirubin Negative (Negative); Blood, Urine Negative (Negative); Clarity Turbid (Clear); Glucose, Urine (Dipstick) Normal (Negative); Leukocyte Negative Leu/uL (Negative); Nitrite Negative (Negative); Protein, Urine (Dipstick) Negative (Neg-Trace); Urobilinogen Normal mg/dL (Less than 2)
--- NOTE | 2019-05-26 19:28 | CT ---
Exam: Head CT without contrast HISTORY: Altered mental status COMPARISON: 04/09/2019 FINDINGS: Hemorrhage: No intraparenchymal hemorrhage or extra-axial hematoma. Brain parenchyma: Cortical hernandez-white matter differentiation is preserved. No mass effect or midline shift. Basilar cisterns are patent. Ventricular system: Ventricles and sulci are patent and symmetric. Calvarium: Intact. Sinuses and mastoid air cells: Adequate aeration. IMPRESSION: No acute intracranial process.
--- NOTE | 2019-05-26 20:07 | PDOC.FPRHP ---
- History of Present Illness Chief Complaint: confusion, generalized weakness History of Present Illness: Patient is a 58F with PMHx of CHF, [place] x 2, CKD2, CAD, DM2, HLD, bipolar disorder , COPD, spinal stenosis, chronic pancreatitis with recent hospitalization and cervical decompression that presented with generalized weakness and confusion. During evaluation patient was confused. Through discussing with different providers, at times she is A&O x 2, but was A&O x 0 with this com writer. She was unable to answer any questions and when asked what was wrong she said she was confused. Much of her medical history was obtained from previous hospital records. Per nursing she had an episode of diarrhea in the ED. ED Course: 1mg ativan, 1L NS, 4mg zofran - Allergies/Adverse Reactions Allergies Allergy/AdvReac Type Severity Reaction Status Date / Time adhesive Allergy Severe Verified 05/27/19 00:22 aspirin Allergy Severe Anaphylaxis Unverified 05/27/19 00:22 levofloxacin [From Levaquin] Allergy Intermediate Unverified 05/27/19 00:22 NSAIDS (Non-Steroidal Allergy Unknown Verified 05/27/19 00:22 Anti-Inflamma codeine Allergy Verified 05/27/19 00:22 hydrocodone Allergy Verified 05/27/19 00:22 Sulfa (Sulfonamide Allergy Verified 05/27/19 00:22 Antibiotics) trimethoprim [From Bactrim] Allergy Verified 05/27/19 00:22 tramadol AdvReac Mild ITCHING Verified 05/27/19 00:22 - Home Medications Medication Instructions Recorded Confirmed Type Cetirizine HCl [Zyrtec] 10 mg PO HS 07/22/16 05/06/19 History Gabapentin 800 mg PO BID 07/22/16 05/06/19 History PARoxetine HCl [Paroxetine HCl] 20 mg PO HS 07/22/16 05/06/19 History risperiDONE [Risperidone] 1 mg PO HS 07/22/16 05/06/19 History Pancrelipase 67997 [Gui BARBOSA 4 cap PO TID-WM #30 cap 04/05/17 05/06/19 Rx 12,000 Units] Ergocalciferol (Vitamin D2) 50,000 unit PO ASDIR 10/19/17 05/06/19 History [Vitamin D2] Fenofibrate [Tricor] 160 mg PO HS 10/19/17 05/06/19 History Torsemide [Demadex] 40 mg PO ASDIR 06/30/18 05/06/19 History Isosorbide Mononitrate [Imdur] 60 mg PO DAILY #30 tab 07/01/18 05/06/19 Rx Fluticasone Propionate [Flonase 0 gm NASAL DAILY bot 09/22/18 05/06/19 Rx Nasal [place]] Folic Acid 1 tab PO DAILY 04/09/19 05/06/19 History Metoprolol Tartrate [Lopressor] 12.5 mg PO BID 04/09/19 05/06/19 History Morphine Sulfate [Morphine Sulfate 15 mg PO QID PRN 04/09/19 05/06/19 History ER] Ranolazine [Ranexa] 500 mg PO BID 04/09/19 05/06/19 History sitaGLIPtin Phosphate [Januvia] 50 mg PO DAILY 04/09/19 05/06/19 History Atorvastatin Calcium [Lipitor] 40 mg PO HS #30 tab 04/10/19 05/06/19 Rx Insulin Glargine,Hum.Rec.Anlog 87 unit SQ BID #9 insuln.pen 04/10/19 05/06/19 Rx [Toujeo Solostar] Albuterol Sulfate [Proair 2 puff IH Q4HR PRN 04/25/19 05/06/19 History Respiclick] Potassium Chloride [K-Dur] 20 meq PO BID 04/26/19 05/06/19 History Fluticasone/Umeclidin/Vilanter 1 puff INH DAILY 05/06/19 05/06/19 History [Trelegy Ellipta 100-62.5-25] Magnesium Oxide 400 mg PO BID 05/06/19 05/06/19 History Crane-3 Fatty Acids/Fish Oil 2 cap PO DAILY 05/06/19 05/06/19 History [Crane 3 1,000 mg Softgel] Ranitidine HCl 150 mg PO BID 05/06/19 05/06/19 History Acetaminophen [Tylenol Extra 1,000 mg PO Q6HR tab 05/10/19 Rx Strength] Ascorbic Acid [Vitamin C] 500 mg PO BID tab 05/10/19 Rx BuPROPion SR [Wellbutrin SR] 150 mg PO DAILY tab 05/10/19 Rx Cyclobenzaprine [Flexeril] 10 mg PO TID PRN tab 05/10/19 Rx Dexamethasone [Decadron] 1 mg PO Q6HR 2 Days tab 05/10/19 Rx Dexamethasone [Decadron] 2 mg PO Q6HR 2 Days tab 05/10/19 Rx Enoxaparin Sodium [Lovenox] 40 mg SC 0900 syringe 05/10/19 Rx Ferrous Sulfate [Feosol] 325 mg PO BID-WM tab 05/10/19 Rx Insulin Glargine [Lantus Vial] 10 units SC QAM vial 05/10/19 Rx Lisinopril [Zestril] 10 mg PO QPM tab 05/10/19 Rx Morphine IR [Morphine Oral 5 mg PO Q4H PRN udcup 05/10/19 Rx Solution] Multivitamin W/ Minerals 1 tab PO DAILY tab 05/10/19 Rx [Theragran M] Polyethylene Glycol 3350 [Miralax] 17 gm PO DAILY pk 05/10/19 Rx Sennosides/Docusate Sodium 2 tab PO BID tab 05/10/19 Rx [Senokot S] cloNIDine [Catapres] 0.1 mg PO Q6HR tab 05/10/19 Rx fentaNYL [Duragesic] 50 mcg TD Q3D patch 05/10/19 Rx - History PMHx: CHF, [place] x 2, CKD2, CAD, DM2, HLD, bipolar disorder, COPD, spinal stenosis , chronic pancreatitis with recent hospitalization and cervical decompression PSHx: appendectomy, cholecystectomy, hysterectomy, bilateral oophorectomy, L knee surgery, bilateral breast lumpectomy, neck fusion, ORIF R ankle, recent cervical decompression FHx: non-contributory Social: smoker, no etoh or drug use - Review of Systems ROS unobtainable: due to mental status General: reports: other (confused) - Vital signs BP: [135/55] HR: [97] RR: [16] Tmax: [99.2F] Pox: [95]% on [RA] Wt: [105.2kg] - Physical Exam Constitutional: NAD, other (A&O x 0) HEENT: no scleral icterus, MMM Neck: other (cervical collar in place) Chest: no-tender to palpation, no lesions Heart: RRR, normal S1/S2 Lungs: CTAB, no respiratory distress Abdomen: soft, bowel sounds present Musculoskeletal: normal tone, other (R ankle in boot) Skin: no rash/lesions, good turgor Heme/Lymphatic: no unusual bruising or bleeding, no purpura Psychiatric: other (A&O x2) FMR H&P: Results - Labs Result Diagrams: 05/26/19 13:13 05/26/19 13:13 Lab results: WBC 9.1 thou/uL (4.8-10.8) 05/26/19 13:13 Hgb 11.8 g/dL (12.0-16.0) L 05/26/19 13:13 Hct 36.5 % (36.0-47.0) 05/26/19 13:13 MCV 85.8 fL (78.0-98.0) 05/26/19 13:13 Plt Count 151 thou/uL (130-400) 05/26/19 13:13 Band Neuts % (Manual) 22 % (5-11) H 05/26/19 13:13 ESR Westergren 28 mm/hr (Less than 30) 05/26/19 14:19 Sodium 131 mmol/L (136-145) L 05/26/19 13:13 Potassium 4.6 mmol/L (3.5-5.1) 05/26/19 13:13 Chloride 101 mmol/L (98-107) 05/26/19 13:13 Carbon Dioxide 20 mmol/L (22-29) L 05/26/19 13:13 BUN 17 mg/dL (9.8-20.1) 05/26/19 13:13 Creatinine 0.94 mg/dL (0.6-1.1) 05/26/19 13:13 Glucose 114 mg/dL (70-105) H 05/26/19 13:13 Calcium 8.7 mg/dL (7.8-10.44) 05/26/19 13:13 Total Bilirubin 0.5 mg/dL (0.2-1.2) 05/26/19 13:13 AST 25 U/L (5-34) 05/26/19 13:13 ALT 28 U/L (8-55) 05/26/19 13:13 Alkaline Phosphatase 106 U/L (40-110) 05/26/19 13:13 C-Reactive Protein 3.32 mg/dL (= or < 0.5) H 05/26/19 13:13 Serum Total Protein 5.9 g/dL (6.0-8.3) L 05/26/19 13:13 Albumin 3.1 g/dL (3.5-5.0) L 05/26/19 13:13 Urine Ketones Negative mg/dL (Negative) 05/26/19 17:27 Urine Blood Negative (Negative) 05/26/19 17:27 Urine Nitrite Negative (Negative) 05/26/19 17:27 Ur Leukocyte Esterase Negative Zhao/uL (Negative) 05/26/19 17:27 - Radiology Interpretation CT scan - head Status: report reviewed by me (negative for intracranial process) Other Status: report reviewed by me (Cervical spine CT: No evidence for hardware failure. No acute fracture or dislocation. Cervical spine MRI: No abnormal signal intensity is identifid at the cervical cord) Chest x-ray Status: report reviewed by me (No radiographic evidence of acute cardiopulmonary process) FMR H&P: A/P - Problem List (1) Acute encephalopathy Current Visit: Yes Status: Acute Code(s): G93.40 - ENCEPHALOPATHY, UNSPECIFIED (2) Bipolar disorder Current Visit: No Status: Chronic Code(s): F31.9 - BIPOLAR DISORDER, UNSPECIFIED Qualifiers: Active/Remission status: remission status unspecified Qualified Code(s): F31.9 - Bipolar disorder, unspecified (3) CAD (coronary artery disease) Current Visit: No Status: Chronic Code(s): I25.10 - ATHSCL HEART DISEASE OF [place] CORONARY ARTERY W/O ANG PCTRS Qualifiers: Coronary Disease-Associated Artery/Lesion type: [place] artery [place] vs. transplanted heart: [place] heart Associated angina: angina presence unspecified Qualified Code(s): I25.10 - Atherosclerotic heart disease of [place] coronary artery without angina pectoris (4) CHF (congestive heart failure) Current Visit: No Status: Chronic Code(s): I50.9 - HEART FAILURE, UNSPECIFIED Qualifiers: Heart failure type: diastolic Heart failure chronicity: chronic Qualified Code(s): I50.32 - Chronic diastolic (congestive) heart failure (5) Diabetes mellitus type 2 in obese Current Visit: No Status: Chronic Code(s): E11.9 - TYPE 2 DIABETES MELLITUS WITHOUT COMPLICATIONS; E66.9 - OBESITY, UNSPECIFIED (6) Hyperlipidemia Current Visit: No Status: Chronic Code(s): E78.5 - HYPERLIPIDEMIA, UNSPECIFIED Qualifiers: Hyperlipidemia type: unspecified Qualified Code(s): E78.5 - Hyperlipidemia , unspecified (7) Hypertension Current Visit: No Status: Chronic Code(s): I10 - ESSENTIAL (PRIMARY) HYPERTENSION Qualifiers: Hypertension type: essential hypertension Qualified Code(s): I10 - Essential (primary) hypertension (8) CKD (chronic kidney disease) stage 2, GFR 60-89 ml/min Current Visit: Yes Status: Acute Code(s): N18.2 - CHRONIC KIDNEY DISEASE, STAGE 2 (MILD) - Plan Patient is a 58F with PMHx of CHF, [place] x 2, CKD2, CAD, DM2, HLD, bipolar disorder , COPD, spinal stenosis, chronic pancreatitis with recent hospitalization and cervical decompression admitted to obs for acute encephalopathy #Acute Encephalopathy -CT head neg -CT cervical spine neg -MRI cervical spine neg -neurosurgery examined patient and images from ED and, per ED doc report, stated that they would not do anything at this time -CXR neg -TSH wnl 0.7276 -troponin neg -mag wnl 2.0 -glucose 114 -UA neg for leuks, nitrites, blood, glucose -patient afebrile, vss -patient confused and drowsy during exam -Check ammonia, procal, B12, folate, RPR, HIV, UDS -Consider MRI brain in am if AMS continues #Diarrhea -stool studies pending, will follow #Mild hyponatremia -Sodium 131 -Gentle IVF and will monitor in am #Elevated CRP -CRP 3.32, unknown etiology -ESR wnl at 28 -WBC wnl at 9.1 -will check procal #CHF -Gentle IVF for hyponatremia and AMS, will monitor for fluid overload -continue home meds #CKD2 -will avoid renally toxic medications #HLD -continue home meds #DM2 -continue home meds -ISS #Bipolar disorder -continue home meds #COPD -continue home meds #Spinal stenosis with recent cervical decompression -neurosurgery not concerned at this time, CT/MRI cervical spine negative for acute changes DVT ppx: lovenox Dispo: strokes obs for AMS. Continued workup with ammonia, procal, folate/b12, RPR, HIV, UDS pending. VSS. Can consider further imaging in the morning if AMS continues. Code: Full FMR H&P: Upper Level - Pertinent history 58 yo female presents for confusion. In ED patient was A&Ox2 for ED provider and A&Ox1 on admitting team examination. This is a new finding for her. Please see college intern note above for further information. - Plan Date/Time: 05/26/192006 I, Jose Blanton MD, have evaluated this patient and agree with findings/ plan as outlined by college intern resident. Pertinent changes/additions are listed here. 1. Acute encephalopathy - Will order Ammonia - Will order UDS/Blood drug screen - Consider further neuro imaging - Check B12/Folate 2. Mild Hyponatremia - Gentle IVF - Recheck in AM 3. Elevated CRP - Unknown etiology - Checking Procalcitonin to help delineate infectious cause All other chronic conditions reviewed and medications to be restarted when appropriate PCP: Dr. Barcenas CODE STATUS: FULL CODE Disposition: Stable, will admit to Stroke Obs for further evaluation and monitoring. Addendum - Attending - Attending Attestation Date/Time: 05/27/19 0014 I personally evaluated the patient and discussed the management with Dr. Buchanan on 05/26/2019 I agree with the History, Examination, Assessment and Plan documented above with any addition or exceptions noted below- 58 year old female with h/o D<. HTN. Bipolar d/o, COPD, CAD, recent fall with right trimalleolar ankle fx s/p ORIF and recent c-spine surgery for spinal cord stenosis with cord compression presented with generalized weakness. Subjective chills at home. Denies any N/V/D /abdominal pain. PMH/PSH/ALL/Meds reviewed and agree with resident's documentation. Afebrile VSS Exam repeated by me and agree with resident's findings. Labs: WBC=9.1, H/H=11.8/36.5, Prd=273, Yw=319, K=4.6, Zj=902, CO2=20, BUN/ Cr=17/0.44, Ldrb=527, Procal=0.08, CRP=3.32, U/A negative; CT brain- no acute changes; C-spine MRI and CT scan- postoperative changes; no evidence of hardware failure. CXR- negative. A/P: 1) AMS - uncertain etiology- possible medication related; hold any sedating medications; will check B12, ammonia to complete evaluation; consider MRI brain in AM if symptoms not improved, 2) DM- monitor accuchecks, 3) HTN- stable; continue home meds
[2019-05-26] MEDS ORDERED: HumaLOG 300 UNITS/3 ML VIAL SC PRN ×2 (22:35)
[2019-05-26] MEDS ORDERED: Dextrose 50% Abboject 50 ML SYRINGE SLOW IVP PRN (22:35)
[2019-05-26] MEDS ORDERED: Dextrose 5% in Water 1,000 ML IV PRN (22:35)
[2019-05-26 23:19] LABS: Acetaminophen Less than 6.0 mcg/mL (10.0-30.0); Alcohol Less than 10 mg/dL (Less than 10); Salicylate Less than 8.0 mg/dL (15.0-30.0)
[2019-05-26 23:58] LABS: Amphetamine Not Detected (NotDetected); Barbiturates Screen Not Detected (NotDetected); Benzodiazepine Screen Detected (NotDetected); Cocaine Metabolite Screen Not Detected (NotDetected); Medtox Reader # READER 4; Methadone Not Detected (NotDetected); Methamphetamine Not Detected (NotDetected); Opiate Screen Detected (NotDetected); Oxycodone Screen Not Detected (NotDetected); Phencyclidine (PCP) Not Detected (NotDetected); THC/Cannabinoid Screen Not Detected (NotDetected)
[2019-05-26 23:59] LABS: Medtox Control Line Valid? VALID (VALID)
[2019-05-27 00:06] LABS: Tricyclic Screen Not Detected (NotDetected)
[2019-05-27 01:09] VITALS: BMI 39.4
--- NOTE | 2019-05-27 02:25 | PDOC.BPN ---
- Brief Progress Note Re-evaluated patient. A&O x2, reports she still feels confused. Is still drowsy on exam. UDS + opiates, benzos. Received ativan in ED Ammonia wnl at 18 Procal neg at 0.08 Will continue to monitor and see if she is more alert and oriented after the opiates and benzos are out of her system. Can consider brain MRI in am to evaluate for any neurological abnormalities. Afebrile with negative procal, less suspicious for infection at this time.
[2019-05-27] MEDS ORDERED: PROVENTIL INHALER 6.7 G (200 INHALATIONS) INH PRN (03:11)
[2019-05-27 05:52] LABS: #Eosinphils 0.1 thou/uL (0.0-0.7); #Lymphocytes 1.7 thou/uL (1.20-3.40); #Monocytes 0.7 thou/uL (0.11-0.59); #Neutrophils 4.9 thou/uL (1.40-6.50); %Basophils 0.3 % (0.0-1.0); %Eosinophils 1.5 % (0.0-10.0); %Monocytes 8.9 % (0.0-10.0); %Neutrophils 66.4 % (42.0-75.0); Hemoglobin 10.6 g/dL (12.0-16.0); Mean Corpuscular HGB CONC 32.5 g/dL (32.0-36.0); Mean Corpuscular Hemoglobin 27.9 pg (27.0-31.0); Mean Corpuscular Volume 85.6 fL (78.0-98.0); Mean Platelet Volume 8.1 fL (7.4-10.4); Platelet Count 172 thou/uL (130-400); RBC Distribution Width 14.8 % (11.5-14.5); White Blood Cell (WBC) Count 7.3 thou/uL (4.8-10.8)
--- NOTE | 2019-05-27 05:55 | PDOC.FM ---
- Subjective Subjective: Patient is unwell this morning. She feels nauseated. She is complaining of generalized weakness as well. - Objective MAR Reviewed: Yes Vital Signs & Weight: Vital Signs (12 hours) Temp Pulse Resp BP Pulse Ox 05/27/19 04:00 98.1 F 70 18 133/62 96 05/26/19 23:15 97.8 F 91 18 121/74 Weight Weight 100.953 kg Result Diagrams: 05/27/19 05:17 05/27/19 05:17 Phys Exam - Physical Examination Constitutional: NAD appears extremely fatigued, appears ill HEENT: moist MMs, sclera anicteric Neck: supple limited ROM 2/2 recent surgery and pain Respiratory: no wheezing, no rales, no rhonchi, clear to auscultation bilateral Cardiovascular: RRR, no significant murmur, no rub Gastrointestinal: soft slightly tender to palpation Musculoskeletal: no edema, pulses present Strength 2/5 upper and lower extremities. Sensation not intact. Cranial nerves do not appear intact. Deviation from normal: A&O to person & place. Not time. Skin: no rash, normal turgor, cap refill <2 seconds Dx/Plan (1) Acute encephalopathy Code(s): G93.40 - ENCEPHALOPATHY, UNSPECIFIED Status: Acute (2) CKD (chronic kidney disease) stage 2, GFR 60-89 ml/min Code(s): N18.2 - CHRONIC KIDNEY DISEASE, STAGE 2 (MILD) Status: Acute (3) Cervical stenosis of spinal canal Code(s): M48.02 - SPINAL STENOSIS, CERVICAL REGION Status: Acute (4) Generalized weakness Code(s): R53.1 - WEAKNESS Status: Acute (5) Nausea & vomiting Code(s): R11.2 - NAUSEA WITH VOMITING, UNSPECIFIED Status: Acute (6) Neurological symptoms Code(s): R29.90 - UNSPECIFIED SYMPTOMS AND SIGNS INVOLVING THE NERVOUS SYSTEM Status: Acute (7) Paresthesia Code(s): R20.2 - PARESTHESIA OF SKIN Status: Acute - Plan Plan: Patient is a 58F with PMHx of CHF, [place] x 2, CKD2, CAD, DM2, HLD, bipolar disorder , COPD, spinal stenosis, chronic pancreatitis with recent hospitalization and cervical decompression admitted to obs for acute encephalopathy Acute Encephalopathy - CT head, CT cervical spine, MRI cervical spine, UA, and CXR negative. MRI 04/26 showed no mass, small lacunar infarct. - Neurosurgery examined patient and images from ED and, per ED doc report, stated that they had no recommendations at this time. - Patient afebrile, vss - Diffuse neurological symptoms. It is unclear her encephalopathy is metabolic, psychogenic, a result of polypharmacy, or infectious. We discussed getting an IR guided lumbar puncture, however at this time she cannot consent for a procedure and the phone number for her next of kin is out of order. Contacted family friend and she is trying to get ahold of the sister. Will wait for family input. - Folate, RPR, HIV, Flu pending - Plan of care today is to contact family, reconcile and meticulously go over the patient's home medications for interactions, and monitor her. Diarrhea - Fecal white count elevated - C. Diff antigen positive, toxin pending - Shiga toxin and campylobacter negative Mild hyponatremia -Sodium 131 > 133 -Gentle IVF and will monitor Elevated CRP - CRP 3.32, unknown etiology - ESR wnl at 28 CHF -Gentle IVF for hyponatremia and AMS, will monitor fluid status closely -continue home meds CKD2 -will avoid renally toxic medications HLD -continue home meds DM2 -continue home meds -ISS Bipolar disorder -continue home meds COPD -continue home meds Spinal stenosis with recent cervical decompression -neurosurgery not concerned at this time, CT/MRI cervical spine negative for acute changes PCP - Dr. Barcenas DVT ppx: lovenox Dispo: Stable, observation status. Likely LOS < 48 hours. Code: Full Addendum - Attending - Attending Attestation Date/Time: 05/27/19 9569 I personally evaluated the patient and discussed the management with Dr. Jackson. I agree with the History, Examination, Assessment and Plan documented above with any addition or exceptions noted below.
[2019-05-27 06:12] LABS: Anion Gap 11 mmol/L (10-20); BUN (Urea Nitrogen) 13 mg/dL (9.8-20.1); Calc. Creatinine Clearance 121 mL/min (70-130); Calcium 8.5 mg/dL (7.8-10.44); Carbon Dioxide 21 mmol/L (22-29); Chloride 105 mmol/L (98-107); Estimated GFR-MDRD 71; Glucose 99 mg/dL (70-105); Potassium 4.3 mmol/L (3.5-5.1); Sodium 133 mmol/L (136-145)
[2019-05-27 06:33] LABS: Syphilis Antibody Nonreactive (Nonreactive); Syphilis Antibody Index 0.03 S/CO (<1.00 Non-Reactive)
[2019-05-27] MEDS: Mometasone 100 MCG HFA INHALER INH SCH ×2 (07:05→19:00)
[2019-05-27] MEDS: Sodium Chloride 0.9% 1,000 ML IV SCH ×2 (08:07→21:48)
[2019-05-27] MEDS ORDERED: INSULIN GLARGINE SQ SCH (09:00)
[2019-05-27] MEDS ORDERED: Non-Formulary Item 1 EACH (Fluticasone/Umeclidin/Vilanter [Trelegy Ellipta 100-62.5-25] 1 INH SCH (09:00)
[2019-05-27] MEDS: Enoxaparin Sodium 30 MG/0.3 ML SYRINGE SC SCH (09:32)
[2019-05-27] MEDS: Ondansetron PF 4 MG/2 ML Vial IVP PRN (09:33)
[2019-05-27] MEDS: Insulin Glargine 70 UNITS in Pre-Filled Syringe 1 EACH SC SCH ×2 (09:33→23:55)
[2019-05-27] MEDS: Potassium Chloride 20 MEQ TAB PO SCH ×2 (09:34→17:37)
[2019-05-27] MEDS: Alogliptin 6.25 MG TAB PO SCH (09:35)
[2019-05-27] MEDS: Multivitamin W/ Minerals 1 TAB PO SCH (09:35)
[2019-05-27] MEDS: Ascorbic Acid 500 mg Chewable Tablet PO SCH ×2 (09:35→23:52)
[2019-05-27] MEDS: Folic Acid 1 MG TAB PO SCH (09:35)
[2019-05-27] MEDS: Acetaminophen 325 MG TAB PO PRN ×2 (09:35→17:38)
[2019-05-27] MEDS: Bupropion 150 MG SR TAB PO SCH (09:35)
[2019-05-27] MEDS: Pancrelipase DR 12000 1 CAP PO SCH ×3 (09:36→17:37)
[2019-05-27] MEDS: Fluticasone Propionate Nasal Spray 16 gm Bottle NASAL SCH (09:36)
[2019-05-27] MEDS: Torsemide 20 MG TAB PO SCH ×2 (09:36→17:38)
[2019-05-27] MEDS: Ferrous Sulfate 325 MG TAB PO SCH ×2 (09:36→17:38)
[2019-05-27] MEDS: Fish Oil 1,000 MG CAP PO SCH (09:39)
--- NOTE | 2019-05-27 10:45 | PRG ---
DATE OF SERVICE: 05/27/2019 Ms. Ang was admitted. She is a few weeks out from multilevel cervical laminectomy. Her MRI demonstrates motion artifact and evidence of metallic artifact. There is no evidence of worrisome stenosis. Her canal diameter is improved. She appears better today. There was a concern of weakness, this appears to have resolved. She does have a normal sedimentation rate with an elevated CRP. A few weeks out from surgery, the CRP should start to come down. I should note, however, she was found to be hyponatremic. This is improved to a degree today. She needs continued medical monitoring and likely transfer to inpatient rehab when stable. Her CT and MRI are acceptable from a neurosurgical standpoint, as is her wound. Job ID: [id number]
[2019-05-27] MEDS ORDERED: Naloxone HCl 0.4 mg/ml Vial IV SCH (14:30)
[2019-05-27 15:03] LABS: Actual Bicarbonate (HCO3a) 23.5 mEq/L (22-28); Base Excess (BEa) -0.8 mEq/L (-2.0 to +3.0); CO2 Tension 37.3 mmHg (35.0-45.0); Calcium, Ionized 1.15 mmol/L (1.12-1.30); Carboxyhemoglobin (COHb) 1.6 gm% (0.0-3.0); Hemoglobin (Hb) 11.5 g/dL (12.0-16.0); O2 Tension (PaO2) 63.8 mmHg (80.0-100.0); Potassium - ABG Lab 3.61 mmol/L (3.70-5.30); pH, Arterial 7.42 (7.35-7.45)
[2019-05-27 15:04] LABS: ALV-art Gradient 39.305 (0-20); Puncture Site LRA
[2019-05-27] MEDS ORDERED: risperiDONE 1 MG TAB PO SCH (21:00)
[2019-05-27] MEDS ORDERED: Melatonin 3 MG TAB PO PRN (21:21)
[2019-05-27] MEDS: Lisinopril 5 MG TAB PO SCH (23:52)
[2019-05-27] MEDS: PARoxetine 20 MG TAB PO SCH (23:52)
[2019-05-27] MEDS: Fenofibrate Nanocrystallized 145 MG TAB PO SCH (23:52)
[2019-05-27] MEDS: Atorvastatin Calcium 40 MG TAB PO SCH (23:52)
[2019-05-28] MEDS: Ondansetron PF 4 MG/2 ML Vial IVP PRN ×2 (02:39→15:52)
--- NOTE | 2019-05-28 05:08 | PDOC.FM ---
- Subjective Subjective: Doing well this morning. No more episodes of confusion since early yesterday. Describes episodes as 30mon-1hr episodes where she is aware the entire time but has generalized weakness, confusion, and "inability to say or do what she wants " These episodes self-resolve and is at baseline in between episodes. No LOC at any time during, before, or after episodes. This morning denies any CP, SOB, n/v , d/c, fever/chills. Has modereate post-op pain from recent surgery. Eager for inpt rehab for continued strengthening prior to discharge home. - Objective MAR Reviewed: Yes Vital Signs & Weight: Vital Signs (12 hours) Temp Pulse Resp BP BP Pulse Ox 05/28/19 00:41 89 16 95 05/27/19 23:59 98.1 F 96 20 135/79 99 05/27/19 23:52 96 135/79 05/27/19 20:00 98.2 F 90 20 115/66 98 05/27/19 19:00 96 16 95 Weight Admit Weight 100.953 kg Weight 100.953 kg I&O: 05/26/19 05/27/19 05/28/19 06:59 06:59 06:59 Intake Total 867 Balance 867 Result Diagrams: 05/28/19 10:22 05/28/19 10:22 EKG Reviewed by me: Yes (Tele: NSR) Phys Exam - Physical Examination Constitutional: NAD HEENT: PERRLA, moist MMs Neck: supple Respiratory: no wheezing, no rales, no rhonchi, clear to auscultation bilateral Cardiovascular: RRR, no rub 2/6 LA best heard left sternal border. No radiation. No carotid bruits. Gastrointestinal: soft, non-tender, no distention, positive bowel sounds Musculoskeletal: no edema right ankle wrapped from recent surgery, dressing c/d/i. Neurological: non-focal, normal sensation, moves all 4 limbs Psychiatric: normal affect, A&O x 3 Dx/Plan (1) Acute encephalopathy Code(s): G93.40 - ENCEPHALOPATHY, UNSPECIFIED Status: Resolved (2) CKD (chronic kidney disease) stage 2, GFR 60-89 ml/min Code(s): N18.2 - CHRONIC KIDNEY DISEASE, STAGE 2 (MILD) Status: Chronic (3) Cervical stenosis of spinal canal Code(s): M48.02 - SPINAL STENOSIS, CERVICAL REGION Status: Chronic (4) Generalized weakness Code(s): R53.1 - WEAKNESS Status: Acute (5) CAD (coronary artery disease) Code(s): I25.10 - ATHSCL HEART DISEASE OF [place] CORONARY ARTERY W/O ANG PCTRS Status: Chronic Qualifiers: Coronary Disease-Associated Artery/Lesion type: [place] artery [place] vs. transplanted heart: [place] heart Associated angina: angina presence unspecified Qualified Code(s): I25.10 - Atherosclerotic heart disease of [place] coronary artery without angina pectoris (6) CHF (congestive heart failure) Code(s): I50.9 - HEART FAILURE, UNSPECIFIED Status: Chronic Qualifiers: Heart failure type: diastolic Heart failure chronicity: chronic Qualified Code(s): I50.32 - Chronic diastolic (congestive) heart failure (7) Chronic pancreatitis Code(s): K86.1 - OTHER CHRONIC PANCREATITIS Status: Chronic (8) Diabetes mellitus type 2 in obese Code(s): E11.9 - TYPE 2 DIABETES MELLITUS WITHOUT COMPLICATIONS; E66.9 - OBESITY , UNSPECIFIED Status: Chronic - Plan Plan: Patient is a 58F with PMHx of CHF, [place] x 2, CKD2, CAD, DM2, HLD, bipolar disorder , COPD, spinal stenosis, chronic pancreatitis with recent hospitalization and cervical decompression admitted to obs for acute encephalopathy #Acute Encephalopathy, resolved - CT head, CT cervical spine, MRI cervical spine, UA, and CXR negative. MRI 04/26 showed no mass, small lacunar infarct. - Neurosurgery examined patient and images from ED, stated pt doing well, no further recommendations at this time, apprec assistance. - Patient afebrile, vss - Pt sxs have since resolved and she appears at baseline mentation, A/Ox3. Suspected 2/2 polypharmacy, will adjust home meds as tolerated to still control pain - LP this morning was stopped during procedure 2/2 pain, no s/s of acute meningitis/encephalitis, low suspicion at this time - RPR, HIV, flu negative - Pt appears at baseline and no return of sxs, medically stable, would benefit from inpt rehab for continued therapy. #Diarrhea, chronic - Fecal white count elevated - C. Diff antigen positive, toxin pending - Shiga toxin and campylobacter negative - likely 2/2 chronic pancreatic insufficiency, cont Creon #Decondition - 2/2 recent surgeries on top of chronic medical conditions - PT/OT to eval and tx - Would benefit from inpt rehab, rehab screen placed, apprec assistance #Mild hyponatremia -Sodium 131 > 133. Gently IVF, will recheck BMP today, d/c IVF #Elevated CRP - CRP 3.32, ESR wnl at 28 - likely 2/2 acute stress of recent surgery #CHF - monitor fluid status closely, no s/s acute exacerbation - continue home meds #CKD2 - will avoid renally toxic medications #HLD -continue home meds #DM2 -continue home meds -ISS #Bipolar disorder -continue home meds #COPD -continue home meds #Spinal stenosis with recent cervical decompression -neurosurgery not concerned at this time, CT/MRI cervical spine negative for acute changes -rec inpt rehab PCP - Dr. Barcenas DVT ppx: lovenox Code: Full IVF: SL Dispo: Admitted to obs for acute encephalopathy, suspected polypharmacy, now resolved. Pt at baseline mentation this morning. Unable to obtain LP but low suspicion for meningitis at this time. PT/OT/rehab/CM consulted for placement. Medically stable at this time. Will cont to monitor pending placement. Addendum - Attending - Attending Attestation Date/Time: 05/28/19 2680 I personally evaluated the patient and discussed the management with Dr. Madsen I agree with the History, Examination, Assessment and Plan documented above with any addition or exceptions noted below. Patient relates Auditory non persecutory hallucination may need to adjust antipsychotics dosage rx otherwise ready for rehab placement.
[2019-05-28 06:07] LABS: HIV (1/2) Antibody/Antigen Non-Reactive (NonReactive); HIV 1/2 INDEX 0.12 S/CO (<1.00)
[2019-05-28] MEDS: Mometasone 100 MCG HFA INHALER INH SCH ×2 (06:41→19:17)
[2019-05-28] MEDS: Pancrelipase DR 12000 1 CAP PO SCH ×3 (08:28→15:52)
[2019-05-28] MEDS: Folic Acid 1 MG TAB PO SCH (08:28)
[2019-05-28] MEDS: Ferrous Sulfate 325 MG TAB PO SCH ×2 (08:29→15:53)
[2019-05-28] MEDS: Multivitamin W/ Minerals 1 TAB PO SCH (08:29)
[2019-05-28] MEDS: Acetaminophen 325 MG TAB PO PRN (08:29)
[2019-05-28] MEDS: Torsemide 20 MG TAB PO SCH ×2 (08:29→15:53)
[2019-05-28] MEDS: Potassium Chloride 20 MEQ TAB PO SCH ×2 (08:29→15:53)
[2019-05-28] MEDS: Fish Oil 1,000 MG CAP PO SCH (08:29)
[2019-05-28] MEDS: Bupropion 150 MG SR TAB PO SCH (08:29)
[2019-05-28] MEDS: Ascorbic Acid 500 mg Chewable Tablet PO SCH ×2 (08:30→21:02)
[2019-05-28] MEDS: Sodium Chloride 0.9% 1,000 ML IV SCH ×2 (08:32→11:18)
[2019-05-28] MEDS: Fluticasone Propionate Nasal Spray 16 gm Bottle NASAL SCH (08:33)
[2019-05-28] MEDS: Enoxaparin Sodium 30 MG/0.3 ML SYRINGE SC SCH (08:33)
[2019-05-28] MEDS: Alogliptin 6.25 MG TAB PO SCH (08:36)
--- NOTE | 2019-05-28 09:55 | RAD ---
XR Lumbar Punct Only W/Fluoro HISTORY: Altered mental status. Request for lumbar puncture. COMPARISON: None. FINDINGS: After informed consent was obtained the patient was prepped and draped in normal sterile fa shion. Local anesthesia was obtained 1% Xylocaine. A 20-gauge spinal needle was used. As I began to insert the needle the patient states she was in too much pain to continue the procedure and it was te rminated. Asad, the patient's nurse was informed of patient refusal. IMPRESSION: Lumbar puncture was terminated at the request the patient.
[2019-05-28 10:57] LABS: #Eosinphils 0.1 thou/uL (0.0-0.7); #Monocytes 0.8 thou/uL (0.11-0.59); #Neutrophils 6.7 thou/uL (1.40-6.50); %Basophils 0.1 % (0.0-1.0); %Eosinophils 0.9 % (0.0-10.0); %Lymphocytes 20.5 % (21.0-51.0); %Monocytes 7.8 % (0.0-10.0); %Neutrophils 70.6 % (42.0-75.0); Hemoglobin 11.2 g/dL (12.0-16.0); Mean Corpuscular HGB CONC 33.2 g/dL (32.0-36.0); Mean Corpuscular Hemoglobin 28.3 pg (27.0-31.0); Mean Corpuscular Volume 85.4 fL (78.0-98.0); Mean Platelet Volume 7.8 fL (7.4-10.4); Platelet Count 193 thou/uL (130-400); Red Blood Cell (RBC) Count 3.94 mill/uL (4.20-5.40); White Blood Cell (WBC) Count 9.5 thou/uL (4.8-10.8)
[2019-05-28 11:14] LABS: Anion Gap 14 mmol/L (10-20); BUN (Urea Nitrogen) 10 mg/dL (9.8-20.1); Calc. Creatinine Clearance 99 mL/min (70-130); Calcium 8.7 mg/dL (7.8-10.44); Carbon Dioxide 25 mmol/L (22-29); Chloride 102 mmol/L (98-107); Estimated GFR-MDRD 57; Glucose 118 mg/dL (70-105); Sodium 137 mmol/L (136-145)
[2019-05-28] MEDS: Insulin Glargine 70 UNITS in Pre-Filled Syringe 1 EACH SC SCH ×2 (11:37→21:10)
[2019-05-28] MEDS: Morphine ER 15 MG TAB PO PRN ×2 (11:42→17:46)
[2019-05-28] MEDS: PARoxetine 20 MG TAB PO SCH (21:02)
[2019-05-28] MEDS: Atorvastatin Calcium 40 MG TAB PO SCH (21:02)
[2019-05-28] MEDS: Lisinopril 5 MG TAB PO SCH (21:02)
[2019-05-28] MEDS: Fenofibrate Nanocrystallized 145 MG TAB PO SCH (21:02)
[2019-05-29] MEDS: Ondansetron PF 4 MG/2 ML Vial IVP PRN ×4 (00:09→22:48)
[2019-05-29] MEDS: Morphine ER 15 MG TAB PO PRN ×3 (01:21→16:44)
[2019-05-29] MEDS ORDERED: risperiDONE 1 MG TAB PO SCH (05:18)
--- NOTE | 2019-05-29 05:21 | PDOC.FM ---
- Subjective Subjective: Pt doing well this morning. Slept well overnight. Denies any CP, SOB, Fever/ chills, n/v. Does state she takes Metoprolol at home that has not been restarted. Endorses auditory hallucinations but describes them as an "inner voice" that "talks to my family." No SI/HI and voices do not tell her to do anything in particular. She is eager for discharge to rehab. - Objective MAR Reviewed: Yes Vital Signs & Weight: Vital Signs (12 hours) Temp Pulse Resp BP BP Pulse Ox 05/29/19 04:00 98.3 F 94 18 94/57 L 98 05/29/19 00:31 115 H 05/28/19 21:51 98.1 F 115 H 18 107/73 95 05/28/19 20:00 99.3 F 114 H 16 143/79 H 96 05/28/19 19:14 112 H 16 97 Weight Admit Weight 100.953 kg Weight 100.953 kg I&O: 05/27/19 05/28/19 05/29/19 06:59 06:59 06:59 Intake Total 867 960 Balance 867 960 Result Diagrams: 05/28/19 10:22 05/28/19 10:22 Phys Exam - Physical Examination Constitutional: NAD HEENT: PERRLA, moist MMs Neck: supple Respiratory: no wheezing, no rales, no rhonchi, clear to auscultation bilateral Cardiovascular: RRR, no rub 2/6 LA, no radiation Gastrointestinal: soft, non-tender, no distention, positive bowel sounds Musculoskeletal: no edema RLE ORIF incision c/d/i, dissolvable sutures reminants easily removed 1+, non pitting edema of RLE as compared to left Neurological: non-focal, normal sensation, moves all 4 limbs Psychiatric: normal affect, A&O x 3 Deviation from normal: Inner auditory hallucinations, no SI/HI, thougth congruent with mood Dx/Plan (1) Acute encephalopathy Code(s): G93.40 - ENCEPHALOPATHY, UNSPECIFIED Status: Resolved (2) CKD (chronic kidney disease) stage 2, GFR 60-89 ml/min Code(s): N18.2 - CHRONIC KIDNEY DISEASE, STAGE 2 (MILD) Status: Chronic (3) Cervical stenosis of spinal canal Code(s): M48.02 - SPINAL STENOSIS, CERVICAL REGION Status: Chronic (4) Generalized weakness Code(s): R53.1 - WEAKNESS Status: Acute (5) CAD (coronary artery disease) Code(s): I25.10 - ATHSCL HEART DISEASE OF [place] CORONARY ARTERY W/O ANG PCTRS Status: Chronic Qualifiers: Coronary Disease-Associated Artery/Lesion type: [place] artery [place] vs. transplanted heart: [place] heart Associated angina: angina presence unspecified Qualified Code(s): I25.10 - Atherosclerotic heart disease of [place] coronary artery without angina pectoris (6) CHF (congestive heart failure) Code(s): I50.9 - HEART FAILURE, UNSPECIFIED Status: Chronic Qualifiers: Heart failure type: diastolic Heart failure chronicity: chronic Qualified Code(s): I50.32 - Chronic diastolic (congestive) heart failure (7) Chronic pancreatitis Code(s): K86.1 - OTHER CHRONIC PANCREATITIS Status: Chronic (8) Diabetes mellitus type 2 in obese Code(s): E11.9 - TYPE 2 DIABETES MELLITUS WITHOUT COMPLICATIONS; E66.9 - OBESITY , UNSPECIFIED Status: Chronic - Plan Plan: Patient is a 58F with PMHx of CHF, DE x 2, CKD2, CAD, DM2, HLD, bipolar disorder , COPD, spinal stenosis, chronic pancreatitis with recent hospitalization and cervical decompression admitted to obs for acute encephalopathy #Acute Encephalopathy, resolved - CT head, CT cervical spine, MRI cervical spine, UA, and CXR negative. MRI 04/26 showed no mass, small lacunar infarct. - Neurosurgery examined patient and images from ED, stated pt doing well, no further recommendations at this time, apprec assistance. - Patient afebrile, vss with mild tachycardia - Pt sxs have since resolved and she appears at baseline mentation, A/Ox3. Suspected 2/2 polypharmacy, will adjust home meds as tolerated to still control pain - LP stopped during procedure 2/2 pain, no s/s of acute meningitis, low suspicion at this time - RPR, HIV, flu negative - Pt appears at baseline and no return of sxs, medically stable, would benefit from inpt rehab for continued therapy. #Diarrhea, chronic - Fecal white count elevated - C. Diff antigen positive, toxin pending - Shiga toxin and campylobacter negative - likely 2/2 chronic pancreatic insufficiency, cont Creon #Decondition - 2/2 recent surgeries on top of chronic medical conditions - PT/OT to eval and tx - Would benefit from inpt rehab, rehab screen placed, apprec assistance #Mild hyponatremia -Sodium 131 > 133. Stable, no IVF at this time. #Elevated CRP - CRP 3.32, ESR wnl at 28 - likely 2/2 acute stress of recent surgery #CHF - monitor fluid status closely, no s/s acute exacerbation - continue home meds, restarted metoprolol #CKD2 - will avoid renally toxic medications #HLD -continue home meds #DM2 -continue home meds -ISS #Bipolar disorder - continue home meds - endorses non-persecutory auditory hallucinations, increased dose of Risperdone to 2mg QHS, no SI/HI, will need continued OP f/u and adjustment of medications #COPD -continue home meds #Spinal stenosis with recent cervical decompression -neurosurgery not concerned at this time, CT/MRI cervical spine negative for acute changes -rec inpt rehab #Recent ORIF - Incision c/d/i, cont PT/OT. Sutures are dissolvable and remnants easily moved , mild edema. - would benefit from OP ortho post-op f/u PCP - Dr. Barcenas DVT ppx: lovenox Code: Full IVF: SL Dispo: Admitted for acute encephalopathy, suspected polypharmacy, now resolved. Pt at baseline mentation. PT/OT/rehab/CM consulted for placement. Medically stable at this time. Will cont to monitor pending placement. Addendum - Attending - Attending Attestation Date/Time: 05/29/19 8625 I personally evaluated the patient and discussed the management with Dr. Madsen I agree with the History, Examination, Assessment and Plan documented above with any addition or exceptions noted below. Hyponatremia resolved will increase resperidone and looking to transfer to rehab.
[2019-05-29] MEDS: Mometasone 100 MCG HFA INHALER INH SCH ×2 (06:43→18:55)
[2019-05-29] MEDS: Multivitamin W/ Minerals 1 TAB PO SCH (08:55)
[2019-05-29] MEDS: Folic Acid 1 MG TAB PO SCH (08:55)
[2019-05-29] MEDS: Alogliptin 6.25 MG TAB PO SCH (08:55)
[2019-05-29] MEDS: Ferrous Sulfate 325 MG TAB PO SCH ×2 (08:55→16:46)
[2019-05-29] MEDS: Fish Oil 1,000 MG CAP PO SCH (08:55)
[2019-05-29] MEDS: Ascorbic Acid 500 mg Chewable Tablet PO SCH ×2 (08:55→21:04)
[2019-05-29] MEDS: Potassium Chloride 20 MEQ TAB PO SCH ×2 (08:55→16:46)
[2019-05-29] MEDS: Metoprolol Tartrate 25 MG TAB PO SCH ×2 (08:56→21:05)
[2019-05-29] MEDS: Insulin Glargine 70 UNITS in Pre-Filled Syringe 1 EACH SC SCH (08:56)
[2019-05-29] MEDS: Fluticasone Propionate Nasal Spray 16 gm Bottle NASAL SCH (08:57)
[2019-05-29] MEDS: Enoxaparin Sodium 30 MG/0.3 ML SYRINGE SC SCH (08:57)
[2019-05-29] MEDS: Pancrelipase DR 12000 1 CAP PO SCH ×3 (11:20→17:26)
[2019-05-29] MEDS: Torsemide 20 MG TAB PO SCH ×2 (11:41→17:26)
[2019-05-29] MEDS: Bupropion 150 MG SR TAB PO SCH (11:42)
[2019-05-29] MEDS: Atorvastatin Calcium 40 MG TAB PO SCH (21:04)
[2019-05-29] MEDS: Fenofibrate Nanocrystallized 145 MG TAB PO SCH (21:04)
[2019-05-29] MEDS: Lisinopril 5 MG TAB PO SCH (21:04)
[2019-05-29] MEDS: PARoxetine 20 MG TAB PO SCH (21:04)
[2019-05-29] MEDS: Acetaminophen 325 MG TAB PO PRN (22:45)
[2019-05-30] MEDS: Morphine ER 15 MG TAB PO PRN ×3 (01:07→23:52)
[2019-05-30] MEDS: Ondansetron PF 4 MG/2 ML Vial IVP PRN ×3 (04:30→21:10)
--- NOTE | 2019-05-30 05:59 | PDOC.FM ---
- Subjective Subjective: Patient is doing much better today than when I last saw her. She is alert and oriented. She has no new complaints. - Objective MAR Reviewed: Yes Vital Signs & Weight: Vital Signs (12 hours) Temp Pulse Resp BP Pulse Ox 05/30/19 00:05 102 H 16 05/29/19 20:00 98.4 F 102 H 20 110/72 100 05/29/19 19:41 100 Weight Admit Weight 100.953 kg Weight 100.953 kg I&O: 05/28/19 05/29/19 05/30/19 06:59 06:59 06:59 Intake Total 867 1220 384 Balance 867 1220 384 Result Diagrams: 05/28/19 10:22 05/30/19 07:00 Phys Exam - Physical Examination Constitutional: NAD HEENT: moist MMs, sclera anicteric Neck: supple, full ROM Respiratory: no wheezing, no rales, no rhonchi, clear to auscultation bilateral Currently receiving neb Cardiovascular: RRR, no significant murmur, no rub Gastrointestinal: soft, non-tender, positive bowel sounds Musculoskeletal: no edema, pulses present Neurological: non-focal, normal sensation, moves all 4 limbs Psychiatric: normal affect, A&O x 3 Skin: no rash, normal turgor, cap refill <2 seconds Dx/Plan (1) Acute encephalopathy Code(s): G93.40 - ENCEPHALOPATHY, UNSPECIFIED Status: Resolved (2) CKD (chronic kidney disease) stage 2, GFR 60-89 ml/min Code(s): N18.2 - CHRONIC KIDNEY DISEASE, STAGE 2 (MILD) Status: Chronic (3) Cervical stenosis of spinal canal Code(s): M48.02 - SPINAL STENOSIS, CERVICAL REGION Status: Chronic (4) Generalized weakness Code(s): R53.1 - WEAKNESS Status: Acute (5) Nausea & vomiting Code(s): R11.2 - NAUSEA WITH VOMITING, UNSPECIFIED Status: Acute (6) Neurological symptoms Code(s): R29.90 - UNSPECIFIED SYMPTOMS AND SIGNS INVOLVING THE NERVOUS SYSTEM Status: Acute (7) Paresthesia Code(s): R20.2 - PARESTHESIA OF SKIN Status: Acute - Plan Plan: Patient is a 58F with PMHx of CHF, [place] x 2, CKD2, CAD, DM2, HLD, bipolar disorder , COPD, spinal stenosis, chronic pancreatitis with recent hospitalization and cervical decompression admitted to obs for acute encephalopathy Acute Encephalopathy, resolved - CT head, CT cervical spine, MRI cervical spine, UA, and CXR negative. MRI 04/26 showed no mass, small lacunar infarct. - Neurosurgery examined patient and images from ED, stated pt doing well, no further recommendations at this time, appreciate assistance. - Patient afebrile, vss with mild tachycardia - Pt sxs have since resolved and she appears at baseline mentation, A/Ox3. Suspected 2/2 polypharmacy, will adjust home meds as tolerated to still control pain - RPR, HIV, flu negative - Pt appears at baseline and no return of sxs, medically stable. Would benefit from SNF stay prior to returning home. Diarrhea, chronic - Fecal white count elevated - C. Diff antigen positive, toxinnegative - Shiga toxin and campylobacter negative - likely 2/2 chronic pancreatic insufficiency, cont Creon Deconditioning - 2/2 recent surgeries on top of chronic medical conditions - PT/OT to eval and tx - Patient does not desire to go to inpatient rehab, screening for SNF placement. Mild hyponatremia, stable -Sodium 131 > 133. Stable Elevated CRP - CRP 3.32, ESR wnl at 28 - likely 2/2 acute stress of recent surgery CHF - monitor fluid status closely, no s/s acute exacerbation - continue home meds, restarted metoprolol CKD2 - will avoid renally toxic medications HLD -continue home meds DM2 -continue home meds -SSI Bipolar disorder - continue home meds - endorses non-persecutory auditory hallucinations, increased dose of Risperdone to 2mg QHS, no SI/HI, will need continued OP f/u and adjustment of medications COPD -continue home meds Spinal stenosis with recent cervical decompression -neurosurgery not concerned at this time, CT/MRI cervical spine negative for acute changes -rec inpt rehab Recent ORIF - Incision c/d/i, cont PT/OT. Sutures are dissolvable and remnants easily moved , mild edema. - would benefit from OP ortho post-op f/u Chronic pain - patient has MS Contin prescription. - calling Dr. Barcenas, her PCP to verify medications before discharge. PCP - Dr. Barcenas DVT ppx: lovenox Code: Full IVF: SL Dispo: Admitted for acute encephalopathy, suspected polypharmacy, now resolved. Pt at baseline mentation. PT/OT/rehab/CM consulted for placement. Medically stable at this time. Will cont to monitor pending placement.
[2019-05-30 07:29] LABS: ALT (SGPT) 37 U/L (8-55); AST (SGOT) 32 U/L (5-34); Albumin 3.5 g/dL (3.5-5.0); Alkaline Phosphatase 112 U/L (40-110); Anion Gap 15 mmol/L (10-20); BUN (Urea Nitrogen) 19 mg/dL (9.8-20.1); Bilirubin, Total 0.8 mg/dL (0.2-1.2); Calc. Creatinine Clearance 71 mL/min (70-130); Calcium 9.1 mg/dL (7.8-10.44); Carbon Dioxide 27 mmol/L (22-29); Chloride 98 mmol/L (98-107); Estimated GFR-MDRD 39; Globulin 2.9 g/dL (2.4-3.5); Glucose 92 mg/dL (70-105); Potassium 3.8 mmol/L (3.5-5.1); Protein, Total 6.4 g/dL (6.0-8.3); Sodium 136 mmol/L (136-145)
[2019-05-30] MEDS: Mometasone 100 MCG HFA INHALER INH SCH ×2 (07:57→18:49)
[2019-05-30] MEDS: Fish Oil 1,000 MG CAP PO SCH (08:18)
[2019-05-30] MEDS: Bupropion 150 MG SR TAB PO SCH (08:18)
[2019-05-30] MEDS: Torsemide 20 MG TAB PO SCH ×2 (08:19→17:47)
[2019-05-30] MEDS: Multivitamin W/ Minerals 1 TAB PO SCH (08:19)
[2019-05-30] MEDS: Alogliptin 6.25 MG TAB PO SCH (08:19)
[2019-05-30] MEDS: Pancrelipase DR 12000 1 CAP PO SCH ×3 (08:19→17:46)
[2019-05-30] MEDS: Metoprolol Tartrate 25 MG TAB PO SCH ×2 (08:19→21:13)
[2019-05-30] MEDS: Folic Acid 1 MG TAB PO SCH (08:20)
[2019-05-30] MEDS: Enoxaparin Sodium 30 MG/0.3 ML SYRINGE SC SCH (08:20)
[2019-05-30] MEDS: Potassium Chloride 20 MEQ TAB PO SCH ×2 (08:20→17:47)
[2019-05-30] MEDS: Ferrous Sulfate 325 MG TAB PO SCH ×2 (08:20→17:47)
[2019-05-30] MEDS: Ascorbic Acid 500 mg Chewable Tablet PO SCH ×2 (08:20→21:11)
[2019-05-30] MEDS: Insulin Glargine 70 UNITS in Pre-Filled Syringe 1 EACH SC SCH (08:21)
[2019-05-30] MEDS: Fluticasone Propionate Nasal Spray 16 gm Bottle NASAL SCH (08:22)
--- NOTE | 2019-05-30 09:58 | CON ---
DATE OF CONSULTATION: This is Kt Farmer PA-C dictating a report for Malcom Dowling MD. This is a 50-minute initial patient evaluation of which greater than 50% of the exam was spent in counseling and coordinating the patient's care. Remainder of the exam was spent in review of the patient's medical records and review of appropriate imaging studies. CHIEF COMPLAINT: Generalized extremity weakness. HISTORY OF PRESENT ILLNESS: Ms Ang is a 58-year-old female who is well known to our group as she previously underwent C2-5 laminectomies and posterior fusion on 05/05/2019 for cervical radiculopathy and cervical myelopathy. The patient has a history of undergoing C4-T1 ACDF in the also for myelopathy. Nonetheless, the patient apparently had a 2-hour history of overall generalized weakness and feeling like she was going to faint. She currently denies fever or chills. Apparently, her mother called EMS. She is difficult to get a history from at this time, as she recently received Ativan for sedation for her cervical spine MRI. Review of this MRI shows good decompression posteriorly at C2 to C5. Cervical spine CT was also obtained that shows no malfunction of hardware, good screw placement, no fracturing of the guillermo and stable fusion C4-T1. Her white blood cell count is normal at 9.1. She does have normal sedimentation rate. Her sodium is low at 131, and her C-reactive protein is elevated at 3.32. Her urinalysis is negative for infection. The patient has neck pain and bilateral upper extremity pain in a nondermatomal distribution. She complained of this around the time of surgery as well. PHYSICAL EXAMINATION: The patient is extremely sleepy. She awakens with noxious stimulus, though when questioned, she is oriented to person, place, and time. She requires significant redirection, but I believe this is secondary to recent administration of Ativan. The patient does have some right-sided weakness. This appears to be moderate and stable compared to her previous exam. She has mild weakness into the left upper extremity, but has a very mild generalized weakness in the bilateral lower extremities. She remains in a Cam boot secondary to her right ankle fracture. Her incision is healing very well. There is a very small area of scabbing at the top, bottom and middle aspect of the incisions, but there is absolutely no dehiscence, no swelling, no drainage, and no surrounding erythema. The patient is wearing a well-fitting [place] J collar. IMPRESSION/DIAGNOSIS: 1. Status post C2-5 laminectomies with fusion on 05/05/2019, for cervical myelopathy and cervical stenosis. 2. Tobacco abuse. 3. Generalized weakness. PLAN: At this time, there is no role for neurosurgical intervention as her imaging is stable. We will ask that our medical colleagues evaluate the patient, but at this time, no surgical intervention is warranted. The patient will follow up with us on an outpatient basis and will defer to our medical colleagues should the patient need admission to the hospital. Please call with any changes in patient's neurologic status. Job ID: [id number]
[2019-05-30] MEDS: Sodium Chloride 0.9% 1,000 ML IV SCH (12:28)
--- NOTE | 2019-05-30 13:43 | PQF ---
HAIM JOHNSON KATLYN *R [id number] [facility] [id number] CLINICAL DOCUMENTATION IMPROVEMENT CLARIFICATION FORM: ICD-10 Updated PLEASE DO AN ADDENDUM TO THE PROGRESS NOTE WITH ANY DOCUMENTATION UPDATES OR ADDITIONS AND CARRY THROUGH TO DC SUMMARY. THANK YOU. DATE: 05/30/2019 ATTN:DR. Estefanía DUVAL Please exercise your independent, professional judgment in responding to the clarification form. Clinical indicators are provided on the bottom of this form for your review. Please check appropriate box(s): Acute Encephalopathy: Etiology: [ ] Hypertensive [ ] Metabolic [ ] Toxic [ ] Hepatic with Coma [ ] Hepatic w/o Coma [ ] Hypoxic [ ] Septic [ ] Wernickes [ X ] Drug induced: Suspected Polypharmacy [ ] Unspecified [ ] in the setting of underlying dementia [ ] Other (please specify) [ ] Other diagnosis [ ] Unable to determine In addition, please specify: Present on Admission (POA): [X] Yes [ ] No [ ] Unable to determine For continuity of documentation, please document condition throughout progress notes and discharge summary. Thank You. CLINICAL INDICATORS - SIGNS / SYMPTOMS / LABS / RESULTS AND LOCATION IN EMR 05/26 H&P (VIN) SHE WAS UNABLE TO ANSWER ANY QUESTIONS AND SAID SHE WAS CONFUSED, A/P: 1). ACUTE ENCEPHALOPATHY 05/27 ED PHYSICIAN DX: ALTERED MENTAL STATUS 05/28 -05/29 PN ( CLAUDE) MORE EPISODES OF CONFUSION SINCE EARLY YESTERDAY; PLAN: ACUTE ENCEPHALOPATHY: SUSPECTED 2/2 POLYPHARMACY RISK: RECENT SURGERY ( CERVICAL DECOMPRESSION) (BANUELOS/ H&P) 05/27 HYPONATREMIA (PN/ARCE) 05/29 TREATMENTS: NEUROSURGERY CONSULT 05/26 CT HEAD 05/26 THANK YOU! RITIKA (This form is maintained as a part of the permanent medical record) 2014 [employer], [employer]. All Rights Reserved [email or web address] [phone] MTDD
--- NOTE | 2019-05-30 15:05 | PRG ---
DATE OF SERVICE: 05/30/2019 ADDENDUM: Ms. Ang was initially admitted with mental confusion and possible mild encephalopathy. She had an extensive imaging and blood work. She is on many, many medications and it was felt her AMS is likely related to polypharmacy. In the event, this morning, she is completely awake and alert x3, in no distress whenever. We will curtail some of her medications in anticipation of discharge later today or tomorrow. Please add this note as an addendum to the note of Dr. Arline Jackson, with a notation. I did discuss the case with her and agree with her assessment and plan. Job ID: [id number]
[2019-05-30 15:10] LABS: Folate,Hemolysate >620.0 ng/mL (Not Estab.); Hematocrit 33.9 % (34.0-46.6); RBC Folate Test Component Greater than 1829 ng/mL (>498)
[2019-05-30] MEDS: Fenofibrate Nanocrystallized 145 MG TAB PO SCH (21:11)
[2019-05-30] MEDS: Atorvastatin Calcium 40 MG TAB PO SCH (21:11)
[2019-05-30] MEDS: PARoxetine 20 MG TAB PO SCH (21:11)
[2019-05-30] MEDS: Lisinopril 5 MG TAB PO SCH (21:13)
[2019-05-31] MEDS: Ondansetron PF 4 MG/2 ML Vial IVP PRN ×2 (03:08→09:01)
[2019-05-31] MEDS: Sodium Chloride 0.9% 1,000 ML IV SCH (03:11)
--- NOTE | 2019-05-31 06:31 | PDOC.FM ---
- Subjective Subjective: Patient is doing well this morning, complains of constipation. - Objective MAR Reviewed: Yes Vital Signs & Weight: Vital Signs (12 hours) Temp Pulse Resp BP Pulse Ox 05/30/19 23:32 90 16 100 05/30/19 20:00 98.4 F 77 18 107/73 96 05/30/19 19:41 96 05/30/19 18:49 82 16 05/30/19 18:48 82 16 98 Weight Admit Weight 100.953 kg Weight 100.953 kg I&O: 05/29/19 05/30/19 05/31/19 06:59 06:59 06:59 Intake Total 1498 557 0684 Balance 0455 146 1217 Result Diagrams: 05/28/19 10:22 05/31/19 08:32 Phys Exam - Physical Examination Constitutional: NAD HEENT: moist MMs, sclera anicteric Neck: supple, full ROM Respiratory: no wheezing, no rales, no rhonchi, clear to auscultation bilateral Cardiovascular: RRR, no significant murmur, no rub Gastrointestinal: soft, non-tender, no distention, positive bowel sounds Musculoskeletal: no edema, pulses present Neurological: non-focal, normal sensation, moves all 4 limbs Psychiatric: normal affect, A&O x 3 Skin: no rash, cap refill <2 seconds Dx/Plan (1) Acute encephalopathy Code(s): G93.40 - ENCEPHALOPATHY, UNSPECIFIED Status: Resolved (2) CKD (chronic kidney disease) stage 2, GFR 60-89 ml/min Code(s): N18.2 - CHRONIC KIDNEY DISEASE, STAGE 2 (MILD) Status: Chronic (3) Cervical stenosis of spinal canal Code(s): M48.02 - SPINAL STENOSIS, CERVICAL REGION Status: Chronic (4) Generalized weakness Code(s): R53.1 - WEAKNESS Status: Acute (5) Nausea & vomiting Code(s): R11.2 - NAUSEA WITH VOMITING, UNSPECIFIED Status: Acute (6) Neurological symptoms Code(s): R29.90 - UNSPECIFIED SYMPTOMS AND SIGNS INVOLVING THE NERVOUS SYSTEM Status: Acute (7) Paresthesia Code(s): R20.2 - PARESTHESIA OF SKIN Status: Acute - Plan Plan: Patient is a 58F with PMHx of CHF, [place] x 2, CKD2, CAD, DM2, HLD, bipolar disorder , COPD, spinal stenosis, chronic pancreatitis with recent hospitalization and cervical decompression admitted to obs for acute encephalopathy Acute Encephalopathy, resolved - CT head, CT cervical spine, MRI cervical spine, UA, and CXR negative. MRI 04/26 showed no mass, small lacunar infarct. - Pt symptoms have since resolved and she appears at baseline mentation, A/Ox3. Suspected 2/2 polypharmacy, will adjust home meds as tolerated to still control pain - Pt appears at baseline and no return of sxs, medically stable. Would benefit from SNF stay prior to returning home. Diarrhea, chronic, stable - C. Diff antigen positive, toxin negative - likely 2/2 chronic pancreatic insufficiency, cont Creon Deconditioning - 2/2 recent surgeries on top of chronic medical conditions - PT/OT to eval and tx - Patient does not desire to go to inpatient rehab, screening for SNF placement. Mild hyponatremia, stable -Sodium 131 > 133. Stable Elevated CRP - CRP 3.32, ESR wnl at 28 - likely 2/2 acute stress of recent surgery CHF - monitor fluid status closely, no s/s acute exacerbation - continue home meds, restarted metoprolol CKD2 - will avoid renally toxic medications HLD -continue home meds DM2 -continue home meds -SSI Bipolar disorder - Patient has not been on risperdone for several days and stable. - will send to SNF with small dose of nightly Abilify. Recommend close follow up with PCP/SNF facility for medication management. - this patient is at high risk of polypharmacy and needs close follow up. COPD -continue home meds Spinal stenosis with recent cervical decompression -neurosurgery not concerned at this time, CT/MRI cervical spine negative for acute changes Recent ORIF - Incision c/d/i, cont PT/OT. Sutures are dissolvable and remnants easily moved , mild edema. - would benefit from OP ortho post-op f/u Chronic pain - patient has MS Contin prescription. - Strongly recommend discontinuing outpatient PCP - Dr. Barcenas DVT ppx: lovenox Code: Full IVF: SL Dispo: Admitted for acute encephalopathy, suspected polypharmacy, now resolved. Pt at baseline mentation. PT/OT/rehab/CM consulted for placement. Medically stable at this time. Will cont to monitor pending placement.
[2019-05-31] MEDS: Mometasone 100 MCG HFA INHALER INH SCH (06:57)
[2019-05-31] MEDS: Ferrous Sulfate 325 MG TAB PO SCH (08:04)
[2019-05-31] MEDS: Fish Oil 1,000 MG CAP PO SCH (08:04)
[2019-05-31] MEDS: Pancrelipase DR 12000 1 CAP PO SCH ×2 (08:06→12:28)
[2019-05-31] MEDS: Potassium Chloride 20 MEQ TAB PO SCH (08:06)
[2019-05-31] MEDS: Multivitamin W/ Minerals 1 TAB PO SCH (08:07)
[2019-05-31] MEDS: Alogliptin 6.25 MG TAB PO SCH (08:07)
[2019-05-31] MEDS: Torsemide 20 MG TAB PO SCH (08:07)
[2019-05-31] MEDS: Metoprolol Tartrate 25 MG TAB PO SCH (08:09)
[2019-05-31] MEDS: Folic Acid 1 MG TAB PO SCH (08:09)
[2019-05-31] MEDS: Bupropion 150 MG SR TAB PO SCH (08:10)
[2019-05-31] MEDS: Ascorbic Acid 500 mg Chewable Tablet PO SCH (08:10)
[2019-05-31] MEDS: Enoxaparin Sodium 30 MG/0.3 ML SYRINGE SC SCH (08:10)
[2019-05-31] MEDS: Fluticasone Propionate Nasal Spray 16 gm Bottle NASAL SCH (08:11)
[2019-05-31] MEDS: Insulin Glargine 70 UNITS in Pre-Filled Syringe 1 EACH SC SCH (08:12)
[2019-05-31 09:03] LABS: Anion Gap 13 mmol/L (10-20); BUN (Urea Nitrogen) 19 mg/dL (9.8-20.1); Calc. Creatinine Clearance 90 mL/min (70-130); Calcium 8.9 mg/dL (7.8-10.44); Carbon Dioxide 28 mmol/L (22-29); Chloride 100 mmol/L (98-107); Estimated GFR-MDRD 51; Glucose 101 mg/dL (70-105); Potassium 3.9 mmol/L (3.5-5.1); Sodium 137 mmol/L (136-145)
[2019-05-31] MEDS ORDERED: Polyethylene Glycol 3350 17 GM Packet PO PRN (09:38)
[2019-05-31] MEDS ORDERED: Senokot 8.6 MG TAB PO SCH (09:45)
[2019-05-31 10:49] VITALS: TEMP 98
[2019-05-31] MEDS: Morphine ER 15 MG TAB PO PRN (12:26)
[2019-05-31 14:27] VITALS: BP 115/74
[2019-05-31] MEDS ORDERED: Docusate 100 MG CAP PO SCH (21:00)
--- NOTE | 2019-06-01 04:48 | PQF ---
HAIM JOHNSON GRADY [id number] [facility]- 4438 [id number] CLINICAL DOCUMENTATION CLARIFICATION FORM: POST DISCHARGE Addendum to original discharge summary date: ____ Late entry note date: __ DATE: 06/01/19 ATTN: Juan Raymond Please exercise your independent, professional judgment in responding to the clarification form. Clinical indicators are provided on the bottom of this form for your review In your clinical opinion based on clinical findings below, can you please further clarfify diagnosis of Encephalopathy due to Polypharmacy if : Please check appropriate box(s): [ x] Adverse effect of medication [ ] Poisoning effect of drug [ ] Toxic Effect of drug [ ] Other diagnosis [ ] Unable to determine In addition, please specify: Present on Admission (POA): [ x] Yes [ ] No [ ] Unable to determine For continuity of documentation, please document condition throughout progress notes and discharge summary. Thank You. CLINICAL INDICATORS - SIGNS / SYMPTOMS / LABS Hospitalist p1 05/27 Dr Buhcanan presented with generalized weakness and confusion Hospitalist p1 05/27 Dr Buchanan She was unable to answer any questions and when asked what was wrong she said she was confused Hospitalist p9 05/27 Dr Buchanan AMS uncertain etiology, possible medication related: hold any sedating medications PN p1 12 Dr Buchanan UDS +opiates benzos, received ativan in ED PN p1 126 Dr Buchanan will continue monitor and see if she is more aleart and oriented after the opiates and benzos are out of her system RISK FACTORS Hospitalist p6 126 - Acute Encephalopathy Hospitalist p8 12 Hyponatremia TREATMENTS: Hospitalist p8 12 Will order Ammonia Hospitalist p8 12 Will order UDS/Blood drug screen Hospitalist p8 12 Consider furtehr neuro imaging Hospitalist p8 126 Check B12/Folate Hospitalist p9 12- hold any sedating medications (This form is maintained as a part of the permanent medical record) 2014 [employer]. All Rights Reserved [email or web address] [not provided] MTDD
--- NOTE | 2019-06-01 08:08 | PRG ---
DATE OF SERVICE: 05/31/2019 I agree with the assessment and plan of Dr. Arline Jackson. Job ID: [id number]
--- NOTE | 2019-06-01 12:15 | DIS ---
DATE OF ADMISSION: 05/27/2019 DATE OF DISCHARGE: 05/31/2019 CONSULTS: Neurosurgery. PROCEDURES: None. PRIMARY DIAGNOSIS: Acute encephalopathy, presumed to be from polypharmacy. SECONDARY DIAGNOSES: Diarrhea, hyponatremia, elevated CRP, congestive heart failure, chronic kidney disease, hyperlipidemia, diabetes, bipolar disorder, spinal stenosis with recent cervical decompression. DISCHARGE MEDICATIONS: 1. Tylenol. 2. Albuterol. 3. . 4. Atorvastatin. 5. Bupropion. 6. Lovenox. 7. Fenofibrate. 8. Fluticasone. 9. Folic acid. 10. Insulin. 11. Lisinopril. 12. Melatonin. 13. Metoprolol. 14. Mometasone inhaler. 15. Morphine ER, MS Contin. 16. Multivitamin. 17. Pancrelipase. 18. Paroxetine. 19. Potassium chloride. 20. Torsemide. 21. Abilify. Discontinued medications: Risperdal. HISTORY OF PRESENT ILLNESS/HOSPITAL COURSE: Ms. Ang is a 58-year-old female who recently had cervical decompression surgery, who presented to the ER via EMS after being, per family, weak and with altered mental status in her home. Upon arrival, she was really unable to give much history. She was confused and her alertness and orientation was waxing and waning. This was her neurological state for the first several days of admission. Medications that could induce drowsiness or encephalopathy were discontinued or held, and she slowly improved over the course of her admission. She states that she has been taking medications as prescribed upon discharge from her last hospital stay. A full workup for her encephalopathy was done including laboratory studies, which revealed no significant abnormalities. CT of her cervical spine and brain, which revealed no abnormalities other than postoperative changes. No acute complications. We attempted a lumbar puncture. However, the patient was unable to tolerate the procedure and it was not done. Neurosurgery was consulted and had no recommendation. They were not concerned about any of the surgical hardware. The patient improved after management of her medications at that time, which led us to believe that her initial presentation was probably due to polypharmacy and we recommend discontinuing sedating medications such as MS Contin. The patient was deconditioned as a result of her recent surgeries and hospital stay, and therefore it was thought that she would be best qualified for rehab. DISPOSITION: Stable. DISCHARGE INSTRUCTIONS: 1. Location: Inpatient rehab. 2. Diet: Heart healthy, diabetic. 3. Activity: Ad anai. 4. Followup: With primary care physician after discharge from rehab. Job ID: [id number]
[2019-06-05] MEDS ORDERED: Ergocalciferol 1.25 MG(50,000 UNITS) CAP PO SCH (09:00)
== END 2019-05-31 14:35 | disposition swing bed (61) | DRG 92 ==
LOC: ERS 12:49 → 2SE 05-27 00:17 → OBSVTOIN 05-27 00:17 → T4-B 05-28 21:58
PROVIDERS: ADMIT Family Medicine; ATTEND Family Medicine
DX: G92 Toxic encephalopathy (principal); E87.1 Hypo-osmolality and hyponatremia; K86.1 Other chronic pancreatitis; I50.32 Chronic diastolic (congestive) heart failure; I13.0 Hypertensive heart and chronic kidney disease with heart failure and stage 1 through stage 4 chronic kidney disease, or unspecified chronic kidney disease; N18.2 Chronic kidney disease, stage 2 (mild); E11.22 Type 2 diabetes mellitus with diabetic chronic kidney disease; E78.5 Hyperlipidemia, unspecified; F31.9 Bipolar disorder, unspecified; J44.9 Chronic obstructive pulmonary disease, unspecified; I25.10 Atherosclerotic heart disease of native coronary artery without angina pectoris; M48.02 Spinal stenosis, cervical region; K52.9 Noninfective gastroenteritis and colitis, unspecified; T50.915A Adverse effect of multiple unspecified drugs, medicaments and biological substances, initial encounter; F17.200 Nicotine dependence, unspecified, uncomplicated; Z79.899 Other long term (current) drug therapy; Z79.51 Long term (current) use of inhaled steroids; I25.2 Old myocardial infarction; Z88.1 Allergy status to other antibiotic agents; Z88.5 Allergy status to narcotic agent; Z88.2 Allergy status to sulfonamides; Z88.8 Allergy status to other drugs, medicaments and biological substances; Z90.49 Acquired absence of other specified parts of digestive tract; Z98.1 Arthrodesis status
CPT/HCPCS: 36415; 36416; 70450; 71045; 72100; 72125; 72156; 80048; 80053; 80306; 80307; 81003; 82140; 82607; 82747; 82805; 83630; 83735; 84145; 84443; 84484; 85025; 85652; 86140; 86780; 87045; 87046; 87324; 87389; 87427; 87449; 87493; 87631; 93005; 94640; 94664; 96361; 96374; 96375; A9579; J1650; J1815; J2060; J2310; J2405; J7620

== ENCOUNTER 2019-08-24 13:42 | Outpatient (CLI) | payer BC ==
--- NOTE | 2019-08-24 15:09 | RAD ---
CERVICAL SPINE SERIES 3 VIEWS: Date: 08/24/2019 HISTORY: Follow-up of surgery. FINDINGS: The patient has undergone anterior cervical fusion which extends from C4 to C7. There has been placem ent of bilateral facet screws extending from C2 to C5. IMPRESSION: Postop changes of the spine. POS: [facility]
== END 2019-08-24 13:43 | disposition home or self-care (01) ==
LOC: TBSIIMAG 13:42
PROVIDERS: ATTEND Surgery
DX: M54.2 Cervicalgia (principal); Z98.1 Arthrodesis status
CPT/HCPCS: 72040

== ENCOUNTER 2019-12-05 06:39 | Outpatient (CLI) | payer BC, OTHER ==
[2019-12-05 18:18] LABS: Hemoglobin 13.4 g/dL (12.0-16.0); Mean Corpuscular HGB CONC 33.4 g/dL (32.0-36.0); Mean Corpuscular Hemoglobin 30.3 pg (27.0-31.0); Mean Corpuscular Volume 90.7 fL (78.0-98.0); Mean Platelet Volume 10.3 fL (7.4-10.4); Platelet Count 174 thou/uL (130-400); RBC Distribution Width 14.8 % (11.5-14.5); Red Blood Cell (RBC) Count 4.42 mill/uL (4.20-5.40); White Blood Cell (WBC) Count 9.3 thou/uL (4.8-10.8)
[2019-12-05 18:25] LABS: Anion Gap 13 mmol/L (10-20); BUN (Urea Nitrogen) 14 mg/dL (9.8-20.1); Calc. Creatinine Clearance 0 mL/min (70-130); Calcium 8.9 mg/dL (7.8-10.44); Carbon Dioxide 26 mmol/L (22-29); Chloride 103 mmol/L (98-107); Estimated GFR-MDRD 35; Glucose 121 mg/dL (70-105); Potassium 3.9 mmol/L (3.5-5.1); Sodium 138 mmol/L (136-145)
[2019-12-06 13:11] LABS: SARS-CoV-2 MS2 Positive; SARS-CoV-2 N Gene Negative; SARS-CoV-2 S Gene Negative; SARS-CoV-2 orf1ab Negative
== END 2019-12-05 06:40 | disposition home or self-care (01) ==
LOC: LABBT 06:39
PROVIDERS: ATTEND Orthopaedic Surgery
DX: Z01.818 Encounter for other preprocedural examination (principal); Z11.59 Encounter for screening for other viral diseases; T84.84XA Pain due to internal orthopedic prosthetic devices, implants and grafts, initial encounter; T81.42XA Infection following a procedure, deep incisional surgical site, initial encounter
CPT/HCPCS: 80048; 85027; 87635; 93005; 93010; U0003

== ENCOUNTER 2019-12-08 10:30 | Inpatient (IN) | payer BC, OTHER ==
[2019-12-08] MEDS ORDERED: Albuterol Sulfate 2.5 mg/0.5 ml Neb NEB SCH (12:51)
[2019-12-08] MEDS ORDERED: HYDROmorphone 0.5 MG/0.5 ML SYRINGE ONE (14:41)
[2019-12-08] MEDS ORDERED: Fentanyl 100 MCG/2 ML VIAL ONE ×4 (14:41→19:28)
[2019-12-08] MEDS ORDERED: Ondansetron PF 4 MG/2 ML Vial ONE (14:51)
[2019-12-08] MEDS ORDERED: PHENYLEPHRINE-NS 100 MCG/ML 10 ML SYRINGE ONE (14:51)
[2019-12-08] MEDS ORDERED: PROPOFOL 200 MG/20 ML VIAL ONE (14:51)
[2019-12-08] MEDS ORDERED: Lidocaine 1% PF 5 ML VIAL ONE (14:51)
[2019-12-08] MEDS ORDERED: EPHEDRINE 25 MG/5 ML SYRINGE ONE (14:51)
[2019-12-08] MEDS ORDERED: Dexamethasone 20 MG/5 ML VIAL ONE (14:51)
[2019-12-08] MEDS ORDERED: Neomycin-Polymyxin 1 ML AMP ONE (14:53)
[2019-12-08] MEDS ORDERED: Bupivacaine PF 0.5% 30 ML VIAL ONE (14:53)
[2019-12-08] MEDS ORDERED: Albuterol Sulfate 2.5 mg/3 ml Neb ONE (15:06)
[2019-12-08] MEDS ORDERED: Sodium Chloride 0.9% 0 ML ONE (15:57)
[2019-12-08] MEDS ORDERED: Bupivacaine HCl 0.5%/Epinephrine 1:200,000/PF 30 ml Vial ONE (16:05)
--- NOTE | 2019-12-08 16:14 | RAD ---
EXAM: XR Ankle Rt 2 View DATE: 12/08/2019 12:00 AM INDICATION: Removal of hardware COMPARISON: Right ankle radiograph dated July 08, 2019 FINDING: Since the comparison examination, there has been interval removal of the sideplate and scre w construct fixating the healed lateral malleolar fracture. The partially threaded screws transfixing the medial malleolus are unchanged in position. There has been interval healing of the me dial malleolus fracture. Total fluoroscopic time was 2.2 seconds. Total exposure was 0.10 mGy. IMPRESSION:Removal of hardware from the right ankle as above
[2019-12-08] MEDS ORDERED: Promethazine HCl 25 MG/ML VIAL SLOW IVP PRN (16:32)
[2019-12-08] MEDS ORDERED: HYDROmorphone 2 MG/ML VIAL SLOW IVP PRN (16:32)
[2019-12-08] MEDS ORDERED: PACU-Morphine 4MG/ML VIAL SLOW IVP PRN (16:32)
[2019-12-08] MEDS ORDERED: Promethazine HCl 25 MG/ML VIAL IM PRN (16:32)
[2019-12-08] MEDS ORDERED: Ondansetron HCl/PF 4 MG/2 ML Vial IVP PRN (16:32)
[2019-12-08] MEDS ORDERED: hydrALAZINE 20 MG/ML VIAL ONE (16:33)
[2019-12-08] MEDS: Morphine 4 MG/ML VIAL SLOW IVP PRN (21:55)
[2019-12-08] MEDS: Vancomycin 1 GM in Premix Bag 1 BAG IVPB SCH (21:56)
[2019-12-08] MEDS ORDERED: Ondansetron PF 4 MG/2 ML Vial IVP PRN (21:57)
[2019-12-08] MEDS ORDERED: Mometasone 100 MCG/Formoterol 5 MCG 120 PUFF INHALER INH PRN (22:00)
[2019-12-08] MEDS ORDERED: Albuterol 200 PUFF (6.7GM INHALER) INH PRN (22:00)
[2019-12-08] MEDS ORDERED: HumaLOG 300 UNITS/3 ML VIAL SC PRN (22:04)
[2019-12-08] MEDS ORDERED: Dextrose 5% in Water 1,000 ML IV PRN (22:04)
[2019-12-08] MEDS ORDERED: Dextrose 50% Abboject 50 ML SYRINGE SLOW IVP PRN (22:04)
--- NOTE | 2019-12-08 22:24 | PDOC.FPRHP ---
- History of Present Illness Chief Complaint: Consult for medical management History of Present Illness: Consulting Provider: Dr. Solorzano Leslie Ang is a 59 year old F, pt of Dr. Barcenas, with a PMH of CHF, CKD3b, Spinal stenosis, DM2 with neuropathy, Bipolar disorder, HTN, HLD. Dr. Solorzano performed I&D of distal fibula with removal of deep hardware today and consulted family medicine team for medical management of patient's chronic conditions. Patient states that the procedure went well and has she is already able to ambulate better than she could prior to the surgery. She denies any other complaints, recent illnesses. She had a pre-op COVID test done that was negative. She denies any fever, chills, chest pain, dyspnea, n/v, abdominal pain, dysuria, numbness/tingling, weakness. States that she keep regular appointments with Dr. Barcenas and her chronic medical conditions are under good control. Last A1c was 6.2 per patient. - Allergies/Adverse Reactions Allergies Allergy/AdvReac Type Severity Reaction Status Date / Time adhesive Allergy Severe Verified 12/02/19 09:39 aspirin Allergy Severe Anaphylaxis Verified 12/02/19 09:39 levofloxacin [From Levaquin] Allergy Intermediate Verified 12/02/19 09:39 NSAIDS (Non-Steroidal Allergy Unknown Verified 12/02/19 09:39 Anti-Inflamma codeine Allergy Verified 12/02/19 09:39 hydrocodone Allergy Verified 12/02/19 09:39 Sulfa (Sulfonamide Allergy Verified 12/02/19 09:39 Antibiotics) trimethoprim [From Bactrim] Allergy Verified 12/02/19 09:39 tramadol AdvReac Mild ITCHING Verified 12/02/19 09:39 - Home Medications Medication Instructions Recorded Confirmed Type Acetaminophen [Tylenol] 600 mg PO Q4H PRN 05/31/19 05/31/19 History Albuterol Sulfate [Albuterol 2 puff INH Q4H PRN 05/31/19 05/31/19 History Sulfate Hfa] Alogliptin Benzoate [Alogliptin] 12.5 mg PO DAILY 05/31/19 05/31/19 History Atorvastatin Calcium [Lipitor] 40 mg PO HS 05/31/19 05/31/19 History Fenofibrate Nanocrystallized 145 mg PO HS 05/31/19 05/31/19 History [Tricor] Fluticasone Propionate [Flonase 0 gm NASAL DAILY 05/31/19 05/31/19 History Nasal [place]] Folic Acid [Folvite] 1 mg PO DAILY 05/31/19 05/31/19 History Insulin Glulisine [Apidra Vial] 80 units SC QAM 05/31/19 12/02/19 History Ipratropium/Albuterol Sulfate 3 ml NEB Q6H PRN 05/31/19 05/31/19 History [DuoNeb] Lisinopril [Zestril] 5 mg PO QPM 05/31/19 05/31/19 History Metoprolol Tartrate [Lopressor] 12.5 mg PO BID 05/31/19 05/31/19 History Mometasone 100 MCG [Asmanex HFA 1 puff INH BID PRN 05/31/19 05/31/19 History 100 mcg] Morphine ER [MS Contin] 30 mg PO Q8H PRN 05/31/19 12/02/19 History Multivitamin W/ Minerals 1 tab PO DAILY 05/31/19 05/31/19 History [Theragran M] [place]-3 Fatty Acids/Fish Oil [Fish 2,000 mg PO DAILY 05/31/19 05/31/19 History Oil 1,000 mg Capsule] PARoxetine HCl [Paxil] 20 mg PO HS 05/31/19 05/31/19 History Pancrelipase 79805 [Gui DR 4 cap PO TID- 05/31/19 05/31/19 History 12,000 Units] Potassium Chloride [K-Dur] 20 meq PO BID- 05/31/19 05/31/19 History Torsemide [Demadex] 20 mg PO QPM- 05/31/19 05/31/19 History Torsemide [Demadex] 40 mg PO QAM 05/31/19 05/31/19 History risperiDONE 2 mg PO HS 05/31/19 05/31/19 History Cetirizine HCl [Zyrtec] 10 mg PO DAILY 06/12/19 06/12/19 History Ranitidine HCl [Zantac] 150 mg PO BID 06/12/19 06/12/19 History Ergocalciferol [Drisdol] 1.25 mg PO Q30D cap 07/20/19 Rx Gabapentin [Neurontin] 400 mg PO TID cap 07/20/19 Rx Guaifenesin DM 100-10 [Robitussin 15 ml PO Q6H PRN ml 07/20/19 Rx DM] HumaLOG [HumaLOG Vial] 2 - 5 units SC PRN PRN vial 07/20/19 Rx Magnesium Oxide 400 mg PO BID tab 07/20/19 Rx Simethicone [Mylicon Chewable] 80 mg PO TID tab 07/20/19 Rx Clopidogrel Bisulfate [Plavix] 75 mg PO DAILY 12/02/19 12/02/19 History Empagliflozin [Jardiance] 10 mg PO DAILY 12/02/19 12/02/19 History Ondansetron [Zofran ODT] 4 mg PO Q6H PRN 12/02/19 History Polyethylene Glycol 3350 [Miralax] 17 gm PO BID PRN 12/02/19 History sitaGLIPtin Phosphate [Januvia] 25 mg PO DAILY 12/02/19 12/02/19 History - History PMHx: CHF (EF of 70% in Apr 2019), DM2 with neuropathy, CKD3b, Spinal stenosis, HTN, HLD, Bipolar disorder PSHx: Appendectomy, cholecystectomy, hysterectomy with bilateral oophorectomy, left knee surgery, bilateral breast lumpectomy, cervical decompression, right ankle surgery FHx: hx of stroke and lung cancer Social: 1 ppd smoker for many years, denies drinking or drug use - Review of Systems General: denies: fever/chills, weight/appetite/sleep changes, fatigue Eyes: denies: eye pain, vision changes ENT: denies: nasal congestion, rhinorrhea Respiratory: denies: cough, congestion, shortness of breath, exercise intolerance Cardiovascular: denies: chest pain, palpitation, edema, orthopnea Gastrointestinal: denies: nausea, vomiting, diarrhea, abdominal pain Genitourinary: denies: incontinence, dysuria Skin: denies: rashes, itching Musculoskeletal: reports: pain, tenderness, arthritis/arthralgias Neurological: denies: numbness, syncope, weakness Psychological: denies: anxiety, depression - Vital signs BP: 142/84 HR: 75 RR: 18 Tmax: 97.6 Pox: 95% on RA Wt: 104 kg - Physical Exam Constitutional: NAD, awake, alert and oriented, well developed HEENT: normocephalic and atraumatic, PERRLA, EOMI, conjunctiva clear, grossly normal vision, grossly normal hearing Neck: supple, FROM, no JVD Heart: RRR, normal S1/S2, no murmurs/rubs/gallops, no edema Lungs: CTAB, no respiratory distress, good air movement, no rales/rhonchi, no wheezing Abdomen: soft, non-tender, bowel sounds present Musculoskeletal: normal structure, normal tone, ROM grossly normal Neurological: no focal deficit, CN II-XII intact -Skin: dressing on right ankle intact and dry, no surrounding erythema Heme/Lymphatic: no unusual bruising or bleeding, no purpura Psychiatric: normal mood and affect, good judgment and insight, intact recent and remote memory FMR H&P: Results - EKG Interpretation EKG: Pre-op EKG showed NSR, no ST changes - Radiology Interpretation Other Status: image reviewed by me, report reviewed by me (removal of side plate and screw construct fixating the healed lateral malleolar fracture) FMR H&P: A/P - Problem List (1) Trimalleolar fracture Current Visit: No Status: Chronic Code(s): S82.853A - DISPLACED TRIMALLEOLAR FRACTURE OF UNSP LOWER LEG, INIT Qualifiers: Laterality: right (2) CAD (coronary artery disease) Current Visit: No Status: Chronic Code(s): I25.10 - ATHSCL HEART DISEASE OF [place] CORONARY ARTERY W/O ANG PCTRS Qualifiers: Coronary Disease-Associated Artery/Lesion type: [place] artery [place] vs. transplanted heart: [place] heart Associated angina: angina presence unspecified Qualified Code(s): I25.10 - Atherosclerotic heart disease of [place] coronary artery without angina pectoris (3) CHF (congestive heart failure) Current Visit: No Status: Chronic Code(s): I50.9 - HEART FAILURE, UNSPECIFIED Qualifiers: Heart failure type: diastolic Heart failure chronicity: chronic Qualified Code(s): I50.32 - Chronic diastolic (congestive) heart failure (4) CKD (chronic kidney disease) stage 2, GFR 60-89 ml/min Current Visit: No Status: Chronic Code(s): N18.2 - CHRONIC KIDNEY DISEASE, STAGE 2 (MILD) (5) Cervical stenosis of spinal canal Current Visit: No Status: Chronic Code(s): M48.02 - SPINAL STENOSIS, CERVICAL REGION (6) Diabetes mellitus type 2 in obese Current Visit: No Status: Chronic Code(s): E11.9 - TYPE 2 DIABETES MELLITUS WITHOUT COMPLICATIONS; E66.9 - OBESITY, UNSPECIFIED (7) Hyperlipidemia Current Visit: No Status: Chronic Code(s): E78.5 - HYPERLIPIDEMIA, UNSPECIFIED Qualifiers: Hyperlipidemia type: unspecified Qualified Code(s): E78.5 - Hyperlipidemia , unspecified (8) Hypertension Current Visit: No Status: Chronic Code(s): I10 - ESSENTIAL (PRIMARY) HYPERTENSION Qualifiers: Hypertension type: essential hypertension Qualified Code(s): I10 - Essential (primary) hypertension (9) Peripheral neuropathy Current Visit: No Status: Chronic Code(s): G62.9 - POLYNEUROPATHY, UNSPECIFIED Qualifiers: Peripheral neuropathy type: polyneuropathy, unspecified Qualified Code(s): G62.9 - Polyneuropathy, unspecified - Plan 1) s/p I&D of distal fibula with removal of deep hardware - hx of trimalleolar fracture - evidence of infection developed with painful hardware - POD #0 - management and pain control per primary team 2) DM2 with neuropathy - continue patients home insulin regimen - reports good control of diabetes - ACHS accuchecks - mod SSI - continue gabapentin 3) CHF - last EF of 70% in 2019 - daily weight - I/Os 4) HTN - continue home regimen 5) Bipolar disorder - continue home regimen 6) CKD3b - eGFR of 35 on pre-op labwork - avoiding nephrotoxic agents - repeat AM labs 7) HLD - continue statin 8) CAD - continue home regimen Code status: FULL CODE PCP: [facility] PPx: Lovenox Diet: CC
--- NOTE | 2019-12-08 22:45 | OP ---
DATE OF PROCEDURE: 12/08/2019 PREOPERATIVE DIAGNOSIS: Chronic open wound on the lateral aspect of the right ankle. The patient is status post open reduction and internal fixation of the right distal fibula. POSTOPERATIVE DIAGNOSES: Chronic open wound on the lateral aspect of the right ankle. The patient is status post open reduction and internal fixation of the right distal fibula with presumptive osteomyelitis. PROCEDURES PERFORMED: Removal of plate and screws and obtaining deep cultures, and irrigation and debridement of the right distal fibula and lateral ankle. ANESTHESIA: General. DESCRIPTION OF PROCEDURE: The patient was taken to the operating room, placed in supine position. Satisfactory general anesthesia was performed. The right lower extremity was sterilely prepped and draped in usual fashion. The open wound on the lateral aspect of the ankle was at about the mid portion of the scar and was also 1 cm anterior to the scar. An incision was made through the scar, but also took out this open area in an elliptical fashion, and the plate and 7 screws were identified and were removed. This was verified with the C-arm that all the hardware was removed. The tissue under the plate as well as tissue from the holes left from the screws were sent for culture and sensitivity. The holes were then over-reamed, and the lateral aspect of the fibula was also debrided, and then the wound was copiously irrigated using high-speed log washer. The wound was then closed using 3-0 Rapide, Vicryl and interrupted vertical mattress sutures. Sterile dressing was applied. Tourniquet was released. The patient was awakened, extubated, and transferred to recovery room in stable condition. ESTIMATED BLOOD LOSS: None. COMPLICATIONS: None. TOURNIQUET TIME: 30 minutes. Job ID: [id number]
[2019-12-08] MEDS ORDERED: Ergocalciferol 1.25 MG(50,000 UNITS) CAP PO SCH (23:00)
[2019-12-09 00:19] VITALS: BMI 41.8
[2019-12-09] MEDS ORDERED: Loratadine 10 MG TAB PO SCH ×2 (02:30→09:00)
[2019-12-09] MEDS ORDERED: risperiDONE 1 MG TAB PO SCH (02:30)
[2019-12-09] MEDS ORDERED: Fluticasone Propionate Nasal Spray 16 gm Bottle NASAL SCH ×2 (02:30→09:00)
[2019-12-09] MEDS ORDERED: PARoxetine 20 MG TAB PO SCH (02:30)
--- NOTE | 2019-12-09 05:08 | PDOC.FM ---
- Subjective Subjective: Patient was pacing around her room at the time of evaluation. She denied any acute overnight events, to include breakthrough pain in her right ankle, chest pain, SOB, N/V or ABD pain. - Objective Vital Signs & Weight: Vital Signs (12 hours) Temp Pulse Resp BP Pulse Ox 12/09/19 02:23 97.8 F 84 18 121/76 95 12/08/19 21:57 95 12/08/19 19:35 97.6 F 75 18 142/84 H 95 Weight Weight 107.161 kg Result Diagrams: 12/09/19 05:13 12/09/19 05:13 Phys Exam - Physical Examination Constitutional: NAD HEENT: moist MMs, sclera anicteric, oral pharynx no lesions Neck: supple, full ROM Respiratory: no wheezing, no rales, no rhonchi, clear to auscultation bilateral Cardiovascular: RRR, no significant murmur, no rub Gastrointestinal: soft, non-tender, no distention, positive bowel sounds Musculoskeletal: no edema, pulses present Neurological: non-focal, moves all 4 limbs Psychiatric: normal affect Skin: no rash Deviation from normal: Post-Op bandage in place, no streaking or drainage Dx/Plan (1) Paresthesia Code(s): R20.2 - PARESTHESIA OF SKIN Status: Acute (2) Status post open reduction with internal fixation (ORIF) of fracture of ankle Code(s): Z98.890 - OTHER SPECIFIED POSTPROCEDURAL STATES; Z87.81 - PERSONAL HISTORY OF (HEALED) TRAUMATIC FRACTURE Status: Acute (3) Bipolar disorder Code(s): F31.9 - BIPOLAR DISORDER, UNSPECIFIED Status: Chronic Qualifiers: Active/Remission status: remission status unspecified Qualified Code(s): F31.9 - Bipolar disorder, unspecified (4) CAD (coronary artery disease) Code(s): I25.10 - ATHSCL HEART DISEASE OF [place] CORONARY ARTERY W/O ANG PCTRS Status: Chronic Qualifiers: Coronary Disease-Associated Artery/Lesion type: [place] artery [place] vs. transplanted heart: [place] heart Associated angina: angina presence unspecified Qualified Code(s): I25.10 - Atherosclerotic heart disease of [place] coronary artery without angina pectoris (5) CHF (congestive heart failure) Code(s): I50.9 - HEART FAILURE, UNSPECIFIED Status: Chronic Qualifiers: Heart failure type: diastolic Heart failure chronicity: chronic Qualified Code(s): I50.32 - Chronic diastolic (congestive) heart failure (6) CKD (chronic kidney disease) stage 2, GFR 60-89 ml/min Code(s): N18.2 - CHRONIC KIDNEY DISEASE, STAGE 2 (MILD) Status: Chronic (7) Cervical stenosis of spinal canal Code(s): M48.02 - SPINAL STENOSIS, CERVICAL REGION Status: Chronic (8) Chronic pancreatitis Code(s): K86.1 - OTHER CHRONIC PANCREATITIS Status: Chronic (9) Diabetes mellitus type 2 in obese Code(s): E11.9 - TYPE 2 DIABETES MELLITUS WITHOUT COMPLICATIONS; E66.9 - OBESITY , UNSPECIFIED Status: Chronic (10) Hyperlipidemia Code(s): E78.5 - HYPERLIPIDEMIA, UNSPECIFIED Status: Chronic Qualifiers: Hyperlipidemia type: unspecified Qualified Code(s): E78.5 - Hyperlipidemia , unspecified (11) Hypertension Code(s): I10 - ESSENTIAL (PRIMARY) HYPERTENSION Status: Chronic Qualifiers: Hypertension type: essential hypertension Qualified Code(s): I10 - Essential (primary) hypertension (12) Peripheral neuropathy Code(s): G62.9 - POLYNEUROPATHY, UNSPECIFIED Status: Chronic Qualifiers: Peripheral neuropathy type: polyneuropathy, unspecified Qualified Code(s): G62.9 - Polyneuropathy, unspecified (13) Tobacco abuse Code(s): Z72.0 - TOBACCO USE Status: Chronic (14) Trimalleolar fracture Code(s): S82.853A - DISPLACED TRIMALLEOLAR FRACTURE OF UNSP LOWER LEG, INIT Status: Chronic Qualifiers: Laterality: right (15) Complication involving orthopedic internal fixation device Code(s): T84.9XXA - [facility] COMP OF INTERNAL ORTHOPEDIC PROSTH DEV/GRFT, INIT Status: Acute - Plan Plan: Patient is a 59 y/o female who recently underwent I&D and hardware removal following an ORIF due to Trimalleolar Fx. 1) Complications of Internal Orthopedic Prosthetic Devices -Following ORIF Trimalleolar Fx of Right Ankle, patient developed pain and difficulty w/ ambulation -I&D and Hardware Removal performed on 12/07 -Cx: Pending -Currently receiving Vancomycin 1 g Q12H -Pain managed with Morphine 4 mg IV PRN - will augment as needed, patient denies current pain -PT/OT: Consulted, recs appreciated 2) DM2 with Neuropathy -Will continue patient's home regimen of Lantus, Alogliptin, Jardiance -Last HgA1c was reportedly at goal -ACHS Accuchecks -Moderate SSI -Will continue home Gabapentin regimen 3) CHF -Echo (2019): EF (70%) - will not repeat -Continue home medication regimen -Strict I&Os, daily Weights 4) HTN -BP currently at goal -Will continue home medication regimen 5) Bipolar Disorder -Well controlled - no evidence of anant or depression, although patient has reportedly been walking all night / morning -Will continue home medication regimen 6) CKD3b -eGFR: 35 -Will avoid nephrotoxic agents -Will trend with AM Labs 7) HLD -Will continue home medication regimen 8) CAD -Will continue home medication regimen PCP: Dr. Barcenas Code: Full Diet: CC Activity: Ad anai VTE PPx: Lovenox Dispo: Patient is currently stable following I&D and hardware removal/ replacement. Will await Ortho recs and Cx results and tailor plan as needed. Continue to monitor POC Glucose readings, pain, and mental status. Expected LOS < 48H. Addendum - Attending - Attending Attestation Date/Time: 12/09/19 [id number] I personally evaluated the patient and discussed the management with Dr. Page I agree with the History, Examination, Assessment and Plan documented above with any addition or exceptions noted below - Patient without complaints; walking well. Afebrile VSS. A/P: 1) Chronic nonhealing wound- hardware removed by ortho with cultures sent for evaluation; continue IV abx. 2) DM- continue home meds with sliding scale coverage.
[2019-12-09 05:31] LABS: #Lymphocytes 1.2 thou/uL (1.20-3.40); #Monocytes 0.5 thou/uL (0.11-0.59); #Neutrophils 9.2 thou/uL (1.40-6.50); %Eosinophils 0.1 % (0.0-10.0); %Lymphocytes 10.7 % (21.0-51.0); %Monocytes 4.5 % (0.0-10.0); %Neutrophils 84.6 % (42.0-75.0); Hemoglobin 13.5 g/dL (12.0-16.0); Mean Corpuscular HGB CONC 32.6 g/dL (32.0-36.0); Mean Corpuscular Hemoglobin 29.7 pg (27.0-31.0); Mean Corpuscular Volume 91.2 fL (78.0-98.0); Mean Platelet Volume 10.2 fL (7.4-10.4); Platelet Count 173 thou/uL (130-400); RBC Distribution Width 14.7 % (11.5-14.5); Red Blood Cell (RBC) Count 4.55 mill/uL (4.20-5.40); White Blood Cell (WBC) Count 10.9 thou/uL (4.8-10.8)
[2019-12-09] MEDS: Morphine 4 MG/ML VIAL SLOW IVP PRN ×4 (05:45→21:32)
[2019-12-09 05:54] LABS: ALT (SGPT) 20 U/L (8-55); AST (SGOT) 17 U/L (5-34); Albumin 4.3 g/dL (3.5-5.0); Alkaline Phosphatase 88 U/L (40-110); Anion Gap 14 mmol/L (10-20); BUN (Urea Nitrogen) 19 mg/dL (9.8-20.1); Bilirubin, Total 0.3 mg/dL (0.2-1.2); Calc. Creatinine Clearance 63 mL/min (70-130); Calcium 9.3 mg/dL (7.8-10.44); Carbon Dioxide 26 mmol/L (22-29); Chloride 102 mmol/L (98-107); Estimated GFR-MDRD 32; Globulin 2.9 g/dL (2.4-3.5); Glucose 283 mg/dL (70-105); Potassium 4.1 mmol/L (3.5-5.1); Protein, Total 7.2 g/dL (6.0-8.3); Sodium 138 mmol/L (136-145)
[2019-12-09] MEDS: HumaLOG 300 UNITS/3 ML VIAL SC PRN ×3 (06:38→18:29)
[2019-12-09] MEDS ORDERED: Insulin Glargine 80 UNITS in Pre-Filled Syringe 1 EACH SC SCH (09:00)
[2019-12-09] MEDS ORDERED: INSULIN GLULISINE SC SCH (09:00)
[2019-12-09] MEDS ORDERED: sitaGLIPtin Phosphate 25 MG TAB PO SCH (09:00)
[2019-12-09] MEDS: Insulin Glargine 40 UNITS in Pre-Filled Syringe 1 EACH SC SCH ×2 (09:13→21:31)
[2019-12-09] MEDS: Alogliptin 6.25 MG TAB PO SCH (09:14)
[2019-12-09] MEDS: Fish Oil 1,000 MG CAP PO SCH (09:15)
[2019-12-09] MEDS: Pancrelipase DR 12000 1 CAP PO SCH ×3 (09:15→16:50)
[2019-12-09] MEDS: Magnesium Oxide 400 MG TAB PO SCH ×2 (09:15→21:30)
[2019-12-09] MEDS: Vancomycin 1 GM in Premix Bag 1 BAG IVPB SCH ×2 (09:15→21:32)
[2019-12-09] MEDS: Empagliflozin 10 MG TAB PO SCH (09:15)
[2019-12-09] MEDS: Multivitamin W/ Minerals 1 TAB PO SCH (09:16)
[2019-12-09] MEDS: Potassium Chloride 20 MEQ TAB PO SCH ×2 (09:16→16:48)
[2019-12-09] MEDS: Metoprolol Tartrate 25 MG TAB PO SCH ×2 (09:16→21:30)
[2019-12-09] MEDS: Gabapentin 400 MG CAP PO SCH ×3 (09:16→21:31)
[2019-12-09] MEDS: Folic Acid 1 MG TAB PO SCH (09:18)
[2019-12-09] MEDS: Simethicone Chewable 80 MG TAB PO SCH ×3 (09:18→21:31)
[2019-12-09] MEDS: Enoxaparin Sodium 40 MG/0.4 ML SYRINGE SC SCH (09:19)
[2019-12-09] MEDS: Clopidogrel Bisulfate 75 MG TAB PO SCH (09:19)
[2019-12-09] MEDS: Torsemide 20 MG TAB PO SCH ×2 (09:25→16:49)
[2019-12-09] MEDS: Acetaminophen 325 MG TAB PO PRN (18:34)
--- NOTE | 2019-12-09 20:16 | PRG ---
DATE OF SERVICE: 12/09/2019 SUBJECTIVE: Ms. Ang is 1 day status post removal of plate and screws from the distal right fibula with obtaining of deep cultures and irrigation and debridement of the lateral aspect of the right ankle. The patient has been doing well. She has been fully weightbearing with very little pain. OBJECTIVE: VITAL SIGNS: Temperature 97.8, pulse 84, respiratory rate 18, blood pressure 121/76, and O2 saturation 95% on room air. LABORATORY DATA: White count 10.9, hemoglobin 13.5. Creatinine 1.66, BUN 19, glucose 283. Microbiology, the Gram stain showed few epithelial cells, moderate WBCs, no organisms seen and there has been no growth at 12 hours. Dressing was changed on the right ankle. The incision on the lateral aspect of left ankle looks very good. She has huge amount of swelling. There is bloody drainage on the dressing, but no active drainage. The wound is well approximated. PLAN: The patient will continue with IV antibiotics. We will see what the culture results are tomorrow. If they are negative and the patient is doing well, I will probably be able to discharge her on p.o. antibiotics. Job ID: [id number]
[2019-12-09] MEDS: PARoxetine 20 MG TAB PO SCH (21:30)
[2019-12-09] MEDS: Atorvastatin Calcium 40 MG TAB PO SCH (21:30)
[2019-12-09] MEDS: Lisinopril 5 MG TAB PO SCH (21:30)
[2019-12-09] MEDS: risperiDONE 1 MG TAB PO SCH (21:31)
[2019-12-09] MEDS: Fenofibrate Nanocrystallized 145 MG TAB PO SCH (21:33)
[2019-12-10] MEDS: Morphine 4 MG/ML VIAL SLOW IVP PRN ×4 (04:20→22:21)
--- NOTE | 2019-12-10 07:32 | PDOC.FM ---
- Subjective Subjective: Patient doing well this AM. No significant overnight events. Patient states she feels well. She has been walking around with minimal pain. Patient states she was in pain last night, but the pain has improved and she thinks it was because her YARIEL bandage was wrapped too tightly. - Objective MAR Reviewed: Yes Vital Signs & Weight: Vital Signs (12 hours) Temp Pulse Resp BP Pulse Ox 12/10/19 04:08 97.9 F 62 17 165/88 H 97 12/10/19 00:10 97.8 F 60 16 108/70 97 12/09/19 21:31 97.9 F 74 16 126/77 98 12/09/19 21:30 83 12/09/19 20:00 98 Weight Weight 107.161 kg I&O: 12/09/19 12/10/19 12/11/19 06:59 06:59 06:59 Intake Total 1999 Balance 1999 Result Diagrams: 12/09/19 05:13 12/09/19 05:13 Phys Exam - Physical Examination Constitutional: NAD HEENT: moist MMs Respiratory: no wheezing, clear to auscultation bilateral Cardiovascular: RRR, no significant murmur Gastrointestinal: soft, non-tender Musculoskeletal: no edema Right lower leg/foot wrapped in YARIEL wrap which appears clean and dry Neurological: non-focal, moves all 4 limbs Psychiatric: A&O x 3 Skin: no rash, cap refill <2 seconds Dx/Plan (1) Complication involving orthopedic internal fixation device Code(s): T84.9XXA - UNSP COMP OF INTERNAL ORTHOPEDIC PROSTH DEV/GRFT, INIT Status: Acute (2) Bipolar disorder Code(s): F31.9 - BIPOLAR DISORDER, UNSPECIFIED Status: Chronic Qualifiers: Active/Remission status: remission status unspecified Qualified Code(s): F31.9 - Bipolar disorder, unspecified (3) CAD (coronary artery disease) Code(s): I25.10 - ATHSCL HEART DISEASE OF [place] CORONARY ARTERY W/O ANG PCTRS Status: Chronic Qualifiers: Coronary Disease-Associated Artery/Lesion type: [place] artery [place] vs. transplanted heart: [place] heart Associated angina: angina presence unspecified Qualified Code(s): I25.10 - Atherosclerotic heart disease of [place] coronary artery without angina pectoris (4) CHF (congestive heart failure) Code(s): I50.9 - HEART FAILURE, UNSPECIFIED Status: Chronic Qualifiers: Heart failure type: diastolic Heart failure chronicity: chronic Qualified Code(s): I50.32 - Chronic diastolic (congestive) heart failure (5) CKD (chronic kidney disease) stage 2, GFR 60-89 ml/min Code(s): N18.2 - CHRONIC KIDNEY DISEASE, STAGE 2 (MILD) Status: Chronic (6) Cervical stenosis of spinal canal Code(s): M48.02 - SPINAL STENOSIS, CERVICAL REGION Status: Chronic (7) Diabetes mellitus type 2 in obese Code(s): E11.9 - TYPE 2 DIABETES MELLITUS WITHOUT COMPLICATIONS; E66.9 - OBESITY , UNSPECIFIED Status: Chronic (8) History of breast cancer Code(s): Z85.3 - PERSONAL HISTORY OF MALIGNANT NEOPLASM OF BREAST Status: Chronic (9) Hyperlipidemia Code(s): E78.5 - HYPERLIPIDEMIA, UNSPECIFIED Status: Chronic Qualifiers: Hyperlipidemia type: unspecified Qualified Code(s): E78.5 - Hyperlipidemia , unspecified (10) Hypertension Code(s): I10 - ESSENTIAL (PRIMARY) HYPERTENSION Status: Chronic Qualifiers: Hypertension type: essential hypertension Qualified Code(s): I10 - Essential (primary) hypertension (11) Peripheral neuropathy Code(s): G62.9 - POLYNEUROPATHY, UNSPECIFIED Status: Chronic Qualifiers: Peripheral neuropathy type: polyneuropathy, unspecified Qualified Code(s): G62.9 - Polyneuropathy, unspecified (12) Tobacco abuse Code(s): Z72.0 - TOBACCO USE Status: Chronic - Plan Plan: Patient is a 59 y/o female who recently underwent I&D and hardware removal following an ORIF due to Trimalleolar Fx. Complications of Internal Orthopedic Prosthetic Devices -Following ORIF Trimalleolar Fx of Right Ankle, patient developed pain and difficulty w/ ambulation -I&D and Hardware Removal performed on 12/07 -Cx: Pending; will transition to PO antibiotics once cultures have resulted -Currently receiving Vancomycin 1 g Q12H -Pain managed with Morphine 4 mg IV PRN - will augment as needed, patient denies current pain, but she is receiving morphine fairly regularly. Will transition to PO pain medications in anticipation of d/c home. -PT/OT: Consulted, recs appreciated DM2 with neuropathy -Will continue patient's home regimen of Lantus, Alogliptin, Jardiance -Last HgA1c was reportedly at goal -ACHS Accuchecks; patient checking her own BG via device. I only see appx 4 BG documented in chart over last 24 hours. She has received SSI. It will be difficult to titrate insulin if patient not providing BG results -Aggressive SSI -Will continue home Gabapentin regimen -Patient will need to follow outpatient to ensure BG at goal, particularly for proper healing CHF -Echo (2019): EF (70%) -Continue home medication regimen -Strict I&Os, daily Weights HTN -BP previously at goal, elevated to 165/88 this AM. Will repeat BP, but suspect outlier. Will not adjust medications at this time. -Will continue home medication regimen Bipolar Disorder -Well controlled - no evidence of anant or depression, although patient has reportedly been walking all night / morning -Will continue home medication regimen CKD3b -eGFR: 35 -Will avoid nephrotoxic agents -Will trend with AM Labs HLD -Will continue home medication regimen CAD -Will continue home medication regimen PCP: Dr. Barcenas Code: Full Diet: CC Activity: Ad anai VTE PPx: Lovenox Dispo: Pending abx cultures. Once cultures result, can transition to PO abx and d/c home. Addendum - Attending - Attending Attestation Date/Time: 12/10/19 1316 I personally evaluated the patient and discussed the management with Dr. Reeves I agree with the History, Examination, Assessment and Plan documented above with any addition or exceptions noted below- Pateint without complaints. Afebrile VSS. A/P: 1) DM- continue home regimen. 2) S/P hardware removal with chronic non-healing ulcer- plans as per surgery; cultures negative to date.
[2019-12-10] MEDS: Insulin Glargine 40 UNITS in Pre-Filled Syringe 1 EACH SC SCH ×2 (09:30→21:01)
[2019-12-10] MEDS: Fish Oil 1,000 MG CAP PO SCH (09:30)
[2019-12-10] MEDS: Enoxaparin Sodium 40 MG/0.4 ML SYRINGE SC SCH (09:30)
[2019-12-10] MEDS: Metoprolol Tartrate 25 MG TAB PO SCH ×2 (09:31→21:00)
[2019-12-10] MEDS: Loratadine 10 MG TAB PO SCH (09:31)
[2019-12-10] MEDS: Pancrelipase DR 12000 1 CAP PO SCH ×3 (09:31→17:41)
[2019-12-10] MEDS: Gabapentin 400 MG CAP PO SCH ×3 (09:31→20:59)
[2019-12-10] MEDS: Potassium Chloride 20 MEQ TAB PO SCH ×2 (09:31→17:40)
[2019-12-10] MEDS: Alogliptin 6.25 MG TAB PO SCH (09:32)
[2019-12-10] MEDS: Multivitamin W/ Minerals 1 TAB PO SCH (09:32)
[2019-12-10] MEDS: Folic Acid 1 MG TAB PO SCH (09:32)
[2019-12-10] MEDS: Simethicone Chewable 80 MG TAB PO SCH ×3 (09:32→21:00)
[2019-12-10] MEDS: Clopidogrel Bisulfate 75 MG TAB PO SCH (09:32)
[2019-12-10] MEDS: Empagliflozin 10 MG TAB PO SCH (09:32)
[2019-12-10] MEDS: Magnesium Oxide 400 MG TAB PO SCH ×2 (09:32→20:59)
[2019-12-10] MEDS: Torsemide 20 MG TAB PO SCH ×2 (09:32→17:41)
[2019-12-10] MEDS: Fluticasone Propionate Nasal Spray 16 gm Bottle NASAL SCH (09:39)
[2019-12-10 10:20] LABS: Vancomycin, Trough 23.4 ug/mL
[2019-12-10] MEDS: Vancomycin 1 GM in Premix Bag 1 BAG IVPB SCH (10:29)
[2019-12-10] MEDS: Acetaminophen 325 MG TAB PO PRN ×2 (15:45→20:59)
[2019-12-10] MEDS: HumaLOG 300 UNITS/3 ML VIAL SC PRN (17:40)
[2019-12-10] MEDS: PARoxetine 20 MG TAB PO SCH (20:59)
[2019-12-10] MEDS: risperiDONE 1 MG TAB PO SCH (20:59)
[2019-12-10] MEDS: Fenofibrate Nanocrystallized 145 MG TAB PO SCH (20:59)
[2019-12-10] MEDS: Atorvastatin Calcium 40 MG TAB PO SCH (20:59)
[2019-12-10] MEDS: Lisinopril 5 MG TAB PO SCH (21:00)
[2019-12-10] MEDS ORDERED: Vancomycin 1 GM in Premix Bag 1 BAG IVPB SCH (22:00)
--- NOTE | 2019-12-11 01:39 | DIS ---
DATE OF ADMISSION: 12/08/2019 DATE OF DISCHARGE: 12/10/2019 HISTORY OF PRESENT ILLNESS: Please see admission history and physical. HOSPITAL COURSE: The patient was brought to the operating room and under general anesthetic, removal of plate and screws and obtaining deep cultures and irrigation and debridement of the right distal fibula and lateral ankle was performed. The patient was started on IV vancomycin. She was able to independently get out of bed. She was very stable. She remained afebrile. Vital signs remained stable. Her culture results were negative. The patient will be discharged on antibiotics, which include doxycycline 100 mg twice a day #40. She will follow up in my office in 2 weeks. Job ID: [id number]
[2019-12-11 08:26] VITALS: TEMP 98.2
[2019-12-11] MEDS: Morphine 4 MG/ML VIAL SLOW IVP PRN (08:52)
[2019-12-11] MEDS: Enoxaparin Sodium 40 MG/0.4 ML SYRINGE SC SCH (09:00)
[2019-12-11] MEDS: Multivitamin W/ Minerals 1 TAB PO SCH (09:00)
[2019-12-11] MEDS: Alogliptin 6.25 MG TAB PO SCH (09:00)
[2019-12-11] MEDS: Fish Oil 1,000 MG CAP PO SCH (09:01)
[2019-12-11] MEDS: Loratadine 10 MG TAB PO SCH (09:01)
[2019-12-11] MEDS: Potassium Chloride 20 MEQ TAB PO SCH (09:01)
[2019-12-11] MEDS: Magnesium Oxide 400 MG TAB PO SCH (09:01)
[2019-12-11] MEDS: Folic Acid 1 MG TAB PO SCH (09:01)
[2019-12-11] MEDS: Gabapentin 400 MG CAP PO SCH (09:01)
[2019-12-11] MEDS: Clopidogrel Bisulfate 75 MG TAB PO SCH (09:01)
[2019-12-11] MEDS: Metoprolol Tartrate 25 MG TAB PO SCH (09:02)
[2019-12-11] MEDS: Torsemide 20 MG TAB PO SCH (09:02)
[2019-12-11] MEDS: Simethicone Chewable 80 MG TAB PO SCH (09:02)
[2019-12-11] MEDS: Empagliflozin 10 MG TAB PO SCH (09:02)
[2019-12-11] MEDS: Insulin Glargine 40 UNITS in Pre-Filled Syringe 1 EACH SC SCH (09:03)
[2019-12-11] MEDS: Fluticasone Propionate Nasal Spray 16 gm Bottle NASAL SCH (09:03)
[2019-12-11] MEDS: Pancrelipase DR 12000 1 CAP PO SCH ×2 (10:38→11:39)
[2019-12-11 12:37] VITALS: BP 122/75
--- NOTE | 2019-12-14 05:16 | PQF ---
HAIM JOHNSON WADE W MD [id number] SURG [id number] CLINICAL DOCUMENTATION CLARIFICATION FORM: POST DISCHARGE Addendum to original discharge summary date: ____ Late entry note date: __ DATE:12/14/2019 ATTN: Salvatore Lamar Please exercise your independent, professional judgment in responding to the clarification form. Clinical indicators are provided on the bottom of this form for your review Please check appropriate box(s): [ ] Excisional Debridement [ ] Non-excisional Debridement: (Removal by flushing, brushing, chemical, or washing) [ ] Other procedure diagnosis [ ] Unable to determine For continuity of documentation, please document condition throughout progress notes and discharge summary. Thank You. CLINICAL INDICATORS - SIGNS / SYMPTOMS / LABS Operative report 12/07 Dr Solorzano The open wound on the lateral aspect of the ankle was at about the mid portion of the scar and was also 1 cm anterior to the scar. An incision was made through the scar, but also took out this open area in an elliptical fashion, and the plate and 7 screws were identified and were removed. Operative report 12/07 Dr Solorzano The holes were then over-reamed, and the lateral aspect of the fibula was also debrided, and thenthe wound was copiously irrigated using high-speed quality cloth tester. The wound was then closed using 3-0 Rapide , Vicryl and interrupted vertical mattress sutures. RISK FACTORS Operative report 12/07 Dr Solorzano Chronic open wound on lateral aspect of right ankle Operative report 12/07 Dr Solorzano s/p ORIF for right distal fibula H&P p1 12/07 DM with neuropathy H&P p1 12/07 CHF H&P p1 12/07 CKD H&P p1 12/07 HTN H&P p1 12/07 Smoker H&P p1 12/07 Obesity Operative report 12/07 Dr Solorzano Osteomyelitis TREATMENTS: Operative report 12/07 Dr Solorzano Removal of plate and screws Operative report 12/07 Dr Solorzano Irrigation and debridement of Righ distal fibula and lateral ankle MAR 12/07 IV Vancomycin 1 gm Collected 12/07 Xray of ankle (This form is maintained as a part of the permanent medical record) 2014 [employer]. All Rights Reserved [email or web address]
== END 2019-12-11 13:09 | disposition home or self-care (01) | DRG 496 ==
LOC: SDC 10:30 → SURG A 16:56
PROVIDERS: ADMIT Orthopaedic Surgery; ATTEND Orthopaedic Surgery
PROC: 0QPJ04Z Removal of Internal Fixation Device from Right Fibula, Open Approach (ICD-10-PCS; principal; 2019-12-08)
PROC: 0QD Lower Bones, Extraction (ICD-10-PCS; 2019-12-08)
PROC: 0Q9 Lower Bones, Drainage (ICD-10-PCS; 2019-12-08)
DX: T84.84XA Pain due to internal orthopedic prosthetic devices, implants and grafts, initial encounter (principal); I13.0 Hypertensive heart and chronic kidney disease with heart failure and stage 1 through stage 4 chronic kidney disease, or unspecified chronic kidney disease; I50.32 Chronic diastolic (congestive) heart failure; L97.319 Non-pressure chronic ulcer of right ankle with unspecified severity; M86.8X6 Other osteomyelitis, lower leg; Z68.41 Body mass index [BMI] 40.0-44.9, adult; T84.624A Infection and inflammatory reaction due to internal fixation device of right fibula, initial encounter; Y83.1 Surgical operation with implant of artificial internal device as the cause of abnormal reaction of the patient, or of later complication, without mention of misadventure at the time of the procedure; N18.3 Chronic kidney disease, stage 3 (moderate); J45.909 Unspecified asthma, uncomplicated; I25.10 Atherosclerotic heart disease of native coronary artery without angina pectoris; E11.22 Type 2 diabetes mellitus with diabetic chronic kidney disease; E11.40 Type 2 diabetes mellitus with diabetic neuropathy, unspecified; F31.9 Bipolar disorder, unspecified; E78.5 Hyperlipidemia, unspecified; F17.200 Nicotine dependence, unspecified, uncomplicated; E11.69 Type 2 diabetes mellitus with other specified complication; L97.519 Non-pressure chronic ulcer of other part of right foot with unspecified severity; E66.9 Obesity, unspecified; Z88.1 Allergy status to other antibiotic agents; Z90.49 Acquired absence of other specified parts of digestive tract; Z88.6 Allergy status to analgesic agent; Z88.5 Allergy status to narcotic agent; Z88.2 Allergy status to sulfonamides; Z90.710 Acquired absence of both cervix and uterus; Z79.899 Other long term (current) drug therapy; Z79.4 Long term (current) use of insulin; Z79.51 Long term (current) use of inhaled steroids; Z79.02 Long term (current) use of antithrombotics/antiplatelets; Z90.722 Acquired absence of ovaries, bilateral
CPT/HCPCS: 36415; 36416; 76000; 80048; 80053; 80202; 85025; 85027; 87070; 87205; 87635; 93005; J0360; J0670; J1100; J1170; J1650; J1815; J2001; J2270; J2405; J2704; J3010; J3370; J7611; S0020; U0003

== ENCOUNTER 2020-10-10 19:32 | Observation (INO) | payer BC ==
[2020-10-10] MEDS ORDERED: Lorazepam 2 MG/ML VIAL ONE (20:05)
[2020-10-10] MEDS ORDERED: Clopidogrel Bisulfate 75 MG TAB ONE (20:44)
[2020-10-10 21:18] LABS: Acetaminophen Less than 6.0 mcg/mL (10.0-30.0); Alcohol Less than 10 mg/dL (Less than 10); Salicylate Less than 8.0 mg/dL (15.0-30.0)
[2020-10-11] MEDS ORDERED: Ondansetron ODT 4 MG TAB PO PRN (00:20)
[2020-10-11] MEDS ORDERED: Lactated Ringer's 500 ML IV SCH (00:45)
[2020-10-11 00:52] VITALS: BMI 40.5
[2020-10-11] MEDS ORDERED: Polyethylene Glycol 3350 17 GM Packet PO PRN (01:22)
[2020-10-11] MEDS ORDERED: Ergocalciferol 1.25 MG(50,000 UNITS) CAP PO SCH (01:30)
[2020-10-11] MEDS ORDERED: Albuterol 200 PUFF (6.7GM INHALER) INH PRN (01:45)
[2020-10-11] MEDS ORDERED: Senokot 8.6 MG TAB PO PRN (02:08)
[2020-10-11] MEDS ORDERED: HumaLOG 300 UNITS/3 ML VIAL SC PRN ×3 (03:00→03:03)
[2020-10-11] MEDS ORDERED: Dextrose 50% Abboject 50 ML SYRINGE SLOW IVP PRN (03:00)
[2020-10-11] MEDS ORDERED: Dextrose 5% in Water 1,000 ML IV PRN (03:00)
[2020-10-11] MEDS ORDERED: hydrALAZINE 20 MG/ML VIAL SLOW IVP SCH (03:45)
[2020-10-11 05:35] LABS: SARS-CoV-2 PCR by NAA Not Detected (NotDetected)
[2020-10-11 06:10] LABS: #Basophils 0.1 thou/uL (0.0-0.2); #Eosinphils 0.2 thou/uL (0.0-0.7); #Lymphocytes 2.3 thou/uL (1.20-3.40); #Monocytes 0.8 thou/uL (0.11-0.59); #Neutrophils 8.2 thou/uL (1.40-6.50); %Basophils 0.5 % (0.0-1.0); %Lymphocytes 19.8 % (21.0-51.0); %Monocytes 6.6 % (0.0-10.0); %Neutrophils 71.1 % (42.0-75.0); Hemoglobin 14.7 g/dL (12.0-16.0); Mean Corpuscular HGB CONC 33.7 g/dL (32.0-36.0); Mean Corpuscular Hemoglobin 30.5 pg (27.0-31.0); Mean Corpuscular Volume 90.7 fL (78.0-98.0); Mean Platelet Volume 9.7 fL (7.4-10.4); Platelet Count 139 thou/uL (130-400); RBC Distribution Width 13.9 % (11.5-14.5); Red Blood Cell (RBC) Count 4.82 mill/uL (4.20-5.40); White Blood Cell (WBC) Count 11.6 thou/uL (4.8-10.8)
[2020-10-11 06:16] LABS: Hemoglobin A1c 6.8 % (4.0-6.0)
[2020-10-11 06:33] LABS: ALT (SGPT) 21 U/L (8-55); AST (SGOT) 19 U/L (5-34); Albumin 3.5 g/dL (3.5-5.0); Alkaline Phosphatase 120 U/L (40-110); Anion Gap 13 mmol/L (10-20); BUN (Urea Nitrogen) 13 mg/dL (9.8-20.1); Bilirubin, Total 0.6 mg/dL (0.2-1.2); Calc. Creatinine Clearance 122 mL/min (70-130); Calcium 8.9 mg/dL (7.8-10.44); Carbon Dioxide 25 mmol/L (22-29); Cardiac Risk 6.5 (Less than 4.5); Chloride 107 mmol/L (98-107); Cholesterol 129 mg/dl (< 200 Desired); Globulin 2.7 g/dL (2.4-3.5); Glucose 141 mg/dL (70-105); HDL Cholesterol 20 mg/dL (>60 Neg Risk); LDL Cholesterol, Calculated 54 mg/dL; Lipase 52 U/L (8-78); Potassium 4.1 mmol/L (3.5-5.1); Protein, Total 6.2 g/dL (6.0-8.3); Sodium 141 mmol/L (136-145); Triglycerides 275 mg/dL (Less than 150)
[2020-10-11] MEDS: Mometasone 100 MCG/PUFF (1 INHALER) INH SCH ×2 (06:36→18:51)
[2020-10-11 06:51] LABS: Thyroid Stimulating Hormone 0.3731 uIU/mL (0.35-4.94)
[2020-10-11 06:58] LABS: Vitamin B12 446 pg/mL (211-911)
[2020-10-11 07:04] LABS: HBSAg Index 0.19 S/CO (0-0.99); Hep B Surf Ag Non-Reactive S/CO (NonReactive); Hep C IgG Ab Non-Reactive (NonReactive); Hep C Index 0.04 S/CO (0-0.79)
[2020-10-11] MEDS ORDERED: Budesonide/Glycopyr/Formoterol [Breztri Aerosphere Inhaler] INH SCH (09:00)
[2020-10-11] MEDS ORDERED: Magnesium Oxide 400 MG TAB PO SCH (09:00)
[2020-10-11] MEDS: Pancrelipase DR 12,000 1 CAP PO SCH ×3 (10:03→16:25)
[2020-10-11] MEDS: Alogliptin 6.25 MG TAB PO SCH (10:03)
[2020-10-11] MEDS: Clopidogrel Bisulfate 75 MG TAB PO SCH (10:04)
[2020-10-11] MEDS: Empagliflozin 10 MG TAB PO SCH (10:04)
[2020-10-11] MEDS: Folic Acid 1 MG TAB PO SCH (10:04)
[2020-10-11] MEDS: Fish Oil 1,000 MG CAP PO SCH (10:04)
[2020-10-11] MEDS: Cyanocobalamin (Vitamin B-12) 1,000 MCG TAB PO SCH (10:04)
[2020-10-11] MEDS: Famotidine 20 MG TAB PO SCH (10:04)
[2020-10-11] MEDS: Magnesium Oxide 250 MG TAB PO SCH (10:05)
[2020-10-11] MEDS: Metoprolol Tartrate 25 MG TAB PO SCH ×2 (10:05→19:59)
[2020-10-11] MEDS: Lisinopril 5 MG TAB PO SCH (10:05)
[2020-10-11] MEDS: PARoxetine 20 MG TAB PO SCH (10:06)
[2020-10-11] MEDS: risperiDONE 1 MG TAB PO SCH ×2 (10:06→20:00)
[2020-10-11] MEDS: Torsemide 20 MG TAB PO SCH ×2 (10:06→20:00)
[2020-10-11] MEDS: Potassium Chloride 20 MEQ TAB PO SCH ×2 (10:06→19:59)
[2020-10-11] MEDS: Fluticasone Propionate Nasal Spray 16 gm Bottle NASAL SCH (10:18)
[2020-10-11] MEDS: Naloxone HCl 0.4 mg/ml Vial IV SCH ×2 (10:18→11:51)
[2020-10-11] MEDS: Enoxaparin Sodium 40 MG/0.4 ML SYRINGE SC SCH (10:18)
[2020-10-11] MEDS: Acetaminophen 325 MG TAB PO PRN (20:01)
[2020-10-11] MEDS ORDERED: Atorvastatin Calcium 40 MG TAB PO SCH (21:00)
[2020-10-12 05:04] LABS: HIV (1/2) Antibody/Antigen Non-Reactive (NonReactive); HIV 1/2 INDEX 0.08 S/CO (<1.00)
[2020-10-12] MEDS ORDERED: Loratadine 10 MG TAB PO PRN (08:47)
[2020-10-12] MEDS: Pancrelipase DR 12,000 1 CAP PO SCH ×3 (09:00→16:42)
[2020-10-12] MEDS: Enoxaparin Sodium 40 MG/0.4 ML SYRINGE SC SCH (09:02)
[2020-10-12] MEDS: Alogliptin 6.25 MG TAB PO SCH (09:02)
[2020-10-12] MEDS: Cyanocobalamin (Vitamin B-12) 1,000 MCG TAB PO SCH (09:02)
[2020-10-12] MEDS: Empagliflozin 10 MG TAB PO SCH (09:02)
[2020-10-12] MEDS: Clopidogrel Bisulfate 75 MG TAB PO SCH (09:02)
[2020-10-12] MEDS: Famotidine 20 MG TAB PO SCH (09:03)
[2020-10-12] MEDS: Folic Acid 1 MG TAB PO SCH (09:03)
[2020-10-12] MEDS: Fish Oil 1,000 MG CAP PO SCH (09:03)
[2020-10-12] MEDS: Lisinopril 5 MG TAB PO SCH (09:04)
[2020-10-12] MEDS: Metoprolol Tartrate 25 MG TAB PO SCH (09:05)
[2020-10-12] MEDS: Magnesium Oxide 250 MG TAB PO SCH (09:05)
[2020-10-12] MEDS: Potassium Chloride 20 MEQ TAB PO SCH (09:06)
[2020-10-12] MEDS: PARoxetine 20 MG TAB PO SCH (09:06)
[2020-10-12] MEDS: risperiDONE 1 MG TAB PO SCH (09:07)
[2020-10-12] MEDS: Torsemide 20 MG TAB PO SCH (09:07)
[2020-10-12] MEDS: Fluticasone Propionate Nasal Spray 16 gm Bottle NASAL SCH (11:25)
[2020-10-12] MEDS: Acetaminophen 325 MG TAB PO PRN (11:26)
[2020-10-12] MEDS: Mometasone 100 MCG/PUFF (1 INHALER) INH SCH ×2 (12:42→18:55)
[2020-10-12 16:11] VITALS: BP 143/77; TEMP 98.4
== END 2020-10-12 19:35 | disposition home or self-care (01) ==
LOC: ERS 19:32 → 2NO 21:44
PROVIDERS: ADMIT Internal Medicine; ATTEND Internal Medicine
DX: G93.40 Encephalopathy, unspecified (principal); I25.119 Atherosclerotic heart disease of native coronary artery with unspecified angina pectoris; I13.0 Hypertensive heart and chronic kidney disease with heart failure and stage 1 through stage 4 chronic kidney disease, or unspecified chronic kidney disease; E11.22 Type 2 diabetes mellitus with diabetic chronic kidney disease; N18.9 Chronic kidney disease, unspecified; I50.32 Chronic diastolic (congestive) heart failure; J44.9 Chronic obstructive pulmonary disease, unspecified; D75.1 Secondary polycythemia; E66.9 Obesity, unspecified; Z68.41 Body mass index [BMI] 40.0-44.9, adult; Z79.02 Long term (current) use of antithrombotics/antiplatelets; Z79.4 Long term (current) use of insulin; Z79.899 Other long term (current) drug therapy; Z88.1 Allergy status to other antibiotic agents; Z88.2 Allergy status to sulfonamides; Z88.5 Allergy status to narcotic agent; Z88.6 Allergy status to analgesic agent; Z91.048 Other nonmedicinal substance allergy status; Z95.5 Presence of coronary angioplasty implant and graft; Z20.822 Contact with and (suspected) exposure to COVID-19
CPT/HCPCS: 36415; 36416; 80053; 80061; 80307; 82140; 82607; 83036; 83690; 84425; 84443; 85025; 86803; 87340; 87389; 87635; 94640; 96372; 96374; G0378; J1650; J2060; J2310; J7620; Q0162; U0003; U0005

== ENCOUNTER 2022-01-05 03:10 | Inpatient (IN) | payer BC ==
[2022-01-05 05:29] VITALS: BMI 42.7
[2022-01-05 08:58] LABS: #Eosinphils 0.1 thou/uL (0.0-0.7); #Lymphocytes 2.4 thou/uL (1.20-3.40); #Monocytes 0.5 thou/uL (0.11-0.59); #Neutrophils 6.3 thou/uL (1.40-6.50); %Basophils 0.4 % (0.0-1.0); %Eosinophils 1.3 % (0.0-10.0); %Lymphocytes 25.8 % (21.0-51.0); %Monocytes 5.6 % (0.0-10.0); %Neutrophils 66.9 % (42.0-75.0); Hemoglobin 17.3 g/dL (12.0-16.0); Mean Corpuscular Hemoglobin 31.2 pg (27.0-31.0); Mean Corpuscular Volume 97.4 fL (78.0-98.0); Mean Platelet Volume 9.6 fL (7.4-10.4); Platelet Count 114 thou/uL (130-400); RBC Distribution Width 15.3 % (11.5-14.5); Red Blood Cell (RBC) Count 5.56 mill/uL (4.20-5.40); White Blood Cell (WBC) Count 9.3 thou/uL (4.8-10.8)
[2022-01-05 09:15] LABS: Anion Gap 16 mmol/L (10-20); BUN (Urea Nitrogen) 18 mg/dL (9.8-20.1); Calc. Creatinine Clearance 75 mL/min (70-130); Calcium 9.4 mg/dL (7.8-10.44); Carbon Dioxide 23 mmol/L (22-29); Chloride 105 mmol/L (98-107); Estimated GFR 44; Glucose 165 mg/dL (70-105); Sodium 140 mmol/L (136-145)
[2022-01-05] MEDS ORDERED: hydrALAZINE 20 MG/ML VIAL SLOW IVP PRN (09:35)
[2022-01-05] MEDS ORDERED: Dextrose 50% Abboject 50 ML SYRINGE SLOW IVP PRN (09:35)
[2022-01-05] MEDS ORDERED: HumaLOG 300 UNITS/3 ML VIAL SC PRN ×2 (09:35)
[2022-01-05] MEDS ORDERED: Acetaminophen 325 MG TAB PO PRN (09:35)
[2022-01-05] MEDS ORDERED: Dextrose 5% in Water 1,000 ML IV PRN (09:35)
[2022-01-05] MEDS: Bacitracin 1 PK TOP PRN (21:18)
[2022-01-05] MEDS ORDERED: Pregabalin 50 MG CAP PO SCH (22:45)
[2022-01-06 06:49] LABS: #Eosinphils 0.2 thou/uL (0.0-0.7); #Lymphocytes 2.7 thou/uL (1.20-3.40); #Monocytes 0.7 thou/uL (0.11-0.59); #Neutrophils 4.8 thou/uL (1.40-6.50); %Basophils 0.3 % (0.0-1.0); %Eosinophils 1.9 % (0.0-10.0); %Lymphocytes 32.5 % (21.0-51.0); %Monocytes 8.1 % (0.0-10.0); %Neutrophils 57.2 % (42.0-75.0); Hemoglobin 16.5 g/dL (12.0-16.0); Mean Corpuscular HGB CONC 31.7 g/dL (32.0-36.0); Mean Corpuscular Hemoglobin 30.6 pg (27.0-31.0); Mean Corpuscular Volume 96.4 fL (78.0-98.0); Mean Platelet Volume 9.6 fL (7.4-10.4); Platelet Count 123 thou/uL (130-400); RBC Distribution Width 15.1 % (11.5-14.5); Red Blood Cell (RBC) Count 5.39 mill/uL (4.20-5.40); White Blood Cell (WBC) Count 8.4 thou/uL (4.8-10.8)
[2022-01-06 06:56] LABS: Anion Gap 13 mmol/L (10-20); BUN (Urea Nitrogen) 18 mg/dL (9.8-20.1); Calc. Creatinine Clearance 99 mL/min (70-130); Calcium 9.5 mg/dL (7.8-10.44); Carbon Dioxide 23 mmol/L (22-29); Chloride 111 mmol/L (98-107); Estimated GFR 61; Glucose 106 mg/dL (70-105); Potassium 4.2 mmol/L (3.5-5.1); Sodium 143 mmol/L (136-145)
[2022-01-06] MEDS ORDERED: Albuterol Sulfate 2.5 mg/3 ml Neb NEB PRN (08:19)
[2022-01-06] MEDS: Pregabalin 50 MG CAP PO SCH ×3 (08:34→22:39)
[2022-01-06] MEDS: Clopidogrel Bisulfate 75 MG TAB PO SCH (08:35)
[2022-01-06] MEDS: Potassium Chloride 10 MEQ TAB PO SCH ×2 (08:35→17:41)
[2022-01-06] MEDS: Torsemide 20 MG TAB PO SCH ×2 (08:35→22:37)
[2022-01-06] MEDS: risperiDONE 1 MG TAB PO SCH ×2 (08:36→22:38)
[2022-01-06] MEDS: Cholecalciferol 1,000 UNITS (25 MCG) TAB PO SCH (08:36)
[2022-01-06] MEDS: Topiramate 100 MG TAB PO SCH ×2 (08:36→22:37)
[2022-01-06] MEDS: Enoxaparin Sodium 40 MG/0.4 ML SYRINGE SC SCH (08:37)
[2022-01-06] MEDS: Empagliflozin 25 MG TAB PO SCH (08:37)
[2022-01-06] MEDS ORDERED: PARoxetine 20 MG TAB PO SCH ×2 (09:00→21:00)
[2022-01-06] MEDS ORDERED: Metoprolol Tartrate 25 MG TAB PO SCH ×2 (09:00→21:00)
[2022-01-06] MEDS ORDERED: Lisinopril 2.5 MG TAB PO SCH ×2 (09:00→21:00)
[2022-01-06] MEDS: Icosapent Ethyl 1 GM CAPSULE PO SCH ×2 (10:48→17:41)
[2022-01-06] MEDS ORDERED: Amitriptyline HCl 25 MG TAB PO SCH (21:00)
[2022-01-06] MEDS ORDERED: Loratadine 10 MG TAB PO PRN (22:06)
[2022-01-06] MEDS: Bacitracin 1 PK TOP PRN (22:38)
[2022-01-07] MEDS ORDERED: Morphine 2 MG/ML VIAL SLOW IVP SCH (04:15)
[2022-01-07 08:07] VITALS: BP 118/81; TEMP 97.7
[2022-01-07] MEDS: Torsemide 20 MG TAB PO SCH (08:14)
[2022-01-07] MEDS: Cholecalciferol 1,000 UNITS (25 MCG) TAB PO SCH (08:14)
[2022-01-07] MEDS: Empagliflozin 25 MG TAB PO SCH (08:14)
[2022-01-07] MEDS: Potassium Chloride 10 MEQ TAB PO SCH (08:15)
[2022-01-07] MEDS: risperiDONE 1 MG TAB PO SCH (08:15)
[2022-01-07] MEDS: Pregabalin 50 MG CAP PO SCH (08:15)
[2022-01-07] MEDS: Clopidogrel Bisulfate 75 MG TAB PO SCH (08:15)
[2022-01-07] MEDS: Topiramate 100 MG TAB PO SCH (08:15)
[2022-01-07] MEDS: Icosapent Ethyl 1 GM CAPSULE PO SCH (08:16)
[2022-01-07] MEDS: Enoxaparin Sodium 40 MG/0.4 ML SYRINGE SC SCH (08:16)
== END 2022-01-07 13:30 | disposition home or self-care (01) | DRG 552 ==
LOC: T4-A 05:04 → OBSVTOIN 09:35
PROVIDERS: ADMIT Student in an Organized Health Care Education/Training Program; ATTEND Internal Medicine
DX: M50.00 Cervical disc disorder with myelopathy, unspecified cervical region (principal); Z68.41 Body mass index [BMI] 40.0-44.9, adult; R29.898 Other symptoms and signs involving the musculoskeletal system; Z20.822 Contact with and (suspected) exposure to COVID-19; J44.9 Chronic obstructive pulmonary disease, unspecified; E11.22 Type 2 diabetes mellitus with diabetic chronic kidney disease; F31.9 Bipolar disorder, unspecified; G47.33 Obstructive sleep apnea (adult) (pediatric); E66.9 Obesity, unspecified; F17.210 Nicotine dependence, cigarettes, uncomplicated; I25.10 Atherosclerotic heart disease of native coronary artery without angina pectoris; Z88.6 Allergy status to analgesic agent; Z88.5 Allergy status to narcotic agent; Z88.2 Allergy status to sulfonamides; Z88.1 Allergy status to other antibiotic agents; Z91.048 Other nonmedicinal substance allergy status; Z90.49 Acquired absence of other specified parts of digestive tract; Z90.710 Acquired absence of both cervix and uterus; Z85.3 Personal history of malignant neoplasm of breast; Z79.02 Long term (current) use of antithrombotics/antiplatelets; Z79.899 Other long term (current) drug therapy; Z79.51 Long term (current) use of inhaled steroids
CPT/HCPCS: 36415; 36416; 70551; 72125; 72141; 72148; 80048; 85025; J1650; J1815; J2270

== ENCOUNTER 2022-01-27 13:10 | Inpatient (IN) | payer BC ==
[2022-01-27 13:51] LABS: #Basophils 0.1 thou/uL (0.0-0.2); #Eosinphils 0.1 thou/uL (0.0-0.7); #Lymphocytes 1.8 thou/uL (1.20-3.40); #Monocytes 0.8 thou/uL (0.11-0.59); #Neutrophils 9.3 thou/uL (1.40-6.50); %Basophils 0.6 % (0.0-1.0); %Eosinophils 0.8 % (0.0-10.0); %Lymphocytes 15.1 % (21.0-51.0); %Monocytes 6.4 % (0.0-10.0); %Neutrophils 77.1 % (42.0-75.0); Hemoglobin 16.1 g/dL (12.0-16.0); Mean Corpuscular HGB CONC 32.5 g/dL (32.0-36.0); Mean Corpuscular Volume 92.2 fL (78.0-98.0); Mean Platelet Volume 9.8 fL (7.4-10.4); Platelet Count 131 thou/uL (130-400); RBC Distribution Width 14.4 % (11.5-14.5); Red Blood Cell (RBC) Count 5.36 mill/uL (4.20-5.40); White Blood Cell (WBC) Count 12.1 thou/uL (4.8-10.8)
[2022-01-27 14:11] LABS: Acetaminophen Less than 10.0 mcg/mL (10.0-30.0); Alcohol Less than 10 mg/dL (Less than 10); Salicylate Less than 8.0 mg/dL (15.0-30.0)
[2022-01-27 14:13] LABS: ALT (SGPT) 15 U/L (8-55); AST (SGOT) 10 U/L (5-34); Albumin 4.1 g/dL (3.5-5.0); Alkaline Phosphatase 120 U/L (40-110); Anion Gap 15 mmol/L (10-20); BUN (Urea Nitrogen) 14 mg/dL (9.8-20.1); Bilirubin, Total 0.8 mg/dL (0.2-1.2); Calc. Creatinine Clearance 0 mL/min (70-130); Carbon Dioxide 26 mmol/L (22-29); Chloride 103 mmol/L (98-107); Estimated GFR 51; Globulin 2.5 g/dL (2.4-3.5); Glucose 176 mg/dL (70-105); Protein, Total 6.6 g/dL (6.0-8.3); Sodium 141 mmol/L (136-145)
[2022-01-27] MEDS ORDERED: Potassium Chloride 20 MEQ TAB ONE (15:27)
[2022-01-27] MEDS ORDERED: Acetaminophen 325 MG TAB PO PRN (17:03)
[2022-01-27] MEDS ORDERED: Ondansetron ODT 4 MG TAB PO PRN (17:03)
[2022-01-27] MEDS ORDERED: HumaLOG 300 UNITS/3 ML VIAL SC PRN ×2 (17:05)
[2022-01-27] MEDS ORDERED: hydrALAZINE 20 MG/ML VIAL SLOW IVP PRN (17:05)
[2022-01-27] MEDS ORDERED: Dextrose 5% in Water 1,000 ML IV PRN (17:05)
[2022-01-27] MEDS ORDERED: Dextrose 50% Abboject 50 ML SYRINGE SLOW IVP PRN (17:05)
[2022-01-27] MEDS ORDERED: Electrolyte Replacement Protocol 1 EACH FS SCH (17:30)
[2022-01-27] MEDS ORDERED: Albuterol Sulfate 2.5 mg/3 ml Neb NEB PRN (18:26)
[2022-01-27] MEDS ORDERED: Electrolyte Replacement Protocol FS PRN (18:30)
[2022-01-27 20:05] VITALS: BMI 39.5
[2022-01-27] MEDS ORDERED: Nicotine 7 MG PATCH TD PRN (21:00)
[2022-01-27] MEDS: Potassium Chloride 20 MEQ TAB PO SCH (21:15)
[2022-01-27] MEDS: Metoprolol Tartrate 25 MG TAB PO SCH (21:15)
[2022-01-27] MEDS: Torsemide 20 MG TAB PO SCH (21:15)
[2022-01-27 23:44] LABS: Bilirubin Negative (Negative); Blood, Urine Negative (Negative); Clarity Clear (Clear); Glucose, Urine (Dipstick) Greater than 1000 mg/dL (Negative); Ketone, Urine Negative (Negative); Leukocyte Negative Leu/uL (Negative); Nitrite Negative (Negative); Protein, Urine (Dipstick) Negative (Neg-Trace); Specific Gravity, Urine 1.013 (1.002-1.036); Urobilinogen Normal mg/dL (Less than 2); pH, Urine 6.5 (5.0-9.0)
[2022-01-27 23:49] LABS: Amphetamine Not Detected (NotDetected); Barbiturates Screen Not Detected (NotDetected); Benzodiazepine Screen Not Detected (NotDetected); Cocaine Metabolite Screen Not Detected (NotDetected); Methadone Not Detected (NotDetected); Methamphetamine Not Detected (NotDetected); Opiate Screen Not Detected (NotDetected); Oxycodone Screen Not Detected (NotDetected); Phencyclidine (PCP) Not Detected (NotDetected); THC/Cannabinoid Screen Not Detected (NotDetected); Tricyclic Screen Not Detected (NotDetected)
[2022-01-27 23:53] LABS: Bacteria/HPF 1+ HPF (None Seen); RBC/HPF 0-3 HPF (0-3); Squamous Epithelial 0-3 HPF (0-3); WBC/HPF 0-3 HPF (0-3)
[2022-01-27 23:57] LABS: Urine Culture Reflex Yes Yes
[2022-01-28 04:49] LABS: #Basophils 0.1 thou/uL (0.0-0.2); #Eosinphils 0.2 thou/uL (0.0-0.7); #Monocytes 0.7 thou/uL (0.11-0.59); #Neutrophils 6.2 thou/uL (1.40-6.50); %Basophils 0.5 % (0.0-1.0); %Eosinophils 1.6 % (0.0-10.0); %Lymphocytes 29.8 % (21.0-51.0); %Monocytes 7.2 % (0.0-10.0); Hemoglobin 15.9 g/dL (12.0-16.0); Mean Corpuscular Hemoglobin 31.1 pg (27.0-31.0); Mean Platelet Volume 9.9 fL (7.4-10.4); Platelet Count 138 thou/uL (130-400); RBC Distribution Width 14.6 % (11.5-14.5); Red Blood Cell (RBC) Count 5.12 mill/uL (4.20-5.40); White Blood Cell (WBC) Count 10.2 thou/uL (4.8-10.8)
[2022-01-28 05:07] LABS: Anion Gap 14 mmol/L (10-20); BUN (Urea Nitrogen) 13 mg/dL (9.8-20.1); Calc. Creatinine Clearance 87 mL/min (70-130); Carbon Dioxide 24 mmol/L (22-29); Chloride 106 mmol/L (98-107); Estimated GFR 55; Glucose 132 mg/dL (70-105); Magnesium 2.4 mg/dL (1.6-2.6); Potassium 3.4 mmol/L (3.5-5.1); Sodium 141 mmol/L (136-145)
[2022-01-28] MEDS: Icosapent Ethyl 1 GM CAPSULE PO SCH ×2 (08:00→17:00)
[2022-01-28] MEDS ORDERED: Potassium Chloride 20 MEQ TAB PO SCH (08:00)
[2022-01-28] MEDS ORDERED: Prevnar 13-Val Conj/PF 0.5 ML SYRINGE IM ONE (09:00)
[2022-01-28] MEDS: Cholecalciferol 1,000 UNITS (25 MCG) TAB PO SCH (09:00)
[2022-01-28] MEDS: Metoprolol Tartrate 25 MG TAB PO SCH ×2 (11:32→21:36)
[2022-01-28] MEDS: Famotidine 20 MG TAB PO SCH (11:32)
[2022-01-28] MEDS: Lisinopril 2.5 MG TAB PO SCH (11:33)
[2022-01-28] MEDS: PARoxetine 20 MG TAB PO SCH (11:33)
[2022-01-28] MEDS: Clopidogrel Bisulfate 75 MG TAB PO SCH (11:33)
[2022-01-28] MEDS: Empagliflozin 25 MG TAB PO SCH (11:36)
[2022-01-28] MEDS: Torsemide 20 MG TAB PO SCH (13:15)
[2022-01-28] MEDS: Topiramate 100 MG TAB PO SCH ×2 (13:17→21:36)
[2022-01-28] MEDS: Potassium Chloride 20 MEQ TAB PO SCH ×2 (16:13→21:36)
[2022-01-29 04:30] LABS: #Basophils 0.1 thou/uL (0.0-0.2); #Eosinphils 0.2 thou/uL (0.0-0.7); #Monocytes 0.8 thou/uL (0.11-0.59); #Neutrophils 5.3 thou/uL (1.40-6.50); %Basophils 0.6 % (0.0-1.0); %Eosinophils 2.2 % (0.0-10.0); %Lymphocytes 32.2 % (21.0-51.0); %Monocytes 8.4 % (0.0-10.0); %Neutrophils 56.7 % (42.0-75.0); Hemoglobin 16.2 g/dL (12.0-16.0); Mean Corpuscular HGB CONC 32.3 g/dL (32.0-36.0); Mean Corpuscular Hemoglobin 31.5 pg (27.0-31.0); Mean Corpuscular Volume 97.5 fL (78.0-98.0); Mean Platelet Volume 9.9 fL (7.4-10.4); Platelet Count 127 thou/uL (130-400); RBC Distribution Width 14.5 % (11.5-14.5); Red Blood Cell (RBC) Count 5.14 mill/uL (4.20-5.40); White Blood Cell (WBC) Count 9.4 thou/uL (4.8-10.8)
[2022-01-29 07:32] LABS: Chloride 106 mmol/L (98-107); Potassium 3.8 mmol/L (3.5-5.1); Sodium 138 mmol/L (136-145)
[2022-01-29 07:33] LABS: Calcium 9.1 mg/dL (7.8-10.44); Glucose 133 mg/dL (70-105)
[2022-01-29 07:35] LABS: Anion Gap 16 mmol/L (10-20); Carbon Dioxide 20 mmol/L (22-29)
[2022-01-29 07:37] LABS: BUN (Urea Nitrogen) 16 mg/dL (9.8-20.1); Calc. Creatinine Clearance 89 mL/min (70-130); Estimated GFR 57
[2022-01-29] MEDS ORDERED: Magnevist 469MG/ML 20 ML VIAL ONE (09:38)
[2022-01-29] MEDS: Cholecalciferol 1,000 UNITS (25 MCG) TAB PO SCH (10:26)
[2022-01-29] MEDS: Icosapent Ethyl 1 GM CAPSULE PO SCH ×2 (10:26→16:45)
[2022-01-29] MEDS: Metoprolol Tartrate 25 MG TAB PO SCH ×2 (10:28→20:57)
[2022-01-29] MEDS: Lisinopril 2.5 MG TAB PO SCH (10:29)
[2022-01-29] MEDS: PARoxetine 20 MG TAB PO SCH (10:30)
[2022-01-29] MEDS: Famotidine 20 MG TAB PO SCH (10:30)
[2022-01-29] MEDS: Clopidogrel Bisulfate 75 MG TAB PO SCH (10:31)
[2022-01-29] MEDS: Topiramate 100 MG TAB PO SCH ×2 (10:31→20:57)
[2022-01-29] MEDS: Empagliflozin 25 MG TAB PO SCH (10:31)
[2022-01-30] MEDS: Famotidine 20 MG TAB PO SCH (09:36)
[2022-01-30] MEDS: Empagliflozin 25 MG TAB PO SCH (09:36)
[2022-01-30] MEDS: Lisinopril 2.5 MG TAB PO SCH (09:36)
[2022-01-30] MEDS: Icosapent Ethyl 1 GM CAPSULE PO SCH ×2 (09:36→17:42)
[2022-01-30] MEDS: Metoprolol Tartrate 25 MG TAB PO SCH ×2 (09:37→20:54)
[2022-01-30] MEDS: Cholecalciferol 1,000 UNITS (25 MCG) TAB PO SCH (09:37)
[2022-01-30] MEDS: PARoxetine 20 MG TAB PO SCH (09:37)
[2022-01-30] MEDS: Clopidogrel Bisulfate 75 MG TAB PO SCH (09:37)
[2022-01-30] MEDS: Topiramate 100 MG TAB PO SCH ×2 (09:37→20:53)
[2022-01-30] MEDS: Pregabalin 50 MG CAP PO SCH (20:53)
[2022-01-30] MEDS ORDERED: Loratadine 10 MG TAB PO SCH (21:00)
[2022-01-31] MEDS: Cholecalciferol 1,000 UNITS (25 MCG) TAB PO SCH (09:30)
[2022-01-31] MEDS: Lisinopril 2.5 MG TAB PO SCH (09:32)
[2022-01-31] MEDS: Metoprolol Tartrate 25 MG TAB PO SCH (09:32)
[2022-01-31] MEDS: PARoxetine 20 MG TAB PO SCH (09:33)
[2022-01-31] MEDS: Topiramate 100 MG TAB PO SCH (09:33)
[2022-01-31] MEDS: Clopidogrel Bisulfate 75 MG TAB PO SCH (09:33)
[2022-01-31] MEDS: Famotidine 20 MG TAB PO SCH (09:33)
[2022-01-31] MEDS: Pregabalin 50 MG CAP PO SCH ×2 (09:33→13:42)
[2022-01-31] MEDS: Empagliflozin 25 MG TAB PO SCH (09:34)
[2022-01-31] MEDS: Icosapent Ethyl 1 GM CAPSULE PO SCH (10:37)
[2022-01-31 12:37] VITALS: BP 143/89; TEMP 98.3
== END 2022-01-31 14:20 | disposition home or self-care (01) | DRG 71 ==
LOC: ERS 13:10 → 2NO 15:50 → OBSVTOIN 01-31 07:54
PROVIDERS: ADMIT Hospitalist; ATTEND Hospitalist
DX: G93.41 Metabolic encephalopathy (principal); I13.0 Hypertensive heart and chronic kidney disease with heart failure and stage 1 through stage 4 chronic kidney disease, or unspecified chronic kidney disease; I50.32 Chronic diastolic (congestive) heart failure; Z68.41 Body mass index [BMI] 40.0-44.9, adult; F11.20 Opioid dependence, uncomplicated; Z20.822 Contact with and (suspected) exposure to COVID-19; E78.5 Hyperlipidemia, unspecified; I25.10 Atherosclerotic heart disease of native coronary artery without angina pectoris; J44.9 Chronic obstructive pulmonary disease, unspecified; G89.4 Chronic pain syndrome; F31.9 Bipolar disorder, unspecified; E11.22 Type 2 diabetes mellitus with diabetic chronic kidney disease; N18.2 Chronic kidney disease, stage 2 (mild); E66.01 Morbid (severe) obesity due to excess calories; E87.6 Hypokalemia; F17.210 Nicotine dependence, cigarettes, uncomplicated; R29.6 Repeated falls; Z28.21 Immunization not carried out because of patient refusal; Z91.81 History of falling; Z88.6 Allergy status to analgesic agent; Z88.1 Allergy status to other antibiotic agents; Z88.5 Allergy status to narcotic agent; Z88.2 Allergy status to sulfonamides; Z88.8 Allergy status to other drugs, medicaments and biological substances; Z91.09 Other allergy status, other than to drugs and biological substances; Z79.899 Other long term (current) drug therapy; Z79.02 Long term (current) use of antithrombotics/antiplatelets; Z79.4 Long term (current) use of insulin; Z90.49 Acquired absence of other specified parts of digestive tract; Z90.710 Acquired absence of both cervix and uterus; Z85.3 Personal history of malignant neoplasm of breast; Z98.890 Other specified postprocedural states; Z71.6 Tobacco abuse counseling
CPT/HCPCS: 36415; 36416; 70450; 70553; 71275; 80048; 80053; 80306; 80307; 81001; 83735; 84484; 85025; 87040; 87086; 93005; 95712; 95819; 95957; A9579; J1815; J3411; U0003; U0005

== ENCOUNTER 2023-06-09 15:19 | Inpatient (IN) | payer BC ==
[2023-06-09] MEDS ORDERED: cefTRIAXone (ROCEPHIN) 2 GM VIAL ONE (15:42)
[2023-06-09] MEDS ORDERED: Azithromycin 500 MG VIAL ONE (15:42)
[2023-06-09] MEDS ORDERED: Ondansetron PF 4 MG/2 ML Vial ONE (15:42)
[2023-06-09] MEDS ORDERED: Morphine 10 MG/ML VIAL ONE (15:42)
[2023-06-09] MEDS ORDERED: Sodium Chloride 0.9% 100 ML ONE (15:42)
[2023-06-09] MEDS ORDERED: Sodium Chloride 0.9% 250 ML 250 ML ONE (15:43)
[2023-06-09] MEDS ORDERED: Ipratropium/Albuterol 3 ML NEB ONE (15:44)
[2023-06-09 15:57] LABS: #Monocytes 0.5 thou/uL (0.11-0.59); #Neutrophils 5.1 thou/uL (1.40-6.50); %Basophils 0.3 % (0.0-1.0); %Eosinophils 0.6 % (0.0-10.0); %Lymphocytes 11.4 % (21.0-51.0); %Monocytes 7.1 % (0.0-10.0); %Neutrophils 80.1 % (42.0-75.0); Hematocrit 42.3 % (36.0-47.0); Hemoglobin 13.8 g/dL (12.0-16.0); Mean Corpuscular HGB CONC 32.6 g/dL (32.0-36.0); Mean Corpuscular Hemoglobin 33.4 pg (27.0-31.0); Mean Corpuscular Volume 102.4 fl (78.0-98.0); Mean Platelet Volume 12.3 fL (7.4-10.4); RBC Distribution Width 16.3 % (11.5-14.5); Red Blood Cell (RBC) Count 4.13 mill/uL (4.20-5.40); White Blood Cell (WBC) Count 6.3 10x3/uL (4.8-10.8)
[2023-06-09 16:03] LABS: Platelet Count 54 10x3/uL (130-400)
[2023-06-09 16:08] LABS: PTT 27.1 sec (22.9-36.1); Prothrombin Time 13.3 sec (12.0-14.7)
[2023-06-09 16:27] LABS: ALT (SGPT) 24 U/L (8-55); AST (SGOT) 20 U/L (5-34); Albumin 3.6 g/dL (3.5-5.0); Alkaline Phosphatase 111 U/L (40-110); Anion Gap 14 mmol/L (10-20); BUN (Urea Nitrogen) 12 mg/dL (9.8-20.1); Bilirubin, Total 0.5 mg/dL (0.2-1.2); Calc. Creatinine Clearance 0 mL/min (70-130); Calcium 8.3 mg/dL (7.8-10.44); Carbon Dioxide 25 mmol/L (22-29); Chloride 104 mmol/L (98-107); Estimated GFR 64; Globulin 2.4 g/dL (2.4-3.5); Glucose 173 mg/dL (70-105); Potassium 3.7 mmol/L (3.5-5.1); Sodium 139 mmol/L (136-145)
[2023-06-09] MEDS ORDERED: Magnesium 2 GM/50 ML BAG (IN WATER) ONE (16:39)
[2023-06-09 18:05] LABS: SARS-CoV-2 NAA Rapid Test Not Detected (NotDetected)
[2023-06-09] MEDS ORDERED: Dextrose 50% Abboject 50 ML SYRINGE SLOW IVP PRN (18:25)
[2023-06-09] MEDS ORDERED: Glucagon 1 MG/ML KIT IM PRN (18:25)
[2023-06-09] MEDS ORDERED: Dextrose 5% in Water 1,000 ML IV PRN (18:25)
[2023-06-09] MEDS ORDERED: HumaLOG 300 UNITS/3 ML VIAL SC PRN (18:28)
[2023-06-09] MEDS ORDERED: Ipratropium/Albuterol 3 ML NEB NEB PRN (18:47)
[2023-06-09] MEDS ORDERED: Ipratropium/Albuterol 3 ML NEB NEB SCH (19:00)
[2023-06-09] MEDS ORDERED: Aluminum & Magnesium Hydroxide 60 ML, Lidocaine 2% Viscous Solution 30 ML, diphenhydrAM... SSW PRN (19:01)
[2023-06-09 19:22] LABS: Lactic Acid 3.7 mmol/L (0.5-2.2)
[2023-06-09] MEDS ORDERED: Prochlorperazine Maleate 5 MG TAB PO PRN (20:48)
[2023-06-09] MEDS: Pregabalin 75 MG CAP PO SCH (21:44)
[2023-06-09] MEDS: Ranolazine 500 MG ER.TAB PO SCH (21:44)
[2023-06-09] MEDS: Torsemide 20 MG TAB PO SCH (21:44)
[2023-06-09] MEDS: Nicotine 21 MG PATCH TD SCH (21:44)
[2023-06-09] MEDS: Famotidine 20 MG TAB PO SCH (21:45)
[2023-06-09] MEDS: levETIRAcetam 500 MG TAB PO SCH (21:45)
[2023-06-09] MEDS: fentaNYL 50 mcg/hour Patch TD SCH (22:05)
[2023-06-09] MEDS: Ipratropium/Albuterol 3 ML NEB NEB SCH ×2 (22:24→22:46)
[2023-06-10] MEDS ORDERED: Naloxone HCl 0.4 mg/ml Vial IVP PRN (01:34)
[2023-06-10] MEDS: Ipratropium/Albuterol 3 ML NEB NEB SCH ×6 (02:31→23:28)
[2023-06-10] MEDS: HYDROmorphone 2 MG TAB PO PRN ×4 (04:31→22:45)
[2023-06-10 05:11] LABS: #Monocytes 0.8 thou/uL (0.11-0.59); #Neutrophils 14.4 thou/uL (1.40-6.50); %Basophils 0.1 % (0.0-1.0); %Neutrophils 90.3 % (42.0-75.0); Hematocrit 47.5 % (36.0-47.0); Hemoglobin 14.9 g/dL (12.0-16.0); Mean Corpuscular HGB CONC 31.4 g/dL (32.0-36.0); Mean Corpuscular Volume 105.1 fl (78.0-98.0); Mean Platelet Volume 12.4 fL (7.4-10.4); RBC Distribution Width 16.7 % (11.5-14.5); Red Blood Cell (RBC) Count 4.52 mill/uL (4.20-5.40); White Blood Cell (WBC) Count 15.9 10x3/uL (4.8-10.8)
[2023-06-10 05:56] LABS: Platelet Count 71 10x3/uL (130-400)
[2023-06-10 07:26] LABS: ALT (SGPT) 25 U/L (8-55); AST (SGOT) 20 U/L (5-34); Albumin 3.9 g/dL (3.5-5.0); Alkaline Phosphatase 117 U/L (40-110); Anion Gap 20 mmol/L (10-20); BUN (Urea Nitrogen) 18 mg/dL (9.8-20.1); Bilirubin, Total 0.4 mg/dL (0.2-1.2); Calc. Creatinine Clearance 68 mL/min (70-130); Carbon Dioxide 25 mmol/L (22-29); Chloride 99 mmol/L (98-107); Estimated GFR 46; Globulin 3.7 g/dL (2.4-3.5); Glucose 152 mg/dL (70-105); Potassium 3.7 mmol/L (3.5-5.1); Protein, Total 7.6 g/dL (6.0-8.3); Sodium 140 mmol/L (136-145)
[2023-06-10] MEDS: Mometasone 100 MCG/PUFF (1 INHALER) INH SCH ×2 (07:33→19:26)
[2023-06-10] MEDS: Ondansetron ODT 8 MG TAB PO PRN ×2 (07:37→18:48)
[2023-06-10] MEDS: Atorvastatin Calcium 40 MG TAB PO SCH (08:43)
[2023-06-10] MEDS: Cholecalciferol 1,000 UNITS (25 MCG) TAB PO SCH (08:44)
[2023-06-10] MEDS: Empagliflozin 25 MG TAB PO SCH (08:44)
[2023-06-10] MEDS: Folic Acid 1 MG TAB PO SCH (08:44)
[2023-06-10] MEDS: Azithromycin 250 MG TAB PO SCH (08:44)
[2023-06-10] MEDS: PARoxetine 20 MG TAB PO SCH (08:45)
[2023-06-10] MEDS: Torsemide 20 MG TAB PO SCH ×2 (08:46→22:19)
[2023-06-10] MEDS: levETIRAcetam 500 MG TAB PO SCH ×2 (08:46→22:18)
[2023-06-10] MEDS: Famotidine 20 MG TAB PO SCH ×2 (08:47→22:18)
[2023-06-10] MEDS: Isosorbide Mononitrate 60 MG ER.TAB PO SCH (08:48)
[2023-06-10] MEDS: Ranolazine 500 MG ER.TAB PO SCH ×2 (08:48→22:18)
[2023-06-10] MEDS: Pregabalin 75 MG CAP PO SCH ×2 (08:48→22:18)
[2023-06-10] MEDS: Insulin Glargine 30 UNITS/0.3 ML VIAL SC SCH (08:51)
[2023-06-10] MEDS: Fluticasone Propionate Nasal Spray 16 gm Bottle NASAL SCH (08:54)
[2023-06-10] MEDS ORDERED: Lactated Ringer's 1,000 ML IV SCH (09:00)
[2023-06-10] MEDS ORDERED: Non-Formulary Item 1 EACH (Fluticasone/Umeclidin/Vilanter [Trelegy Ellipta 200-62.5-25] 1 PO SCH (09:00)
[2023-06-10] MEDS ORDERED: predniSONE 20 MG TAB PO SCH (09:00)
[2023-06-10] MEDS ORDERED: Senokot 8.6 MG TAB PO PRN (12:35)
[2023-06-10] MEDS: Nicotine 21 MG PATCH TD SCH (22:19)
[2023-06-10] MEDS: Loratadine 10 MG TAB PO PRN (22:22)
[2023-06-10 23:01] LABS: Lactic Acid 3.2 mmol/L (0.5-2.2)
[2023-06-10 23:11] LABS: Anion Gap 17 mmol/L (10-20); BUN (Urea Nitrogen) 26 mg/dL (9.8-20.1); Calc. Creatinine Clearance 60 mL/min (70-130); Calcium 8.7 mg/dL (7.8-10.44); Carbon Dioxide 23 mmol/L (22-29); Chloride 101 mmol/L (98-107); Estimated GFR 39; Glucose 159 mg/dL (70-105); Potassium 4.4 mmol/L (3.5-5.1); Sodium 137 mmol/L (136-145)
[2023-06-11] MEDS: HYDROmorphone 2 MG TAB PO PRN ×4 (03:27→21:59)
[2023-06-11] MEDS: Ondansetron ODT 8 MG TAB PO PRN ×2 (03:27→17:40)
[2023-06-11] MEDS: Ipratropium/Albuterol 3 ML NEB NEB SCH ×3 (03:49→11:05)
[2023-06-11 05:47] LABS: #Monocytes 0.9 thou/uL (0.11-0.59); #Neutrophils 9.2 thou/uL (1.40-6.50); %Basophils 0.1 % (0.0-1.0); %Lymphocytes 15.1 % (21.0-51.0); %Monocytes 7.1 % (0.0-10.0); %Neutrophils 77.1 % (42.0-75.0); Hematocrit 39.9 % (36.0-47.0); Hemoglobin 12.8 g/dL (12.0-16.0); Mean Corpuscular HGB CONC 32.1 g/dL (32.0-36.0); Mean Corpuscular Hemoglobin 33.5 pg (27.0-31.0); Mean Corpuscular Volume 104.5 fl (78.0-98.0); Mean Platelet Volume 11.3 fL (7.4-10.4); RBC Distribution Width 16.9 % (11.5-14.5); Red Blood Cell (RBC) Count 3.82 mill/uL (4.20-5.40); White Blood Cell (WBC) Count 11.9 10x3/uL (4.8-10.8)
[2023-06-11 06:14] LABS: Platelet Count 58 10x3/uL (130-400)
[2023-06-11 06:23] LABS: ALT (SGPT) 17 U/L (8-55); AST (SGOT) 14 U/L (5-34); Albumin 3.4 g/dL (3.5-5.0); Alkaline Phosphatase 90 U/L (40-110); Anion Gap 14 mmol/L (10-20); BUN (Urea Nitrogen) 27 mg/dL (9.8-20.1); Bilirubin, Total 0.5 mg/dL (0.2-1.2); Calc. Creatinine Clearance 64 mL/min (70-130); Calcium 8.8 mg/dL (7.8-10.44); Carbon Dioxide 28 mmol/L (22-29); Chloride 99 mmol/L (98-107); Estimated GFR 42; Glucose 105 mg/dL (70-105); Potassium 3.8 mmol/L (3.5-5.1); Protein, Total 6.4 g/dL (6.0-8.3); Sodium 137 mmol/L (136-145)
[2023-06-11] MEDS: Mometasone 100 MCG/PUFF (1 INHALER) INH SCH ×2 (07:51→19:19)
[2023-06-11] MEDS ORDERED: Lactated Ringer's 1,000 ML IV SCH (08:15)
[2023-06-11] MEDS: Fluticasone Propionate Nasal Spray 16 gm Bottle NASAL SCH (08:26)
[2023-06-11] MEDS: Famotidine 20 MG TAB PO SCH ×2 (08:30→22:01)
[2023-06-11] MEDS: Isosorbide Mononitrate 60 MG ER.TAB PO SCH (08:30)
[2023-06-11] MEDS: Atorvastatin Calcium 40 MG TAB PO SCH (08:30)
[2023-06-11] MEDS: predniSONE 20 MG TAB PO SCH (08:30)
[2023-06-11] MEDS: PARoxetine 20 MG TAB PO SCH (08:30)
[2023-06-11] MEDS: Azithromycin 250 MG TAB PO SCH (08:31)
[2023-06-11] MEDS: levETIRAcetam 500 MG TAB PO SCH ×2 (08:31→22:01)
[2023-06-11] MEDS: Folic Acid 1 MG TAB PO SCH (08:31)
[2023-06-11] MEDS: Pregabalin 75 MG CAP PO SCH ×2 (08:31→22:01)
[2023-06-11] MEDS: Ranolazine 500 MG ER.TAB PO SCH ×2 (08:32→22:01)
[2023-06-11] MEDS: Empagliflozin 25 MG TAB PO SCH (08:33)
[2023-06-11] MEDS: Insulin Glargine 30 UNITS/0.3 ML VIAL SC SCH (08:33)
[2023-06-11] MEDS: Torsemide 20 MG TAB PO SCH ×2 (08:33→22:01)
[2023-06-11] MEDS: Cholecalciferol 1,000 UNITS (25 MCG) TAB PO SCH (08:33)
[2023-06-11] MEDS: Loratadine 10 MG TAB PO PRN (08:42)
[2023-06-11] MEDS ORDERED: Nicotine 21 MG PATCH TD PRN (12:26)
[2023-06-12] MEDS: Ondansetron ODT 8 MG TAB PO PRN (02:44)
[2023-06-12] MEDS: HYDROmorphone 2 MG TAB PO PRN ×2 (02:44→21:17)
[2023-06-12 06:37] LABS: #Neutrophils 8.1 thou/uL (1.40-6.50); %Basophils 0.4 % (0.0-1.0); %Eosinophils 0.1 % (0.0-10.0); %Lymphocytes 19.1 % (21.0-51.0); %Monocytes 8.4 % (0.0-10.0); %Neutrophils 70.8 % (42.0-75.0); Hematocrit 45.2 % (36.0-47.0); Hemoglobin 14.4 g/dL (12.0-16.0); Mean Corpuscular HGB CONC 31.9 g/dL (32.0-36.0); Mean Corpuscular Hemoglobin 32.8 pg (27.0-31.0); Mean Platelet Volume 10.8 fL (7.4-10.4); Red Blood Cell (RBC) Count 4.39 mill/uL (4.20-5.40); White Blood Cell (WBC) Count 11.4 10x3/uL (4.8-10.8)
[2023-06-12 06:46] LABS: Platelet Count 58 10x3/uL (130-400)
[2023-06-12 07:13] LABS: ALT (SGPT) 27 U/L (8-55); AST (SGOT) 23 U/L (5-34); Albumin 3.7 g/dL (3.5-5.0); Alkaline Phosphatase 92 U/L (40-110); Anion Gap 12 mmol/L (10-20); BUN (Urea Nitrogen) 28 mg/dL (9.8-20.1); Bilirubin, Total 0.5 mg/dL (0.2-1.2); Calc. Creatinine Clearance 75 mL/min (70-130); Calcium 8.6 mg/dL (7.8-10.44); Carbon Dioxide 30 mmol/L (22-29); Chloride 100 mmol/L (98-107); Estimated GFR 52; Globulin 3.1 g/dL (2.4-3.5); Glucose 108 mg/dL (70-105); Potassium 3.3 mmol/L (3.5-5.1); Protein, Total 6.8 g/dL (6.0-8.3); Sodium 139 mmol/L (136-145)
[2023-06-12] MEDS: Mometasone 100 MCG/PUFF (1 INHALER) INH SCH ×2 (08:01→19:29)
[2023-06-12] MEDS ORDERED: Potassium Chloride 20 MEQ TAB PO SCH (08:45)
[2023-06-12] MEDS: predniSONE 20 MG TAB PO SCH (09:27)
[2023-06-12] MEDS: Ranolazine 500 MG ER.TAB PO SCH ×2 (09:27→21:10)
[2023-06-12] MEDS: levETIRAcetam 500 MG TAB PO SCH ×2 (09:28→21:06)
[2023-06-12] MEDS: Famotidine 20 MG TAB PO SCH ×2 (09:28→21:10)
[2023-06-12] MEDS: Azithromycin 250 MG TAB PO SCH (09:28)
[2023-06-12] MEDS: Isosorbide Mononitrate 60 MG ER.TAB PO SCH (09:29)
[2023-06-12] MEDS: Loratadine 10 MG TAB PO PRN (09:29)
[2023-06-12] MEDS: Empagliflozin 25 MG TAB PO SCH (09:29)
[2023-06-12] MEDS: PARoxetine 20 MG TAB PO SCH (09:29)
[2023-06-12] MEDS: Torsemide 20 MG TAB PO SCH ×2 (09:30→21:11)
[2023-06-12] MEDS: Pregabalin 75 MG CAP PO SCH ×2 (09:30→21:10)
[2023-06-12] MEDS: Atorvastatin Calcium 40 MG TAB PO SCH (09:30)
[2023-06-12] MEDS: Folic Acid 1 MG TAB PO SCH (09:30)
[2023-06-12] MEDS: Insulin Glargine 30 UNITS/0.3 ML VIAL SC SCH (09:31)
[2023-06-12] MEDS: Cholecalciferol 1,000 UNITS (25 MCG) TAB PO SCH (09:31)
[2023-06-12] MEDS: Fluticasone Propionate Nasal Spray 16 gm Bottle NASAL SCH (09:32)
[2023-06-12 13:23] LABS: Magnesium 2.3 mg/dL (1.6-2.6)
[2023-06-12] MEDS: HumaLOG 300 UNITS/3 ML VIAL SC PRN (18:48)
[2023-06-12] MEDS: fentaNYL 50 mcg/hour Patch TD SCH (21:12)
[2023-06-13] MEDS: HYDROmorphone 2 MG TAB PO PRN ×2 (02:36→10:29)
[2023-06-13] MEDS: HumaLOG 300 UNITS/3 ML VIAL SC PRN (06:12)
[2023-06-13] MEDS: Ondansetron ODT 8 MG TAB PO PRN (06:12)
[2023-06-13] MEDS: Mometasone 100 MCG/PUFF (1 INHALER) INH SCH (07:15)
[2023-06-13 07:43] VITALS: BP 129/82; TEMP 97.7
[2023-06-13] MEDS ORDERED: Ipratropium/Albuterol 3 ML NEB NEB SCH (07:45)
[2023-06-13] MEDS: predniSONE 20 MG TAB PO SCH (08:09)
[2023-06-13] MEDS: Cholecalciferol 1,000 UNITS (25 MCG) TAB PO SCH (08:10)
[2023-06-13] MEDS: Pregabalin 75 MG CAP PO SCH (08:10)
[2023-06-13] MEDS: Ranolazine 500 MG ER.TAB PO SCH (08:10)
[2023-06-13] MEDS: Famotidine 20 MG TAB PO SCH (08:10)
[2023-06-13] MEDS: Folic Acid 1 MG TAB PO SCH (08:10)
[2023-06-13] MEDS: PARoxetine 20 MG TAB PO SCH (08:11)
[2023-06-13] MEDS: levETIRAcetam 500 MG TAB PO SCH (08:11)
[2023-06-13] MEDS: Atorvastatin Calcium 40 MG TAB PO SCH (08:11)
[2023-06-13] MEDS: Isosorbide Mononitrate 60 MG ER.TAB PO SCH (08:12)
[2023-06-13] MEDS: Insulin Glargine 30 UNITS/0.3 ML VIAL SC SCH (08:16)
[2023-06-13] MEDS: Torsemide 20 MG TAB PO SCH (08:25)
[2023-06-13] MEDS: Empagliflozin 25 MG TAB PO SCH (08:25)
[2023-06-13 08:35] LABS: #Monocytes 0.7 thou/uL (0.11-0.59); #Neutrophils 7.4 thou/uL (1.40-6.50); %Basophils 0.3 % (0.0-1.0); %Eosinophils 0.3 % (0.0-10.0); %Lymphocytes 23.4 % (21.0-51.0); %Monocytes 6.6 % (0.0-10.0); %Neutrophils 68.1 % (42.0-75.0); Hematocrit 44.1 % (36.0-47.0); Hemoglobin 13.9 g/dL (12.0-16.0); Mean Corpuscular HGB CONC 31.5 g/dL (32.0-36.0); Mean Corpuscular Volume 104.8 fl (78.0-98.0); Mean Platelet Volume 12.4 fL (7.4-10.4); RBC Distribution Width 16.7 % (11.5-14.5); Red Blood Cell (RBC) Count 4.21 mill/uL (4.20-5.40); White Blood Cell (WBC) Count 10.8 10x3/uL (4.8-10.8)
[2023-06-13 08:39] LABS: Platelet Count 60 10x3/uL (130-400)
[2023-06-13 09:00] LABS: ALT (SGPT) 28 U/L (8-55); AST (SGOT) 18 U/L (5-34); Albumin 3.5 g/dL (3.5-5.0); Alkaline Phosphatase 93 U/L (40-110); Anion Gap 14 mmol/L (10-20); BUN (Urea Nitrogen) 27 mg/dL (9.8-20.1); Bilirubin, Total 0.4 mg/dL (0.2-1.2); Calc. Creatinine Clearance 65 mL/min (70-130); Calcium 8.5 mg/dL (7.8-10.44); Carbon Dioxide 31 mmol/L (22-29); Chloride 99 mmol/L (98-107); Estimated GFR 42; Globulin 3.1 g/dL (2.4-3.5); Glucose 168 mg/dL (70-105); Potassium 3.3 mmol/L (3.5-5.1); Protein, Total 6.6 g/dL (6.0-8.3); Sodium 141 mmol/L (136-145)
[2023-06-13] MEDS ORDERED: Potassium Chloride 20 MEQ TAB PO SCH (09:15)
[2023-06-13] MEDS: Fluticasone Propionate Nasal Spray 16 gm Bottle NASAL SCH (10:18)
[2023-06-13] MEDS: Loratadine 10 MG TAB PO PRN (10:18)
[2023-06-13] MEDS: Ipratropium/Albuterol 3 ML NEB NEB SCH ×2 (11:35→14:45)
[2023-06-13 14:36] VITALS: BMI 38.3
[2023-06-13 14:59] LABS: Anion Gap 17 mmol/L (10-20); BUN (Urea Nitrogen) 28 mg/dL (9.8-20.1); Calc. Creatinine Clearance 72 mL/min (70-130); Calcium 8.6 mg/dL (7.8-10.44); Carbon Dioxide 28 mmol/L (22-29); Chloride 95 mmol/L (98-107); Estimated GFR 48; Glucose 286 mg/dL (70-105); Potassium 3.9 mmol/L (3.5-5.1); Sodium 136 mmol/L (136-145)
== END 2023-06-13 17:29 | disposition home or self-care (01) | DRG 189 ==
LOC: ERS 15:19 → 2SW 18:12 → OBSVTOIN 06-11 08:05 → MSONC 06-12 18:23
PROVIDERS: ADMIT Family Medicine; ATTEND Family Medicine
DX: J96.01 Acute respiratory failure with hypoxia (principal); C34.90 Malignant neoplasm of unspecified part of unspecified bronchus or lung; C79.51 Secondary malignant neoplasm of bone; C79.31 Secondary malignant neoplasm of brain; J44.1 Chronic obstructive pulmonary disease with (acute) exacerbation; N17.9 Acute kidney failure, unspecified; K04.7 Periapical abscess without sinus; K21.9 Gastro-esophageal reflux disease without esophagitis; F17.210 Nicotine dependence, cigarettes, uncomplicated; D69.6 Thrombocytopenia, unspecified; E11.40 Type 2 diabetes mellitus with diabetic neuropathy, unspecified; N18.9 Chronic kidney disease, unspecified; E11.22 Type 2 diabetes mellitus with diabetic chronic kidney disease; I12.9 Hypertensive chronic kidney disease with stage 1 through stage 4 chronic kidney disease, or unspecified chronic kidney disease; Z11.52 Encounter for screening for COVID-19; Z88.8 Allergy status to other drugs, medicaments and biological substances; Z88.5 Allergy status to narcotic agent; Z88.2 Allergy status to sulfonamides; Z79.899 Other long term (current) drug therapy; Z90.710 Acquired absence of both cervix and uterus; Z98.890 Other specified postprocedural states; Z80.1 Family history of malignant neoplasm of trachea, bronchus and lung; Z71.6 Tobacco abuse counseling
CPT/HCPCS: 36415; 36416; 71045; 80053; 83605; 83735; 83880; 84145; 84484; 85025; 85610; 85730; 87040; 93005; 94640; 94644; 94760; 96365; 96367; 96375; G0378; J0456; J0696; J1815; J2270; J2405; J3475; J3490; J7050; J7120; J7512; J7611; J7620; Q0162